=== PATIENT | male | born 1965 | race Hispanic/Latino ===

== ENCOUNTER 2017-10-04 08:47 | Inpatient (IN) | payer BC ==
[2017-10-04 08:48] VITALS: PULSE 65; BMI 57.2
--- NOTE | 2017-10-04 11:07 | C.PDOC ---
History Of Present Illness 52 y/o male with multiple PMHx presents to ED with c/o non healing ulcer for 3 weeks. Patient has tried 2 courses of outpatient antibiotics without success and was sent by PMD for IV antibiotics. Patient denies fever, numbness, chest pain or any other complaints at this time. Time Seen by Provider: 10/04/17 09:20 Chief Complaint (Nursing): Lower Extremity Problem/Injury History Per: Patient History/Exam Limitations: no limitations Onset/Duration Of Symptoms: Days Current Symptoms Are (Timing): Still Present Past Medical History Reviewed: Historical Data, Nursing Documentation, Vital Signs Vital Signs: Last Vital Signs Temp 97.8 F 10/04/17 08:55 Pulse 61 10/04/17 08:55 Resp 18 10/04/17 08:55 BP 167/84 H 10/04/17 08:55 Pulse Ox 95 10/04/17 11:17 - Medical History PMH: Atrial Fibrillation, COPD, HTN, Peripheral Edema, Pneumonia Surgical History: Appendectomy - [facility] Procedures ASSISTANCE WITH RESPIRATORY VENTILATION, <24 HRS, CPAP (04/10/15) DRAINAGE OF R PLEURAL CAV WITH DRAIN DEV, PERC APPROACH (04/10/15) EXTRACTION OF RIGHT PLEURA, PERCUTANEOUS ENDOSCOPIC APPROACH (04/10/15) HOME MANAGEMENT TREATMENT (05/20/15) INSPECTION OF TRACHEOBRONCHIAL TREE, ENDO (04/10/15) INTRODUCE OF OTH THERAP SUBST INTO RESP TRACT, VIA OPENING (05/20/15) THERAPEUTIC EXERCISE TREATMENT OF MUSCULOSK WHOLE (05/20/15) Family History: States: No Known Family Hx - Social History Hx Alcohol Use: No Hx Substance Use: No Review Of Systems Constitutional: Negative for: Fever, Chills Cardiovascular: Negative for: Chest Pain Gastrointestinal: Negative for: Nausea, Vomiting Musculoskeletal: Positive for: Leg Pain (ulcer) Skin: Negative for: Rash Physical Exam - Physical Exam Appears: Non-toxic, No Acute Distress, Other (Morbidly obese) Skin: Warm, Dry, No Rash, Other (Bilateral lower extremities chronic skin changes, darkened scaly skin ) Head: Atraumatic, Normacephalic Eye(s): bilateral: Normal Inspection Oral Mucosa: Moist Neck: Normal ROM, Supple Cardiovascular: Rhythm Regular Respiratory: Normal Breath Sounds, No Rales, No Rhonchi, No Wheezing Gastrointestinal/Abdominal: Soft, No Tenderness, No Guarding, No Rebound Extremity: Calf Tenderness, No Deformity, Other (left lateral calf has 5x4.5cm ulcerated area with mild tenderness and surrounding erythema) Pulses: Left Dorsalis Pedis: Normal, Right Dorsalis Pedis: Normal Neurological/Psych: Oriented x3, Normal Motor, Normal Sensation ED Course And Treatment O2 Sat by Pulse Oximetry: 95 (RA) Pulse Ox Interpretation: Normal Medical Decision Making Medical Decision Making: discussed with podiatry resident and with Dr Wells, to be admitted to Dr Wells for cellulitis with pod and id consult Disposition Discussed With : Lars Wells Doctor Will See Patient In The: Hospital - Disposition Disposition: HOSPITALIZED Disposition Time: 11:12 Condition: GOOD Forms: [facility] (Greek) - Clinical Impression Clinical Impression: Cellulitis of left lower leg, Ulcer of left lower leg - 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 - Scribe Statement The provider has reviewed the documentation as recorded by the Addis[place]tan Shepherd All medical record entries made by the Tala were at my direction and personally dictated by me. I have reviewed the chart and agree that the record accurately reflects my personal performance of the history, physical exam, medical decision making, and the department course for this patient. I have also personally directed, reviewed, and agree with the discharge instructions and disposition.
--- NOTE | 2017-10-04 11:25 | CP.PCM.CON ---
History of Present Illness - History of Present Illness History of Present Illness: 52 y/o male presents to ED with c/o non healing ulcer for 3 weeks. Patient has tried 2 courses of outpatient antibiotics without success and was sent by PMD for IV antibiotics. Patient denies fever, numbness, chest pain or any other complaints at this time. - Medical History PMH: Atrial Fibrillation, COPD, HTN, Peripheral Edema, Pneumonia Denies: Chronic Kidney Disease Surgical History: Appendectomy - [facility] Procedures ASSISTANCE WITH RESPIRATORY VENTILATION, <24 HRS, CPAP (04/10/15) DRAINAGE OF R PLEURAL CAV WITH DRAIN DEV, PERC APPROACH (04/10/15) EXTRACTION OF RIGHT PLEURA, PERCUTANEOUS ENDOSCOPIC APPROACH (04/10/15) HOME MANAGEMENT TREATMENT (05/20/15) INSPECTION OF TRACHEOBRONCHIAL TREE, ENDO (04/10/15) INTRODUCE OF OTH THERAP SUBST INTO RESP TRACT, VIA OPENING (05/20/15) THERAPEUTIC EXERCISE TREATMENT OF MUSCULOSK WHOLE (05/20/15) Review of Systems - Constitutional Constitutional: As Per HPI - EENT Eyes: absent: As Per HPI, Blind Spots, Blurred Vision, Change in Vision, Decreased Night Vision, Diplopia, Discharge, Dry Eye, Exophthalmos, Floaters, Irritation, Itchy Eyes, Loss of Peripheral Vision, Pain, Photophobia, Requires Corrective Lenses, Sees Flashes, Spots in Vision, Tunnel Vision, Other Visual Disturbances, Loss of Vision, Other Ears: absent: As Per HPI, Decreased Hearing, Ear Discharge, Ear Pain, Tinnitus, Abnormal Hearing, Disequilibrium, Dizziness, Other Nose/Mouth/Throat: absent: As Per HPI, Epistaxis, Nasal Congestion, Nasal Discharge, Nasal Obstruction, Nasal Trauma, Nose Pain, Post Nasal Drip, Sinus Pain, Sinus Pressure, Bleeding Gums, Change in Voice, Dental Pain, Dry Mouth, Dysphagia, Halitosis, Hoarsness, Lip Swelling, Mouth Lesions, Mouth Pain, Odynophagia, Sore Throat, Throat Swelling, Tongue Swelling, Facial Pain, Neck Pain, Neck Mass, Other - Cardiovascular Cardiovascular: As Per HPI - Respiratory Respiratory: absent: As Per HPI, Cough, Dyspnea, Hemoptysis, Dyspnea on Exertion , Wheezing, Snoring, Stridor, Pain on Inspiration, Chest Congestion, Excessive Mucous Production, Change in Mucous Color, Pain with Coughing, Other - Gastrointestinal Gastrointestinal: absent: As Per HPI, Abdominal Pain, Belching, Bloating, Change in Bowel Habits, Change in Stool Character, Coffee Ground Emesis, Constipation, Cramping, Diarrhea, Dyspepsia, Dysphagia, Early Satiety, Excessive Flatus, Fecal Incontinence, Heartburn, Hematemesis, Hematochezia, Loose Stools, Melena, Nausea, Odynophagia, Temesmus, Vomiting, Other - Genitourinary Genitourinary: absent: As Per HPI, Change in Urinary Stream, Difficulty Urinating, Dysuria, Flank Pain, Hematuria, Pyuria, Nocturia, Urinary Incontinence, Urinary Frequency, Urinary Hesitance, Urinary Urgency, Voiding Freq/Small Amts, Freq UTI, Hx Renal/Bladder Calculi, Hx /Renal Surgery, Bladder Distension, Other - Musculoskeletal Musculoskeletal: As Per HPI - Integumentary Integumentary: As Per HPI, Skin Pain, Wounds - Neurological Neurological: absent: As Per HPI, Abnormal Gait, Abnormal Hearing, Abnormal Movements, Abnormal Speech, Behavioral Changes, Burning Sensations, Confusion, Convulsions, Disequilibrium, Dizziness, Numbness, Focal Weakness, Frequent Falls , Headaches, Lack of Coordination, Loss of Vision, Memory Loss, Paresthesias, Radicular Pain, Restless Legs, Sensory Deficit, Syncope, Tingling, Tremor, Vertigo, Weakness, Other Visual Disturbances, Other - Psychiatric Psychiatric: absent: As Per HPI, Abnormal Sleep Pattern, Anhedonia, Anxiety, Auditory Hallucinations, Behavioral Changes, Change in Appetite, Change in Libido, Confusion, Depression, Difficulty Concentrating, Hallucinations, Homicidal Ideation, Hopelessness, Irritability, Memory Loss, Mood Swings, Panic Attacks, Paranoia, Suicidal Ideation, Visual Hallucinations, Tactile Hallucinations, Other - Endocrine Endocrine: absent: As Per HPI, Change in Body Appearance, Change in Libido, Cold Intolorance, Deepening of Voice, Excessive Sweating, Fatigue, Flushing, Heat Intolorance, Increase in Ring/Shoe/Hat Size, Palpitations, Polydipsia, Polyphagia, Polyuria, Other - Hematologic/Lymphatic Hematologic: absent: As Per HPI, Easy Bleeding, Easy Bruising, Lymphadenopathy, Other Past Patient History - Infectious Disease Hx of Infectious Diseases: None - Past Medical History & Family History Past Medical History?: No - Past Social History Smoking Status: Former Smoker - CARDIAC Hx Atrial Fibrillation: Yes Hx Hypertension: Yes Hx Peripheral Edema: Yes - PULMONARY Hx Chronic Obstructive Pulmonary Disease (COPD): Yes Hx Pneumonia: Yes - NEUROLOGICAL Hx Neurological Disorder: No - HEENT Hx HEENT Problems: No - RENAL Hx Chronic Kidney Disease: No - ENDOCRINE/METABOLIC Hx Endocrine Disorders: No - HEMATOLOGICAL/ONCOLOGICAL Hx Blood Disorders: No - INTEGUMENTARY Hx Dermatological Problems: No - MUSCULOSKELETAL/RHEUMATOLOGICAL Hx Musculoskeletal Disorders: Yes Hx Falls: No Hx Unsteady Gait: Yes - GASTROINTESTINAL Hx Gastrointestinal Disorders: No - GENITOURINARY/GYNECOLOGICAL Hx Genitourinary Disorders: No - PSYCHIATRIC Hx Substance Use: No - SURGICAL HISTORY Hx Appendectomy: Yes - ANESTHESIA Hx Anesthesia: Yes Hx Anesthesia Reactions: No Hx Malignant Hyperthermia: No Meds Allergies/Adverse Reactions: Allergies Allergy/AdvReac Type Severity Reaction Status Date / Time No Known Allergies Allergy Verified 05/21/15 01:56 Physical Exam - Constitutional Appears: Non-toxic, Chronically Ill - Head Exam Head Exam: NORMOCEPHALIC - Eye Exam Eye Exam: PERRL - ENT Exam ENT Exam: Mucous Membranes Dry - Neck Exam Neck exam: Negative for: Lymphadenopathy - Respiratory Exam Respiratory Exam: Decreased Breath Sounds - Cardiovascular Exam Cardiovascular Exam: REGULAR RHYTHM - GI/Abdominal Exam GI & Abdominal Exam: Diminished Bowel Sounds - Rectal Exam Rectal Exam: Deferred - Exam Exam: NORMAL INSPECTION - Extremities Exam Extremities exam: Positive for: pedal edema, tenderness, pedal pulses present. Negative for: calf tenderness - Back Exam Back exam: absent: CVA tenderness (L), CVA tenderness (R) - Neurological Exam Neurological exam: Alert, CN II-XII Intact, Oriented x3, Reflexes Normal - Psychiatric Exam Psychiatric exam: Normal Mood - Skin Skin Exam: Dry Results - Vital Signs Recent Vital Signs: Last Vital Signs Temp 97.8 F 10/04/17 08:55 Pulse 61 10/04/17 08:55 Resp 18 10/04/17 08:55 BP 167/84 H 10/04/17 08:55 Pulse Ox 95 10/04/17 11:23 - Labs Result Diagrams: 10/04/17 11:35 10/04/17 11:35 Assessment & Plan (1) Cellulitis of left lower leg Status: Acute (2) Ulcer of left lower leg Status: Acute - Assessment and Plan (Free Text) Assessment: await cultures iv antibiotics ordered
[2017-10-04 11:42] LABS: BASO % 0.6 % (0.0-2.0); EOS # 0.1 K/uL (0.0-0.7); EOS % 1.3 % (0.0-4.0); HEMOGLOBIN 13.3 g/dL (12.0-18.0); LYMPH # 1.3 K/uL (1.0-4.3); LYMPH % 27.4 % (20.0-40.0); MEAN CELL VOLUME 88.2 fL (80.0-94.0); MEAN CORPUSCULAR HEMOGLOBIN 29.4 pg (27.0-31.0); MEAN CORPUSCULAR HGB CONC 33.4 g/dL (33.0-37.0); MEAN PLATELET VOLUME 8.6 fL (7.2-11.7); MONO # 0.3 K/uL (0.0-0.8); MONO % 6.9 % (0.0-10.0); NEUT # 2.9 K/uL (1.8-7.0); NEUT % 63.8 % (50.0-75.0); NRBC % 0.1 % (0.0-2.0); RBC 4.5 Mil/uL (4.40-5.90); RED CELL DISTRIBUTION WIDTH 15.5 % (11.5-14.5); WHITE BLOOD COUNT 4.6 K/uL (4.8-10.8)
[2017-10-04 12:01] LABS: ALB/GLOB RATIO 1.3 (1.0-2.1); ALBUMIN 3.9 g/dL (3.5-5.0); ALT/SGPT 38 U/L (21-72); AST/SGOT 31 U/L (17-59); BLOOD UREA NITROGEN 15 mg/dL (9-20); CALCIUM 8.3 mg/dl (8.6-10.4); GFR AFRICAN-AMERICAN > 60; GFR NON-AFRICAN AMERICAN > 60
[2017-10-04] MEDS: Piperacill/Tazo 3.375gm in Dex 3.375 GM/50 ML BAG IVPB SCH ×2 (13:15→21:24)
[2017-10-04] MEDS ORDERED: Piperacillin/Tazobact 3.375 gm 100 ML IVPB ONE (13:22)
--- NOTE | 2017-10-04 16:50 | CP.PCM.CON ---
<Evans Giraldo - Last Filed: 10/04/17 16:58> History of Present Illness - History of Present Illness History of Present Illness: 52 year old male pt of Christin Servin seen at bedside concerning left leg redness and swelling with open ulceration. PT is well know to attending Dr. Servin who sent him for evaluation s/p left leg infection. Pt denies any acute overnight events. Unna boot dressing in place and he notes since yesterday with increased redness and swelling the Unna's boot has become extremely constrictive and moderately painful. He deneis f/c/cp/sob.n/v/d. PMH: Atrial Fibrillation, COPD, HTN, Peripheral Edema, Pneumonia SHx Appendectomy All: NKDA Review of Systems - Review of Systems All systems: reviewed and no additional remarkable complaints except Past Patient History - Infectious Disease Hx of Infectious Diseases: None - Past Medical History & Family History Past Medical History?: No - Past Social History Smoking Status: Former Smoker - CARDIAC Hx Atrial Fibrillation: Yes Hx Hypertension: Yes Hx Peripheral Edema: Yes - PULMONARY Hx Chronic Obstructive Pulmonary Disease (COPD): Yes Hx Pneumonia: Yes - NEUROLOGICAL Hx Neurological Disorder: No - HEENT Hx HEENT Problems: No - RENAL Hx Chronic Kidney Disease: No - ENDOCRINE/METABOLIC Hx Endocrine Disorders: No - HEMATOLOGICAL/ONCOLOGICAL Hx Blood Disorders: No - INTEGUMENTARY Hx Dermatological Problems: No - MUSCULOSKELETAL/RHEUMATOLOGICAL Hx Musculoskeletal Disorders: Yes Hx Falls: No Hx Unsteady Gait: Yes - GASTROINTESTINAL Hx Gastrointestinal Disorders: No - GENITOURINARY/GYNECOLOGICAL Hx Genitourinary Disorders: No - PSYCHIATRIC Hx Substance Use: No - SURGICAL HISTORY Hx Appendectomy: Yes - ANESTHESIA Hx Anesthesia: Yes Hx Anesthesia Reactions: No Hx Malignant Hyperthermia: No Meds Allergies/Adverse Reactions: Allergies Allergy/AdvReac Type Severity Reaction Status Date / Time No Known Allergies Allergy Verified 05/21/15 01:56 - Medications Medications: Current Medications Piperacillin Sod/Tazobactam Sod (Zosyn 3.375 Gm Iv Premix) 3.375 gm in 50 mls @ 100 mls/hr IVPB Q8H ANISH PRN Reason: Protocol Last Admin: 10/04/17 13:15 Dose: 100 mls/hr Physical Exam - Constitutional Appears: Well, Non-toxic, No Acute Distress - Extremities Exam Additional comments: Neuro-vascular status intact. DERM Left left partial thickness ulceration measuring 5 x 4.5 cm with fibrogranular base. No tunneling, undermining, or disceranble mal-odor. Astrid wound proximal margin non-blanchable streaking erythema noted absent soft tissue crepitus and induration. Significant lower extremity lymphedema noted, greater proximal to knee joints bilaterally. Right lid calf level circumferential dis-hydtrodic flaking skin patch edtending to level of ankle joint. Pedal muscle strength graded 5/5 in all 4 major groups. Mild limited ankle joint ROM to dorsiflexion. No gross deformities bilaterally. - Neurological Exam Neurological exam: Alert, Oriented x3 - Psychiatric Exam Psychiatric exam: Normal Affect, Normal Mood Results - Vital Signs Recent Vital Signs: Last Vital Signs Temp 98.2 F 10/04/17 14:57 Pulse 60 10/04/17 14:57 Resp 18 10/04/17 14:57 BP 117/70 10/04/17 14:57 Pulse Ox 96 10/04/17 14:57 - Labs Result Diagrams: 10/04/17 11:35 10/04/17 11:35 Labs: Laboratory Results - last 24 hr 10/04/17 10/04/17 11:35 11:35 WBC 4.6 L RBC 4.50 Hgb 13.3 Hct 39.7 MCV 88.2 MCH 29.4 MCHC 33.4 RDW 15.5 H Plt Count 170 MPV 8.6 Neut % (Auto) 63.8 Lymph % (Auto) 27.4 Rhea % (Auto) 6.9 Eos % (Auto) 1.3 Baso % (Auto) 0.6 Neut # (Auto) 2.9 Lymph # (Auto) 1.3 Rhea # (Auto) 0.3 Eos # (Auto) 0.1 Baso # (Auto) 0.0 Sodium 142 Potassium 4.0 Chloride 101 Carbon Dioxide 30 Anion Gap 14 BUN 15 Creatinine 0.8 Est GFR ( Amer) > 60 Est GFR (Non-Af Amer) > 60 Random Glucose 109 Calcium 8.3 L Total Bilirubin 0.7 AST 31 ALT 38 Alkaline Phosphatase 52 Total Protein 6.8 Albumin 3.9 Globulin 3.0 Albumin/Globulin Ratio 1.3 Assessment & Plan - Assessment and Plan (Free Text) Assessment: 52 year old male with left lateral leg ulcer and lympangitis and lymphedema Plan: Pt seen and evalauted. Discussed with Dr. Servin. Chart, labs, and vitals reviewed. Intervention. Local wound care Cleansed site with sterle saling. Wound Culture taken. Dressed site with Betadine, telfa, DSD. Bactroban ordered. IV abx per ID recommendations Podiatry will continue to follow while inhouse. - Date & Time Date: 10/04/17 Time: 10:00 <Giorgio Servin - Last Filed: 10/04/17 21:22> Meds - Medications Medications: Current Medications Furosemide (Lasix) 40 mg PO HS ANISH Piperacillin Sod/Tazobactam Sod (Zosyn 3.375 Gm Iv Premix) 3.375 gm in 50 mls @ 100 mls/hr IVPB Q8H ANISH PRN Reason: Protocol Last Admin: 10/04/17 13:15 Dose: 100 mls/hr Mupirocin (Bactroban Ointment) 1 gm TOP DAILY ANISH Nebivolol (Bystolic) 5 mg PO HS ANISH Pneumococcal Polyvalent Vaccine (Pneumovax 23 Vaccine) 0.5 ml IM .ONCE ONE Stop: 10/06/17 10:01 Rivaroxaban (Xarelto) 20 mg PO HS ANISH Results - Vital Signs Recent Vital Signs: Last Vital Signs Temp 98.4 F 10/04/17 17:02 Pulse 56 L 10/04/17 17:02 Resp 20 10/04/17 17:02 BP 122/56 L 10/04/17 17:02 Pulse Ox 95 10/04/17 19:09 - Labs Result Diagrams: 10/04/17 11:35 10/04/17 11:35 Labs: Laboratory Results - last 24 hr 10/04/17 10/04/17 11:35 11:35 WBC 4.6 L RBC 4.50 Hgb 13.3 Hct 39.7 MCV 88.2 MCH 29.4 MCHC 33.4 RDW 15.5 H Plt Count 170 MPV 8.6 Neut % (Auto) 63.8 Lymph % (Auto) 27.4 Rhea % (Auto) 6.9 Eos % (Auto) 1.3 Baso % (Auto) 0.6 Neut # (Auto) 2.9 Lymph # (Auto) 1.3 Rhea # (Auto) 0.3 Eos # (Auto) 0.1 Baso # (Auto) 0.0 Sodium 142 Potassium 4.0 Chloride 101 Carbon Dioxide 30 Anion Gap 14 BUN 15 Creatinine 0.8 Est GFR ( Amer) > 60 Est GFR (Non-Af Amer) > 60 Random Glucose 109 Calcium 8.3 L Total Bilirubin 0.7 AST 31 ALT 38 Alkaline Phosphatase 52 Total Protein 6.8 Albumin 3.9 Globulin 3.0 Albumin/Globulin Ratio 1.3 Assessment & Plan - Assessment and Plan (Free Text) Plan: as above /labs and chart reviewed . will follow daily as inpatient /Dr Kang Servin
--- NOTE | 2017-10-04 23:19 | HP ---
HISTORY OF PRESENT ILLNESS: This is a 52-year-old gentleman was brought in with a history of non-healing ulcer on the left ankle for past 3 weeks. The patient has been seen in followup by Dr. Servin and been given antibiotic without much improvement, subsequently was admitted. The patient has had a history of morbid obesity, weighing more than 400 pounds. The patient also has a history of hypertension, history of pleural effusion, to my recollection, he had a pulmonary emboli in the past and paroxysmal atrial fibrillation. At home, he is maintained on amiodarone 200 mg p.o. 1 a day, Wednesday to Wednesday. He is on Bystolic 5 mg p.o. once a day and Xarelto 20 mg p.o. once a day and Lasix 40 mg p.o. 1 a day. He is also on CPAP. He is on home oxygen 16/11. He was in his and has boots on the left leg for more than a year, subsequently the boot was removed, the edema went down; however, for past 3 weeks he had developed ulcer, 3 cm which is non-healing. He was given prescription for antibiotic with a local treatment without improvement. PERSONAL HISTORY: Does not smoke. Does not drink. ALLERGIES: DENIED. FAMILY HISTORY: Father had a history of coronary artery disease, CABG in his 60s, also was hypertensive. REVIEW OF SYSTEMS: CONSTITUTIONAL: Generalized weakness is noted. Increasing shortness of breath and fatigue with dyspnea on exertion. HEENT: No headaches, no visual disturbances. NECK: No swollen glands in the neck. No enlarged thyroid. PULMONARY: Positive for shortness of breath and wheezing. No hemoptysis. CARDIAC: Denies any chest pains. Shortness of breath on minimal exertion. Increasing edema. History of hypertension, paroxysmal AFib, but denies any palpitations and no recurrence of AFib for past more than a year. GI: Negative for abdominal pain, hematemesis or melena. : Negative for dysuria or hematuria. MUSCULOSKELETAL: History of both the hip joint pains, knee pains. PERIPHERAL VASCULAR SYSTEM: The patient has varicose vein. NEUROLOGICAL: Denies any dizziness or syncope. PSYCHIATRIC: No evidence of depression. PHYSICAL EXAMINATION: GENERAL: Middle-aged morbidly obese gentleman, in no acute distress. VITAL SIGNS: His blood pressure is 130/70, heart rate of 68 regular, respiratory rate of 24, temperature of 97 . HEENT: Head is normocephalic. Eyes, no pallor, no icterus. Moth has no exudates. NECK: Supple. LUNGS: Clear to auscultation bilaterally. HEART: PMI is not localized. Heart sounds are distant but no definite gallops or murmurs. ABDOMEN: Distended. No definite organomegaly. EXTREMITIES: 3 to 4+ nonpitting edema with changes of chronic venous insufficiency seen all over both the lower extremities. The patient's ulcer on the left ankle has a dressing on. MUSCULOSKELETAL SYSTEM: Osteoarthritis of both the knees. NEUROLOGIC: Awake, alert and oriented x3. No focal signs. DIAGNOSTICS: EKG is not available. LABORATORY DATA: CBC and chemistries are unremarkable. ASSESSMENT: A middle-aged male with a history of morbid obesity, chronic obstructive pulmonary disease, history of paroxysmal atrial fibrillation and history of possible pulmonary embolism in the past has presented with a non-healing ulcer on the left ankle. PLAN: At this time is to continue with an IV antibiotic, ID consultation Dr. Hewitt and will follow up. May need to discontinue amiodarone and Xarelto and will observe him. This will be done after initial cardiac evaluation. Lars Wells MD
[2017-10-05] MEDS: Piperacill/Tazo 3.375gm in Dex 3.375 GM/50 ML BAG IVPB SCH ×3 (04:39→21:18)
--- NOTE | 2017-10-05 12:15 | CP.PCM.PN ---
<Evans Giraldo - Last Filed: 10/05/17 12:12> Subjective - Date & Time of Evaluation Date of Evaluation: 10/05/17 Time of Evaluation: 08:30 - Subjective Subjective: Podiatry Progress Note- Dr. Servin. 52 year old male seen at bedside concerning left leg wound and swelling. Pt reports dressing was disturbed overnight. Pt reports 4/10 pain to the lower extremity this visit as he is seated in dependent position. Otherwise he reports no continuous pain. Pt denies any acute overnight events. He denies f/c/ cp/sob.n/v/d. Objective - Vital Signs/Intake and Output Vital Signs (last 24 hours): Temp Pulse Resp BP Pulse Ox 97.4 F L 52 L 20 119/66 97 10/05/17 08:19 10/05/17 08:19 10/05/17 08:19 10/05/17 08:19 10/05/17 08:19 - Medications Medications: Current Medications Furosemide (Lasix) 40 mg PO [facility] Last Admin: 10/04/17 21:24 Dose: 40 mg Piperacillin Sod/Tazobactam Sod (Zosyn 3.375 Gm Iv Premix) 3.375 gm in 50 mls @ 100 mls/hr IVPB Q8H [facility] PRN Reason: Protocol Last Admin: 10/05/17 04:39 Dose: 100 mls/hr Mupirocin (Bactroban Ointment) 1 gm TOP DAILY [facility] Last Admin: 10/05/17 09:45 Dose: 1 gm Nebivolol (Bystolic) 5 mg PO [facility] Last Admin: 10/04/17 21:24 Dose: 5 mg Pneumococcal Polyvalent Vaccine (Pneumovax 23 Vaccine) 0.5 ml IM .ONCE ONE Stop: 10/06/17 10:01 Rivaroxaban (Xarelto) 20 mg PO [facility] Last Admin: 10/04/17 21:23 Dose: 20 mg - Labs Labs: 10/04/17 11:35 10/04/17 11:35 - Constitutional Appears: Well, Non-toxic, No Acute Distress - Extremities Exam Additional comments: Left lower extremity focused. Dressing clean, dry, and disheveled. Neuro-vascular status intact. DERM Left left partial thickness ulceration measuring 5 x 4.5 cm with granular base. No tunneling, undermining, or disceranble mal-odor. Astrid wound proximal margin non-blanchable streaking erythema noted absent soft tissue crepitus and induration. Significant lower extremity lymphedema noted, greater proximal to knee joints bilaterally. Right lid calf level circumferential dis-hydtrodic flaking skin patch edtending to level of ankle joint. Pedal muscle strength graded 5/5 in all 4 major groups. Mild limited ankle joint ROM to dorsiflexion. No gross deformities bilaterally. - Neurological Exam Neurological Exam: Alert, Awake, Oriented x3 - Psychiatric Exam Psychiatric exam: Normal Affect, Normal Mood Assessment and Plan - Assessment and Plan (Free Text) Assessment: 52 year old male with left lateral leg ulcer and lympangitis and lymphedema Plan: Pt seen and evaluated with attending, rosa Ivory. Chart, labs, and vitals reviewed. Podiatry Intervention: Local wound care Cleansed site with sterile saline. Dressed site with Bactroban, xeroform, DSD and bilateral full lower leg JESSICA. Wound Culture results- pending. IV abx per ID recommendations PT to avoid dependent position. Elevate lower extrmeity as tolerated. Podiatry will continue to follow while inhouse. <Giorgio Servin - Last Filed: 10/05/17 21:09> Objective - Vital Signs/Intake and Output Vital Signs (last 24 hours): Temp Pulse Resp BP Pulse Ox 97.6 F 55 L 20 111/63 96 10/05/17 15:05 10/05/17 15:05 10/05/17 15:05 10/05/17 15:05 10/05/17 15:05 - Medications Medications: Current Medications Furosemide (Lasix) 40 mg PO [facility] Last Admin: 10/04/17 21:24 Dose: 40 mg Piperacillin Sod/Tazobactam Sod (Zosyn 3.375 Gm Iv Premix) 3.375 gm in 50 mls @ 100 mls/hr IVPB Q8H [facility] PRN Reason: Protocol Last Admin: 10/05/17 12:20 Dose: 100 mls/hr Mupirocin (Bactroban Ointment) 1 gm TOP DAILY [facility] Last Admin: 10/05/17 09:45 Dose: 1 gm Nebivolol (Bystolic) 5 mg PO [facility] Last Admin: 10/04/17 21:24 Dose: 5 mg Pneumococcal Polyvalent Vaccine (Pneumovax 23 Vaccine) 0.5 ml IM .ONCE ONE Stop: 10/06/17 10:01 Rivaroxaban (Xarelto) 20 mg PO HS [facility] Last Admin: 10/04/17 21:23 Dose: 20 mg - Labs Labs: 10/04/17 11:35 10/04/17 11:35 Assessment and Plan - Assessment and Plan (Free Text) Plan: Pt seen at bedside today . labs and chart reviewed . less Malodor noted today . Wound redressed . Continue antibiotics as per Dr Hewitt ./DR SERVIN
--- NOTE | 2017-10-05 12:49 | CP.PCM.PN ---
Subjective - Date & Time of Evaluation Date of Evaluation: 10/05/17 Time of Evaluation: 12:48 - Subjective Subjective: better.holter on. Objective - Vital Signs/Intake and Output Vital Signs (last 24 hours): Temp Pulse Resp BP Pulse Ox 97.4 F L 52 L 20 119/66 97 10/05/17 08:19 10/05/17 08:19 10/05/17 08:19 10/05/17 08:19 10/05/17 08:19 - Medications Medications: Current Medications Furosemide (Lasix) 40 mg PO [facility] Last Admin: 10/04/17 21:24 Dose: 40 mg Piperacillin Sod/Tazobactam Sod (Zosyn 3.375 Gm Iv Premix) 3.375 gm in 50 mls @ 100 mls/hr IVPB Q8H [facility] PRN Reason: Protocol Last Admin: 10/05/17 12:20 Dose: 100 mls/hr Mupirocin (Bactroban Ointment) 1 gm TOP DAILY [facility] Last Admin: 10/05/17 09:45 Dose: 1 gm Nebivolol (Bystolic) 5 mg PO [facility] Last Admin: 10/04/17 21:24 Dose: 5 mg Pneumococcal Polyvalent Vaccine (Pneumovax 23 Vaccine) 0.5 ml IM .ONCE ONE Stop: 10/06/17 10:01 Rivaroxaban (Xarelto) 20 mg PO [facility] Last Admin: 10/04/17 21:23 Dose: 20 mg - Labs Labs: 10/04/17 11:35 10/04/17 11:35 - Constitutional Appears: No Acute Distress - Head Exam Head Exam: NORMOCEPHALIC - Eye Exam Eye Exam: Normal appearance - ENT Exam ENT Exam: Normal Exam - Respiratory Exam Respiratory Exam: Clear to Ausculation Bilateral - Cardiovascular Exam Cardiovascular Exam: REGULAR RHYTHM - GI/Abdominal Exam GI & Abdominal Exam: Soft - Extremities Exam Extremities Exam: Pedal Edema - Neurological Exam Neurological Exam: Alert, Oriented x3 Assessment and Plan - Assessment and Plan (Free Text) Assessment: ct iv antibiotics.amio on hold.check holter.
[2017-10-06] MEDS: Piperacill/Tazo 3.375gm in Dex 3.375 GM/50 ML BAG IVPB SCH ×3 (05:39→21:55)
[2017-10-06] MEDS ORDERED: Pneumococcal 23-Valent Vaccine IM ONE (10:00)
--- NOTE | 2017-10-06 18:13 | CP.PCM.PN ---
Subjective - Date & Time of Evaluation Date of Evaluation: 10/05/17 Time of Evaluation: 07:00 - Subjective Subjective: seen on rounds orders written Objective - Vital Signs/Intake and Output Vital Signs (last 24 hours): Temp Pulse Resp BP Pulse Ox 98.2 F 58 L 20 110/68 97 10/06/17 15:05 10/06/17 15:05 10/06/17 15:05 10/06/17 15:05 10/06/17 15:05 - Medications Medications: Current Medications Furosemide (Lasix) 40 mg PO [facility] Last Admin: 10/05/17 21:18 Dose: 40 mg Piperacillin Sod/Tazobactam Sod (Zosyn 3.375 Gm Iv Premix) 3.375 gm in 50 mls @ 100 mls/hr IVPB Q8H [facility] PRN Reason: Protocol Last Admin: 10/06/17 13:30 Dose: 100 mls/hr Mupirocin (Bactroban Ointment) 1 gm TOP DAILY [facility] Last Admin: 10/06/17 10:00 Dose: Not Given Nebivolol (Bystolic) 5 mg PO [facility] Last Admin: 10/05/17 21:18 Dose: 5 mg Rivaroxaban (Xarelto) 20 mg PO [facility] Last Admin: 10/05/17 21:18 Dose: 20 mg - Labs Labs: 10/04/17 11:35 10/04/17 11:35 - Constitutional Appears: Non-toxic, Chronically Ill - Head Exam Head Exam: NORMOCEPHALIC - Eye Exam Eye Exam: PERRL - ENT Exam ENT Exam: Mucous Membranes Dry - Neck Exam Neck Exam: absent: Lymphadenopathy - Respiratory Exam Respiratory Exam: Decreased Breath Sounds - Cardiovascular Exam Cardiovascular Exam: REGULAR RHYTHM - GI/Abdominal Exam GI & Abdominal Exam: Distended - Rectal Exam Rectal Exam: Deferred - Exam Exam: NORMAL INSPECTION Assessment and Plan (1) Cellulitis of left lower leg Status: Acute (2) Ulcer of left lower leg Status: Acute
--- NOTE | 2017-10-06 18:15 | CP.PCM.PN ---
Subjective - Date & Time of Evaluation Date of Evaluation: 10/06/17 Time of Evaluation: 16:00 - Subjective Subjective: c/o pain swelling + tenderness + left leg Objective - Vital Signs/Intake and Output Vital Signs (last 24 hours): Temp Pulse Resp BP Pulse Ox 98.2 F 58 L 20 110/68 97 10/06/17 15:05 10/06/17 15:05 10/06/17 15:05 10/06/17 15:05 10/06/17 15:05 - Medications Medications: Current Medications Furosemide (Lasix) 40 mg PO [facility] Last Admin: 10/05/17 21:18 Dose: 40 mg Piperacillin Sod/Tazobactam Sod (Zosyn 3.375 Gm Iv Premix) 3.375 gm in 50 mls @ 100 mls/hr IVPB Q8H [facility] PRN Reason: Protocol Last Admin: 10/06/17 13:30 Dose: 100 mls/hr Mupirocin (Bactroban Ointment) 1 gm TOP DAILY [facility] Last Admin: 10/06/17 10:00 Dose: Not Given Nebivolol (Bystolic) 5 mg PO [facility] Last Admin: 10/05/17 21:18 Dose: 5 mg Rivaroxaban (Xarelto) 20 mg PO [facility] Last Admin: 10/05/17 21:18 Dose: 20 mg - Labs Labs: 10/04/17 11:35 10/04/17 11:35 - Constitutional Appears: Non-toxic, Chronically Ill - Head Exam Head Exam: NORMOCEPHALIC - Eye Exam Eye Exam: absent: Scleral icterus - ENT Exam ENT Exam: Mucous Membranes Dry - Neck Exam Neck Exam: absent: Lymphadenopathy - Respiratory Exam Respiratory Exam: Decreased Breath Sounds - Cardiovascular Exam Cardiovascular Exam: REGULAR RHYTHM - GI/Abdominal Exam GI & Abdominal Exam: Distended - Rectal Exam Rectal Exam: Deferred - Exam Exam: NORMAL INSPECTION - Extremities Exam Extremities Exam: absent: Pedal Edema - Back Exam Back Exam: absent: CVA tenderness (L), CVA tenderness (R) - Neurological Exam Neurological Exam: Alert, Awake, Oriented x3 - Psychiatric Exam Psychiatric exam: Normal Mood - Skin Skin Exam: Dry Additional comments: large circumferential ulcer left leg posteriorly and laterally + cellulitis Assessment and Plan (1) Cellulitis of left lower leg Status: Acute (2) Ulcer of left lower leg Status: Acute - Assessment and Plan (Free Text) Assessment: cont iv antibiotics and wound care elevation may need OR debridement
--- NOTE | 2017-10-06 21:43 | CP.PCM.PN ---
Subjective - Date & Time of Evaluation Date of Evaluation: 10/06/17 Time of Evaluation: 21:42 - Subjective Subjective: pain in wound,seen by id. Objective - Vital Signs/Intake and Output Vital Signs (last 24 hours): Temp Pulse Resp BP Pulse Ox 98.2 F 58 L 20 110/68 97 10/06/17 15:05 10/06/17 15:05 10/06/17 15:05 10/06/17 15:05 10/06/17 15:05 - Medications Medications: Current Medications Furosemide (Lasix) 40 mg PO HS [facility] Last Admin: 10/05/17 21:18 Dose: 40 mg Piperacillin Sod/Tazobactam Sod (Zosyn 3.375 Gm Iv Premix) 3.375 gm in 50 mls @ 100 mls/hr IVPB Q8H [facility] PRN Reason: Protocol Last Admin: 10/06/17 13:30 Dose: 100 mls/hr Vancomycin/Sodium Chloride (Vancomycin 1 Gm/Ns 200 Ml) 1 gm in 200 mls @ 133 mls/hr IVPB Q12H [facility] PRN Reason: Protocol Stop: 10/11/17 19:01 Mupirocin (Bactroban Ointment) 1 gm TOP DAILY [facility] Last Admin: 10/06/17 10:00 Dose: Not Given Nebivolol (Bystolic) 5 mg PO [facility] Last Admin: 10/05/17 21:18 Dose: 5 mg Rivaroxaban (Xarelto) 20 mg PO [facility] Last Admin: 10/05/17 21:18 Dose: 20 mg - Labs Labs: 10/04/17 11:35 10/04/17 11:35 - Constitutional Appears: No Acute Distress - Head Exam Head Exam: NORMOCEPHALIC - Eye Exam Eye Exam: Normal appearance - Neck Exam Neck Exam: Normal Inspection - Respiratory Exam Respiratory Exam: Clear to Ausculation Bilateral - Cardiovascular Exam Cardiovascular Exam: REGULAR RHYTHM - GI/Abdominal Exam GI & Abdominal Exam: Soft - Neurological Exam Neurological Exam: Alert, Oriented x3 Assessment and Plan - Assessment and Plan (Free Text) Assessment: big wound.dressing on.needs to ct antibiotics.
[2017-10-06] MEDS: Vancomycin 1 gm/NS 200 ml 1 GM/200 ML BAG IVPB SCH (21:54)
[2017-10-06] MEDS: Acetaminophen-Codeine 300/30 mg Tab PO PRN (22:05)
[2017-10-07] MEDS: Piperacill/Tazo 3.375gm in Dex 3.375 GM/50 ML BAG IVPB SCH ×3 (05:24→23:37)
[2017-10-07] MEDS: Vancomycin 1 gm/NS 200 ml 1 GM/200 ML BAG IVPB SCH ×2 (06:40→23:36)
--- NOTE | 2017-10-07 14:40 | CP.PCM.PN ---
Subjective - Date & Time of Evaluation Date of Evaluation: 10/07/17 Time of Evaluation: 09:00 - Subjective Subjective: Podiatry Progress Note- Dr. Servin. 52 year old male seen at bedside concerning left leg wound and swelling. Pt reports dressing was disturbed overnight. Pt reports no pain to the lower extremity this visit. Pt denies any acute overnight events. He denies f/c/cp/ sob.n/v/d. Objective - Vital Signs/Intake and Output Vital Signs (last 24 hours): Temp Pulse Resp BP Pulse Ox 98.0 F 50 L 20 132/75 95 10/07/17 08:50 10/07/17 08:50 10/07/17 08:50 10/07/17 08:50 10/07/17 08:50 Intake and Output: 10/07/17 10/07/17 06:59 18:59 Intake Total 980 Balance 980 - Medications Medications: Current Medications Acetaminophen/Codeine Phosphate (Tylenol/Codeine 300 Mg/30 Mg) 1 ea PO Q6 PRN PRN Reason: Pain, moderate (4-7) Stop: 10/08/17 23:59 Last Admin: 10/06/17 22:05 Dose: 1 ea Furosemide (Lasix) 40 mg PO HS [facility] Last Admin: 10/06/17 21:55 Dose: 40 mg Piperacillin Sod/Tazobactam Sod (Zosyn 3.375 Gm Iv Premix) 3.375 gm in 50 mls @ 100 mls/hr IVPB Q8H [facility] PRN Reason: Protocol Last Admin: 10/07/17 12:55 Dose: 100 mls/hr Vancomycin/Sodium Chloride (Vancomycin 1 Gm/Ns 200 Ml) 1 gm in 200 mls @ 133 mls/hr IVPB Q12H [facility] PRN Reason: Protocol Stop: 10/11/17 19:01 Last Admin: 10/07/17 06:40 Dose: 133 mls/hr Mupirocin (Bactroban Ointment) 1 gm TOP DAILY [facility] Last Admin: 10/07/17 10:30 Dose: Not Given Nebivolol (Bystolic) 5 mg PO [facility] Last Admin: 10/06/17 21:54 Dose: 5 mg Rivaroxaban (Xarelto) 20 mg PO HS [facility] Last Admin: 10/06/17 21:54 Dose: 20 mg - Labs Labs: 10/04/17 11:35 10/04/17 11:35 - Constitutional Appears: Well, Non-toxic, No Acute Distress - Extremities Exam Additional comments: Left lower extremity focused. Dressing clean, dry, and disheveled. Neuro-vascular status intact. DERM Left left partial thickness ulceration measuring 5 x 4.0 cm with granular base. No tunneling, undermining, or discerable mal-odor. Astrid wound proximal margin non-blanchable streaking erythema noted absent soft tissue crepitus and induration. Significant lower extremity lymphedema noted, greater proximal to knee joints bilaterally. Right lid calf level circumferential dis-hydtrodic flaking skin patch extending to level of ankle joint. Pedal muscle strength graded 5/5 in all 4 major groups. Mild limited ankle joint ROM to dorsiflexion. No gross deformities bilaterally. - Neurological Exam Neurological Exam: Alert, Awake, Normal Gait - Psychiatric Exam Psychiatric exam: Normal Affect, Normal Mood Assessment and Plan - Assessment and Plan (Free Text) Assessment: 52 year old male with left lateral leg ulcer and lympangitis and lymphedema Plan: Pt seen and evaluated with attending, Dr. Servin, present. Chart, labs, and vitals reviewed. Podiatry Intervention: Local wound care Cleansed site with sterile saline. Dressed site with Bactroban, xeroform, DSD and bilateral full lower leg JESSICA. Wound Culture results-Enterobacter Cloacae ssp, enterococcus faecalis IV abx per ID recommendations Pt to avoid dependent position. Elevate lower extremity as tolerated. Podiatry will continue to follow while inhouse.
--- NOTE | 2017-10-07 18:00 | CP.PCM.PN ---
Subjective - Date & Time of Evaluation Date of Evaluation: 10/07/17 Time of Evaluation: 07:00 - Subjective Subjective: denies fever c/o pain in LLE- like stabbing sensation weak and generally bedridden Objective - Vital Signs/Intake and Output Vital Signs (last 24 hours): Temp Pulse Resp BP Pulse Ox 97.5 F L 53 L 20 115/66 95 10/07/17 15:40 10/07/17 15:40 10/07/17 15:40 10/07/17 15:40 10/07/17 15:40 Intake and Output: 10/07/17 10/07/17 06:59 18:59 Intake Total 980 Balance 980 - Medications Medications: Current Medications Acetaminophen/Codeine Phosphate (Tylenol/Codeine 300 Mg/30 Mg) 1 ea PO Q6 PRN PRN Reason: Pain, moderate (4-7) Stop: 10/08/17 23:59 Last Admin: 10/06/17 22:05 Dose: 1 ea Furosemide (Lasix) 40 mg PO HS [facility] Last Admin: 10/06/17 21:55 Dose: 40 mg Piperacillin Sod/Tazobactam Sod (Zosyn 3.375 Gm Iv Premix) 3.375 gm in 50 mls @ 100 mls/hr IVPB Q8H [facility] PRN Reason: Protocol Last Admin: 10/07/17 12:55 Dose: 100 mls/hr Vancomycin/Sodium Chloride (Vancomycin 1 Gm/Ns 200 Ml) 1 gm in 200 mls @ 133 mls/hr IVPB Q12H [facility] PRN Reason: Protocol Stop: 10/11/17 19:01 Last Admin: 10/07/17 06:40 Dose: 133 mls/hr Mupirocin (Bactroban Ointment) 1 gm TOP DAILY [facility] Last Admin: 10/07/17 10:30 Dose: Not Given Nebivolol (Bystolic) 5 mg PO HS [facility] Last Admin: 10/06/17 21:54 Dose: 5 mg Rivaroxaban (Xarelto) 20 mg PO HS [facility] Last Admin: 10/06/17 21:54 Dose: 20 mg - Labs Labs: 10/04/17 11:35 10/04/17 11:35 - Constitutional Appears: Non-toxic, Chronically Ill - Head Exam Head Exam: NORMOCEPHALIC - Eye Exam Eye Exam: PERRL - ENT Exam ENT Exam: Mucous Membranes Dry - Neck Exam Neck Exam: absent: Lymphadenopathy - Respiratory Exam Respiratory Exam: Decreased Breath Sounds - Cardiovascular Exam Cardiovascular Exam: REGULAR RHYTHM - GI/Abdominal Exam GI & Abdominal Exam: Distended - Rectal Exam Rectal Exam: Deferred - Exam Exam: NORMAL INSPECTION - Extremities Exam Extremities Exam: Calf Tenderness, Pedal Edema, Tenderness Additional comments: Left lower extremity focused. Dressing clean, dry, and disheveled. Neuro-vascular status intact. DERM Left left partial thickness ulceration measuring 5 x 4.0 cm with granular base. No tunneling, undermining, or discerable mal-odor. Astrid wound proximal margin non-blanchable streaking erythema noted absent soft tissue crepitus and induration. Significant lower extremity lymphedema noted, greater proximal to knee joints bilaterally. Right lid calf level circumferential dis-hydtrodic flaking skin patch extending to level of ankle joint. Pedal muscle strength graded 5/5 in all 4 major groups. Mild limited ankle joint ROM to dorsiflexion. No gross deformities bilaterally. - Back Exam Back Exam: absent: CVA tenderness (L), CVA tenderness (R) - Neurological Exam Neurological Exam: Alert, Awake, Oriented x3 - Psychiatric Exam Psychiatric exam: Normal Mood - Skin Skin Exam: Dry Assessment and Plan (1) Cellulitis of left lower leg Status: Acute (2) Ulcer of left lower leg Status: Acute - Assessment and Plan (Free Text) Assessment: morbidly obese male with underlying COPD HTN and AFIB is admitted with exac COPD, lymphedema and cellulits with stasis ulcer left leg May have Pulm HTN, hypovantilation syndrome appears deconditioned wound care and IV antibiotics ordered may benefit from [facility]
[2017-10-07] MEDS: Acetaminophen-Codeine 300/30 mg Tab PO PRN (21:32)
[2017-10-08] MEDS: Piperacill/Tazo 3.375gm in Dex 3.375 GM/50 ML BAG IVPB SCH ×3 (05:19→20:22)
[2017-10-08] MEDS: Vancomycin 1 gm/NS 200 ml 1 GM/200 ML BAG IVPB SCH ×2 (06:01→20:21)
--- NOTE | 2017-10-08 12:19 | CP.PCM.PN ---
Subjective - Date & Time of Evaluation Date of Evaluation: 10/08/17 Time of Evaluation: 12:17 - Subjective Subjective: feels ok.pain is better. Objective - Vital Signs/Intake and Output Vital Signs (last 24 hours): Temp Pulse Resp BP Pulse Ox 97.8 F 48 L 20 114/69 94 L 10/08/17 07:00 10/08/17 07:00 10/08/17 07:00 10/08/17 07:00 10/08/17 07:00 Intake and Output: 10/08/17 10/08/17 06:59 18:59 Intake Total 820 Balance 820 - Medications Medications: Current Medications Acetaminophen/Codeine Phosphate (Tylenol/Codeine 300 Mg/30 Mg) 1 ea PO Q6 PRN PRN Reason: Pain, moderate (4-7) Stop: 10/08/17 23:59 Last Admin: 10/07/17 21:32 Dose: 1 ea Furosemide (Lasix) 40 mg PO HS [facility] Last Admin: 10/07/17 21:35 Dose: 40 mg Piperacillin Sod/Tazobactam Sod (Zosyn 3.375 Gm Iv Premix) 3.375 gm in 50 mls @ 100 mls/hr IVPB Q8H [facility] PRN Reason: Protocol Last Admin: 10/08/17 05:19 Dose: 100 mls/hr Vancomycin/Sodium Chloride (Vancomycin 1 Gm/Ns 200 Ml) 1 gm in 200 mls @ 133 mls/hr IVPB Q12H [facility] PRN Reason: Protocol Stop: 10/11/17 19:01 Last Admin: 10/08/17 06:01 Dose: 133 mls/hr Mupirocin (Bactroban Ointment) 1 gm TOP DAILY [facility] Last Admin: 10/07/17 10:30 Dose: Not Given Nebivolol (Bystolic) 5 mg PO HS [facility] Last Admin: 10/07/17 21:35 Dose: 5 mg Rivaroxaban (Xarelto) 20 mg PO HS [facility] Last Admin: 10/07/17 21:35 Dose: 20 mg - Labs Labs: 10/04/17 11:35 10/04/17 11:35 - Constitutional Appears: No Acute Distress - Head Exam Head Exam: NORMOCEPHALIC - ENT Exam ENT Exam: Normal Exam - Neck Exam Neck Exam: Normal Inspection - Respiratory Exam Respiratory Exam: Clear to Ausculation Bilateral - Cardiovascular Exam Cardiovascular Exam: REGULAR RHYTHM - GI/Abdominal Exam GI & Abdominal Exam: Soft - Extremities Exam Extremities Exam: Pedal Edema - Neurological Exam Neurological Exam: Alert, Oriented x3 Assessment and Plan - Assessment and Plan (Free Text) Assessment: wound has dressing on.seen by dr ibanez.wound is gettting better.await holter.
--- NOTE | 2017-10-08 15:30 | CP.PCM.PN ---
Subjective - Date & Time of Evaluation Date of Evaluation: 10/08/17 Time of Evaluation: 09:40 - Subjective Subjective: Podiatry Progress Note- Dr. Servin. 52 year old male seen at bedside concerning left leg wound and swelling. Pt reports continued mild stabbing pain like sensation to the lower extremity this visit, as he has previously been in dependent position prior to arrival. . Pt denies any acute overnight events. He denies f/c/cp/sob.n/v/d. Objective - Vital Signs/Intake and Output Vital Signs (last 24 hours): Temp Pulse Resp BP Pulse Ox 97.8 F 48 L 20 114/69 94 L 10/08/17 07:00 10/08/17 07:00 10/08/17 07:00 10/08/17 07:00 10/08/17 07:00 Intake and Output: 10/08/17 10/08/17 06:59 18:59 Intake Total 820 Balance 820 - Medications Medications: Current Medications Acetaminophen/Codeine Phosphate (Tylenol/Codeine 300 Mg/30 Mg) 1 ea PO Q6 PRN PRN Reason: Pain, moderate (4-7) Stop: 10/08/17 23:59 Last Admin: 10/07/17 21:32 Dose: 1 ea Furosemide (Lasix) 40 mg PO HS [facility] Last Admin: 10/07/17 21:35 Dose: 40 mg Piperacillin Sod/Tazobactam Sod (Zosyn 3.375 Gm Iv Premix) 3.375 gm in 50 mls @ 100 mls/hr IVPB Q8H [facility] PRN Reason: Protocol Last Admin: 10/08/17 12:35 Dose: 100 mls/hr Vancomycin/Sodium Chloride (Vancomycin 1 Gm/Ns 200 Ml) 1 gm in 200 mls @ 133 mls/hr IVPB Q12H [facility] PRN Reason: Protocol Stop: 10/11/17 19:01 Last Admin: 10/08/17 06:01 Dose: 133 mls/hr Mupirocin (Bactroban Ointment) 1 gm TOP DAILY [facility] Last Admin: 10/08/17 10:45 Dose: Not Given Nebivolol (Bystolic) 5 mg PO HS [facility] Last Admin: 10/07/17 21:35 Dose: 5 mg Rivaroxaban (Xarelto) 20 mg PO HS [facility] Last Admin: 10/07/17 21:35 Dose: 20 mg - Labs Labs: 10/04/17 11:35 10/04/17 11:35 - Constitutional Appears: Well, Non-toxic, No Acute Distress - Extremities Exam Additional comments: Left lower extremity focused. Dressing clean, dry, and disheveled. Neuro-vascular status intact. DERM Left left partial thickness ulceration measuring 4.7 x 4.0 cm with granular base. No tunneling, undermining, or discernable mal-odor. No periwound streaking erythema noted at this time. Significant lower extremity lymphedema noted, greater proximal to knee joints bilaterally. Right lid calf level circumferential dis-hydtrodic flaking skin patch extending to level of ankle joint. Pedal muscle strength graded 5/5 in all 4 major groups. Mild limited ankle joint ROM to dorsiflexion. No gross deformities bilaterally. - Neurological Exam Neurological Exam: Alert, Awake, Oriented x3 Assessment and Plan - Assessment and Plan (Free Text) Assessment: 52 year old male with left lateral leg ulcer secondary to lymphedema Plan: Pt seen and evaluated with attending, Dr. Servin, present. Chart, labs, and vitals reviewed. Podiatry Intervention: Local wound care Cleansed site with sterile saline. Dressed site with Bactroban, xeroform, DSD and bilateral full lower leg JESSICA. Wound Culture results-Enterobacter Cloacae ssp, enterococcus faecalis IV abx per ID recommendations Pt to avoid dependent position. Elevate lower extremity as tolerated. Podiatry will continue to follow while inhouse.
--- NOTE | 2017-10-08 18:44 | CP.PCM.PN ---
Subjective - Date & Time of Evaluation Date of Evaluation: 10/08/17 Time of Evaluation: 10:00 - Subjective Subjective: less pain and redness no fever Objective - Vital Signs/Intake and Output Vital Signs (last 24 hours): Temp Pulse Resp BP Pulse Ox 97.9 F 53 L 20 103/64 94 L 10/08/17 15:38 10/08/17 15:38 10/08/17 15:38 10/08/17 15:38 10/08/17 15:38 Intake and Output: 10/08/17 10/08/17 06:59 18:59 Intake Total 820 50 Balance 820 50 - Medications Medications: Current Medications Acetaminophen/Codeine Phosphate (Tylenol/Codeine 300 Mg/30 Mg) 1 ea PO Q6 PRN PRN Reason: Pain, moderate (4-7) Stop: 10/08/17 23:59 Last Admin: 10/07/17 21:32 Dose: 1 ea Furosemide (Lasix) 40 mg PO HS [facility] Last Admin: 10/07/17 21:35 Dose: 40 mg Piperacillin Sod/Tazobactam Sod (Zosyn 3.375 Gm Iv Premix) 3.375 gm in 50 mls @ 100 mls/hr IVPB Q8H [facility] PRN Reason: Protocol Last Admin: 10/08/17 12:35 Dose: 100 mls/hr Vancomycin/Sodium Chloride (Vancomycin 1 Gm/Ns 200 Ml) 1 gm in 200 mls @ 133 mls/hr IVPB Q12H [facility] PRN Reason: Protocol Stop: 10/11/17 19:01 Last Admin: 10/08/17 06:01 Dose: 133 mls/hr Mupirocin (Bactroban Ointment) 1 gm TOP DAILY [facility] Last Admin: 10/08/17 10:45 Dose: Not Given Nebivolol (Bystolic) 5 mg PO HS [facility] Last Admin: 10/07/17 21:35 Dose: 5 mg Rivaroxaban (Xarelto) 20 mg PO HS [facility] Last Admin: 10/07/17 21:35 Dose: 20 mg - Labs Labs: 10/04/17 11:35 10/04/17 11:35 - Constitutional Appears: Non-toxic, Chronically Ill - Head Exam Head Exam: NORMOCEPHALIC - Eye Exam Eye Exam: absent: Scleral icterus - ENT Exam ENT Exam: Mucous Membranes Dry - Neck Exam Neck Exam: absent: Lymphadenopathy - Respiratory Exam Respiratory Exam: Decreased Breath Sounds - Cardiovascular Exam Cardiovascular Exam: REGULAR RHYTHM - GI/Abdominal Exam GI & Abdominal Exam: Distended Assessment and Plan (1) Cellulitis of left lower leg Status: Acute (2) Ulcer of left lower leg Status: Acute - Assessment and Plan (Free Text) Assessment: cont iv rx and wound care
[2017-10-08] MEDS: Acetaminophen-Codeine 300/30 mg Tab PO PRN (21:58)
[2017-10-09] MEDS: Piperacill/Tazo 3.375gm in Dex 3.375 GM/50 ML BAG IVPB SCH ×3 (05:35→20:26)
[2017-10-09] MEDS: Vancomycin 1 gm/NS 200 ml 1 GM/200 ML BAG IVPB SCH ×2 (06:21→18:41)
[2017-10-09 06:43] LABS: BASO % 0.7 % (0.0-2.0); EOS # 0.1 K/uL (0.0-0.7); EOS % 2.7 % (0.0-4.0); HEMOGLOBIN 13.4 g/dL (12.0-18.0); LYMPH # 1.4 K/uL (1.0-4.3); LYMPH % 31.5 % (20.0-40.0); MEAN CELL VOLUME 88.6 fL (80.0-94.0); MEAN CORPUSCULAR HEMOGLOBIN 29.6 pg (27.0-31.0); MEAN CORPUSCULAR HGB CONC 33.4 g/dL (33.0-37.0); MEAN PLATELET VOLUME 8.6 fL (7.2-11.7); MONO # 0.4 K/uL (0.0-0.8); MONO % 9.1 % (0.0-10.0); NEUT # 2.4 K/uL (1.8-7.0); NRBC % 0.1 % (0.0-2.0); RBC 4.55 Mil/uL (4.40-5.90); RED CELL DISTRIBUTION WIDTH 15.3 % (11.5-14.5); WHITE BLOOD COUNT 4.3 K/uL (4.8-10.8)
[2017-10-09 07:06] LABS: ALB/GLOB RATIO 1.1 (1.0-2.1); ALBUMIN 3.7 g/dL (3.5-5.0); GFR AFRICAN-AMERICAN > 60; GFR NON-AFRICAN AMERICAN > 60
[2017-10-09 07:33] LABS: ALT/SGPT 43 U/L (21-72); AST/SGOT 36 U/L (17-59); BLOOD UREA NITROGEN 12 mg/dL (9-20)
--- NOTE | 2017-10-09 12:32 | CP.PCM.PN ---
Subjective - Date & Time of Evaluation Date of Evaluation: 10/09/17 Time of Evaluation: 12:30 - Subjective Subjective: Podiatry Progress Note- Dr. Servin. 52 year old male seen at bedside with attending Dr. Servin concerning left leg wound and swelling. Patient is AAOx3 and appears to be resting comfortably on the chair. Denies of any pain to the legs today. Pt denies any acute overnight events. He denies f/c/cp/sob.n/v/d. no other pedal complains at this time. Objective - Vital Signs/Intake and Output Vital Signs (last 24 hours): Temp Pulse Resp BP Pulse Ox 97.4 F L 50 L 20 114/72 98 10/09/17 07:00 10/09/17 07:00 10/09/17 07:00 10/09/17 07:00 10/09/17 07:00 Intake and Output: 10/09/17 10/09/17 06:59 18:59 Intake Total 570 Balance 570 - Medications Medications: Current Medications Furosemide (Lasix) 40 mg PO HS [facility] Last Admin: 10/08/17 21:52 Dose: 40 mg Vancomycin/Sodium Chloride (Vancomycin 1 Gm/Ns 200 Ml) 1 gm in 200 mls @ 133 mls/hr IVPB Q12H [facility] PRN Reason: Protocol Stop: 10/11/17 19:01 Last Admin: 10/09/17 06:21 Dose: 133 mls/hr Piperacillin Sod/Tazobactam Sod (Zosyn 3.375 Gm Iv Premix) 3.375 gm in 50 mls @ 100 mls/hr IVPB Q8H [facility] PRN Reason: Protocol Last Admin: 10/09/17 05:35 Dose: 100 mls/hr Mupirocin (Bactroban Ointment) 1 gm TOP DAILY [facility] Last Admin: 10/09/17 10:29 Dose: Not Given Nebivolol (Bystolic) 5 mg PO HS [facility] Last Admin: 10/08/17 22:17 Dose: Not Given Rivaroxaban (Xarelto) 20 mg PO HS [facility] Last Admin: 10/08/17 21:52 Dose: 20 mg - Labs Labs: 10/09/17 06:33 10/09/17 06:33 - Constitutional Appears: Well, Non-toxic, No Acute Distress - Extremities Exam Additional comments: Left lower extremity focused. Dressing clean, dry, and disheveled. Neuro-vascular status intact. DERM Left left partial thickness ulceration measuring 4.7 x 4.0 cm with granular base. No tunneling, undermining, or discernable mal-odor. No periwound streaking erythema noted at this time. Significant lower extremity lymphedema noted, greater proximal to knee joints bilaterally. Right lid calf level circumferential dis-hydtrodic flaking skin patch extending to level of ankle joint. Pedal muscle strength graded 5/5 in all 4 major groups. Mild limited ankle joint ROM to dorsiflexion. No gross deformities bilaterally. - Neurological Exam Neurological Exam: Alert, Awake, Oriented x3 - Psychiatric Exam Psychiatric exam: Normal Affect, Normal Mood Assessment and Plan - Assessment and Plan (Free Text) Assessment: 52 year old male with left lateral leg ulcer secondary to lymphedema Plan: Pt seen and evaluated with attending, Dr. Servin, present. Chart, labs, and vitals reviewed. Podiatry Intervention: Local wound care Cleansed site with sterile saline. Dressed site with Bactroban, xeroform, DSD and bilateral full lower leg JESSICA. Wound Culture results-Enterobacter Cloacae ssp, enterococcus faecalis IV abx per ID recommendations Pt to avoid dependent position. Elevate lower extremity as tolerated. Podiatry will continue to follow while inhouse.
--- NOTE | 2017-10-09 19:04 | CP.PCM.PN ---
Subjective - Date & Time of Evaluation Date of Evaluation: 10/09/17 Time of Evaluation: 19:02 - Subjective Subjective: wound healing.off amio.,holter noted.nsr Objective - Vital Signs/Intake and Output Vital Signs (last 24 hours): Temp Pulse Resp BP Pulse Ox 97.9 F 51 L 20 154/78 H 98 10/09/17 16:26 10/09/17 16:26 10/09/17 16:26 10/09/17 16:26 10/09/17 16:26 - Medications Medications: Current Medications Furosemide (Lasix) 40 mg PO [facility] Last Admin: 10/08/17 21:52 Dose: 40 mg Vancomycin/Sodium Chloride (Vancomycin 1 Gm/Ns 200 Ml) 1 gm in 200 mls @ 133 mls/hr IVPB Q12H [facility] PRN Reason: Protocol Stop: 10/11/17 19:01 Last Admin: 10/09/17 18:41 Dose: 133 mls/hr Piperacillin Sod/Tazobactam Sod (Zosyn 3.375 Gm Iv Premix) 3.375 gm in 50 mls @ 100 mls/hr IVPB Q8H [facility] PRN Reason: Protocol Last Admin: 10/09/17 13:00 Dose: 100 mls/hr Mupirocin (Bactroban Ointment) 1 gm TOP DAILY [facility] Last Admin: 10/09/17 10:29 Dose: Not Given Nebivolol (Bystolic) 5 mg PO [facility] Last Admin: 10/08/17 22:17 Dose: Not Given Rivaroxaban (Xarelto) 20 mg PO [facility] Last Admin: 10/08/17 21:52 Dose: 20 mg - Labs Labs: 10/09/17 06:33 10/09/17 06:33 - Constitutional Appears: No Acute Distress - Head Exam Head Exam: NORMOCEPHALIC - Eye Exam Eye Exam: Normal appearance - Neck Exam Neck Exam: Normal Inspection - Respiratory Exam Respiratory Exam: Clear to Ausculation Bilateral - Cardiovascular Exam Cardiovascular Exam: REGULAR RHYTHM - GI/Abdominal Exam GI & Abdominal Exam: Soft - Extremities Exam Extremities Exam: Pedal Edema - Neurological Exam Neurological Exam: Alert, Oriented x3 Assessment and Plan - Assessment and Plan (Free Text) Assessment: ulcer on leg healing.will also d/c xarelto.observe for a,fib/
[2017-10-10] MEDS: Piperacill/Tazo 3.375gm in Dex 3.375 GM/50 ML BAG IVPB SCH ×3 (04:46→20:33)
[2017-10-10] MEDS: Vancomycin 1 gm/NS 200 ml 1 GM/200 ML BAG IVPB SCH ×2 (06:13→18:43)
--- NOTE | 2017-10-10 14:28 | CP.PCM.PN ---
Subjective - Date & Time of Evaluation Date of Evaluation: 10/10/17 Time of Evaluation: 14:26 - Subjective Subjective: Podiatry Progress Note- Dr. Servin. 52 year old male seen at bedside concerning left leg wound and swelling. Patient is AAOx3 and appears to be resting comfortably on the chair. Denies of any pain to the legs today. Pt denies any acute overnight events. He denies f/c/ cp/sob.n/v/d. no other pedal complains at this time. Objective - Vital Signs/Intake and Output Vital Signs (last 24 hours): Temp Pulse Resp BP Pulse Ox 97.3 F L 50 L 20 131/73 94 L 10/10/17 07:00 10/10/17 07:00 10/10/17 07:00 10/10/17 07:00 10/10/17 07:00 - Medications Medications: Current Medications Furosemide (Lasix) 40 mg PO HS [facility] Last Admin: 10/09/17 21:24 Dose: 40 mg Vancomycin/Sodium Chloride (Vancomycin 1 Gm/Ns 200 Ml) 1 gm in 200 mls @ 133 mls/hr IVPB Q12H [facility] PRN Reason: Protocol Stop: 10/11/17 19:01 Last Admin: 10/10/17 06:13 Dose: 133 mls/hr Piperacillin Sod/Tazobactam Sod (Zosyn 3.375 Gm Iv Premix) 3.375 gm in 50 mls @ 100 mls/hr IVPB Q8H [facility] PRN Reason: Protocol Last Admin: 10/10/17 12:30 Dose: 100 mls/hr Mupirocin (Bactroban Ointment) 1 gm TOP DAILY [facility] Last Admin: 10/10/17 11:53 Dose: Not Given Nebivolol (Bystolic) 5 mg PO HS [facility] Last Admin: 10/09/17 21:24 Dose: Not Given - Labs Labs: 10/09/17 06:33 10/09/17 06:33 - Constitutional Appears: Well, Non-toxic, No Acute Distress - Extremities Exam Additional comments: Left lower extremity focused. Dressing clean, dry, and disheveled. VASC: DP/PT pulses are faintly palpable, Cap refill time: < 3 sec to all digits , edema noted extending distally from tibial tuberosity Neuro-vascular status intact. DERM Left left partial thickness ulceration measuring 4.7 x 4.0 cm with granular base. No tunneling, undermining, or discernable mal-odor. No periwound streaking erythema noted at this time. Significant lower extremity lymphedema noted, greater proximal to knee joints bilaterally. Right lid calf level circumferential dis-hydtrodic flaking skin patch extending to level of ankle joint. Pedal muscle strength graded 5/5 in all 4 major groups. Mild limited ankle joint ROM to dorsiflexion. No gross deformities bilaterally. - Neurological Exam Neurological Exam: Alert, Awake, Oriented x3 - Psychiatric Exam Psychiatric exam: Normal Affect, Normal Mood Assessment and Plan - Assessment and Plan (Free Text) Assessment: 52 year old male with left lateral leg ulcer secondary to lymphedema Plan: Pt seen and evaluated Discussed plan with attending, Dr. Servin Chart, labs, and vitals reviewed. Podiatry Intervention: Local wound care Cleansed site with sterile saline. Dressed site with Bactroban, xeroform, DSD and bilateral full lower leg JESSICA. Wound Culture results-Enterobacter Cloacae ssp, enterococcus faecalis IV abx per ID recommendations Pt to avoid dependent position. Elevate lower extremity as tolerated. Podiatry will continue to follow while inhouse.
--- NOTE | 2017-10-10 15:11 | CP.PCM.PN ---
Subjective - Date & Time of Evaluation Date of Evaluation: 10/10/17 Time of Evaluation: 09:00 - Subjective Subjective: LESS PAIN AND SEWELLING LEFT LEG Objective - Vital Signs/Intake and Output Vital Signs (last 24 hours): Temp Pulse Resp BP Pulse Ox 97.3 F L 50 L 20 131/73 94 L 10/10/17 07:00 10/10/17 07:00 10/10/17 07:00 10/10/17 07:00 10/10/17 07:00 - Medications Medications: Current Medications Furosemide (Lasix) 40 mg PO [facility] Last Admin: 10/09/17 21:24 Dose: 40 mg Vancomycin/Sodium Chloride (Vancomycin 1 Gm/Ns 200 Ml) 1 gm in 200 mls @ 133 mls/hr IVPB Q12H [facility] PRN Reason: Protocol Stop: 10/11/17 19:01 Last Admin: 10/10/17 06:13 Dose: 133 mls/hr Piperacillin Sod/Tazobactam Sod (Zosyn 3.375 Gm Iv Premix) 3.375 gm in 50 mls @ 100 mls/hr IVPB Q8H [facility] PRN Reason: Protocol Last Admin: 10/10/17 12:30 Dose: 100 mls/hr Mupirocin (Bactroban Ointment) 1 gm TOP DAILY [facility] Last Admin: 10/10/17 11:53 Dose: Not Given Nebivolol (Bystolic) 5 mg PO [facility] Last Admin: 10/09/17 21:24 Dose: Not Given - Labs Labs: 10/09/17 06:33 10/09/17 06:33 - Constitutional Appears: Chronically Ill - Head Exam Head Exam: NORMOCEPHALIC - Eye Exam Eye Exam: absent: Scleral icterus - ENT Exam ENT Exam: Mucous Membranes Dry - Neck Exam Neck Exam: absent: Lymphadenopathy - Respiratory Exam Respiratory Exam: Decreased Breath Sounds - Cardiovascular Exam Cardiovascular Exam: REGULAR RHYTHM - GI/Abdominal Exam GI & Abdominal Exam: Distended - Rectal Exam Rectal Exam: Deferred - Exam Exam: NORMAL INSPECTION - Extremities Exam Extremities Exam: Pedal Edema - Back Exam Back Exam: absent: CVA tenderness (L), CVA tenderness (R) - Neurological Exam Neurological Exam: Alert, Awake, Oriented x3 - Psychiatric Exam Psychiatric exam: Depressed - Skin Skin Exam: Dry Assessment and Plan (1) Cellulitis of left lower leg Status: Acute (2) Ulcer of left lower leg Status: Acute - Assessment and Plan (Free Text) Assessment: CONT IV RX AND WOUND CARE WITH ELEVATION
[2017-10-11] MEDS: Piperacill/Tazo 3.375gm in Dex 3.375 GM/50 ML BAG IVPB SCH ×3 (06:00→20:44)
[2017-10-11] MEDS: Vancomycin 1 gm/NS 200 ml 1 GM/200 ML BAG IVPB SCH ×2 (08:07→18:52)
--- NOTE | 2017-10-11 11:50 | CP.PCM.PN ---
<Magda Claire - Last Filed: 10/11/17 11:41> Subjective - Date & Time of Evaluation Date of Evaluation: 10/11/17 Time of Evaluation: 10:42 - Subjective Subjective: Podiatry Progress Note - Dr. Servin. 52 year old male patient was seen at bedside concerning left leg wound and swelling. Patient is resting comfortably in chair. Patient denies any acute overnight events. NAD, AAO x3. No other pedal complains at this time. Dressing remains c/d/i. He denies N/V/F/C or SOB today. Objective - Vital Signs/Intake and Output Vital Signs (last 24 hours): Temp Pulse Resp BP Pulse Ox 98.3 F 55 L 20 147/75 95 10/10/17 23:30 10/10/17 23:30 10/10/17 23:30 10/10/17 23:30 10/10/17 23:30 - Medications Medications: Current Medications Furosemide (Lasix) 40 mg PO HS [facility] Last Admin: 10/10/17 21:26 Dose: 40 mg Vancomycin/Sodium Chloride (Vancomycin 1 Gm/Ns 200 Ml) 1 gm in 200 mls @ 133 mls/hr IVPB Q12H [facility] PRN Reason: Protocol Stop: 10/11/17 19:01 Last Admin: 10/11/17 08:07 Dose: 133 mls/hr Piperacillin Sod/Tazobactam Sod (Zosyn 3.375 Gm Iv Premix) 3.375 gm in 50 mls @ 100 mls/hr IVPB Q8H [facility] PRN Reason: Protocol Last Admin: 10/11/17 06:00 Dose: 100 mls/hr Mupirocin (Bactroban Ointment) 1 gm TOP DAILY [facility] Last Admin: 10/10/17 11:53 Dose: Not Given Nebivolol (Bystolic) 5 mg PO HS [facility] Last Admin: 10/10/17 21:27 Dose: Not Given - Labs Labs: 10/09/17 06:33 10/09/17 06:33 - Constitutional Appears: Well, Non-toxic, No Acute Distress - Head Exam Head Exam: ATRAUMATIC - Extremities Exam Additional comments: Left lower extremity focused. Dressing clean, dry, and disheveled. DERM Left left partial thickness ulceration measuring 5.0 cm x 4.0 cm with granular base. No tunneling, undermining, or discernable mal-odor. No periwound streaking erythema noted at this time. Significant lower extremity lymphedema noted, greater proximal to knee joints bilaterally. Right lid calf level circumferential dis-hydtrodic flaking skin patch extending to level of ankle joint. VASC: DP/PT pulses are faintly palpable, Cap refill time: < 3 sec to all digits , edema noted extending distally from tibial tuberosity Neuro-vascular status intact. Pedal muscle strength graded 5/5 in all 4 major groups. Mild limited ankle joint ROM to dorsiflexion. No gross deformities bilaterally. - Neurological Exam Neurological Exam: Alert, Awake, Oriented x3 - Psychiatric Exam Psychiatric exam: Normal Affect, Normal Mood - Skin Skin Exam: Normal Color, Warm Assessment and Plan - Assessment and Plan (Free Text) Assessment: 52 year old male with left lateral leg ulcer secondary to lymphedema Plan: Pt seen and evaluated Discussed plan with attending, Dr. Servin Chart, labs, and vitals reviewed. JESSICA bandage applied to bilateral legs. Cleansed site with sterile saline. Dressed site with Bactroban, xeroform, DSD and bilateral full lower leg JESSICA. Wound Culture results-Enterobacter Cloacae ssp, enterococcus faecalis IV abx per ID recommendations Pt to avoid dependent position. Elevate lower extremity as tolerated. Podiatry will continue to follow while inhouse. <Giorgio Servin - Last Filed: 10/12/17 21:57> Objective - Vital Signs/Intake and Output Vital Signs (last 24 hours): Temp Pulse Resp BP Pulse Ox 98 F 57 L 20 110/58 L 94 L 10/12/17 15:30 10/12/17 15:30 10/12/17 15:30 10/12/17 21:31 10/12/17 15:30 Intake and Output: 10/12/17 10/13/17 18:59 06:59 Intake Total 50 Balance 50 - Medications Medications: Current Medications Furosemide (Lasix) 40 mg PO HS [facility] Last Admin: 10/12/17 21:31 Dose: 40 mg Piperacillin Sod/Tazobactam Sod (Zosyn 3.375 Gm Iv Premix) 3.375 gm in 50 mls @ 100 mls/hr IVPB Q8H [facility] PRN Reason: Protocol Last Admin: 10/12/17 20:23 Dose: 100 mls/hr Mupirocin (Bactroban Ointment) 1 gm TOP DAILY [facility] Last Admin: 10/12/17 10:00 Dose: Not Given Nebivolol (Bystolic) 5 mg PO HS [facility] Last Admin: 10/12/17 21:31 Dose: 5 mg - Labs Labs: 10/09/17 06:33 10/09/17 06:33 Assessment and Plan - Assessment and Plan (Free Text) Plan: Pt seen at bedside with resident . agree with above and continue Rx ./Dr Kang Servin
--- NOTE | 2017-10-11 16:23 | CP.PCM.PN ---
Subjective - Date & Time of Evaluation Date of Evaluation: 10/11/17 Time of Evaluation: 16:22 - Subjective Subjective: nsr,off xarelto & amio.wound healing. Objective - Vital Signs/Intake and Output Vital Signs (last 24 hours): Temp Pulse Resp BP Pulse Ox 97.1 F L 67 20 111/66 94 L 10/11/17 15:48 10/11/17 15:48 10/11/17 15:48 10/11/17 15:48 10/11/17 15:48 - Medications Medications: Current Medications Furosemide (Lasix) 40 mg PO HS [facility] Last Admin: 10/10/17 21:26 Dose: 40 mg Vancomycin/Sodium Chloride (Vancomycin 1 Gm/Ns 200 Ml) 1 gm in 200 mls @ 133 mls/hr IVPB Q12H [facility] PRN Reason: Protocol Stop: 10/11/17 19:01 Last Admin: 10/11/17 08:07 Dose: 133 mls/hr Piperacillin Sod/Tazobactam Sod (Zosyn 3.375 Gm Iv Premix) 3.375 gm in 50 mls @ 100 mls/hr IVPB Q8H [facility] PRN Reason: Protocol Last Admin: 10/11/17 13:38 Dose: 100 mls/hr Mupirocin (Bactroban Ointment) 1 gm TOP DAILY [facility] Last Admin: 10/11/17 10:00 Dose: Not Given Nebivolol (Bystolic) 5 mg PO [facility] Last Admin: 10/10/17 21:27 Dose: Not Given - Labs Labs: 10/09/17 06:33 10/09/17 06:33 - Constitutional Appears: No Acute Distress - Head Exam Head Exam: NORMOCEPHALIC - Eye Exam Eye Exam: Normal appearance - Neck Exam Neck Exam: Normal Inspection - Respiratory Exam Respiratory Exam: Decreased Breath Sounds - Cardiovascular Exam Cardiovascular Exam: REGULAR RHYTHM - GI/Abdominal Exam GI & Abdominal Exam: Soft - Extremities Exam Extremities Exam: Pedal Edema - Neurological Exam Neurological Exam: Alert, Oriented x3 Assessment and Plan - Assessment and Plan (Free Text) Assessment: cpm with iv antibiotics.
[2017-10-12] MEDS: Piperacill/Tazo 3.375gm in Dex 3.375 GM/50 ML BAG IVPB SCH ×3 (05:40→20:23)
--- NOTE | 2017-10-12 11:13 | CP.PCM.PN ---
Subjective - Date & Time of Evaluation Date of Evaluation: 10/12/17 Time of Evaluation: 11:11 - Subjective Subjective: feels ok.off xarelto & amio. Objective - Vital Signs/Intake and Output Vital Signs (last 24 hours): Temp Pulse Resp BP Pulse Ox 97.8 F 51 L 20 119/63 95 10/12/17 07:30 10/12/17 07:30 10/12/17 07:30 10/12/17 07:30 10/12/17 07:30 Intake and Output: 10/12/17 10/12/17 06:59 18:59 Intake Total 170 Balance 170 - Medications Medications: Current Medications Furosemide (Lasix) 40 mg PO HS [facility] Last Admin: 10/11/17 21:49 Dose: 40 mg Piperacillin Sod/Tazobactam Sod (Zosyn 3.375 Gm Iv Premix) 3.375 gm in 50 mls @ 100 mls/hr IVPB Q8H [facility] PRN Reason: Protocol Last Admin: 10/12/17 05:40 Dose: 100 mls/hr Mupirocin (Bactroban Ointment) 1 gm TOP DAILY [facility] Last Admin: 10/11/17 10:00 Dose: Not Given Nebivolol (Bystolic) 5 mg PO HS [facility] Last Admin: 10/11/17 21:49 Dose: 5 mg - Labs Labs: 10/09/17 06:33 10/09/17 06:33 - Constitutional Appears: No Acute Distress - Head Exam Head Exam: NORMOCEPHALIC - Eye Exam Eye Exam: Normal appearance - ENT Exam ENT Exam: Normal Exam - Respiratory Exam Respiratory Exam: Clear to Ausculation Bilateral - Cardiovascular Exam Cardiovascular Exam: REGULAR RHYTHM - GI/Abdominal Exam GI & Abdominal Exam: Soft - Extremities Exam Extremities Exam: Pedal Edema - Neurological Exam Neurological Exam: Alert, Oriented x3 Assessment and Plan - Assessment and Plan (Free Text) Plan: wound has dressing on.healing.cpm.needs pul f/u for sleep apnoea & copd.
--- NOTE | 2017-10-12 17:45 | CP.PCM.CON ---
History of Present Illness - History of Present Illness History of Present Illness: asked to f/u copd and possible MIKEY pt uses nocturnal o2 @ 2 L/M NC @ home curently stable respiratory status Review of Systems - Respiratory Respiratory: Dyspnea on Exertion Past Patient History - Infectious Disease Hx of Infectious Diseases: None - Past Medical History & Family History Past Medical History?: No - Past Social History Smoking Status: Former Smoker - CARDIAC Hx Atrial Fibrillation: Yes Hx Hypertension: Yes Hx Peripheral Edema: Yes - PULMONARY Hx Chronic Obstructive Pulmonary Disease (COPD): Yes Hx Pneumonia: Yes - NEUROLOGICAL Hx Neurological Disorder: No - HEENT Hx HEENT Problems: No - RENAL Hx Chronic Kidney Disease: No - ENDOCRINE/METABOLIC Hx Endocrine Disorders: No - HEMATOLOGICAL/ONCOLOGICAL Hx Blood Disorders: No - INTEGUMENTARY Hx Dermatological Problems: No - MUSCULOSKELETAL/RHEUMATOLOGICAL Hx Musculoskeletal Disorders: Yes Hx Falls: No Hx Unsteady Gait: Yes - GASTROINTESTINAL Hx Gastrointestinal Disorders: No - GENITOURINARY/GYNECOLOGICAL Hx Genitourinary Disorders: No - PSYCHIATRIC Hx Substance Use: No - SURGICAL HISTORY Hx Appendectomy: Yes - ANESTHESIA Hx Anesthesia: Yes Hx Anesthesia Reactions: No Hx Malignant Hyperthermia: No Meds Allergies/Adverse Reactions: Allergies Allergy/AdvReac Type Severity Reaction Status Date / Time No Known Allergies Allergy Verified 05/21/15 01:56 - Medications Medications: Current Medications Furosemide (Lasix) 40 mg PO HS [facility] Last Admin: 10/11/17 21:49 Dose: 40 mg Piperacillin Sod/Tazobactam Sod (Zosyn 3.375 Gm Iv Premix) 3.375 gm in 50 mls @ 100 mls/hr IVPB Q8H [facility] PRN Reason: Protocol Last Admin: 10/12/17 13:09 Dose: 100 mls/hr Mupirocin (Bactroban Ointment) 1 gm TOP DAILY [facility] Last Admin: 10/12/17 10:00 Dose: Not Given Nebivolol (Bystolic) 5 mg PO [facility] Last Admin: 10/11/17 21:49 Dose: 5 mg Physical Exam - Constitutional Appears: No Acute Distress - Head Exam Head Exam: ATRAUMATIC, NORMOCEPHALIC - Eye Exam Eye Exam: Normal appearance - ENT Exam ENT Exam: Mucous Membranes Moist - Neck Exam Neck exam: Positive for: Normal Inspection - Respiratory Exam Respiratory Exam: Decreased Breath Sounds - Cardiovascular Exam Cardiovascular Exam: REGULAR RHYTHM, +S1, +S2 - GI/Abdominal Exam GI & Abdominal Exam: Normal Bowel Sounds - Rectal Exam Rectal Exam: Deferred - Psychiatric Exam Psychiatric exam: Normal Affect, Normal Mood Results - Vital Signs Recent Vital Signs: Last Vital Signs Temp 98 F 10/12/17 15:30 Pulse 57 L 10/12/17 15:30 Resp 20 10/12/17 15:30 BP 109/67 10/12/17 15:30 Pulse Ox 94 L 10/12/17 15:30 - Labs Result Diagrams: 10/09/17 06:33 10/09/17 06:33 Assessment & Plan (1) Cellulitis of left lower leg Status: Acute (2) Shortness of breath Status: Chronic (3) MIKEY (obstructive sleep apnea) Status: Suspected Comment: pt did not go for sleep study after previous office visit 03/2017, now willing to have home sleep study post discharge (4) Morbid obesity with BMI of 60.0-69.9, adult Status: Chronic Priority: Medium (5) COPD (chronic obstructive pulmonary disease) Status: Chronic
--- NOTE | 2017-10-12 21:53 | CP.PCM.PN ---
Subjective - Date & Time of Evaluation Date of Evaluation: 10/12/17 Time of Evaluation: 21:50 - Subjective Subjective: pt seen for continued treatment of ulcer left lower leg chronic in nature . Objective - Vital Signs/Intake and Output Vital Signs (last 24 hours): Temp Pulse Resp BP Pulse Ox 98 F 57 L 20 110/58 L 94 L 10/12/17 15:30 10/12/17 15:30 10/12/17 15:30 10/12/17 21:31 10/12/17 15:30 Intake and Output: 10/12/17 10/13/17 18:59 06:59 Intake Total 50 Balance 50 - Medications Medications: Current Medications Furosemide (Lasix) 40 mg PO HS [facility] Last Admin: 10/12/17 21:31 Dose: 40 mg Piperacillin Sod/Tazobactam Sod (Zosyn 3.375 Gm Iv Premix) 3.375 gm in 50 mls @ 100 mls/hr IVPB Q8H [facility] PRN Reason: Protocol Last Admin: 10/12/17 20:23 Dose: 100 mls/hr Mupirocin (Bactroban Ointment) 1 gm TOP DAILY [facility] Last Admin: 10/12/17 10:00 Dose: Not Given Nebivolol (Bystolic) 5 mg PO HS [facility] Last Admin: 10/12/17 21:31 Dose: 5 mg - Labs Labs: 10/09/17 06:33 10/09/17 06:33 - Extremities Exam Additional comments: O/Venous stasis ulcer left lateral lower leg improving slowly . Cellulitis resolving slowly . Chronic edema improved . Vascular status intact b/l . Assessment and Plan - Assessment and Plan (Free Text) Assessment: Infected Venous ulcer left Plan: P/ Bactroban /Xeroform dsd applied .Continue antibiotics as per Dr Hewitt
[2017-10-13] MEDS: Piperacill/Tazo 3.375gm in Dex 3.375 GM/50 ML BAG IVPB SCH ×3 (04:07→20:14)
[2017-10-13 06:35] LABS: BASO % 0.7 % (0.0-2.0); EOS # 0.1 K/uL (0.0-0.7); EOS % 2.3 % (0.0-4.0); HEMOGLOBIN 13.1 g/dL (12.0-18.0); LYMPH # 1.7 K/uL (1.0-4.3); LYMPH % 31.3 % (20.0-40.0); MEAN CELL VOLUME 88.4 fL (80.0-94.0); MEAN CORPUSCULAR HEMOGLOBIN 29.4 pg (27.0-31.0); MEAN CORPUSCULAR HGB CONC 33.2 g/dL (33.0-37.0); MEAN PLATELET VOLUME 8.5 fL (7.2-11.7); MONO # 0.4 K/uL (0.0-0.8); MONO % 8.1 % (0.0-10.0); NEUT # 3.1 K/uL (1.8-7.0); NEUT % 57.6 % (50.0-75.0); NRBC % 0.1 % (0.0-2.0); RBC 4.47 Mil/uL (4.40-5.90); RED CELL DISTRIBUTION WIDTH 15.5 % (11.5-14.5); WHITE BLOOD COUNT 5.4 K/uL (4.8-10.8)
[2017-10-13 06:52] LABS: ALB/GLOB RATIO 1.2 (1.0-2.1); ALBUMIN 3.7 g/dL (3.5-5.0); ALT/SGPT 38 U/L (21-72); AST/SGOT 26 U/L (17-59); BLOOD UREA NITROGEN 14 mg/dL (9-20); CALCIUM 8.3 mg/dl (8.6-10.4); GFR AFRICAN-AMERICAN > 60; GFR NON-AFRICAN AMERICAN > 60
--- NOTE | 2017-10-13 11:59 | CP.PCM.PN ---
Subjective - Date & Time of Evaluation Date of Evaluation: 10/13/17 Time of Evaluation: 11:58 - Subjective Subjective: doing ok.labs noted. Objective - Vital Signs/Intake and Output Vital Signs (last 24 hours): Temp Pulse Resp BP Pulse Ox 98.1 F 57 L 20 126/67 97 10/13/17 00:00 10/13/17 00:00 10/13/17 00:00 10/13/17 00:00 10/13/17 00:00 Intake and Output: 10/13/17 10/13/17 06:59 18:59 Intake Total 290 Output Total 300 Balance -10 - Medications Medications: Current Medications Furosemide (Lasix) 40 mg PO HS [facility] Last Admin: 10/12/17 21:31 Dose: 40 mg Piperacillin Sod/Tazobactam Sod (Zosyn 3.375 Gm Iv Premix) 3.375 gm in 50 mls @ 100 mls/hr IVPB Q8H [facility] PRN Reason: Protocol Last Admin: 10/13/17 04:07 Dose: 100 mls/hr Mupirocin (Bactroban Ointment) 1 gm TOP DAILY [facility] Last Admin: 10/13/17 09:36 Dose: Not Given Nebivolol (Bystolic) 5 mg PO HS [facility] Last Admin: 10/12/17 21:31 Dose: 5 mg - Labs Labs: 10/13/17 06:25 10/13/17 06:25 - Constitutional Appears: No Acute Distress - Head Exam Head Exam: NORMOCEPHALIC - Neck Exam Neck Exam: Normal Inspection - Respiratory Exam Respiratory Exam: Clear to Ausculation Bilateral - Cardiovascular Exam Cardiovascular Exam: REGULAR RHYTHM - GI/Abdominal Exam GI & Abdominal Exam: Soft - Extremities Exam Extremities Exam: Pedal Edema - Neurological Exam Neurological Exam: Alert, Oriented x3 Assessment and Plan - Assessment and Plan (Free Text) Assessment: wound healing.rx per dr messer & dr ibanez.seen by dr janine blake.sleep study as out pt.
--- NOTE | 2017-10-13 12:10 | CP.PCM.PN ---
Subjective - Date & Time of Evaluation Date of Evaluation: 10/13/17 Time of Evaluation: 12:08 - Subjective Subjective: 52YO male seen at bedside for chronic left lateral leg ulcer. Patient is not in any acute distress. AAO x3. Dressing is dry, clean and intact. Patient denies any pain. Patient denies any acute overnight events. Patient denies F/N/V/C/ SOB. Objective - Vital Signs/Intake and Output Vital Signs (last 24 hours): Temp Pulse Resp BP Pulse Ox 98.1 F 57 L 20 126/67 97 10/13/17 00:00 10/13/17 00:00 10/13/17 00:00 10/13/17 00:00 10/13/17 00:00 Intake and Output: 10/13/17 10/13/17 06:59 18:59 Intake Total 290 Output Total 300 Balance -10 - Medications Medications: Current Medications Furosemide (Lasix) 40 mg PO HS [facility] Last Admin: 10/12/17 21:31 Dose: 40 mg Piperacillin Sod/Tazobactam Sod (Zosyn 3.375 Gm Iv Premix) 3.375 gm in 50 mls @ 100 mls/hr IVPB Q8H [facility] PRN Reason: Protocol Last Admin: 10/13/17 04:07 Dose: 100 mls/hr Mupirocin (Bactroban Ointment) 1 gm TOP DAILY [facility] Last Admin: 10/13/17 09:36 Dose: Not Given Nebivolol (Bystolic) 5 mg PO HS [facility] Last Admin: 10/12/17 21:31 Dose: 5 mg - Labs Labs: 10/13/17 06:25 10/13/17 06:25 - Constitutional Appears: Well, Non-toxic, No Acute Distress - Head Exam Head Exam: ATRAUMATIC - Extremities Exam Additional comments: Vascular: DP/PT pulses palpable, CFT < 3 secs x 10, TG warm to warm, no edema noted Derm: Left lateral leg ulcer: improving, ulcer measures 5.0cm x 4.0cm with a granular base. No tunneling, undermining noted. Astrid-wound proximal margin erythema noted, no probe to bone, no malodor. Neuro: Protective sensation grossly intact Ortho: No pain on palpation. No gross deformities - Neurological Exam Neurological Exam: Alert, Awake, Oriented x3 Assessment and Plan - Assessment and Plan (Free Text) Assessment: 52YO Male seen at bedside for left lateral leg ulcer and lymphangitis and lymphedema. Plan: Patient seen and evaluated. All questions answered to patients satisfaction. Discussed with the attending, Dr. Servin. Chart, labs, and vitals reviewed; Afebrile, WBC 5.4. Wound Cx 10/04: Enterobacter Cloacae, Enterococcus Faecalis. Wound dressed with xeroform, gauze, ABD and DSD. Continue IV abx as per ID. Podiatry will continue while the patient is in house.
[2017-10-13] MEDS: Vancomycin 1 GM in Sodium Chloride 0.9% 200 ML IVPB SCH (14:01)
--- NOTE | 2017-10-13 17:50 | CP.PCM.PN ---
Subjective - Date & Time of Evaluation Date of Evaluation: 10/13/17 Time of Evaluation: 09:00 - Subjective Subjective: improving on IV rx with less erythema Objective - Vital Signs/Intake and Output Vital Signs (last 24 hours): Temp Pulse Resp BP Pulse Ox 98.3 F 60 21 119/72 98 10/13/17 15:15 10/13/17 15:15 10/13/17 15:15 10/13/17 15:15 10/13/17 15:15 Intake and Output: 10/13/17 10/13/17 06:59 18:59 Intake Total 840 Output Total 300 Balance 540 - Medications Medications: Current Medications Furosemide (Lasix) 40 mg PO HS [facility] Last Admin: 10/12/17 21:31 Dose: 40 mg Piperacillin Sod/Tazobactam Sod (Zosyn 3.375 Gm Iv Premix) 3.375 gm in 50 mls @ 100 mls/hr IVPB Q8H [facility] PRN Reason: Protocol Last Admin: 10/13/17 12:38 Dose: 100 mls/hr Vancomycin HCl 1 gm/ Sodium (Chloride) 200 mls @ 133 mls/hr IVPB Q12H [facility] PRN Reason: Protocol Last Admin: 10/13/17 14:01 Dose: 133 mls/hr Mupirocin (Bactroban Ointment) 1 gm TOP DAILY [facility] Last Admin: 10/13/17 09:36 Dose: Not Given Nebivolol (Bystolic) 5 mg PO HS [facility] Last Admin: 10/12/17 21:31 Dose: 5 mg - Labs Labs: 10/13/17 06:25 10/13/17 06:25 - Constitutional Appears: Non-toxic, Chronically Ill - Head Exam Head Exam: NORMOCEPHALIC - Eye Exam Eye Exam: PERRL - ENT Exam ENT Exam: Mucous Membranes Dry - Neck Exam Neck Exam: absent: Lymphadenopathy - Respiratory Exam Respiratory Exam: Decreased Breath Sounds - Cardiovascular Exam Cardiovascular Exam: REGULAR RHYTHM - GI/Abdominal Exam GI & Abdominal Exam: Distended, Soft - Rectal Exam Rectal Exam: Deferred - Exam Exam: NORMAL INSPECTION - Extremities Exam Extremities Exam: absent: Pedal Edema - Back Exam Back Exam: absent: CVA tenderness (L), CVA tenderness (R) Assessment and Plan (1) Cellulitis of left lower leg Status: Acute (2) Ulcer of left lower leg Status: Acute - Assessment and Plan (Free Text) Assessment: cont iv rx for now d/c on PO Augmentin when cleared by Dr Servin
--- NOTE | 2017-10-13 22:59 | CARD ---
APPROVED REPORT EKG Measurement Heart [id number] DE 190P [id number] <Conclusion> Sinus bradycardia Left axis deviation Right bundle branch block Septal infarct, age undetermined Abnormal ECG
[2017-10-14 00:52] VITALS: RESP 20
[2017-10-14] MEDS: Vancomycin 1 GM in Sodium Chloride 0.9% 200 ML IVPB SCH ×2 (01:37→13:53)
[2017-10-14] MEDS: Piperacill/Tazo 3.375gm in Dex 3.375 GM/50 ML BAG IVPB SCH ×2 (05:03→12:41)
[2017-10-14 08:51] VITALS: BP 122/73; PULSE 61; TEMP 97.7; O2SAT 97
--- NOTE | 2017-10-14 11:36 | CP.PCM.PN ---
Subjective - Date & Time of Evaluation Date of Evaluation: 10/14/17 Time of Evaluation: 11:33 - Subjective Subjective: Podiatry note for Dr. Servin 52 y/o male seen at bedside for chronic Left lateral leg ulceration. Patient is AAOX3 and in NAD. Patient's dressing is clean, dry and intact. Patient denies any pedal complaints at this time. Patient denies N/V/F/SOB/CP/D. Objective - Vital Signs/Intake and Output Vital Signs (last 24 hours): Temp Pulse Resp BP Pulse Ox 97.7 F 61 20 122/73 97 10/14/17 08:49 10/14/17 08:49 10/14/17 08:49 10/14/17 08:49 10/14/17 08:49 Intake and Output: 10/14/17 10/14/17 06:59 18:59 Intake Total 840 Output Total 400 Balance 440 - Medications Medications: Current Medications Furosemide (Lasix) 40 mg PO HS [facility] Last Admin: 10/13/17 21:19 Dose: 40 mg Piperacillin Sod/Tazobactam Sod (Zosyn 3.375 Gm Iv Premix) 3.375 gm in 50 mls @ 100 mls/hr IVPB Q8H [facility] PRN Reason: Protocol Last Admin: 10/14/17 05:03 Dose: 100 mls/hr Vancomycin HCl 1 gm/ Sodium (Chloride) 200 mls @ 133 mls/hr IVPB Q12H [facility] PRN Reason: Protocol Last Admin: 10/14/17 01:37 Dose: 133 mls/hr Mupirocin (Bactroban Ointment) 1 gm TOP DAILY [facility] Last Admin: 10/14/17 09:51 Dose: Not Given Nebivolol (Bystolic) 5 mg PO HS [facility] Last Admin: 10/13/17 21:19 Dose: 5 mg - Labs Labs: 10/13/17 06:25 10/13/17 06:25 - Constitutional Appears: Well, Non-toxic, No Acute Distress - Head Exam Head Exam: ATRAUMATIC, NORMOCEPHALIC - Extremities Exam Additional comments: Left Lower Extremity Examination VASC: DP and PT pulses palpable bilaterally, TG warm to cool, CFT less than 3 seconds; no edema noted NEURO: grossly intact DERM: improving lateral left leg ulceration measuring 5.0 X 4.0 cm with 100% granular base, no drainage, no malodor, no fluctuance, no purulence, pool-wound erythema noted MSK: pain on palpation to the wound site - Neurological Exam Neurological Exam: Alert, Awake, Oriented x3 - Psychiatric Exam Psychiatric exam: Normal Affect, Normal Mood Assessment and Plan - Assessment and Plan (Free Text) Assessment: 52 y/o male seen at bedside with chronic lateral left leg ulceration, lymphedema , and lymphagitis Plan: Patient seen and evaluated at bedside Patient plan discussed with attending, Dr. Servin Charts, Labs and Vitals reviewed- Afebrile Patient stable wound dressed with xeroform, DSD and JESSICA Patient tolerated the dressing well Patient questions answered Wound Culture- Enterobacter Cloacae ssp, Enterococcus faecalis Continue IV Antibiotics as per ID Podiatry will continue to follow patient in-house
--- NOTE | 2017-10-14 15:49 | CP.PCM.PN ---
Subjective - Date & Time of Evaluation Date of Evaluation: 10/14/17 Time of Evaluation: 11:00 - Subjective Subjective: Alert, awake, no acute pain or distress. Objective - Vital Signs/Intake and Output Vital Signs (last 24 hours): Temp Pulse Resp BP Pulse Ox 97.7 F 61 20 122/73 97 10/14/17 08:49 10/14/17 08:49 10/14/17 08:49 10/14/17 08:49 10/14/17 08:49 Intake and Output: 10/14/17 10/14/17 06:59 18:59 Intake Total 840 550 Output Total 400 Balance 440 550 - Medications Medications: Current Medications Furosemide (Lasix) 40 mg PO HS [facility] Last Admin: 10/13/17 21:19 Dose: 40 mg Piperacillin Sod/Tazobactam Sod (Zosyn 3.375 Gm Iv Premix) 3.375 gm in 50 mls @ 100 mls/hr IVPB Q8H [facility] PRN Reason: Protocol Last Admin: 10/14/17 12:41 Dose: 100 mls/hr Vancomycin HCl 1 gm/ Sodium (Chloride) 200 mls @ 133 mls/hr IVPB Q12H [facility] PRN Reason: Protocol Last Admin: 10/14/17 13:53 Dose: 133 mls/hr Mupirocin (Bactroban Ointment) 1 gm TOP DAILY [facility] Last Admin: 10/14/17 09:51 Dose: Not Given Nebivolol (Bystolic) 5 mg PO HS [facility] Last Admin: 10/13/17 21:19 Dose: 5 mg - Labs Labs: 10/13/17 06:25 10/13/17 06:25 Assessment and Plan - Assessment and Plan (Free Text) Assessment: Patient is seen and examined. Alert and orientedx3, denies acute pain. Seen by DR Annabella Wells, plan to discharge home today. Will get augmentin for [address] Hewitt. Advised to follow up by DR Servin in the office tomorrow. Prescriptions called in to the pharmacy by DR Wells.
--- NOTE | 2017-10-15 07:45 | DS ---
A 52-year-old gentleman who was brought in with cellulitis and ulcer on the left leg. The patient was treated as an outpatient by Dr. Servin without improvement. He was subsequently admitted. IV antibiotics were given. The patient was seen and followed up with Dr. Hewitt and Dr. Servin with improvement. The patient had atrial fibrillation in the past and was taking amiodarone and Xarelto, both were discontinued. He has been in sinus rhythm for the past more than a week that he is in the hospital. Holter monitor did not show any episode of AFib or SVTs or other arrhythmias. At this point, we will keep him off amiodarone and Xarelto. Prescription for Augmentin and lactobacillus has been called into the pharmacy. The antibiotics are for 10 days. The patient will follow up with Dr. Servin tomorrow for the wound check. I will see him back in a week or two again and monitor him closely for recurrent of atrial fibrillation. Otherwise, we will keep him off amiodarone and Xarelto. The patient was seen by Dr. Osman Naranjo for pulmonary and sleep apnea. Follow up as an outpatient. FINAL DIAGNOSES: 1. Cellulitis of the left leg. 2. History of hypertension. 3. History of paroxysmal atrial fibrillation. 4. Hypertension. DISCHARGE DIET: 2 g sodium, low fat, low cholesterol. Lars Wells MD
== END 2017-10-14 16:52 | disposition home or self-care (01) | DRG 593 ==
LOC: C.ER 08:47 → C.9E 11:10 → OBSVTOIN 11:10 → C.6T 14:17 → C.3T 10-12 22:13
PROVIDERS: ADMIT Internal Medicine Cardiovascular Disease; ATTEND Internal Medicine Cardiovascular Disease
DX: L97.929 Non-pressure chronic ulcer of unspecified part of left lower leg with unspecified severity (principal); L03.116 Cellulitis of left lower limb; J44.1 Chronic obstructive pulmonary disease with (acute) exacerbation; Z68.43 Body mass index [BMI] 50.0-59.9, adult; Z74.01 Bed confinement status; I89.1 Lymphangitis; I48.0 Paroxysmal atrial fibrillation; I10 Essential (primary) hypertension; E66.01 Morbid (severe) obesity due to excess calories; Z86.711 Personal history of pulmonary embolism; Z79.01 Long term (current) use of anticoagulants; Z87.891 Personal history of nicotine dependence; Z99.81 Dependence on supplemental oxygen

== ENCOUNTER 2017-12-14 11:35 | Inpatient (IN) | payer BC ==
[2017-12-14 11:36] VITALS: PULSE 65; BMI 57.2
[2017-12-14 12:07] LABS: BASO % 0.7 % (0.0-2.0); EOS # 0.1 K/uL (0.0-0.7); EOS % 1.1 % (0.0-4.0); HEMOGLOBIN 13.5 g/dL (12.0-18.0); LYMPH # 1.3 K/uL (1.0-4.3); MEAN CELL VOLUME 88.5 fL (80.0-94.0); MEAN CORPUSCULAR HEMOGLOBIN 29.2 pg (27.0-31.0); MEAN PLATELET VOLUME 8.2 fL (7.2-11.7); MONO # 0.6 K/uL (0.0-0.8); MONO % 11.5 % (0.0-10.0); NEUT # 3.2 K/uL (1.8-7.0); NEUT % 61.7 % (50.0-75.0); NRBC % 0.2 % (0.0-2.0); RBC 4.61 Mil/uL (4.40-5.90); RED CELL DISTRIBUTION WIDTH 15.9 % (11.5-14.5); WHITE BLOOD COUNT 5.2 K/uL (4.8-10.8)
[2017-12-14] MEDS ORDERED: Albuterol-Ipratrop 3 mg / 0.5 (3 ml) UD INH STA (12:08)
[2017-12-14 12:13] LABS: INR 1.1
--- NOTE | 2017-12-14 12:16 | C.PDOC ---
History Of Present Illness 52 year old male patient with hx of COPD, A-fib and pleural effusion presents to the ER with c/o productive cough with green sputum for x3 days. Associated symptoms include SOB. Patient states he used to lie on his back when sleeping but now is unable to due to SOB. Patient notes he went to his doctor who told he had a pressure ulcer and removed his unna boot. Patient denies chest pain, fever and chills. Chief Complaint (Nursing): Respiratory Distress History Per: Patient History/Exam Limitations: no limitations Onset/Duration Of Symptoms: Days (x3 ) Current Symptoms Are (Timing): Still Present Past Medical History Reviewed: Historical Data, Nursing Documentation, Vital Signs Vital Signs: Last Vital Signs Temp 98.0 F 12/17/17 07:38 Pulse 58 L 12/17/17 07:38 Resp 20 12/17/17 07:38 BP 126/74 12/17/17 10:05 Pulse Ox 97 12/17/17 07:38 - Medical History PMH: Anemia, Atrial Fibrillation, COPD, Fractures (Left hand), HTN, Peripheral Edema, Pneumonia Surgical History: Appendectomy - [facility] Procedures ASSISTANCE WITH RESPIRATORY VENTILATION, <24 HRS, CPAP (04/10/15) DRAINAGE OF R PLEURAL CAV WITH DRAIN DEV, PERC APPROACH (04/10/15) EXTRACTION OF RIGHT PLEURA, PERCUTANEOUS ENDOSCOPIC APPROACH (04/10/15) HOME MANAGEMENT TREATMENT (05/20/15) INSPECTION OF TRACHEOBRONCHIAL TREE, ENDO (04/10/15) INTRODUCE OF OTH THERAP SUBST INTO RESP TRACT, VIA OPENING (05/20/15) THERAPEUTIC EXERCISE TREATMENT OF MUSCULOSK WHOLE (05/20/15) Family History: States: Unknown Family Hx - Social History Hx Alcohol Use: No Hx Substance Use: No Review Of Systems Except As Marked, All Systems Reviewed And Found Negative. Constitutional: Negative for: Fever, Chills Cardiovascular: Negative for: Chest Pain Respiratory: Positive for: Cough (with green sputum), Shortness of Breath Physical Exam - Physical Exam Appears: Non-toxic, No Acute Distress Skin: Normal Color, Warm, Dry Head: Atraumatic, Normacephalic Eye(s): bilateral: Normal Inspection Oral Mucosa: Moist Throat: Normal Neck: Normal ROM, Supple Chest: Symmetrical, No Deformity Cardiovascular: Rhythm Regular Respiratory: Normal Breath Sounds, No Rales, No Rhonchi, No Wheezing Gastrointestinal/Abdominal: Soft, No Tenderness Extremity: Normal ROM (x4), Pedal Edema (b/l), Capillary Refill (<2 sec), Other (mild erythema) Pulses: Left Dorsalis Pedis: Normal, Right Dorsalis Pedis: Normal Neurological/Psych: Oriented x3, Normal Speech Gait: Steady ED Course And Treatment - Laboratory Results Result Diagrams: 12/17/17 08:06 12/17/17 08:06 ECG: Interpreted By Me, Viewed By Me ECG Rhythm: Sinus Rhythm Interpretation Of ECG: Right axis deviation Rate From EC O2 Sat by Pulse Oximetry: 96 - Other Rad CXR X-Ray: Read By Radiologist Interpretation: Accession No. : [id number]. Patient Name / ID : ARCELIA ALVARENGA / [id number]. Exam Date : 12/14/2017 12:17:30 ( Approved ). Study Comment : Sex / Age : M / 52Y. Creator : Xochitl Dumont MD. Dictator : Xohcitl Dumont MD. Roundhouse Worker : Athletic Agent : Xochitl Dumont MD. Approver2 : Report Date : 12/14/2017 12:48:32. My Comment : . HISTORY: chest pain. COMPARISON: Chest x-ray performed 05/20/15. TECHNIQUE: Chest, one view. FINDINGS: Examination limited by habitus. LUNGS: Hazy diffuse opacities throughout the right andre thorax may reflect layering effusion and/or consolidation. No definite pneumothorax. Please note that chest x-ray has limited sensitivity for the detection of pulmonary masses. CARDIOVASCULAR: Cardiomegaly, partially obscured. OSSEOUS STRUCTURES: No acute osseous abnormality identified. VISUALIZED UPPER ABDOMEN: Unremarkable. OTHER FINDINGS: None. IMPRESSION: Hazy diffuse opacity throughout the right andre thorax may reflect layering effusion and/or consolidation. Medical Decision Making Medical Decision Making: Impression: 52 year old morbidly obese male patient with COPD. r/o pneumonia and NH. Plans: -- EKG -- blood work -- CXR -- nasal cannula Reassess: Patient is resting comfortably. Tolerating oxygen. Patient was instructed to follow up with physician/clinic in 1-2 days for further evaluation. Disposition - Disposition Disposition: HOSPITALIZED Disposition Time: 14:18 Condition: GOOD - Clinical Impression Clinical Impression: COPD exacerbation, Cellulitis, leg - Scribe Statement The provider has reviewed the documentation as recorded by the Tala Harding Do Provider Attestation: All medical record entries made by the Tala were at my direction and personally dictated by me. I have reviewed the chart and agree that the record accurately reflects my personal performance of the history, physical exam, medical decision making, and the department course for this patient. I have also personally directed, reviewed, and agree with the discharge instructions and disposition.
[2017-12-14] MEDS ORDERED: Albuterol-Ipratrop 3 mg / 0.5 (3 ml) UD ONE (12:37)
[2017-12-14 12:38] LABS: B-TYPE NATRIURETIC PEPTIDE 106 pg/mL (0-900)
[2017-12-14 12:45] LABS: ALB/GLOB RATIO 1.3 (1.0-2.1); ALBUMIN 4.1 g/dL (3.5-5.0); ALT/SGPT 28 U/L (21-72); AST/SGOT 27 U/L (17-59); BLOOD UREA NITROGEN 13 mg/dL (9-20); CALCIUM 8.6 mg/dl (8.6-10.4); GFR NON-AFRICAN AMERICAN > 60
--- NOTE | 2017-12-14 12:50 | RAD ---
HISTORY: chest pain COMPARISON: Chest x-ray performed 05/20/15 TECHNIQUE: Chest, one view. FINDINGS: Examination limited by habitus. LUNGS: Hazy diffuse opacities throughout the right andre thorax may reflect layering effusion and/or consolidation. No definite pneumothorax. Please note that chest x-ray has limited sensitivity for the detection of pulmonary masses. CARDIOVASCULAR: Cardiomegaly, partially obscured. OSSEOUS STRUCTURES: No acute osseous abnormality identified. VISUALIZED UPPER ABDOMEN: Unremarkable. OTHER FINDINGS: None. IMPRESSION: Hazy diffuse opacity throughout the right andre thorax may reflect layering effusion and/or consolidation.
[2017-12-14] MEDS ORDERED: Cefepime 1 GM in Sodium Chloride 0.9% 50 ML IVPB ONE (14:13)
[2017-12-14] MEDS ORDERED: Vancomycin 1 GM in Sodium Chloride 0.9% 200 ML IVPB STA (14:33)
[2017-12-14] MEDS ORDERED: Cefepime IV 1 gm in Dextrose 1 GM/50 ML BAG IVPB ONE (14:45)
--- NOTE | 2017-12-15 00:14 | CARD ---
APPROVED REPORT Date of service: 12/14/2017 EKG Measurement Heart [id number] <Conclusion> Normal sinus rhythm Right bundle branch block Abnormal ECG
--- NOTE | 2017-12-15 06:50 | HP ---
Copied To: Lars Wells MD Attending MD: Lars Wells MD HISTORY OF PRESENT ILLNESS: This gentleman is 52-year-old obese gentleman, came in with a history of redness on the left foot. The patient has a history of boot that was removed on the left foot and subsequently has developed redness, swelling, and tenderness on the left foot, found to have cellulitis, came to the emergency room admission. He also is having pulmonary congestion, cough with greenish sputum for the last two days. He has a history of paroxysmal atrial fibrillation in the past, was on amiodarone and Xarelto, both were discontinued. Currently, he is on Bystolic 5 mg one a day and Lasix 40 mg p.o. once a day. PERSONAL HISTORY: Does not smoke. Does not drink. ALLERGIES: DENIED. FAMILY HISTORY: Father had history of coronary artery disease. He had a CABG done in his 60's. REVIEW OF SYSTEMS: CONSTITUTIONAL: Generalized weakness including shortness of breath. He has also sleep apnea, being followed by Dr. Osman Naranjo. His O2 saturation has dropped when he is off oxygen. HEENT: No headaches. No visual disturbances. No lymphadenopathy. NECK: No swollen glands. PULMONARY: Positive for cough. Greenish phlegm. No hemoptysis. CARDIAC: Denies any chest pain. Shortness of breath at rest, edema. History of hypertension, paroxysmal AFib. No [place]. GASTROINTESTINAL: Negative for hematemesis or melena. GENITOURINARY: Negative for dysuria or hematuria. MUSCULOSKELETAL SYSTEM: History of hip pain, knee pain. VASCULAR: The patient has varicose veins. NEUROLOGIC: Negative for TIA, CVA or syncope. PAST MEDICAL HISTORY: Had been admitted in the past for cellulitis and COPD, AFib. PHYSICAL EXAMINATION: GENERAL: Showed middle-aged morbidly obese gentleman, in no acute distress. VITAL SIGNS: His blood pressure is 110/70, heart rate of 88 and regular, respiratory rate of 20, temperature of 97.7. HEENT: Head is normocephalic. Eyes, no pallor, no icterus. NECK: Supple. LUNGS: Show scattered rhonchi all over the lung field. HEART: PMI is not localized. Heart sounds are distant without any definite gallops or murmurs. ABDOMEN: Soft and nontender. EXTREMITIES: 3+ edema is noted in both legs. Cellulitis, redness, tenderness, and swelling is noted on dorsum of the left foot. Distal pulses are not felt. NEUROLOGICAL: He is awake, alert, and oriented x3. LABORATORY DATA: Labs are not available. EKG is not available. Telemetry has shown sinus rhythm. ASSESSMENT: A 52-year-old gentleman with a history of obesity, paroxysmal atrial fibrillation, . PLAN: Admit to regular floor. Pulmonary consultation with Dr. Osman Naranjo, ID with Dr. Hewitt. Antibiotics. I will be away and Dr. Jimmy Ma to cover me for two days. Lars Wells MD
[2017-12-15] MEDS: Enoxaparin 80 mg Syringe SC SCH (09:50)
[2017-12-15] MEDS ORDERED: Vancomycin 1 gm/NS 200 ml 1 GM/200 ML BAG IVPB SCH (10:00)
--- NOTE | 2017-12-15 11:59 | CP.PCM.PN ---
Subjective - Date & Time of Evaluation Date of Evaluation: 12/15/17 Time of Evaluation: 11:57 - Subjective Subjective: SOB PRESENT. COUGH PRESENT. BOTH LEGS CELLULITIS PRESENT. AFEBRILE. ACUTE COPD. Objective - Vital Signs/Intake and Output Vital Signs (last 24 hours): Temp Pulse Resp BP Pulse Ox 98.2 F 65 20 127/70 95 12/15/17 08:00 12/15/17 08:00 12/15/17 08:00 12/15/17 09:50 12/15/17 08:00 Intake and Output: 12/15/17 12/15/17 06:59 18:59 Intake Total 230 Balance 230 - Medications Medications: Current Medications Albuterol/Ipratropium (Duoneb 3 Mg/0.5 Mg (3 Ml) Ud) 3 ml INH RQ6 [facility] Enoxaparin Sodium (Lovenox) 70 mg SC DAILY [facility] Last Admin: 12/15/17 09:50 Dose: 70 mg Furosemide (Lasix) 40 mg PO DAILY [facility] Last Admin: 12/15/17 09:50 Dose: 40 mg Cefepime HCl 1 gm/ Dextrose 50 mls @ 100 mls/hr IVPB Q12H [facility] PRN Reason: Protocol Last Admin: 12/15/17 01:27 Dose: 100 mls/hr Vancomycin/Sodium Chloride (Vancomycin 1 Gm/Ns 200 Ml) 1 gm in 200 mls @ 133 mls/hr IVPB Q24H [facility] PRN Reason: Protocol Stop: 12/20/17 10:01 Last Admin: 12/15/17 09:50 Dose: 133 mls/hr Methylprednisolone (Solu-Medrol) 60 mg IV Q12 [facility] Nebivolol (Bystolic) 5 mg PO DAILY [facility] Last Admin: 12/15/17 09:50 Dose: 5 mg - Labs Labs: 12/14/17 12:01 12/14/17 12:01 PT 12.0 SECONDS (9.7-12.2) 12/14/17 12:01 INR 1.1 12/14/17 12:01 APTT 25 SECONDS (21-34) 12/14/17 12:01 - Constitutional Appears: Chronically Ill - Eye Exam Eye Exam: Normal appearance, PERRL - ENT Exam ENT Exam: Mucous Membranes Moist - Cardiovascular Exam Cardiovascular Exam: REGULAR RHYTHM, +S1, +S2. absent: Murmur - GI/Abdominal Exam GI & Abdominal Exam: Soft, Normal Bowel Sounds. absent: Tenderness - Extremities Exam Extremities Exam: Pedal Edema Additional comments: CELLULITIS PRESENT. - Neurological Exam Neurological Exam: Alert, Awake, CN II-XII Intact, Normal Gait, Oriented x3 - Psychiatric Exam Psychiatric exam: Normal Affect, Normal Mood - Additional Findings Additional findings: CHEST XRAY SHOWS RT SIDE HAZINESS. ? EFFUSION OR CONSILIDATION. Assessment and Plan - Assessment and Plan (Free Text) Assessment: ACUTE COPD. CELLULITIS LEGS. Plan: FOR RESP TREATMENT. IV ABTS.
[2017-12-15] MEDS ORDERED: MethylPREDNISolone 40 mg Vial IV SCH (12:00)
--- NOTE | 2017-12-15 19:27 | CP.PCM.CON ---
History of Present Illness - History of Present Illness History of Present Illness: 52 y/o male presents to ED with c/o non healing ulcer for 3 weeks. Patient has tried 2 courses of outpatient antibiotics without success and was sent by PMD for IV antibiotics. Patient denies fever, numbness, chest pain or any other complaints at this time. hx of COPD, A-fib and pleural effusion presents to the ER with c/o productive cough with green sputum for x3 days. Associated symptoms include SOB. Patient states he used to lie on his back when sleeping but now is unable to due to SOB. Patient notes he went to his doctor who told he had a pressure ulcer and removed his unna boot. Patient denies chest pain, fever and chills. - Medical History PMH: Atrial Fibrillation, COPD, HTN, Peripheral Edema, Pneumonia Denies: Chronic Kidney Disease Surgical History: Appendectomy - [facility] Procedures ASSISTANCE WITH RESPIRATORY VENTILATION, <24 HRS, CPAP (04/10/15) DRAINAGE OF R PLEURAL CAV WITH DRAIN DEV, PERC APPROACH (04/10/15) EXTRACTION OF RIGHT PLEURA, PERCUTANEOUS ENDOSCOPIC APPROACH (04/10/15) HOME MANAGEMENT TREATMENT (05/20/15) INSPECTION OF TRACHEOBRONCHIAL TREE, ENDO (04/10/15) INTRODUCE OF OTH THERAP SUBST INTO RESP TRACT, VIA OPENING (05/20/15) THERAPEUTIC EXERCISE TREATMENT OF MUSCULOSK WHOLE (05/20/15) Review of Systems - Constitutional Constitutional: As Per HPI - EENT Eyes: absent: As Per HPI, Blind Spots, Blurred Vision, Change in Vision, Decreased Night Vision, Diplopia, Discharge, Dry Eye, Exophthalmos, Floaters, Irritation, Itchy Eyes, Loss of Peripheral Vision, Pain, Photophobia, Requires Corrective Lenses, Sees Flashes, Spots in Vision, Tunnel Vision, Other Visual Disturbances, Loss of Vision, Other Ears: absent: As Per HPI, Decreased Hearing, Ear Discharge, Ear Pain, Tinnitus, Abnormal Hearing, Disequilibrium, Dizziness, Other Nose/Mouth/Throat: absent: As Per HPI, Epistaxis, Nasal Congestion, Nasal Discharge, Nasal Obstruction, Nasal Trauma, Nose Pain, Post Nasal Drip, Sinus Pain, Sinus Pressure, Bleeding Gums, Change in Voice, Dental Pain, Dry Mouth, Dysphagia, Halitosis, Hoarsness, Lip Swelling, Mouth Lesions, Mouth Pain, Odynophagia, Sore Throat, Throat Swelling, Tongue Swelling, Facial Pain, Neck Pain, Neck Mass, Other - Cardiovascular Cardiovascular: As Per HPI - Respiratory Respiratory: absent: As Per HPI, Cough, Dyspnea, Hemoptysis, Dyspnea on Exertion , Wheezing, Snoring, Stridor, Pain on Inspiration, Chest Congestion, Excessive Mucous Production, Change in Mucous Color, Pain with Coughing, Other - Gastrointestinal Gastrointestinal: absent: As Per HPI, Abdominal Pain, Belching, Bloating, Change in Bowel Habits, Change in Stool Character, Coffee Ground Emesis, Constipation, Cramping, Diarrhea, Dyspepsia, Dysphagia, Early Satiety, Excessive Flatus, Fecal Incontinence, Heartburn, Hematemesis, Hematochezia, Loose Stools, Melena, Nausea, Odynophagia, Temesmus, Vomiting, Other - Genitourinary Genitourinary: absent: As Per HPI, Change in Urinary Stream, Difficulty Urinating, Dysuria, Flank Pain, Hematuria, Pyuria, Nocturia, Urinary Incontinence, Urinary Frequency, Urinary Hesitance, Urinary Urgency, Voiding Freq/Small Amts, Freq UTI, Hx Renal/Bladder Calculi, Hx /Renal Surgery, Bladder Distension, Other - Musculoskeletal Musculoskeletal: As Per HPI - Integumentary Integumentary: As Per HPI, Skin Pain, Wounds - Neurological Neurological: absent: As Per HPI, Abnormal Gait, Abnormal Hearing, Abnormal Movements, Abnormal Speech, Behavioral Changes, Burning Sensations, Confusion, Convulsions, Disequilibrium, Dizziness, Numbness, Focal Weakness, Frequent Falls , Headaches, Lack of Coordination, Loss of Vision, Memory Loss, Paresthesias, Radicular Pain, Restless Legs, Sensory Deficit, Syncope, Tingling, Tremor, Vertigo, Weakness, Other Visual Disturbances, Other - Psychiatric Psychiatric: absent: As Per HPI, Abnormal Sleep Pattern, Anhedonia, Anxiety, Auditory Hallucinations, Behavioral Changes, Change in Appetite, Change in Libido, Confusion, Depression, Difficulty Concentrating, Hallucinations, Homicidal Ideation, Hopelessness, Irritability, Memory Loss, Mood Swings, Panic Attacks, Paranoia, Suicidal Ideation, Visual Hallucinations, Tactile Hallucinations, Other - Endocrine Endocrine: absent: As Per HPI, Change in Body Appearance, Change in Libido, Cold Intolorance, Deepening of Voice, Excessive Sweating, Fatigue, Flushing, Heat Intolorance, Increase in Ring/Shoe/Hat Size, Palpitations, Polydipsia, Polyphagia, Polyuria, Other - Hematologic/Lymphatic Hematologic: absent: As Per HPI, Easy Bleeding, Easy Bruising, Lymphadenopathy, Other Past Patient History - Infectious Disease Hx of Infectious Diseases: None - Past Medical History & Family History Past Medical History?: Yes - Past Social History Smoking Status: Former Smoker - CARDIAC Hx Atrial Fibrillation: Yes Hx Hypertension: Yes Hx Peripheral Edema: Yes - PULMONARY Hx Chronic Obstructive Pulmonary Disease (COPD): Yes Hx Pneumonia: Yes - NEUROLOGICAL Hx Neurological Disorder: No - HEENT Hx HEENT Problems: No - RENAL Hx Chronic Kidney Disease: No - ENDOCRINE/METABOLIC Hx Endocrine Disorders: No - HEMATOLOGICAL/ONCOLOGICAL Hx Anemia: Yes - INTEGUMENTARY Hx Dermatological Problems: No - MUSCULOSKELETAL/RHEUMATOLOGICAL Hx Falls: No - GASTROINTESTINAL Hx Gastrointestinal Disorders: No - GENITOURINARY/GYNECOLOGICAL Hx Genitourinary Disorders: No - PSYCHIATRIC Hx Substance Use: No - SURGICAL HISTORY Hx Appendectomy: Yes - ANESTHESIA Hx Anesthesia: Yes Hx Anesthesia Reactions: No Hx Malignant Hyperthermia: No Meds Allergies/Adverse Reactions: Allergies Allergy/AdvReac Type Severity Reaction Status Date / Time No Known Allergies Allergy Verified 05/21/15 01:56 - Medications Medications: Current Medications Albuterol/Ipratropium (Duoneb 3 Mg/0.5 Mg (3 Ml) Ud) 3 ml INH RQ6 [facility] Enoxaparin Sodium (Lovenox) 70 mg SC DAILY [facility] Last Admin: 12/15/17 09:50 Dose: 70 mg Furosemide (Lasix) 40 mg PO DAILY [facility] Last Admin: 12/15/17 09:50 Dose: 40 mg Cefepime HCl 1 gm/ Dextrose 50 mls @ 100 mls/hr IVPB Q12H [facility] PRN Reason: Protocol Last Admin: 12/15/17 13:26 Dose: 100 mls/hr Vancomycin/Sodium Chloride (Vancomycin 1 Gm/Ns 200 Ml) 1 gm in 200 mls @ 133 mls/hr IVPB Q24H [facility] PRN Reason: Protocol Stop: 12/20/17 10:01 Last Admin: 12/15/17 09:50 Dose: 133 mls/hr Methylprednisolone (Solu-Medrol) 60 mg IV Q12 [facility] Last Admin: 12/15/17 12:10 Dose: 60 mg Nebivolol (Bystolic) 5 mg PO DAILY [facility] Last Admin: 12/15/17 09:50 Dose: 5 mg Physical Exam - Constitutional Appears: Chronically Ill - Head Exam Head Exam: ATRAUMATIC, NORMOCEPHALIC - Eye Exam Eye Exam: PERRL. absent: Scleral icterus - ENT Exam ENT Exam: Mucous Membranes Dry - Neck Exam Neck exam: Negative for: Lymphadenopathy - Respiratory Exam Respiratory Exam: Decreased Breath Sounds, Rales, Rhonchi - Cardiovascular Exam Cardiovascular Exam: REGULAR RHYTHM - GI/Abdominal Exam GI & Abdominal Exam: Diminished Bowel Sounds, Distended, Soft. absent: Tenderness - Rectal Exam Rectal Exam: Deferred - Exam Exam: NORMAL INSPECTION - Extremities Exam Extremities exam: Positive for: calf tenderness, pedal edema, tenderness. Negative for: pedal pulses present Additional comments: cellulitis and ulcer left leg - Back Exam Back exam: absent: CVA tenderness (L), CVA tenderness (R) - Neurological Exam Neurological exam: Alert, CN II-XII Intact, Oriented x3, Reflexes Normal - Psychiatric Exam Psychiatric exam: Depressed - Skin Skin Exam: Erythema Results - Vital Signs Recent Vital Signs: Last Vital Signs Temp 99.1 F 12/15/17 16:01 Pulse 61 12/15/17 16:01 Resp 20 12/15/17 16:01 BP 137/66 12/15/17 16:01 Pulse Ox 96 12/15/17 16:01 - Labs Result Diagrams: 12/14/17 12:01 12/14/17 12:01 Assessment & Plan (1) Cellulitis of left lower leg Status: Acute (2) Pneumonia Status: Acute Priority: High (3) COPD (chronic obstructive pulmonary disease) Status: Chronic (4) Chronic obstructive lung disease Status: Chronic (5) HTN (hypertension) Status: Chronic (6) Morbid obesity with BMI of 60.0-69.9, adult Status: Chronic Priority: Medium - Assessment and Plan (Free Text) Assessment: await cultures cont wound care and IV antibiotics
[2017-12-15] MEDS: Albuterol-Ipratrop 3 mg / 0.5 (3 ml) UD INH SCH (20:14)
[2017-12-16] MEDS: Albuterol-Ipratrop 3 mg / 0.5 (3 ml) UD INH SCH ×4 (02:07→19:35)
[2017-12-16] MEDS: Vancomycin 1 gm/NS 200 ml 1 GM/200 ML BAG IVPB SCH ×2 (04:44→18:14)
[2017-12-16] MEDS: Enoxaparin 80 mg Syringe SC SCH (09:46)
--- NOTE | 2017-12-16 10:40 | CP.PCM.PN ---
Subjective - Date & Time of Evaluation Date of Evaluation: 12/16/17 Time of Evaluation: 10:37 - Subjective Subjective: MILD SOB PRESENT. LEGS CELLULITIS PRESENT. CHRONIC. AFEBRILE. VS WNL. Objective - Vital Signs/Intake and Output Vital Signs (last 24 hours): Temp Pulse Resp BP Pulse Ox 97.8 F 59 L 20 156/69 H 97 12/16/17 08:00 12/16/17 08:00 12/16/17 08:00 12/16/17 09:45 12/16/17 08:00 Intake and Output: 12/16/17 12/16/17 06:59 18:59 Intake Total 500 Balance 500 - Medications Medications: Current Medications Albuterol/Ipratropium (Duoneb 3 Mg/0.5 Mg (3 Ml) Ud) 3 ml INH RQ6 [facility] Last Admin: 12/16/17 07:40 Dose: 3 ml Enoxaparin Sodium (Lovenox) 70 mg SC DAILY [facility] Last Admin: 12/16/17 09:46 Dose: 70 mg Furosemide (Lasix) 40 mg PO DAILY [facility] Last Admin: 12/16/17 09:45 Dose: 40 mg Cefepime HCl 1 gm/ Dextrose 50 mls @ 100 mls/hr IVPB Q12H [facility] PRN Reason: Protocol Last Admin: 12/16/17 01:11 Dose: 100 mls/hr Vancomycin/Sodium Chloride (Vancomycin 1 Gm/Ns 200 Ml) 1 gm in 200 mls @ 133 mls/hr IVPB Q12H [facility] PRN Reason: Protocol Stop: 12/21/17 05:31 Last Admin: 12/16/17 04:44 Dose: 133 mls/hr Methylprednisolone (Solu-Medrol) 60 mg IV Q12 [facility] Last Admin: 12/16/17 09:44 Dose: 60 mg Nebivolol (Bystolic) 5 mg PO DAILY [facility] Last Admin: 12/16/17 10:06 Dose: 5 mg - Labs Labs: 12/14/17 12:01 12/14/17 12:01 PT 12.0 SECONDS (9.7-12.2) 12/14/17 12:01 INR 1.1 12/14/17 12:01 APTT 25 SECONDS (21-34) 12/14/17 12:01 - Constitutional Appears: No Acute Distress, Chronically Ill - Eye Exam Eye Exam: Normal appearance, PERRL - ENT Exam ENT Exam: Normal Exam - Neck Exam Neck Exam: Normal Inspection - Respiratory Exam Respiratory Exam: Decreased Breath Sounds, Wheezes, NORMAL BREATHING PATTERN - Cardiovascular Exam Cardiovascular Exam: REGULAR RHYTHM, +S1, +S2 - GI/Abdominal Exam GI & Abdominal Exam: Soft, Normal Bowel Sounds - Extremities Exam Extremities Exam: Full ROM, Normal Capillary Refill, Normal Inspection. absent : Joint Swelling, Pedal Edema - Neurological Exam Neurological Exam: Alert, Awake, CN II-XII Intact, Normal Gait, Oriented x3 - Psychiatric Exam Psychiatric exam: Normal Affect, Normal Mood Assessment and Plan - Assessment and Plan (Free Text) Assessment: COPD, CELLULITIS. Plan: FOR RESP TREATMENT. ANTIBIOTICS.
--- NOTE | 2017-12-16 19:48 | CP.PCM.PN ---
Subjective - Date & Time of Evaluation Date of Evaluation: 12/16/17 Time of Evaluation: 08:00 - Subjective Subjective: admitted with exac copd/pneumonia and cellulitis IV Vanco/ Cefepime in progress Objective - Vital Signs/Intake and Output Vital Signs (last 24 hours): Temp Pulse Resp BP Pulse Ox 98.3 F 62 20 117/62 95 12/16/17 16:00 12/16/17 16:00 12/16/17 16:00 12/16/17 16:00 12/16/17 16:00 Intake and Output: 12/16/17 12/17/17 18:59 06:59 Intake Total 750 Balance 750 - Medications Medications: Current Medications Albuterol/Ipratropium (Duoneb 3 Mg/0.5 Mg (3 Ml) Ud) 3 ml INH RQ6 [facility] Last Admin: 12/16/17 19:35 Dose: 3 ml Enoxaparin Sodium (Lovenox) 70 mg SC DAILY [facility] Last Admin: 12/16/17 09:46 Dose: 70 mg Furosemide (Lasix) 40 mg PO DAILY [facility] Last Admin: 12/16/17 09:45 Dose: 40 mg Guaifenesin (Robitussin) 200 mg PO Q4H PRN PRN Reason: Cough and congestion Cefepime HCl 1 gm/ Dextrose 50 mls @ 100 mls/hr IVPB Q12H [facility] PRN Reason: Protocol Last Admin: 12/16/17 13:21 Dose: 100 mls/hr Vancomycin/Sodium Chloride (Vancomycin 1 Gm/Ns 200 Ml) 1 gm in 200 mls @ 133 mls/hr IVPB Q12H [facility] PRN Reason: Protocol Stop: 12/21/17 05:31 Last Admin: 12/16/17 18:14 Dose: 133 mls/hr Methylprednisolone (Solu-Medrol) 60 mg IV Q12 [facility] Last Admin: 12/16/17 09:44 Dose: 60 mg Nebivolol (Bystolic) 5 mg PO DAILY [facility] Last Admin: 12/16/17 10:06 Dose: 5 mg - Labs Labs: 12/14/17 12:01 12/14/17 12:01 PT 12.0 SECONDS (9.7-12.2) 12/14/17 12:01 INR 1.1 12/14/17 12:01 APTT 25 SECONDS (21-34) 12/14/17 12:01 - Constitutional Appears: Non-toxic, Chronically Ill - Head Exam Head Exam: NORMOCEPHALIC - Eye Exam Eye Exam: PERRL - ENT Exam ENT Exam: Mucous Membranes Dry - Neck Exam Neck Exam: Normal Inspection - Respiratory Exam Respiratory Exam: Decreased Breath Sounds, Rales, Rhonchi - Cardiovascular Exam Cardiovascular Exam: REGULAR RHYTHM - GI/Abdominal Exam GI & Abdominal Exam: Distended, Soft. absent: Tenderness - Rectal Exam Rectal Exam: Deferred - Extremities Exam Extremities Exam: absent: Pedal Edema - Back Exam Back Exam: absent: CVA tenderness (L), CVA tenderness (R) - Neurological Exam Neurological Exam: Alert, Awake, Oriented x3 - Psychiatric Exam Psychiatric exam: Depressed - Skin Skin Exam: Dry Assessment and Plan (1) Cellulitis of left lower leg Status: Acute (2) Pneumonia Status: Acute (3) COPD (chronic obstructive pulmonary disease) Status: Chronic (4) Chronic obstructive lung disease Status: Chronic (5) HTN (hypertension) Status: Chronic (6) Morbid obesity with BMI of 60.0-69.9, adult Status: Chronic - Assessment and Plan (Free Text) Assessment: IV rx renewed
[2017-12-17] MEDS: guaiFENesin 200 mg/10 ml Syrup UD PO PRN (00:41)
[2017-12-17] MEDS: Albuterol-Ipratrop 3 mg / 0.5 (3 ml) UD INH SCH ×3 (01:38→19:55)
[2017-12-17] MEDS: Vancomycin 1 gm/NS 200 ml 1 GM/200 ML BAG IVPB SCH ×2 (05:40→17:48)
[2017-12-17 08:28] LABS: BASO % 0.2 % (0.0-2.0); HEMOGLOBIN 12.1 g/dL (12.0-18.0); LYMPH % 13.1 % (20.0-40.0); MEAN CORPUSCULAR HEMOGLOBIN 30.1 pg (27.0-31.0); MEAN CORPUSCULAR HGB CONC 33.8 g/dL (33.0-37.0); MEAN PLATELET VOLUME 8.9 fL (7.2-11.7); MONO # 0.4 K/uL (0.0-0.8); MONO % 4.9 % (0.0-10.0); NEUT # 6.6 K/uL (1.8-7.0); NEUT % 81.8 % (50.0-75.0); NRBC % 0.1 % (0.0-2.0); RBC 4.04 Mil/uL (4.40-5.90); RED CELL DISTRIBUTION WIDTH 15.6 % (11.5-14.5)
--- NOTE | 2017-12-17 08:36 | CP.PCM.CON ---
History of Present Illness - History of Present Illness History of Present Illness: Podiatry Consult Note- Dr. Servin 52 y.o male with PMH of Atrial Fibrillation, COPD, HTN, Peripheral Edema, Pneumonia consulted for bilateral cellulitis and lymphedema. Patient reports he was admitted because of increase shortness of breath and pneumonia. Patient reports shortness of breath has improved very slightly. Patient reports history of lymphedema for about 3 years. Reports has seen Dr. Servin as an outpatient in which UNNA boots are applied. Reports wounds were healed and UNNA boots were discontinued. Was advised to get compressions stockings however patient admits it's difficult to wear and did not wear them. Denies noticing any drainage during this time. Denies lower extremity pain. Denies nausea, fever, chest pains, or chills. PMH: Atrial Fibrillation, COPD, HTN, Peripheral Edema, Pneumonia PSH: appendectomy SH: former smoker 2-2.5 ppd x 20 years, denies alcohol consumption, denies illicit drug use FH: father- kidney problems, mother- of PE ALL: NKDA Past Patient History - Infectious Disease Hx of Infectious Diseases: None - Past Medical History & Family History Past Medical History?: Yes - Past Social History Smoking Status: Former Smoker - CARDIAC Hx Atrial Fibrillation: Yes Hx Hypertension: Yes Hx Peripheral Edema: Yes - PULMONARY Hx Chronic Obstructive Pulmonary Disease (COPD): Yes Hx Pneumonia: Yes - NEUROLOGICAL Hx Neurological Disorder: No - HEENT Hx HEENT Problems: No - RENAL Hx Chronic Kidney Disease: No - ENDOCRINE/METABOLIC Hx Endocrine Disorders: No - HEMATOLOGICAL/ONCOLOGICAL Hx Anemia: Yes - INTEGUMENTARY Hx Dermatological Problems: No - MUSCULOSKELETAL/RHEUMATOLOGICAL Hx Falls: No - GASTROINTESTINAL Hx Gastrointestinal Disorders: No - GENITOURINARY/GYNECOLOGICAL Hx Genitourinary Disorders: No - PSYCHIATRIC Hx Substance Use: No - SURGICAL HISTORY Hx Appendectomy: Yes - ANESTHESIA Hx Anesthesia: Yes Hx Anesthesia Reactions: No Hx Malignant Hyperthermia: No Meds Allergies/Adverse Reactions: Allergies Allergy/AdvReac Type Severity Reaction Status Date / Time No Known Allergies Allergy Verified 05/21/15 01:56 - Medications Medications: Current Medications Albuterol/Ipratropium (Duoneb 3 Mg/0.5 Mg (3 Ml) Ud) 3 ml INH RQ6 [facility] Last Admin: 12/17/17 01:38 Dose: 3 ml Enoxaparin Sodium (Lovenox) 70 mg SC DAILY [facility] Last Admin: 12/16/17 09:46 Dose: 70 mg Furosemide (Lasix) 40 mg PO DAILY [facility] Last Admin: 12/16/17 09:45 Dose: 40 mg Guaifenesin (Robitussin) 200 mg PO Q4H PRN PRN Reason: Cough and congestion Last Admin: 12/17/17 00:41 Dose: 200 mg Cefepime HCl 1 gm/ Dextrose 50 mls @ 100 mls/hr IVPB Q12H [facility] PRN Reason: Protocol Last Admin: 12/17/17 01:36 Dose: 100 mls/hr Vancomycin/Sodium Chloride (Vancomycin 1 Gm/Ns 200 Ml) 1 gm in 200 mls @ 133 mls/hr IVPB Q12H [facility] PRN Reason: Protocol Stop: 12/21/17 05:31 Last Admin: 12/17/17 05:40 Dose: 133 mls/hr Methylprednisolone (Solu-Medrol) 60 mg IV Q12 [facility] Last Admin: 12/16/17 21:38 Dose: 60 mg Nebivolol (Bystolic) 5 mg PO DAILY [facility] Last Admin: 12/16/17 10:06 Dose: 5 mg Physical Exam - Constitutional Appears: Well, Non-toxic, No Acute Distress - Extremities Exam Extremities exam: Negative for: calf tenderness Additional comments: VASC: DP and PT pulses palpable bilaterally, TG warm to cool, CFT < 3 seconds x 10 digits, nonpitting edema to the entire lower extremity with increase edema noted to the upper 1/3 of the calf bilaterally NEURO: gross sensation intact, protective sensation intact DERM: no open lesions appreciated, hemosiderin deposits noted to the entire leg with diffuse erythema noted, no active drainage, no odor, no purulence, no fluctanance, or no abscess appreciated, scaly dried skin noted to the bilateral legs R>L ORTHO: no pain with palpation to the entire lower extremity, no pain or calf tenderness elicited with palpation - Neurological Exam Neurological exam: Alert, Oriented x3 - Psychiatric Exam Psychiatric exam: Normal Affect, Normal Mood Results - Vital Signs Recent Vital Signs: Last Vital Signs Temp 98.0 F 12/17/17 07:38 Pulse 58 L 12/17/17 07:38 Resp 20 12/17/17 07:38 BP 126/74 12/17/17 07:38 Pulse Ox 97 12/17/17 07:38 - Labs Result Diagrams: 12/17/17 08:06 12/14/17 12:01 Labs: Laboratory Results - last 24 hr 12/17/17 05:05 Vancomycin Trough 5.4 Assessment & Plan - Assessment and Plan (Free Text) Assessment: 52 y.o male with PMH of Atrial Fibrillation, COPD, HTN, Peripheral Edema, Pneumonia with bilateral cellulitis and lymphedema. Plan: Patient seen and evaluated Discussed plan in detail with attending Labs, vitals, chart reviewed- afebrile, absent leukocytosis No open ulcerations at this time Podiatry will continue to follow Will need compression Thank you for allowing us to partake in patient's care
[2017-12-17 09:00] LABS: BLOOD UREA NITROGEN 18 mg/dL (9-20); CALCIUM 8.3 mg/dl (8.6-10.4); GFR NON-AFRICAN AMERICAN > 60
[2017-12-17] MEDS: Enoxaparin 80 mg Syringe SC SCH (10:06)
--- NOTE | 2017-12-17 11:28 | CP.PCM.PN ---
Subjective - Date & Time of Evaluation Date of Evaluation: 12/17/17 Time of Evaluation: 11:26 - Subjective Subjective: sob +.whheze.events noted.dr pike coverage appriciated. Objective - Vital Signs/Intake and Output Vital Signs (last 24 hours): Temp Pulse Resp BP Pulse Ox 98.0 F 58 L 20 126/74 97 12/17/17 07:38 12/17/17 07:38 12/17/17 07:38 12/17/17 10:05 12/17/17 07:38 Intake and Output: 12/17/17 12/17/17 06:59 18:59 Intake Total 1240 Balance 1240 - Medications Medications: Current Medications Albuterol/Ipratropium (Duoneb 3 Mg/0.5 Mg (3 Ml) Ud) 3 ml INH RQ6 [facility] Last Admin: 12/17/17 01:38 Dose: 3 ml Enoxaparin Sodium (Lovenox) 70 mg SC DAILY [facility] Last Admin: 12/17/17 10:06 Dose: 70 mg Furosemide (Lasix) 40 mg PO DAILY [facility] Last Admin: 12/17/17 10:05 Dose: 40 mg Guaifenesin (Robitussin) 200 mg PO Q4H PRN PRN Reason: Cough and congestion Last Admin: 12/17/17 00:41 Dose: 200 mg Cefepime HCl 1 gm/ Dextrose 50 mls @ 100 mls/hr IVPB Q12H [facility] PRN Reason: Protocol Last Admin: 12/17/17 01:36 Dose: 100 mls/hr Vancomycin/Sodium Chloride (Vancomycin 1 Gm/Ns 200 Ml) 1 gm in 200 mls @ 133 mls/hr IVPB Q12H [facility] PRN Reason: Protocol Stop: 12/21/17 05:31 Last Admin: 12/17/17 05:40 Dose: 133 mls/hr Methylprednisolone (Solu-Medrol) 60 mg IV Q12 [facility] Last Admin: 12/17/17 10:06 Dose: 60 mg Nebivolol (Bystolic) 5 mg PO DAILY [facility] Last Admin: 12/17/17 10:05 Dose: 5 mg - Labs Labs: 12/17/17 08:06 12/17/17 08:06 PT 12.0 SECONDS (9.7-12.2) 12/14/17 12:01 INR 1.1 12/14/17 12:01 APTT 25 SECONDS (21-34) 12/14/17 12:01 - Constitutional Appears: No Acute Distress - ENT Exam ENT Exam: Mucous Membranes Moist - Neck Exam Neck Exam: Normal Inspection - Respiratory Exam Respiratory Exam: Rhonchi - Cardiovascular Exam Cardiovascular Exam: REGULAR RHYTHM - GI/Abdominal Exam GI & Abdominal Exam: Soft - Extremities Exam Extremities Exam: Pedal Edema - Neurological Exam Neurological Exam: Alert, Oriented x3 Assessment and Plan - Assessment and Plan (Free Text) Plan: pneumonia,cellulitis both getting better.will ct iv antibiotics & re check chest x ray.
--- NOTE | 2017-12-17 20:11 | CP.PCM.PN ---
Subjective - Date & Time of Evaluation Date of Evaluation: 12/17/17 Time of Evaluation: 08:00 - Subjective Subjective: improving slowly cultures so far negative Objective - Vital Signs/Intake and Output Vital Signs (last 24 hours): Temp Pulse Resp BP Pulse Ox 97.4 F L 59 L 20 128/67 96 12/17/17 16:24 12/17/17 16:24 12/17/17 16:24 12/17/17 16:24 12/17/17 16:24 Intake and Output: 12/17/17 12/18/17 18:59 06:59 Intake Total 650 Balance 650 - Medications Medications: Current Medications Albuterol/Ipratropium (Duoneb 3 Mg/0.5 Mg (3 Ml) Ud) 3 ml INH RQ6 [facility] Last Admin: 12/17/17 19:55 Dose: 3 ml Enoxaparin Sodium (Lovenox) 70 mg SC DAILY [facility] Last Admin: 12/17/17 10:06 Dose: 70 mg Furosemide (Lasix) 40 mg PO DAILY [facility] Last Admin: 12/17/17 10:05 Dose: 40 mg Guaifenesin (Robitussin) 200 mg PO Q4H PRN PRN Reason: Cough and congestion Last Admin: 12/17/17 00:41 Dose: 200 mg Cefepime HCl 1 gm/ Dextrose 50 mls @ 100 mls/hr IVPB Q12H [facility] PRN Reason: Protocol Last Admin: 12/17/17 13:51 Dose: 100 mls/hr Vancomycin/Sodium Chloride (Vancomycin 1 Gm/Ns 200 Ml) 1 gm in 200 mls @ 133 mls/hr IVPB Q12H [facility] PRN Reason: Protocol Stop: 12/21/17 05:31 Last Admin: 12/17/17 17:48 Dose: 133 mls/hr Methylprednisolone (Solu-Medrol) 40 mg IV Q12 [facility] Nebivolol (Bystolic) 5 mg PO DAILY [facility] Last Admin: 12/17/17 10:05 Dose: 5 mg - Labs Labs: 12/17/17 08:06 12/17/17 08:06 PT 12.0 SECONDS (9.7-12.2) 12/14/17 12:01 INR 1.1 12/14/17 12:01 APTT 25 SECONDS (21-34) 12/14/17 12:01 - Constitutional Appears: Non-toxic, Chronically Ill - Head Exam Head Exam: NORMOCEPHALIC - Eye Exam Eye Exam: absent: Scleral icterus - ENT Exam ENT Exam: Mucous Membranes Dry - Neck Exam Neck Exam: absent: Lymphadenopathy - Respiratory Exam Respiratory Exam: Decreased Breath Sounds - Cardiovascular Exam Cardiovascular Exam: REGULAR RHYTHM - GI/Abdominal Exam GI & Abdominal Exam: Distended, Soft - Rectal Exam Rectal Exam: Deferred - Exam Exam: NORMAL INSPECTION Assessment and Plan (1) Cellulitis of left lower leg Status: Acute (2) Pneumonia Status: Acute (3) COPD (chronic obstructive pulmonary disease) Status: Chronic (4) Chronic obstructive lung disease Status: Chronic (5) HTN (hypertension) Status: Chronic (6) Morbid obesity with BMI of 60.0-69.9, adult Status: Chronic
[2017-12-17] MEDS: MethylPREDNISolone 40 mg Vial IV SCH (22:10)
[2017-12-18] MEDS: guaiFENesin 200 mg/10 ml Syrup UD PO PRN ×3 (00:56→09:39)
[2017-12-18] MEDS: Albuterol-Ipratrop 3 mg / 0.5 (3 ml) UD INH SCH ×4 (01:55→19:45)
[2017-12-18] MEDS: Vancomycin 1 gm/NS 200 ml 1 GM/200 ML BAG IVPB SCH ×2 (05:15→16:29)
--- NOTE | 2017-12-18 08:31 | RAD ---
Date of service: 12/18/2017 HISTORY: f/u pneumonoa COMPARISON: Portable chest 12/14/2017. TECHNIQUE: Chest PA and lateral FINDINGS: LUNGS: Marked volume loss of the right hemithorax is again seen with right-sided pleural fibrosis/ pleural effusion. Consolidation not favored at the right chest with none on the left. No left pleural effusion or other pleural findings. Pulmonary pattern is stable and unremarkable. Mid to inferior right pulmonary linear atelectasis or fibrosis again evident. Compensatory hyperexpansion of left lung reiterated. PLEURA: As above. CARDIOVASCULAR: Normal. OSSEOUS STRUCTURES: No significant abnormalities. VISUALIZED UPPER ABDOMEN: Normal. OTHER FINDINGS: None. IMPRESSION: Stable volume loss right chest with improved aeration and likely chronic pleural thickening diffusely noted versus pleural effusion. No definitive alveolitis. Compensatory aeration/ expansion of the left lung again evident which is otherwise unremarkable.
[2017-12-18] MEDS: MethylPREDNISolone 40 mg Vial IV SCH ×2 (09:27→21:26)
[2017-12-18] MEDS: Enoxaparin 80 mg Syringe SC SCH (09:28)
--- NOTE | 2017-12-18 14:33 | CP.PCM.PN ---
Subjective - Date & Time of Evaluation Date of Evaluation: 12/18/17 Time of Evaluation: 14:31 - Subjective Subjective: breathing easier. Objective - Vital Signs/Intake and Output Vital Signs (last 24 hours): Temp Pulse Resp BP Pulse Ox 97.9 F 69 20 143/82 95 12/18/17 08:27 12/18/17 08:27 12/18/17 08:27 12/18/17 09:27 12/18/17 08:27 Intake and Output: 12/18/17 12/18/17 06:59 18:59 Intake Total 1360 Balance 1360 - Medications Medications: Current Medications Albuterol/Ipratropium (Duoneb 3 Mg/0.5 Mg (3 Ml) Ud) 3 ml INH RQ6 [facility] Last Admin: 12/18/17 13:45 Dose: 3 ml Enoxaparin Sodium (Lovenox) 70 mg SC DAILY [facility] Last Admin: 12/18/17 09:28 Dose: 70 mg Furosemide (Lasix) 40 mg PO DAILY [facility] Last Admin: 12/18/17 09:27 Dose: 40 mg Guaifenesin (Robitussin) 200 mg PO Q4H PRN PRN Reason: Cough and congestion Last Admin: 12/18/17 09:39 Dose: 200 mg Cefepime HCl 1 gm/ Dextrose 50 mls @ 100 mls/hr IVPB Q12H [facility] PRN Reason: Protocol Last Admin: 12/18/17 14:08 Dose: 100 mls/hr Vancomycin/Sodium Chloride (Vancomycin 1 Gm/Ns 200 Ml) 1 gm in 200 mls @ 133 mls/hr IVPB Q12H [facility] PRN Reason: Protocol Stop: 12/21/17 05:31 Last Admin: 12/18/17 05:15 Dose: 133 mls/hr Methylprednisolone (Solu-Medrol) 40 mg IV Q12 [facility] Last Admin: 12/18/17 09:27 Dose: 40 mg Nebivolol (Bystolic) 5 mg PO DAILY [facility] Last Admin: 12/18/17 09:28 Dose: 5 mg - Labs Labs: 12/17/17 08:06 12/17/17 08:06 PT 12.0 SECONDS (9.7-12.2) 12/14/17 12:01 INR 1.1 12/14/17 12:01 APTT 25 SECONDS (21-34) 12/14/17 12:01 - Constitutional Appears: No Acute Distress - Eye Exam Eye Exam: Normal appearance - Neck Exam Neck Exam: Normal Inspection - Respiratory Exam Respiratory Exam: Rhonchi - Cardiovascular Exam Cardiovascular Exam: REGULAR RHYTHM - GI/Abdominal Exam GI & Abdominal Exam: Soft - Extremities Exam Extremities Exam: Pedal Edema - Neurological Exam Neurological Exam: Alert, Oriented x3 Assessment and Plan - Assessment and Plan (Free Text) Assessment: cellulitis better.still wheeze & ronchi but better.chest x ray noted. Plan: will taper off steroids.
--- NOTE | 2017-12-18 16:18 | CP.PCM.PN ---
Subjective - Date & Time of Evaluation Date of Evaluation: 12/18/17 Time of Evaluation: 16:15 - Subjective Subjective: Podiatry Consult Note- Dr. Servin 52 y.o male seend and evaluated for bilateral cellulitis and lymphedema. PPatient states he was seen by Dr. Servin today morning who does not want compression. Patient son is present at bedside and patient is AAOX3, and in NAD. Denies noticing any drainage during this time. Denies lower extremity pain. Patient states he has been coughing alot due to pneumonia Objective - Vital Signs/Intake and Output Vital Signs (last 24 hours): Temp Pulse Resp BP Pulse Ox 97.9 F 69 20 143/82 95 12/18/17 08:27 12/18/17 08:27 12/18/17 08:27 12/18/17 09:27 12/18/17 08:27 Intake and Output: 12/18/17 12/18/17 06:59 18:59 Intake Total 1360 600 Balance 1360 600 - Medications Medications: Current Medications Albuterol/Ipratropium (Duoneb 3 Mg/0.5 Mg (3 Ml) Ud) 3 ml INH RQ6 [facility] Last Admin: 12/18/17 13:45 Dose: 3 ml Enoxaparin Sodium (Lovenox) 70 mg SC DAILY [facility] Last Admin: 12/18/17 09:28 Dose: 70 mg Furosemide (Lasix) 40 mg PO DAILY [facility] Last Admin: 12/18/17 09:27 Dose: 40 mg Guaifenesin (Robitussin) 200 mg PO Q4H PRN PRN Reason: Cough and congestion Last Admin: 12/18/17 09:39 Dose: 200 mg Cefepime HCl 1 gm/ Dextrose 50 mls @ 100 mls/hr IVPB Q12H [facility] PRN Reason: Protocol Last Admin: 12/18/17 14:08 Dose: 100 mls/hr Vancomycin/Sodium Chloride (Vancomycin 1 Gm/Ns 200 Ml) 1 gm in 200 mls @ 133 mls/hr IVPB Q12H [facility] PRN Reason: Protocol Stop: 12/21/17 05:31 Last Admin: 12/18/17 05:15 Dose: 133 mls/hr Methylprednisolone (Solu-Medrol) 40 mg IV Q12 [facility] Last Admin: 12/18/17 09:27 Dose: 40 mg Nebivolol (Bystolic) 5 mg PO DAILY [facility] Last Admin: 12/18/17 09:28 Dose: 5 mg - Labs Labs: 12/17/17 08:06 12/17/17 08:06 PT 12.0 SECONDS (9.7-12.2) 12/14/17 12:01 INR 1.1 12/14/17 12:01 APTT 25 SECONDS (21-34) 12/14/17 12:01 - Constitutional Appears: Well, Non-toxic, No Acute Distress - Head Exam Head Exam: ATRAUMATIC, NORMOCEPHALIC - Extremities Exam Additional comments: VASC: DP and PT pulses palpable bilaterally, TG warm to cool, CFT < 3 seconds x 10 digits, nonpitting edema to the entire lower extremity with increase edema noted to the upper 1/3 of the calf bilaterally NEURO: gross sensation intact, protective sensation intact DERM: no open lesions appreciated, hemosiderin deposits noted to the entire leg with diffuse erythema noted, no active drainage, no odor, no purulence, no fluctanance, or no abscess appreciated, scaly dried skin noted to the bilateral legs R>L ORTHO: no pain with palpation to the entire lower extremity, no pain or calf tenderness elicited with palpation - Neurological Exam Neurological Exam: Alert, Awake, Oriented x3 - Psychiatric Exam Psychiatric exam: Normal Affect, Normal Mood Assessment and Plan - Assessment and Plan (Free Text) Assessment: 52 y.o male with PMH of Atrial Fibrillation, COPD, HTN, Peripheral Edema, Pneumonia with bilateral cellulitis and lymphedema. Plan: Patient seen and evaluated at bedside Patient also seen by Dr. Servin Discussed plan in detail with attending Labs, vitals, chart reviewed- afebrile, absent leukocytosis No open ulcerations at this time Podiatry will continue to follow No compression at this time Thank you for allowing us to partake in patient's care
[2017-12-19] MEDS: Albuterol-Ipratrop 3 mg / 0.5 (3 ml) UD INH SCH ×4 (01:46→21:23)
[2017-12-19] MEDS: Vancomycin 1 gm/NS 200 ml 1 GM/200 ML BAG IVPB SCH (06:31)
[2017-12-19 07:08] LABS: BASO % 0.3 % (0.0-2.0); HEMOGLOBIN 13.5 g/dL (12.0-18.0); LYMPH # 1.5 K/uL (1.0-4.3); MEAN CELL VOLUME 88.8 fL (80.0-94.0); MEAN CORPUSCULAR HEMOGLOBIN 28.9 pg (27.0-31.0); MEAN CORPUSCULAR HGB CONC 32.5 g/dL (33.0-37.0); MEAN PLATELET VOLUME 8.9 fL (7.2-11.7); MONO # 0.5 K/uL (0.0-0.8); MONO % 4.4 % (0.0-10.0); NEUT # 8.8 K/uL (1.8-7.0); NEUT % 81.3 % (50.0-75.0); NRBC % 0.5 % (0.0-2.0); RBC 4.66 Mil/uL (4.40-5.90); RED CELL DISTRIBUTION WIDTH 15.7 % (11.5-14.5); WHITE BLOOD COUNT 10.8 K/uL (4.8-10.8)
[2017-12-19 07:46] LABS: ALB/GLOB RATIO 1.5 (1.0-2.1); ALBUMIN 3.8 g/dL (3.5-5.0); ALT/SGPT 111 U/L (21-72); AST/SGOT 47 U/L (17-59); BLOOD UREA NITROGEN 22 mg/dL (9-20); GFR NON-AFRICAN AMERICAN > 60
[2017-12-19] MEDS: MethylPREDNISolone 40 mg Vial IV SCH ×2 (09:30→21:26)
[2017-12-19] MEDS: Enoxaparin 80 mg Syringe SC SCH (09:31)
[2017-12-19] MEDS: guaiFENesin 200 mg/10 ml Syrup UD PO PRN (09:32)
--- NOTE | 2017-12-19 17:02 | CP.PCM.PN ---
Subjective - Date & Time of Evaluation Date of Evaluation: 12/19/17 Time of Evaluation: 16:59 - Subjective Subjective: Podiatry Progress Note for Dr. Servin 52 y.o male seen and evaluated for bilateral cellulitis and lymphedema. Patient is AAO x 3 and NAD, resting comfortably in bed. Denies any pain at this time. Denies any recent acute overnight events or new pedal complaints. States that his breathing is improving. Denies any recent N/V/F/C/posterior calf pain b/l Objective - Vital Signs/Intake and Output Vital Signs (last 24 hours): Temp Pulse Resp BP Pulse Ox 98.7 F 82 20 117/62 94 L 12/19/17 15:43 12/19/17 15:43 12/19/17 15:43 12/19/17 15:43 12/19/17 15:43 Intake and Output: 12/19/17 12/19/17 06:59 18:59 Intake Total 450 550 Balance 450 550 - Medications Medications: Current Medications Albuterol/Ipratropium (Duoneb 3 Mg/0.5 Mg (3 Ml) Ud) 3 ml INH RQ6 [facility] Last Admin: 12/19/17 13:38 Dose: 3 ml Enoxaparin Sodium (Lovenox) 70 mg SC DAILY [facility] Last Admin: 12/19/17 09:31 Dose: 70 mg Furosemide (Lasix) 40 mg PO DAILY [facility] Last Admin: 12/19/17 09:30 Dose: 40 mg Guaifenesin (Robitussin) 200 mg PO Q4H PRN PRN Reason: Cough and congestion Last Admin: 12/19/17 09:32 Dose: 200 mg Vancomycin HCl 1,250 mg/ (Sodium Chloride) 250 mls @ 166.6 mls/hr IVPB Q12H [facility] PRN Reason: Protocol Cefepime HCl 1 gm/ Dextrose 50 mls @ 100 mls/hr IVPB Q12H [facility] PRN Reason: Protocol Last Admin: 12/19/17 14:10 Dose: 100 mls/hr Lactic Acid (Lac-Hydrin 12% Lotion (225 G)) 0 gm EXT DAILY [facility] Methylprednisolone (Solu-Medrol) 40 mg IV Q12 [facility] Last Admin: 12/19/17 09:30 Dose: 40 mg Nebivolol (Bystolic) 5 mg PO DAILY [facility] Last Admin: 12/19/17 09:31 Dose: 5 mg - Labs Labs: 12/19/17 07:03 12/19/17 07:03 PT 12.0 SECONDS (9.7-12.2) 12/14/17 12:01 INR 1.1 12/14/17 12:01 APTT 25 SECONDS (21-34) 12/14/17 12:01 - Constitutional Appears: Well, Non-toxic, No Acute Distress - Extremities Exam Additional comments: VASC: DP and PT pulses palpable bilaterally, TG warm to cool, CFT < 3 seconds x 10 digits, nonpitting edema to the entire lower extremity with increase edema noted to the upper 1/3 of the calf bilaterally NEURO: gross sensation intact, protective sensation intact DERM: no open lesions appreciated, hemosiderin deposits noted to the entire leg. Erythema no longer present. No active drainage, no odor, no purulence, no fluctanance, or no abscess appreciated, scaly dried skin noted to the bilateral legs R>L ORTHO: no pain with palpation to the entire lower extremity, no pain or calf tenderness elicited with palpation - Neurological Exam Neurological Exam: Alert, Awake, Oriented x3 - Psychiatric Exam Psychiatric exam: Normal Affect, Normal Mood Assessment and Plan - Assessment and Plan (Free Text) Assessment: 52 y.o male seen and evaluated for bilateral cellulitis and lymphedema Plan: Patient seen and evaluated Plan discussed with attending Dr. Servin WBC 10.8, afebrile Continue abx per ID No plan for surgical intervention at this time Lac Hydrin ordered to be applied daily No compression at this time secondary to breathing problems Podiatry will continue to follow while patient in house
[2017-12-20] MEDS: Albuterol-Ipratrop 3 mg / 0.5 (3 ml) UD INH SCH ×4 (01:03→20:50)
[2017-12-20] MEDS: MethylPREDNISolone 40 mg Vial IV SCH ×2 (09:48→17:09)
[2017-12-20] MEDS: Enoxaparin 80 mg Syringe SC SCH (09:49)
[2017-12-20] MEDS: Ammonium Lactate 12% Lotion (225 g) EXT SCH (09:52)
--- NOTE | 2017-12-20 12:54 | CP.PCM.PN ---
Subjective - Date & Time of Evaluation Date of Evaluation: 12/20/17 Time of Evaluation: 12:52 - Subjective Subjective: sob,chest tightness,worse Objective - Vital Signs/Intake and Output Vital Signs (last 24 hours): Temp Pulse Resp BP Pulse Ox 97.8 F 63 60 H 114/65 20 L 12/20/17 07:51 12/20/17 00:00 12/20/17 07:51 12/20/17 09:48 12/20/17 07:51 Intake and Output: 12/20/17 12/20/17 06:59 18:59 Intake Total 360 700 Balance 360 700 - Medications Medications: Current Medications Albuterol/Ipratropium (Duoneb 3 Mg/0.5 Mg (3 Ml) Ud) 3 ml INH RQ6 [facility] Last Admin: 12/20/17 07:24 Dose: Not Given Enoxaparin Sodium (Lovenox) 70 mg SC DAILY [facility] Last Admin: 12/20/17 09:49 Dose: 70 mg Furosemide (Lasix) 40 mg PO DAILY [facility] Last Admin: 12/20/17 09:48 Dose: 40 mg Guaifenesin (Robitussin) 200 mg PO Q4H PRN PRN Reason: Cough and congestion Last Admin: 12/19/17 09:32 Dose: 200 mg Vancomycin HCl 1,250 mg/ (Sodium Chloride) 250 mls @ 166.6 mls/hr IVPB Q12H [facility] PRN Reason: Protocol Last Admin: 12/20/17 04:35 Dose: 166.6 mls/hr Cefepime HCl 1 gm/ Dextrose 50 mls @ 100 mls/hr IVPB Q12H [facility] PRN Reason: Protocol Last Admin: 12/20/17 02:44 Dose: 100 mls/hr Lactic Acid (Lac-Hydrin 12% Lotion (225 G)) 0 gm EXT DAILY [facility] Last Admin: 12/20/17 09:52 Dose: 1 applic Methylprednisolone (Solu-Medrol) 40 mg IV Q8H [facility] Nebivolol (Bystolic) 5 mg PO DAILY [facility] Last Admin: 12/20/17 09:49 Dose: 5 mg - Labs Labs: 12/19/17 07:03 12/19/17 07:03 PT 12.0 SECONDS (9.7-12.2) 12/14/17 12:01 INR 1.1 12/14/17 12:01 APTT 25 SECONDS (21-34) 12/14/17 12:01 - Constitutional Appears: No Acute Distress - Eye Exam Eye Exam: Normal appearance - Neck Exam Neck Exam: Normal Inspection - Respiratory Exam Respiratory Exam: Rhonchi, Wheezes - Cardiovascular Exam Cardiovascular Exam: REGULAR RHYTHM - GI/Abdominal Exam GI & Abdominal Exam: Soft - Extremities Exam Extremities Exam: Pedal Edema - Neurological Exam Neurological Exam: Alert, Oriented x3 Assessment and Plan - Assessment and Plan (Free Text) Plan: copd worse,cellulitis better.will increase solumedrol to tid.add advair.pul consult.
[2017-12-20] MEDS ORDERED: fluPHENAZine Decanoate 25 mg/mL Inj(5ml) IM ONE (14:00)
--- NOTE | 2017-12-20 16:39 | CP.PCM.CON ---
History of Present Illness - History of Present Illness History of Present Illness: reason for consultation: shortness of breath 52-year-old male with history off empyema status post chest tube drainage in 2016, COPD, atrial fibrillation, hypertension, cellulitis and lymphedema who was admitted for shortness of breath and chest tightness. Patient also complaining of cough with scanty sputum. Patient being treated for cellulitis of the lower extremities. Patient states breathing is better but still having shortness of breath on minimal exertion. Denies fever chills PMH: Atrial Fibrillation, COPD, HTN, Peripheral Edema, Pneumonia PSH: appendectomy, status post chest tube drainage for empyema SH: former smoker 2-2.5 ppd x 20 years, denies alcohol consumption, denies illicit drug use FH: father- kidney problems, mother- of PE ALL: NKDA Review of Systems - Review of Systems All systems: reviewed and no additional remarkable complaints except (shortness of breath) Past Patient History - Infectious Disease Hx of Infectious Diseases: None - Past Medical History & Family History Past Medical History?: Yes - Past Social History Smoking Status: Former Smoker - CARDIAC Hx Hypertension: Yes - PULMONARY Hx Chronic Obstructive Pulmonary Disease (COPD): Yes - NEUROLOGICAL Hx Neurological Disorder: No - HEENT Hx HEENT Problems: No - RENAL Hx Chronic Kidney Disease: No - ENDOCRINE/METABOLIC Hx Endocrine Disorders: No - HEMATOLOGICAL/ONCOLOGICAL Hx Anemia: Yes - INTEGUMENTARY Hx Dermatological Problems: No - MUSCULOSKELETAL/RHEUMATOLOGICAL Hx Arthritis: Yes (L HAND FFX) - GASTROINTESTINAL Hx Gastrointestinal Disorders: No - GENITOURINARY/GYNECOLOGICAL Hx Genitourinary Disorders: No - PSYCHIATRIC Hx Substance Use: No - SURGICAL HISTORY Hx Appendectomy: Yes - ANESTHESIA Hx Anesthesia: Yes Hx Anesthesia Reactions: No Hx Malignant Hyperthermia: No Meds Allergies/Adverse Reactions: Allergies Allergy/AdvReac Type Severity Reaction Status Date / Time No Known Allergies Allergy Verified 05/21/15 01:56 - Medications Medications: Current Medications Albuterol/Ipratropium (Duoneb 3 Mg/0.5 Mg (3 Ml) Ud) 3 ml INH RQ6 [facility] Furosemide (Lasix) 40 mg PO DAILY [facility] Last Admin: 12/20/17 09:48 Dose: 40 mg Guaifenesin (Robitussin) 200 mg PO Q4H PRN PRN Reason: Cough and congestion Last Admin: 12/19/17 09:32 Dose: 200 mg Vancomycin HCl 1,250 mg/ (Sodium Chloride) 250 mls @ 166.6 mls/hr IVPB Q12H [facility] PRN Reason: Protocol Last Admin: 12/20/17 04:35 Dose: 166.6 mls/hr Cefepime HCl 1 gm/ Dextrose 50 mls @ 100 mls/hr IVPB Q12H [facility] PRN Reason: Protocol Last Admin: 12/20/17 13:40 Dose: 100 mls/hr Lactic Acid (Lac-Hydrin 12% Lotion (225 G)) 0 gm EXT DAILY [facility] Last Admin: 12/20/17 09:52 Dose: 1 applic Methylprednisolone (Solu-Medrol) 40 mg IV Q8H [facility] Nebivolol (Bystolic) 5 mg PO DAILY [facility] Last Admin: 12/20/17 09:49 Dose: 5 mg Physical Exam - Head Exam Head Exam: ATRAUMATIC, NORMOCEPHALIC - ENT Exam ENT Exam: Mucous Membranes Moist - Neck Exam Neck exam: Positive for: Normal Inspection - Respiratory Exam Respiratory Exam: Clear to Auscultation Bilateral - Cardiovascular Exam Cardiovascular Exam: REGULAR RHYTHM - GI/Abdominal Exam GI & Abdominal Exam: Normal Bowel Sounds, Soft - Extremities Exam Extremities exam: Positive for: pedal edema - Neurological Exam Neurological exam: Alert, Oriented x3 Results - Vital Signs Recent Vital Signs: Last Vital Signs Temp 97.8 F 12/20/17 07:51 Pulse 63 12/20/17 00:00 Resp 60 H 12/20/17 07:51 BP 114/65 12/20/17 09:48 Pulse Ox 20 L 12/20/17 07:51 - Labs Result Diagrams: 12/19/17 07:03 12/19/17 07:03 Assessment & Plan (1) COPD exacerbation Status: Acute Comment: continue nebulizer treatment and IV steroids. CAT scan of the chest with contrast. Continue IV antibiotics. Check pro calcitonin level (2) Cellulitis, leg Status: Acute
[2017-12-20 16:48] VITALS: RESP 20
--- NOTE | 2017-12-20 18:39 | CT ---
Date of service: 12/20/2017 PROCEDURE: CT Chest without contrast HISTORY: sob COMPARISON: None available. TECHNIQUE: Contiguous axial images were obtained through the chest without intravenous contrast enhancement. Sagittal and coronal reconstructions were performed. Radiation dose (DLP): 1420 mGy-cm. This CT exam was performed using one or more of the following dose reduction techniques: Automated exposure control, adjustment of the mA and/or kV according to patient size, and/or use of iterative reconstruction technique. FINDINGS: LUNGS: Right hemithoracic volume loss with peripheral right upper and lower lung areas of atelectasis/scarring. Visualized airway clear. MEDIASTINUM: Unremarkable thoracic aorta. No aneurysm. Normal sized heart. Main pulmonary artery unremarkable. No vascular congestion. No lymphadenopathy. PLEURA: No pleural fluid. No pneumothorax. BONES: No fracture. No destructive lesion. UPPER ABDOMEN: Partially imaged left upper pole 9.8 x 8.5 cm cyst. OTHER FINDINGS: None. IMPRESSION: Right hemithoracic volume loss with peripheral right areas of atelectasis/ scarring. No pulmonary mass, nodule consolidation identified.
--- NOTE | 2017-12-20 19:01 | CP.PCM.PN ---
Subjective - Date & Time of Evaluation Date of Evaluation: 12/20/17 Time of Evaluation: 08:59 - Subjective Subjective: Podiatry Progress Note for Dr. Servin 52 y.o male seen and evaluated for bilateral cellulitis and lymphedema of his LE. Patient is AAO x 3 and NAD, resting comfortably in bed. States that his toenails are painful, thickened, and elongated and says that he would like them cut. Denies any pain at this time. Denies any recent acute overnight events or new pedal complaints. States that his breathing is still laborous. Denies any recent N/V/F/C/posterior calf pain b/l Objective - Vital Signs/Intake and Output Vital Signs (last 24 hours): Temp Pulse Resp BP Pulse Ox 98.7 F 58 L 20 120/76 95 12/20/17 16:46 12/20/17 16:46 12/20/17 16:46 12/20/17 16:46 12/20/17 16:46 Intake and Output: 12/20/17 12/20/17 06:59 18:59 Intake Total 360 1350 Balance 360 1350 - Medications Medications: Current Medications Albuterol/Ipratropium (Duoneb 3 Mg/0.5 Mg (3 Ml) Ud) 3 ml INH RQ6 [facility] Furosemide (Lasix) 40 mg PO DAILY [facility] Last Admin: 12/20/17 09:48 Dose: 40 mg Guaifenesin (Robitussin) 200 mg PO Q4H PRN PRN Reason: Cough and congestion Last Admin: 12/19/17 09:32 Dose: 200 mg Vancomycin HCl 1,250 mg/ (Sodium Chloride) 250 mls @ 166.6 mls/hr IVPB Q12H [facility] PRN Reason: Protocol Last Admin: 12/20/17 04:35 Dose: 166.6 mls/hr Cefepime HCl 1 gm/ Dextrose 50 mls @ 100 mls/hr IVPB Q12H [facility] PRN Reason: Protocol Last Admin: 12/20/17 13:40 Dose: 100 mls/hr Lactic Acid (Lac-Hydrin 12% Lotion (225 G)) 0 gm EXT DAILY [facility] Last Admin: 12/20/17 09:52 Dose: 1 applic Methylprednisolone (Solu-Medrol) 40 mg IV Q8H [facility] Last Admin: 12/20/17 17:09 Dose: 40 mg Nebivolol (Bystolic) 5 mg PO DAILY [facility] Last Admin: 12/20/17 09:49 Dose: 5 mg - Labs Labs: 12/19/17 07:03 12/19/17 07:03 PT 12.0 SECONDS (9.7-12.2) 12/14/17 12:01 INR 1.1 12/14/17 12:01 APTT 25 SECONDS (21-34) 12/14/17 12:01 - Constitutional Appears: Well, Non-toxic, No Acute Distress - Extremities Exam Additional comments: VASC: DP and PT pulses palpable bilaterally, TG warm to cool, CFT < 3 seconds x 10 digits, nonpitting edema to the entire lower extremity with increase edema noted to the upper 1/3 of the calf bilaterally NEURO: gross sensation intact, protective sensation intact DERM: no open lesions appreciated, hemosiderin deposits noted to the entire leg. Erythema no longer present. No active drainage, no odor, no purulence, no fluctanance, or no abscess appreciated, scaly dried skin noted to the bilateral legs R>L. B/l nails 1-5 noted to be elongated, thickened and dystrophic ORTHO: no pain with palpation to the entire lower extremity, no pain or calf tenderness elicited with palpation - Neurological Exam Neurological Exam: Alert, Awake, Oriented x3 - Psychiatric Exam Psychiatric exam: Normal Affect, Normal Mood Assessment and Plan - Assessment and Plan (Free Text) Assessment: 52 y.o male seen and evaluated for bilateral cellulitis and lymphedema and elongated, dystrophic, painful nails Plan: Patient seen and evaluated with Dr. Servin Afebrile Nails 1-5 onychoreduced to appropriate level using nail nippers without incident B/l legs washed with saline and Lac Hydrin lotion applied Nursing order for Lac Hydrin q12h placed No plan for surgical intervention at this time No compression at this time secondary to breathing problems Podiatry will continue to follow while patient in house
[2017-12-21] MEDS: MethylPREDNISolone 40 mg Vial IV SCH ×3 (01:34→17:11)
[2017-12-21] MEDS: guaiFENesin 200 mg/10 ml Syrup UD PO PRN (01:34)
[2017-12-21] MEDS: Albuterol-Ipratrop 3 mg / 0.5 (3 ml) UD INH SCH ×3 (07:38→19:45)
--- NOTE | 2017-12-21 09:57 | CP.PCM.PN ---
Subjective - Date & Time of Evaluation Date of Evaluation: 12/21/17 Time of Evaluation: 09:54 - Subjective Subjective: Podiatry Progress Note for Dr. Servin 52 y.o male seen and evaluated for bilateral cellulitis and lymphedema of his LE with Dr. Servin. Patient is AAO x 3 and NAD, resting comfortably in bed. Denies any pain at this time. Denies any recent acute overnight events or new pedal complaints. States that breathing has not improved since yesterday. Denies any recent N/V/F/C/posterior calf pain b/l Objective - Vital Signs/Intake and Output Vital Signs (last 24 hours): Temp Pulse Resp BP Pulse Ox 98.6 F 62 20 157/85 H 97 12/21/17 07:48 12/21/17 07:48 12/21/17 07:48 12/21/17 07:48 12/21/17 07:48 Intake and Output: 12/21/17 12/21/17 06:59 18:59 Intake Total 540 Balance 540 - Medications Medications: Current Medications Albuterol/Ipratropium (Duoneb 3 Mg/0.5 Mg (3 Ml) Ud) 3 ml INH RQ6 [facility] Last Admin: 12/21/17 07:38 Dose: Not Given Furosemide (Lasix) 40 mg PO DAILY [facility] Last Admin: 12/20/17 09:48 Dose: 40 mg Guaifenesin (Robitussin) 200 mg PO Q4H PRN PRN Reason: Cough and congestion Last Admin: 12/21/17 01:34 Dose: 200 mg Vancomycin HCl 1,250 mg/ (Sodium Chloride) 250 mls @ 166.6 mls/hr IVPB Q12H [facility] PRN Reason: Protocol Last Admin: 12/21/17 06:03 Dose: 166.6 mls/hr Cefepime HCl 1 gm/ Dextrose 50 mls @ 100 mls/hr IVPB Q12H [facility] PRN Reason: Protocol Last Admin: 12/21/17 01:33 Dose: 100 mls/hr Lactic Acid (Lac-Hydrin 12% Lotion (225 G)) 0 gm EXT DAILY [facility] Last Admin: 12/20/17 09:52 Dose: 1 applic Methylprednisolone (Solu-Medrol) 40 mg IV Q8H [facility] Last Admin: 12/21/17 01:34 Dose: 40 mg Nebivolol (Bystolic) 5 mg PO DAILY [facility] Last Admin: 12/20/17 09:49 Dose: 5 mg - Labs Labs: 12/19/17 07:03 12/19/17 07:03 PT 12.0 SECONDS (9.7-12.2) 12/14/17 12:01 INR 1.1 12/14/17 12:01 APTT 25 SECONDS (21-34) 12/14/17 12:01 - Constitutional Appears: Well, Non-toxic, No Acute Distress - Extremities Exam Additional comments: VASC: DP and PT pulses palpable bilaterally, TG warm to cool, CFT < 3 seconds x 10 digits, nonpitting edema to the entire lower extremity with increase edema noted to the upper 1/3 of the calf bilaterally NEURO: gross sensation intact, protective sensation intact DERM: no open lesions appreciated, hemosiderin deposits noted to the entire leg. Erythema no longer present. No active drainage, no odor, no purulence, no fluctanance, or no abscess appreciated, scaly dried skin noted to the bilateral legs R>L but seen to be improving. ORTHO: no pain with palpation to the entire lower extremity, no pain or calf tenderness elicited with palpation - Neurological Exam Neurological Exam: Alert, Awake, Oriented x3 - Psychiatric Exam Psychiatric exam: Normal Affect, Normal Mood Assessment and Plan - Assessment and Plan (Free Text) Assessment: 52 y.o male seen and evaluated for bilateral lymphedema and improved cellulitic changes to LE Plan: Patient seen and evaluated with Dr. Servin Afebrile, absent leukocytosis at last CBC Continue abx per ID Continue Lac Hydrin application by nursing No plan for surgical intervention at this time Podiatry will continue to follow while patient in house
[2017-12-21] MEDS: Enoxaparin 80 mg Syringe SC SCH (10:00)
[2017-12-21] MEDS: Ammonium Lactate 12% Lotion (225 g) EXT SCH (10:38)
--- NOTE | 2017-12-21 12:38 | CP.PCM.PN ---
Subjective - Date & Time of Evaluation Date of Evaluation: 12/21/17 Time of Evaluation: 12:37 - Subjective Subjective: sob +.wheeze ++. Objective - Vital Signs/Intake and Output Vital Signs (last 24 hours): Temp Pulse Resp BP Pulse Ox 98.6 F 62 20 157/85 H 97 12/21/17 07:48 12/21/17 07:48 12/21/17 07:48 12/21/17 10:31 12/21/17 07:48 Intake and Output: 12/21/17 12/21/17 06:59 18:59 Intake Total 540 Balance 540 - Medications Medications: Current Medications Albuterol/Ipratropium (Duoneb 3 Mg/0.5 Mg (3 Ml) Ud) 3 ml INH RQ6 ANISH Last Admin: 12/21/17 07:38 Dose: Not Given Furosemide (Lasix) 40 mg PO DAILY ON LICENSE OF [facility] Last Admin: 12/21/17 10:31 Dose: 40 mg Guaifenesin (Robitussin) 200 mg PO Q4H PRN PRN Reason: Cough and congestion Last Admin: 12/21/17 01:34 Dose: 200 mg Vancomycin HCl 1,250 mg/ (Sodium Chloride) 250 mls @ 166.6 mls/hr IVPB Q12H [facility] PRN Reason: Protocol Last Admin: 12/21/17 06:03 Dose: 166.6 mls/hr Cefepime HCl 1 gm/ Dextrose 50 mls @ 100 mls/hr IVPB Q12H [facility] PRN Reason: Protocol Last Admin: 12/21/17 01:33 Dose: 100 mls/hr Lactic Acid (Lac-Hydrin 12% Lotion (225 G)) 0 gm EXT DAILY [facility] Last Admin: 12/21/17 10:38 Dose: 1 applic Methylprednisolone (Solu-Medrol) 40 mg IV Q8H [facility] Last Admin: 12/21/17 10:30 Dose: 40 mg Nebivolol (Bystolic) 5 mg PO DAILY ANISH Last Admin: 12/21/17 10:30 Dose: 5 mg - Labs Labs: 12/19/17 07:03 12/19/17 07:03 PT 12.0 SECONDS (9.7-12.2) 12/14/17 12:01 INR 1.1 12/14/17 12:01 APTT 25 SECONDS (21-34) 12/14/17 12:01 - Constitutional Appears: No Acute Distress - Eye Exam Eye Exam: Normal appearance - Neck Exam Neck Exam: Normal Inspection - Respiratory Exam Respiratory Exam: Rhonchi, Wheezes - Cardiovascular Exam Cardiovascular Exam: REGULAR RHYTHM - GI/Abdominal Exam GI & Abdominal Exam: Soft - Extremities Exam Extremities Exam: Pedal Edema - Neurological Exam Neurological Exam: Alert, Oriented x3 Assessment and Plan - Assessment and Plan (Free Text) Plan: still wheeze & ronchi.pul consult anatoly.ct noted.
[2017-12-21 14:21] LABS: ABG ALLEN TEST POS; ARTERIAL BLOOD GAS HCO3 32.7 mmol/L (21-28); ARTERIAL BLOOD GAS HEMOGLOBIN 14.5 g/dL (11.7-17.4); ARTERIAL BLOOD GAS O2 SAT 96.4 % (95-98); ARTERIAL BLOOD GAS PCO2 52 mm/Hg (35-45); ARTERIAL BLOOD GAS PH 7.45 (7.35-7.45); ARTERIAL BLOOD GAS PO2 91 mm/Hg (80-100); ARTERIAL BLOOD GAS TCO2 37.7 mmol/L (22-28)
--- NOTE | 2017-12-21 16:16 | CP.PCM.PN ---
Subjective - Date & Time of Evaluation Date of Evaluation: 12/21/17 Time of Evaluation: 15:00 - Subjective Subjective: patient seen and examined Complaining of slight shortness of breath Afebrile No chest pain CAT scan of the chest noted Objective - Vital Signs/Intake and Output Vital Signs (last 24 hours): Temp Pulse Resp BP Pulse Ox 98.6 F 62 20 157/85 H 97 12/21/17 07:48 12/21/17 07:48 12/21/17 07:48 12/21/17 10:31 12/21/17 07:48 Intake and Output: 12/21/17 12/21/17 06:59 18:59 Intake Total 1190 Balance 1190 - Medications Medications: Current Medications Albuterol/Ipratropium (Duoneb 3 Mg/0.5 Mg (3 Ml) Ud) 3 ml INH RQ6 [facility] Last Admin: 12/21/17 13:48 Dose: 3 ml Enoxaparin Sodium (Lovenox) 70 mg SC DAILY [facility] Last Admin: 12/21/17 10:00 Dose: 70 mg Furosemide (Lasix) 40 mg PO DAILY [facility] Last Admin: 12/21/17 10:31 Dose: 40 mg Guaifenesin (Robitussin) 200 mg PO Q4H PRN PRN Reason: Cough and congestion Last Admin: 12/21/17 01:34 Dose: 200 mg Vancomycin HCl 1,250 mg/ (Sodium Chloride) 250 mls @ 166.6 mls/hr IVPB Q12H [facility] PRN Reason: Protocol Last Admin: 12/21/17 06:03 Dose: 166.6 mls/hr Cefepime HCl 1 gm/ Dextrose 50 mls @ 100 mls/hr IVPB Q12H [facility] PRN Reason: Protocol Last Admin: 12/21/17 13:38 Dose: 100 mls/hr Lactic Acid (Lac-Hydrin 12% Lotion (225 G)) 0 gm EXT DAILY [facility] Last Admin: 12/21/17 10:38 Dose: 1 applic Methylprednisolone (Solu-Medrol) 40 mg IV Q8H [facility] Last Admin: 12/21/17 10:30 Dose: 40 mg Nebivolol (Bystolic) 5 mg PO DAILY [facility] Last Admin: 12/21/17 10:30 Dose: 5 mg - Labs Labs: 12/19/17 07:03 12/19/17 07:03 PT 12.0 SECONDS (9.7-12.2) 12/14/17 12:01 INR 1.1 12/14/17 12:01 APTT 25 SECONDS (21-34) 12/14/17 12:01 - Head Exam Head Exam: ATRAUMATIC, NORMOCEPHALIC - Eye Exam Eye Exam: Normal appearance - ENT Exam ENT Exam: Mucous Membranes Moist - Neck Exam Neck Exam: Normal Inspection - Respiratory Exam Respiratory Exam: Clear to Ausculation Bilateral - Cardiovascular Exam Cardiovascular Exam: REGULAR RHYTHM - GI/Abdominal Exam GI & Abdominal Exam: Soft, Normal Bowel Sounds Assessment and Plan (1) COPD exacerbation Assessment & Plan: Continue nebulizer treatment and IV steroids ABG noted with no CO2 retention CAT scan of the chest showed no acute infiltrate Check d-dimer Status: Acute (2) Cellulitis, leg Status: Acute
[2017-12-22] MEDS: Albuterol-Ipratrop 3 mg / 0.5 (3 ml) UD INH SCH ×3 (01:37→13:18)
[2017-12-22] MEDS: MethylPREDNISolone 40 mg Vial IV SCH ×3 (02:00→17:34)
[2017-12-22 06:59] LABS: BASO % 0.2 % (0.0-2.0); HEMOGLOBIN 13.7 g/dL (12.0-18.0); LYMPH # 1.8 K/uL (1.0-4.3); LYMPH % 14.1 % (20.0-40.0); MEAN CELL VOLUME 88.4 fL (80.0-94.0); MEAN CORPUSCULAR HEMOGLOBIN 28.9 pg (27.0-31.0); MEAN CORPUSCULAR HGB CONC 32.7 g/dL (33.0-37.0); MEAN PLATELET VOLUME 8.4 fL (7.2-11.7); MONO # 0.6 K/uL (0.0-0.8); MONO % 5.1 % (0.0-10.0); NEUT # 10.1 K/uL (1.8-7.0); NEUT % 80.6 % (50.0-75.0); NRBC % 0.1 % (0.0-2.0); RBC 4.73 Mil/uL (4.40-5.90); RED CELL DISTRIBUTION WIDTH 16.1 % (11.5-14.5); WHITE BLOOD COUNT 12.5 K/uL (4.8-10.8)
[2017-12-22 07:26] LABS: ALB/GLOB RATIO 1.4 (1.0-2.1); ALBUMIN 3.5 g/dL (3.5-5.0); ALT/SGPT 102 U/L (21-72); AST/SGOT 26 U/L (17-59); BLOOD UREA NITROGEN 26 mg/dL (9-20); CALCIUM 8.2 mg/dl (8.6-10.4); GFR NON-AFRICAN AMERICAN > 60
[2017-12-22] MEDS: Enoxaparin 80 mg Syringe SC SCH (09:59)
[2017-12-22] MEDS: Ammonium Lactate 12% Lotion (225 g) EXT SCH (10:00)
[2017-12-22] MEDS: guaiFENesin 200 mg/10 ml Syrup UD PO PRN (13:59)
[2017-12-22 16:19] VITALS: BP 138/72; PULSE 56; TEMP 98.6; O2SAT 95
--- NOTE | 2017-12-22 17:26 | CP.PCM.PN ---
Subjective - Date & Time of Evaluation Date of Evaluation: 12/22/17 Time of Evaluation: 15:25 - Subjective Subjective: patient seen and examined Complaining of slight wheezing Breathing better Afebrile No chest pain Patient is alert and oriented Being discharged home Followup in the office for sleep study and PFTs Objective - Vital Signs/Intake and Output Vital Signs (last 24 hours): Temp Pulse Resp BP Pulse Ox 98.6 F 56 L 20 138/72 95 12/22/17 16:00 12/22/17 16:00 12/22/17 16:00 12/22/17 16:00 12/22/17 16:00 Intake and Output: 12/22/17 12/22/17 06:59 18:59 Intake Total 1440 460 Balance 1440 460 - Medications Medications: Current Medications Albuterol/Ipratropium (Duoneb 3 Mg/0.5 Mg (3 Ml) Ud) 3 ml INH RQ6 ANISH Last Admin: 12/22/17 13:18 Dose: Not Given Enoxaparin Sodium (Lovenox) 70 mg SC DAILY [facility] Last Admin: 12/22/17 09:59 Dose: 70 mg Furosemide (Lasix) 40 mg PO DAILY ANISH Last Admin: 12/22/17 09:58 Dose: 40 mg Guaifenesin (Robitussin) 200 mg PO Q4H PRN PRN Reason: Cough and congestion Last Admin: 12/22/17 13:59 Dose: 200 mg Vancomycin HCl 1,250 mg/ (Sodium Chloride) 250 mls @ 166.6 mls/hr IVPB Q12H ANISH PRN Reason: Protocol Last Admin: 12/22/17 05:06 Dose: 166.6 mls/hr Cefepime HCl 1 gm/ Dextrose 50 mls @ 100 mls/hr IVPB Q12H ANISH PRN Reason: Protocol Last Admin: 12/22/17 13:59 Dose: 100 mls/hr Lactic Acid (Lac-Hydrin 12% Lotion (225 G)) 0 gm EXT DAILY ANISH Last Admin: 12/22/17 10:00 Dose: 1 applic Methylprednisolone (Solu-Medrol) 40 mg IV Q8H ANISH Last Admin: 12/22/17 09:58 Dose: 40 mg Nebivolol (Bystolic) 5 mg PO DAILY [facility] Last Admin: 12/22/17 09:59 Dose: 5 mg - Labs Labs: 12/22/17 06:42 12/22/17 06:42 PT 12.0 SECONDS (9.7-12.2) 12/14/17 12:01 INR 1.1 12/14/17 12:01 APTT 25 SECONDS (21-34) 12/14/17 12:01 Assessment and Plan (1) COPD exacerbation Status: Acute (2) Cellulitis, leg Status: Acute
--- NOTE | 2017-12-23 10:11 | DS ---
Copied To: Lars Wells MD Attending MD: Lars Wells MD HISTORY OF PRESENT ILLNESS: This is a 52-year-old gentleman came in with history of shortness of breath. He was found to have a left lower lobe infiltrate. CT scan was done, which was showing the same thing with some possible fibrosis and atelectasis. He was seen by Dr. Turk while Dr. Osman Naranjo was on vacation. He also had a cellulitis of the left foot, and was seen and followed by Dr. Hewitt and Dr. Servin. The patient was placed on IV antibiotic, did well, and now, he is being discharged to be followed up as an outpatient. MEDICATIONS: Nebulizer treatment with Duoneb q.i.d. was prescribed, Advair 250/50 two puffs once a day, Levaquin 500 mg one a day for 10 days, prednisone 20 mg p.o. twice a day for two weeks and 10 mg p.o. twice a day following that for two more weeks, and Protonix 40 mg p.o. one a day were prescribed. The patient continued on Bystolic at home. He will return to see me about 7 to 10 days' time. FINAL DIAGNOSES: Hypertension, exacerbation of chronic obstructive pulmonary disease, cellulitis of the left foot, morbid obesity. DIET: As directed in the past. The patient has home oxygen. He will also follow up with Dr. Osman Naranjo. Lars Wells MD
== END 2017-12-22 20:00 | disposition home or self-care (01) | DRG 190 ==
LOC: C.ER 11:35 → C.9E 14:18 → C.3T 15:00
PROVIDERS: ADMIT Internal Medicine Cardiovascular Disease; ATTEND Internal Medicine Cardiovascular Disease
DX: J44.0 Chronic obstructive pulmonary disease with (acute) lower respiratory infection (principal); J18.9 Pneumonia, unspecified organism; L03.116 Cellulitis of left lower limb; Z68.44 Body mass index [BMI] 60.0-69.9, adult; J44.1 Chronic obstructive pulmonary disease with (acute) exacerbation; E66.01 Morbid (severe) obesity due to excess calories; I48.0 Paroxysmal atrial fibrillation; Z87.891 Personal history of nicotine dependence; Z95.1 Presence of aortocoronary bypass graft

== ENCOUNTER 2018-03-14 13:41 | Inpatient (IN) | payer BC ==
[2018-03-14 13:43] VITALS: PULSE 65; BMI 57.2
[2018-03-14 14:39] LABS: BASO % 0.4 % (0.0-2.0); EOS # 0.1 K/uL (0.0-0.7); EOS % 1.4 % (0.0-4.0); HEMOGLOBIN 13.4 g/dL (12.0-18.0); LYMPH # 1.4 K/uL (1.0-4.3); LYMPH % 25.5 % (20.0-40.0); MEAN CELL VOLUME 87.8 fL (80.0-94.0); MEAN CORPUSCULAR HEMOGLOBIN 29.5 pg (27.0-31.0); MEAN CORPUSCULAR HGB CONC 33.6 g/dL (33.0-37.0); MEAN PLATELET VOLUME 7.9 fL (7.2-11.7); MONO # 0.5 K/uL (0.0-0.8); MONO % 9.2 % (0.0-10.0); NEUT # 3.4 K/uL (1.8-7.0); NEUT % 63.5 % (50.0-75.0); RBC 4.53 Mil/uL (4.40-5.90); RED CELL DISTRIBUTION WIDTH 15.6 % (11.5-14.5)
[2018-03-14] MEDS ORDERED: Albuterol-Ipratrop 3 mg / 0.5 (3 ml) UD ONE ×3 (14:40→15:17)
[2018-03-14 14:42] LABS: WHITE BLOOD COUNT 5.4 K/uL (4.8-10.8)
[2018-03-14] MEDS: Albuterol-Ipratrop 3 mg / 0.5 (3 ml) UD IH SCH ×2 (14:45→15:16)
--- NOTE | 2018-03-14 14:45 | C.PDOC ---
History Of Present Illness 53yo male, with history of asthma, COPD, past pleural effusion, VAT procedure in 2015, comes to ER reporting 3 day history of progressively worsening shortness of breath, cough with productive brown sputum. He also reports associated chest tightness and since yesterday, feels as if "something is poking" his back bilaterally. Otherwise, no fever, chills, vomiting, weakness. 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: Isabella Truk Time Seen by Provider: 03/14/18 14:01 Chief Complaint (Nursing): Shortness Of Breath History Per: Patient History/Exam Limitations: no limitations Onset/Duration Of Symptoms: Days, Persistent Current Symptoms Are (Timing): Worse Associated Symptoms: Productive Cough Additional History Per: Patient Past Medical History Reviewed: Historical Data, Nursing Documentation, Vital Signs Vital Signs: Last Vital Signs Temp 98.1 F 03/14/18 13:53 Pulse 75 03/14/18 13:53 Resp 16 03/14/18 13:53 BP 120/58 L 03/14/18 13:53 Pulse Ox 94 L 03/14/18 13:53 - Medical History PMH: Anemia, Arthritis (L HAND FFX), Atrial Fibrillation, COPD, Fractures (Left hand), HTN, Peripheral Edema, Pneumonia Denies: Chronic Kidney Disease Surgical History: Appendectomy - [facility] Procedures ASSISTANCE WITH RESPIRATORY VENTILATION, <24 HRS, CPAP (04/10/15) DRAINAGE OF R PLEURAL CAV WITH DRAIN DEV, PERC APPROACH (04/10/15) EXTRACTION OF RIGHT PLEURA, PERCUTANEOUS ENDOSCOPIC APPROACH (04/10/15) HOME MANAGEMENT TREATMENT (05/20/15) INSPECTION OF TRACHEOBRONCHIAL TREE, ENDO (04/10/15) INTRODUCE OF OTH THERAP SUBST INTO RESP TRACT, VIA OPENING (05/20/15) THERAPEUTIC EXERCISE TREATMENT OF MUSCULOSK WHOLE (05/20/15) Family History: States: Unknown Family Hx - Social History Hx Alcohol Use: No Hx Substance Use: No Review Of Systems Except As Marked, All Systems Reviewed And Found Negative. Respiratory: Positive for: Cough, Shortness of Breath, Sputum (brown) Physical Exam - Physical Exam Appears: No Acute Distress, Other (morbidly obese) Skin: Normal Color, Warm, Dry Head: Atraumatic, Normacephalic Eye(s): bilateral: Normal Inspection Neck: Normal ROM, Supple Chest: Symmetrical Cardiovascular: Rhythm Regular Respiratory: Rhonchi (scattered), Wheezing (mild), Other (no respiratory distress) Gastrointestinal/Abdominal: Normal Exam, Soft (Obese), No Tenderness Extremity: Normal ROM, Pedal Edema (mild), No Calf Tenderness, No Deformity Neurological/Psych: Oriented x3, Normal Speech ED Course And Treatment - Laboratory Results Result Diagrams: 03/14/18 14:36 03/14/18 14:36 Lab Interpretation: No Acute Changes ECG: Interpreted By Me, Viewed By Me ECG Rhythm: Sinus Rhythm, R BBB ECG Interpretation: No Changes From Prior Rate From EC (LAD) O2 Sat by Pulse Oximetry: 94 (on O2 via NC) - Other Rad CXR X-Ray: Read By Radiologist Interpretation: FINDINGS: LUNGS: Apparent chronic pleural thickening and chronic atelectasis, most pronounced in the right lower lung field.. Scattered areas of parenchymal scarring. There may be some minimal left basilar atelectasis. PLEURA: As above. No apparent pneumothorax. CARDIOVASCULAR: No aortic atherosclerotic calcification present. Normal cardiac size. No pulmonary vascular congestion. OSSEOUS STRUCTURES: No significant abnormalities. VISUALIZED UPPER ABDOMEN: Normal. OTHER FINDINGS: None. IMPRESSION: Apparent chronic pleural thickening and chronic atelectasis, most pronounced in the right lower lung field.. Scattered areas of parenchymal scarring. There may be some minimal left basilar atelectasis. Medical Decision Making Medical Decision Making: Impression: 53yo male with cough, shortness of breath Plan: -- Labs -- CXR -- Urinalysis -- Duoneb 3ml INH x 3 doses -- Lasix 20mg IV -- Solumedrol 125mg IVP Patient remained afebrile and in no respiratory distress. Patient still on Oxygen and decompensates when off O2. Patient states he feels unchanged and requests to contact his doctor. 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 - Scribe Statement The provider has reviewed the documentation as recorded by the Tala Garcia Provider Attestation: All medical record entries made by the Tala were at my direction and personally dictated by me. I have reviewed the chart and agree that the record accurately reflects my personal performance of the history, physical exam, medical decision making, and the department course for this patient. I have also personally directed, reviewed, and agree with the discharge instructions and disposition. Decision To Admit - Pt Status Changed To: Hospital Disposition Of: Observation - . Bed Request Type: Telemetry Admitting Physician: Lars Wells Patient Diagnosis: COPD exacerbation
[2018-03-14 14:49] LABS: INR 1.2; PROTHROMBIN TIME 12.7 SECONDS (9.7-12.2)
[2018-03-14 14:51] LABS: ALB/GLOB RATIO 1.3 (1.0-2.1); ALBUMIN 3.9 g/dL (3.5-5.0); ALT/SGPT 38 U/L (21-72); AST/SGOT 28 U/L (17-59); BLOOD UREA NITROGEN 14 mg/dL (9-20); CALCIUM 8.2 mg/dl (8.6-10.4); GFR NON-AFRICAN AMERICAN > 60
[2018-03-14 15:02] LABS: B-TYPE NATRIURETIC PEPTIDE 73.2 pg/mL (0-900)
[2018-03-14 15:23] LABS: SQUAMOUS EPITHIAL 2 /hpf (0-5); URINE BACTERIA RARE (<OCC); URINE BILIRUBIN NEGATIVE (NEGATIVE); URINE BLOOD 1+ (NEGATIVE); URINE CLARITY Clear (Clear); URINE COLOR Straw (YELLOW); URINE GLUCOSE (UA) NORMAL (Normal); URINE HYALINE CAST 0-2 /lpf (0-2); URINE LEUKOCYTE ESTERASE NEG Leu/uL (Negative); URINE PROTEIN NEGATIVE (NEGATIVE); URINE UROBILINOGEN NORMAL mg/dL (0.2-1.0)
--- NOTE | 2018-03-14 16:08 | RAD ---
Date of service: 03/14/2018 HISTORY: cough SOB COMPARISON: Comparison made with chest radiograph head CT scan chest dated 03/14/2018 and 12/20/2017 respectively. TECHNIQUE: Chest PA and lateral FINDINGS: LUNGS: Apparent chronic pleural thickening and chronic atelectasis, most pronounced in the right lower lung field.. Scattered areas of parenchymal scarring. There may be some minimal left basilar atelectasis PLEURA: As above. No apparent pneumothorax. CARDIOVASCULAR: No aortic atherosclerotic calcification present. Normal cardiac size. No pulmonary vascular congestion. OSSEOUS STRUCTURES: No significant abnormalities. VISUALIZED UPPER ABDOMEN: Normal. OTHER FINDINGS: None. IMPRESSION: Apparent chronic pleural thickening and chronic atelectasis, most pronounced in the right lower lung field.. Scattered areas of parenchymal scarring. There may be some minimal left basilar atelectasis.
[2018-03-14] MEDS ORDERED: Potassium Chloride 20 mEq ER Tab PO ONE (18:00)
[2018-03-14] MEDS: cefTRIAXone IV 1 gm in Dextros 50 ML IVPB SCH (18:54)
[2018-03-14] MEDS: Albuterol-Ipratrop 3 mg / 0.5 (3 ml) UD INH SCH (21:36)
[2018-03-14] MEDS: MethylPREDNISolone 40 mg Vial IV SCH (23:19)
[2018-03-15] MEDS ORDERED: methylPREDNISolone 40 MG in Sodium Chloride 0.9% 100 ML IVPB SCH
[2018-03-15] MEDS: Albuterol-Ipratrop 3 mg / 0.5 (3 ml) UD INH SCH ×4 (07:37→21:29)
[2018-03-15] MEDS: Potassium Chloride 20 mEq ER Tab PO SCH (09:48)
[2018-03-15] MEDS: Enoxaparin 80 mg Syringe SC SCH (09:49)
[2018-03-15] MEDS: MethylPREDNISolone 40 mg Vial IV SCH ×2 (11:28→23:59)
--- NOTE | 2018-03-15 16:31 | CP.PCM.CON ---
History of Present Illness - History of Present Illness History of Present Illness: Patient is a 53 y/o male with PMHx of asthma, COPD, past pleural effusion, VAT procedure in 2014, who presented to the ED on 03/14/18 with complaint of SOB, cough with productive brown sputum without visible blood, increasing chest tightness, b/l leg swelling, and b/l back discomfort. He states that he has a history of SOB secondary to COPD and that it was worsening in the past 3 days so he admitted himself to the hospital. The patient was administered Solumedrol, Lasix, Duoneb, and Rocephin for his pulmomary/vascular conditions. On 03/14, his Bicarb was 33 and his Ca was 8.2. He is currently 94% O2 on nasal cannula, and decompensates without NC. Currently, the patient states that his symptoms are the same and have only minimally improved. Denies chest pain, headache, blurry vision. On physical exam, ronchi and wheezing are heard in b/l lung delarosa. PMHx: Anemia, Arthrtis (L hand FFX), A-Fib, COPD, HTN, Perhipheral Edema, [place] PSHx: VATS procedure, Appendectomy Meds: Unknown, but currently on Duoneb, Rocephin, Lovenox, Lasix, Solumedrol, Bystolic, KCl FHx: States uknown Allergies: denies, NKDA Social: denies tobacco, alcohol, and drug use. -CXR 03/14: Apparent chronic pleural thickening and chronic atelectasis, most pronounced in the right lower lung field. Scattered areas of parenchymal sca rring. There may be some minimal left basilar atelectasis. Review of Systems - Review of Systems All systems: reviewed and no additional remarkable complaints except (Shortness of breath, cough and congestion) Past Patient History - Infectious Disease Hx of Infectious Diseases: None - Past Medical History & Family History Past Medical History?: Yes - Past Social History Smoking Status: Former Smoker - CARDIAC Hx Atrial Fibrillation: Yes Hx Hypertension: Yes Hx Peripheral Edema: Yes - PULMONARY Hx Chronic Obstructive Pulmonary Disease (COPD): Yes Hx Pneumonia: Yes - NEUROLOGICAL Hx Neurological Disorder: No - HEENT Hx HEENT Problems: No - RENAL Hx Chronic Kidney Disease: No - ENDOCRINE/METABOLIC Hx Endocrine Disorders: No - HEMATOLOGICAL/ONCOLOGICAL Hx Anemia: Yes - INTEGUMENTARY Hx Dermatological Problems: No - MUSCULOSKELETAL/RHEUMATOLOGICAL Hx Arthritis: Yes (L HAND FFX) Hx Fractures: Yes (Left hand) - GASTROINTESTINAL Hx Gastrointestinal Disorders: No - GENITOURINARY/GYNECOLOGICAL Hx Genitourinary Disorders: No - PSYCHIATRIC Hx Substance Use: No - SURGICAL HISTORY Hx Appendectomy: Yes - ANESTHESIA Hx Anesthesia: Yes Hx Anesthesia Reactions: No Hx Malignant Hyperthermia: No Has any member of the family had a problem w/ anesthesia?: No Meds Allergies/Adverse Reactions: Allergies Allergy/AdvReac Type Severity Reaction Status Date / Time No Known Allergies Allergy Verified 03/14/18 13:52 - Medications Medications: Current Medications Albuterol/Ipratropium (Duoneb 3 Mg/0.5 Mg (3 Ml) Ud) 3 ml INH RQID [facility] Last Admin: 03/15/18 15:37 Dose: 3 ml Enoxaparin Sodium (Lovenox) 80 mg SC DAILY [facility] Last Admin: 03/15/18 09:49 Dose: 80 mg Furosemide (Lasix) 40 mg IVP DAILY [facility] Last Admin: 03/15/18 09:48 Dose: 40 mg Ceftriaxone Sodium (Rocephin Iv 1 Gm Duplex) 50 mls @ 100 mls/hr IVPB Q24H [facility]; Protocol Last Admin: 03/14/18 18:54 Dose: 100 mls/hr Methylprednisolone (Solu-Medrol) 40 mg IV Q12H [facility] Last Admin: 03/15/18 11:28 Dose: 40 mg Nebivolol (Bystolic) 5 mg PO DAILY [facility] Last Admin: 03/15/18 09:48 Dose: 5 mg Potassium Chloride (K-Dur 20 Meq Er Tab) 40 meq PO DAILY [facility] Stop: 03/17/18 10:01 Last Admin: 03/15/18 09:48 Dose: 40 meq Physical Exam - Head Exam Head Exam: ATRAUMATIC, NORMOCEPHALIC - ENT Exam ENT Exam: Mucous Membranes Moist - Neck Exam Neck exam: Positive for: Normal Inspection - Respiratory Exam Respiratory Exam: Rhonchi, Wheezes - Cardiovascular Exam Cardiovascular Exam: REGULAR RHYTHM - GI/Abdominal Exam GI & Abdominal Exam: Normal Bowel Sounds Results - Vital Signs Recent Vital Signs: Last Vital Signs Temp 98 F 03/15/18 15:30 Pulse 74 03/15/18 15:30 Resp 20 03/15/18 15:30 BP 143/77 03/15/18 15:30 Pulse Ox 94 L 03/15/18 15:30 - Labs Result Diagrams: 03/14/18 14:36 03/14/18 14:36 Assessment & Plan (1) COPD exacerbation Status: Acute Comment: nebulizer treatment, IV steroids and antibiotics. CAT scan of chest (2) MIKEY (obstructive sleep apnea) Status: Suspected
[2018-03-15] MEDS: Azithromycin 500 MG in Sodium Chloride 0.9% 250 ML IVPB SCH (17:57)
[2018-03-15] MEDS: cefTRIAXone IV 1 gm in Dextros 50 ML IVPB SCH (18:00)
[2018-03-16] MEDS: Albuterol-Ipratrop 3 mg / 0.5 (3 ml) UD INH SCH ×4 (07:35→20:05)
--- NOTE | 2018-03-16 07:56 | HP ---
HISTORY OF PRESENT ILLNESS: This is a 53-year-old obese gentleman who was brought in with a history of shortness of breath, cough, and wheeze which started about 3 days ago. These got so worse. He could not breathe, and he came to the emergency room. He was found to have exacerbation of COPD and was admitted. The patient has a longstanding history of COPD, pleural effusion, VAT procedure done in 2015. Also has a history of paroxysmal atrial fibrillation in the past, was on Xarelto and amiodarone which both were discontinued. The patient stated he is in sinus rhythm for long time. He was doing well. He is on home oxygen also. For past few days, he started cough, wheeze, and low grade temperature, could not breathe, and came to the emergency room, also had edema. PAST MEDICAL HISTORY: History of arthritis, paroxysmal atrial fibrillation, COPD, fracture, and hypertension. History of pneumonias in the past. Admitted in the past for pulmonary emboli, history of cellulitis of the legs, COPD with exacerbation, and atrial fibrillation. PERSONAL HISTORY: Does not smoke. Does not drink. MEDICATIONS: At home include, Bystolic 5 mg and Lasix 40 mg. FAMILY HISTORY: Father had a history of coronary artery disease and a bypass in his 60s. REVIEW OF SYSTEMS: GENERAL: Low grade temperature. Generalized weakness is noted. Sleep apnea on home oxygen. Currently being followed up by Dr. Turk. HEENT: No headaches. No visual disturbances. NECK: Swelling of the glands in the neck is noted. PULMONARY: Productive cough, wheeze. CARDIAC: Negative for chest pain. History of irregular heart beat. Sleeps on 4 pillows. Edema is noted. GASTROINTESTINAL: Negative for hematemesis and melena. GENITOURINARY: Negative for dysuria and hematuria. MUSCULOSKELETAL: History of back pains, hip pains, and knee pains. VASCULAR: History of varicose veins. NEUROLOGICAL: Negative for TIAs and CVAs. No seizures. PHYSICAL EXAMINATION: GENERAL: Shows middle-aged gentleman who is morbidly obese, weighs 453 pounds, in mild respiratory distress. VITAL SIGNS: His blood pressure is 120/58, heart rate of 88, respiratory rate of 24, temperature of 98.1. He is 6 feet. HEENT: Head is normocephalic. Eyes, no pallor, no icterus. NECK: Shows enlargement, but no definite gland noted. LUNGS: Shows diffuse inspiratory and expiratory wheeze. HEART: Sounds are distant, but no definite gallops or murmurs. ABDOMEN: Soft, nontender. EXTREMITIES: Shows 2 to 3+ pitting edema in both the legs. NEUROLOGICAL: The patient is awake, alert, and oriented x3. LABORATORY DATA: Shows potassium of 3.5. White count is normal at 5.4. BUN is 14, creatinine is 0.7. DIAGNOSTIC DATA: His chest x-ray, which was done, did not show any evidence of pneumonia. Chronic pleural thickening was noted. ASSESSMENT: A 53-year-old gentleman with history of morbid obesity, chronic obstructive pulmonary disease, paroxysmal atrial fibrillation, is present with worsening of chronic obstructive pulmonary disease related to probably upper respiratory infection. PLAN: Plan is to nebulizer treatment antibiotic, pulmonary evaluation, and follow up with that. Lars Wells MD
[2018-03-16 08:25] LABS: BASO % 0.4 % (0.0-2.0); EOS % 0.1 % (0.0-4.0); HEMOGLOBIN 13.1 g/dL (12.0-18.0); LYMPH # 1.6 K/uL (1.0-4.3); LYMPH % 16.5 % (20.0-40.0); MEAN CELL VOLUME 88.8 fL (80.0-94.0); MEAN CORPUSCULAR HEMOGLOBIN 29.4 pg (27.0-31.0); MEAN CORPUSCULAR HGB CONC 33.1 g/dL (33.0-37.0); MEAN PLATELET VOLUME 8.3 fL (7.2-11.7); MONO # 0.3 K/uL (0.0-0.8); MONO % 3.5 % (0.0-10.0); NEUT # 7.6 K/uL (1.8-7.0); NEUT % 79.5 % (50.0-75.0); NRBC % 0.1 % (0.0-2.0); RBC 4.47 Mil/uL (4.40-5.90); RED CELL DISTRIBUTION WIDTH 15.7 % (11.5-14.5)
[2018-03-16 08:28] LABS: WHITE BLOOD COUNT 9.6 K/uL (4.8-10.8)
[2018-03-16 08:46] LABS: ALB/GLOB RATIO 1.3 (1.0-2.1); ALBUMIN 3.8 g/dL (3.5-5.0); ALT/SGPT 35 U/L (21-72); AST/SGOT 20 U/L (17-59); BLOOD UREA NITROGEN 19 mg/dL (9-20); CALCIUM 8.3 mg/dl (8.6-10.4); GFR NON-AFRICAN AMERICAN > 60
[2018-03-16] MEDS: Potassium Chloride 20 mEq ER Tab PO SCH (09:42)
[2018-03-16] MEDS: Enoxaparin 80 mg Syringe SC SCH (09:53)
--- NOTE | 2018-03-16 11:08 | CP.PCM.PN ---
Subjective - Date & Time of Evaluation Date of Evaluation: 03/16/18 Time of Evaluation: 11:06 - Subjective Subjective: sob ++ Objective - Vital Signs/Intake and Output Vital Signs (last 24 hours): Temp Pulse Resp BP Pulse Ox 97.3 F L 68 20 149/72 95 03/16/18 07:06 03/16/18 07:56 03/16/18 07:06 03/16/18 09:53 03/16/18 07:06 - Medications Medications: Current Medications Albuterol/Ipratropium (Duoneb 3 Mg/0.5 Mg (3 Ml) Ud) 3 ml INH RQID [facility] Last Admin: 03/16/18 07:35 Dose: 3 ml Enoxaparin Sodium (Lovenox) 80 mg SC DAILY [facility] Last Admin: 03/16/18 09:53 Dose: 80 mg Furosemide (Lasix) 40 mg IVP DAILY [facility] Last Admin: 03/16/18 09:53 Dose: 40 mg Ceftriaxone Sodium (Rocephin Iv 1 Gm Duplex) 50 mls @ 100 mls/hr IVPB Q24H [facility]; Protocol Last Admin: 03/15/18 18:00 Dose: 100 mls/hr Azithromycin 500 mg/ Sodium (Chloride) 250 mls @ 250 mls/hr IVPB Q24H [facility]; Protocol Last Admin: 03/15/18 17:57 Dose: 250 mls/hr Methylprednisolone (Solu-Medrol) 40 mg IV Q8H [facility] Nebivolol (Bystolic) 5 mg PO DAILY [facility] Last Admin: 03/16/18 09:53 Dose: 5 mg Potassium Chloride (K-Dur 20 Meq Er Tab) 40 meq PO DAILY [facility] Stop: 03/17/18 10:01 Last Admin: 03/16/18 09:42 Dose: 40 meq - Labs Labs: 03/16/18 08:20 03/16/18 08:20 PT 12.7 SECONDS (9.7-12.2) H 03/14/18 14:36 INR 1.2 03/14/18 14:36 APTT 31 SECONDS (21-34) 03/14/18 14:36 - Constitutional Appears: Non-toxic - Head Exam Head Exam: NORMOCEPHALIC - Eye Exam Eye Exam: Normal appearance - Respiratory Exam Respiratory Exam: Rhonchi, Wheezes - Cardiovascular Exam Cardiovascular Exam: REGULAR RHYTHM - GI/Abdominal Exam GI & Abdominal Exam: Soft - Extremities Exam Extremities Exam: Pedal Edema - Neurological Exam Neurological Exam: Alert, Oriented x3 Assessment and Plan - Assessment and Plan (Free Text) Plan: copd,htn, will increse steroids.
[2018-03-16] MEDS: MethylPREDNISolone 40 mg Vial IV SCH ×2 (11:35→19:11)
--- NOTE | 2018-03-16 15:31 | CP.PCM.PN ---
Subjective - Date & Time of Evaluation Date of Evaluation: 03/16/18 Time of Evaluation: 11:20 - Subjective Subjective: Patient seen and examined at bedside, sitting down comfortably. Afebrile and in no acute distress. Denies chest pain, fever/chills, headache, blurry vision. Admits to continued SOB, cough of productive sputum, and an uncomfortable fe eling on his back. Blood cultures are negative Sputum cultures are negative Objective - Vital Signs/Intake and Output Vital Signs (last 24 hours): Temp Pulse Resp BP Pulse Ox 97.3 F L 72 20 149/72 95 03/16/18 07:06 03/16/18 12:00 03/16/18 07:06 03/16/18 09:53 03/16/18 07:06 - Medications Medications: Current Medications Albuterol/Ipratropium (Duoneb 3 Mg/0.5 Mg (3 Ml) Ud) 3 ml INH RQID [facility] Last Admin: 03/16/18 11:17 Dose: 3 ml Enoxaparin Sodium (Lovenox) 80 mg SC DAILY [facility] Last Admin: 03/16/18 09:53 Dose: 80 mg Furosemide (Lasix) 40 mg IVP DAILY [facility] Last Admin: 03/16/18 09:53 Dose: 40 mg Ceftriaxone Sodium (Rocephin Iv 1 Gm Duplex) 50 mls @ 100 mls/hr IVPB Q24H [facility]; Protocol Last Admin: 03/15/18 18:00 Dose: 100 mls/hr Azithromycin 500 mg/ Sodium (Chloride) 250 mls @ 250 mls/hr IVPB Q24H [facility]; Protocol Last Admin: 03/15/18 17:57 Dose: 250 mls/hr Methylprednisolone (Solu-Medrol) 40 mg IV Q8H [facility] Last Admin: 03/16/18 11:35 Dose: 40 mg Nebivolol (Bystolic) 5 mg PO DAILY [facility] Last Admin: 03/16/18 09:53 Dose: 5 mg Potassium Chloride (K-Dur 20 Meq Er Tab) 40 meq PO DAILY [facility] Stop: 03/17/18 10:01 Last Admin: 03/16/18 09:42 Dose: 40 meq - Labs Labs: 03/16/18 08:20 03/16/18 08:20 PT 12.7 SECONDS (9.7-12.2) H 03/14/18 14:36 INR 1.2 03/14/18 14:36 APTT 31 SECONDS (21-34) 03/14/18 14:36 - Head Exam Head Exam: ATRAUMATIC, NORMOCEPHALIC - ENT Exam ENT Exam: Mucous Membranes Moist - Respiratory Exam Respiratory Exam: Rhonchi, Wheezes - Cardiovascular Exam Cardiovascular Exam: REGULAR RHYTHM - GI/Abdominal Exam GI & Abdominal Exam: Soft Assessment and Plan (1) COPD exacerbation Assessment & Plan: IV steroids Nebulizer treatment Antibiotics Antihistamine Protonix Status: Acute (2) MIKEY (obstructive sleep apnea) Status: Suspected
[2018-03-16] MEDS ORDERED: Promethazine DM 6.25 mg-15 mg/5 ml Syrup PO SCH (15:45)
[2018-03-16] MEDS: Azithromycin 500 MG in Sodium Chloride 0.9% 250 ML IVPB SCH (17:40)
[2018-03-16] MEDS: cefTRIAXone IV 1 gm in Dextros 50 ML IVPB SCH (19:11)
[2018-03-16] MEDS: Promethazine DM 6.25 mg-15 mg/5 ml Syrup PO SCH (21:32)
[2018-03-17] MEDS: MethylPREDNISolone 40 mg Vial IV SCH ×3 (02:43→18:27)
[2018-03-17] MEDS: Promethazine DM 6.25 mg-15 mg/5 ml Syrup PO SCH ×3 (06:08→21:57)
[2018-03-17 06:53] LABS: BASO % 0.3 % (0.0-2.0); HEMOGLOBIN 13.1 g/dL (12.0-18.0); LYMPH # 1.2 K/uL (1.0-4.3); MEAN CELL VOLUME 87.6 fL (80.0-94.0); MEAN CORPUSCULAR HEMOGLOBIN 29.4 pg (27.0-31.0); MEAN CORPUSCULAR HGB CONC 33.6 g/dL (33.0-37.0); MEAN PLATELET VOLUME 8.2 fL (7.2-11.7); MONO # 0.2 K/uL (0.0-0.8); MONO % 2.6 % (0.0-10.0); NEUT # 7.6 K/uL (1.8-7.0); NEUT % 84.1 % (50.0-75.0); RBC 4.46 Mil/uL (4.40-5.90); RED CELL DISTRIBUTION WIDTH 15.2 % (11.5-14.5)
[2018-03-17 07:10] LABS: ALB/GLOB RATIO 1.2 (1.0-2.1); ALBUMIN 3.6 g/dL (3.5-5.0); ALT/SGPT 33 U/L (21-72); AST/SGOT 18 U/L (17-59); BLOOD UREA NITROGEN 20 mg/dL (9-20); CALCIUM 8.2 mg/dl (8.6-10.4); GFR NON-AFRICAN AMERICAN > 60
[2018-03-17] MEDS: Albuterol-Ipratrop 3 mg / 0.5 (3 ml) UD INH SCH ×4 (08:00→19:31)
[2018-03-17] MEDS: Potassium Chloride 20 mEq ER Tab PO SCH (09:27)
[2018-03-17] MEDS: Enoxaparin 80 mg Syringe SC SCH (09:30)
--- NOTE | 2018-03-17 09:41 | CP.PCM.PN ---
Subjective - Date & Time of Evaluation Date of Evaluation: 03/17/18 Time of Evaluation: 07:40 - Subjective Subjective: Patient seen and examined Still complaining of cough, hoarseness Feeling little better Afebrile No chest pain Continue steroids Continue nebulizer treatment and antitussives Sleep study as outpatient Objective - Vital Signs/Intake and Output Vital Signs (last 24 hours): Temp Pulse Resp BP Pulse Ox 97.4 F L 59 L 20 137/77 97 03/17/18 08:12 03/17/18 08:12 03/17/18 08:12 03/17/18 09:30 03/17/18 08:12 - Medications Medications: Current Medications Albuterol/Ipratropium (Duoneb 3 Mg/0.5 Mg (3 Ml) Ud) 3 ml INH RQID [facility] Last Admin: 03/16/18 20:05 Dose: 3 ml Enoxaparin Sodium (Lovenox) 80 mg SC DAILY [facility] Last Admin: 03/17/18 09:30 Dose: 80 mg Furosemide (Lasix) 40 mg IVP DAILY [facility] Last Admin: 03/17/18 09:30 Dose: 40 mg Ceftriaxone Sodium (Rocephin Iv 1 Gm Duplex) 50 mls @ 100 mls/hr IVPB Q24H [facility]; Protocol Last Admin: 03/16/18 19:11 Dose: 100 mls/hr Azithromycin 500 mg/ Sodium (Chloride) 250 mls @ 250 mls/hr IVPB Q24H [facility]; Protocol Last Admin: 03/16/18 17:40 Dose: 250 mls/hr Methylprednisolone (Solu-Medrol) 40 mg IV Q8H [facility] Last Admin: 03/17/18 02:43 Dose: 40 mg Nebivolol (Bystolic) 5 mg PO DAILY [facility] Last Admin: 03/17/18 09:26 Dose: 5 mg Pantoprazole Sodium (Protonix Inj) 40 mg IVP DAILY [facility] Last Admin: 03/17/18 09:31 Dose: 40 mg Potassium Chloride (K-Dur 20 Meq Er Tab) 40 meq PO DAILY [facility] Stop: 03/17/18 10:01 Last Admin: 03/17/18 09:27 Dose: 40 meq Promethazine HCl/Dextromethorphan (Phenergan Dm Syrup) 5 ml PO Q8H [facility] Last Admin: 03/17/18 06:08 Dose: 5 ml - Labs Labs: 03/17/18 06:42 03/17/18 06:42 PT 12.7 SECONDS (9.7-12.2) H 03/14/18 14:36 INR 1.2 03/14/18 14:36 APTT 31 SECONDS (21-34) 03/14/18 14:36 Assessment and Plan (1) COPD exacerbation Status: Acute (2) MIKEY (obstructive sleep apnea) Status: Suspected
[2018-03-17] MEDS: Azithromycin 500 MG in Sodium Chloride 0.9% 250 ML IVPB SCH (17:00)
[2018-03-17] MEDS: cefTRIAXone IV 1 gm in Dextros 50 ML IVPB SCH (18:26)
[2018-03-18] MEDS: MethylPREDNISolone 40 mg Vial IV SCH ×3 (03:14→18:49)
[2018-03-18] MEDS: Promethazine DM 6.25 mg-15 mg/5 ml Syrup PO SCH ×3 (06:02→22:10)
[2018-03-18] MEDS: Albuterol-Ipratrop 3 mg / 0.5 (3 ml) UD INH SCH ×4 (07:33→19:55)
[2018-03-18] MEDS: Enoxaparin 80 mg Syringe SC SCH (10:30)
--- NOTE | 2018-03-18 13:25 | CP.PCM.PN ---
Subjective - Date & Time of Evaluation Date of Evaluation: 03/18/18 Time of Evaluation: 13:23 - Subjective Subjective: less sob.accu check noted.iv steroids. Objective - Vital Signs/Intake and Output Vital Signs (last 24 hours): Temp Pulse Resp BP Pulse Ox 97.6 F 55 L 20 137/79 98 03/18/18 07:59 03/18/18 07:59 03/18/18 07:59 03/18/18 10:29 03/18/18 07:59 - Medications Medications: Current Medications Albuterol/Ipratropium (Duoneb 3 Mg/0.5 Mg (3 Ml) Ud) 3 ml INH RQID [facility] Last Admin: 03/18/18 11:25 Dose: 3 ml Enoxaparin Sodium (Lovenox) 80 mg SC DAILY [facility] Last Admin: 03/18/18 10:30 Dose: 80 mg Furosemide (Lasix) 40 mg IVP DAILY [facility] Last Admin: 03/18/18 10:29 Dose: 40 mg Ceftriaxone Sodium (Rocephin Iv 1 Gm Duplex) 50 mls @ 100 mls/hr IVPB Q24H [facility]; Protocol Last Admin: 03/17/18 18:26 Dose: 100 mls/hr Azithromycin 500 mg/ Sodium (Chloride) 250 mls @ 250 mls/hr IVPB Q24H [facility]; Protocol Last Admin: 03/17/18 17:00 Dose: 250 mls/hr Methylprednisolone (Solu-Medrol) 40 mg IV Q8H [facility] Last Admin: 03/18/18 10:29 Dose: 40 mg Nebivolol (Bystolic) 5 mg PO DAILY [facility] Last Admin: 03/18/18 10:29 Dose: 5 mg Pantoprazole Sodium (Protonix Inj) 40 mg IVP DAILY [facility] Last Admin: 03/18/18 10:29 Dose: 40 mg Promethazine HCl/Dextromethorphan (Phenergan Dm Syrup) 5 ml PO Q8H [facility] Last Admin: 03/18/18 06:02 Dose: 5 ml - Labs Labs: 03/17/18 06:42 03/17/18 06:42 PT 12.7 SECONDS (9.7-12.2) H 03/14/18 14:36 INR 1.2 03/14/18 14:36 APTT 31 SECONDS (21-34) 03/14/18 14:36 - Constitutional Appears: No Acute Distress - Eye Exam Eye Exam: Normal appearance - Neck Exam Neck Exam: Normal Inspection - Respiratory Exam Respiratory Exam: Rhonchi, Wheezes - Cardiovascular Exam Cardiovascular Exam: REGULAR RHYTHM - GI/Abdominal Exam GI & Abdominal Exam: Soft - Extremities Exam Extremities Exam: Pedal Edema - Neurological Exam Neurological Exam: Alert, Oriented x3 Assessment and Plan - Assessment and Plan (Free Text) Plan: copd with exxacerbation.,getting better.
[2018-03-18] MEDS: Piperacillin/Tazobact 3.375 GM in Sodium Chloride 100 ML IVPB SCH ×2 (16:40→22:10)
[2018-03-18] MEDS: Azithromycin 500 MG in Sodium Chloride 0.9% 250 ML IVPB SCH (17:26)
--- NOTE | 2018-03-18 19:40 | CP.PCM.PN ---
Subjective - Date & Time of Evaluation Date of Evaluation: 03/18/18 - Subjective Subjective: patient seen and examined Slowly improving Productive cough Less shortness of breath Afebrile Taper steroids Nebulizer treatment Antibiotics Sleep study as outpatient Objective - Vital Signs/Intake and Output Vital Signs (last 24 hours): Temp Pulse Resp BP Pulse Ox 97.7 F 68 20 132/70 94 L 03/18/18 15:00 03/18/18 15:00 03/18/18 15:00 03/18/18 15:00 03/18/18 16:29 - Medications Medications: Current Medications Albuterol/Ipratropium (Duoneb 3 Mg/0.5 Mg (3 Ml) Ud) 3 ml INH RQID [facility] Last Admin: 03/18/18 15:36 Dose: 3 ml Enoxaparin Sodium (Lovenox) 80 mg SC DAILY [facility] Last Admin: 03/18/18 10:30 Dose: 80 mg Furosemide (Lasix) 40 mg IVP DAILY [facility] Last Admin: 03/18/18 10:29 Dose: 40 mg Azithromycin 500 mg/ Sodium (Chloride) 250 mls @ 250 mls/hr IVPB Q24H [facility]; Protocol Last Admin: 03/18/18 17:26 Dose: 250 mls/hr Piperacillin Sod/Tazobactam (Sod 3.375 gm/ Sodium Chloride) 100 mls @ 200 mls/hr IVPB Q6H [facility]; Protocol Last Admin: 03/18/18 16:40 Dose: 200 mls/hr Methylprednisolone (Solu-Medrol) 40 mg IV Q8H [facility] Last Admin: 03/18/18 18:49 Dose: 40 mg Nebivolol (Bystolic) 5 mg PO DAILY [facility] Last Admin: 03/18/18 10:29 Dose: 5 mg Pantoprazole Sodium (Protonix Inj) 40 mg IVP DAILY [facility] Last Admin: 03/18/18 10:29 Dose: 40 mg Promethazine HCl/Dextromethorphan (Phenergan Dm Syrup) 5 ml PO Q8H [facility] Last Admin: 03/18/18 14:10 Dose: 5 ml - Labs Labs: 03/17/18 06:42 03/17/18 06:42 PT 12.7 SECONDS (9.7-12.2) H 03/14/18 14:36 INR 1.2 03/14/18 14:36 APTT 31 SECONDS (21-34) 03/14/18 14:36 Assessment and Plan (1) COPD exacerbation Status: Acute (2) MIKEY (obstructive sleep apnea) Status: Suspected
[2018-03-19] MEDS: Piperacillin/Tazobact 3.375 GM in Sodium Chloride 100 ML IVPB SCH ×4 (04:49→22:24)
[2018-03-19] MEDS: MethylPREDNISolone 40 mg Vial IV SCH ×3 (04:55→18:17)
[2018-03-19] MEDS: Promethazine DM 6.25 mg-15 mg/5 ml Syrup PO SCH ×3 (05:30→22:26)
[2018-03-19] MEDS: Albuterol-Ipratrop 3 mg / 0.5 (3 ml) UD INH SCH ×4 (08:03→20:05)
[2018-03-19] MEDS: Enoxaparin 80 mg Syringe SC SCH (10:17)
--- NOTE | 2018-03-19 13:56 | CP.PCM.PN ---
Subjective - Date & Time of Evaluation Date of Evaluation: 03/19/18 Time of Evaluation: 13:55 - Subjective Subjective: sob wheeze getting better Objective - Vital Signs/Intake and Output Vital Signs (last 24 hours): Temp Pulse Resp BP Pulse Ox 97.9 F 52 L 18 131/78 96 03/19/18 07:45 03/19/18 07:45 03/19/18 07:45 03/19/18 10:13 03/19/18 07:45 - Medications Medications: Current Medications Albuterol/Ipratropium (Duoneb 3 Mg/0.5 Mg (3 Ml) Ud) 3 ml INH RQID [facility] Last Admin: 03/19/18 11:30 Dose: 3 ml Enoxaparin Sodium (Lovenox) 80 mg SC DAILY [facility] Last Admin: 03/19/18 10:17 Dose: 80 mg Furosemide (Lasix) 40 mg IVP DAILY [facility] Last Admin: 03/19/18 10:13 Dose: 40 mg Azithromycin 500 mg/ Sodium (Chloride) 250 mls @ 250 mls/hr IVPB Q24H [facility]; Protocol Last Admin: 03/18/18 17:26 Dose: 250 mls/hr Piperacillin Sod/Tazobactam (Sod 3.375 gm/ Sodium Chloride) 100 mls @ 200 mls/hr IVPB Q6H [facility]; Protocol Last Admin: 03/19/18 10:12 Dose: 200 mls/hr Methylprednisolone (Solu-Medrol) 40 mg IV Q8H [facility] Last Admin: 03/19/18 10:15 Dose: 40 mg Nebivolol (Bystolic) 5 mg PO DAILY [facility] Last Admin: 03/19/18 10:13 Dose: 5 mg Pantoprazole Sodium (Protonix Inj) 40 mg IVP DAILY [facility] Last Admin: 03/19/18 10:13 Dose: 40 mg Promethazine HCl/Dextromethorphan (Phenergan Dm Syrup) 5 ml PO Q8H [facility] Last Admin: 03/19/18 13:10 Dose: 5 ml - Labs Labs: 03/17/18 06:42 03/17/18 06:42 PT 12.7 SECONDS (9.7-12.2) H 03/14/18 14:36 INR 1.2 03/14/18 14:36 APTT 31 SECONDS (21-34) 03/14/18 14:36 - Constitutional Appears: No Acute Distress - Head Exam Head Exam: NORMOCEPHALIC - ENT Exam ENT Exam: Normal Exam - Respiratory Exam Respiratory Exam: Wheezes - Cardiovascular Exam Cardiovascular Exam: REGULAR RHYTHM - GI/Abdominal Exam GI & Abdominal Exam: Soft - Extremities Exam Extremities Exam: Pedal Edema - Neurological Exam Neurological Exam: Alert, Oriented x3 Assessment and Plan - Assessment and Plan (Free Text) Plan: copd,getting better
[2018-03-19 17:16] LABS: BLOOD UREA NITROGEN 27 mg/dL (9-20); CALCIUM 7.9 mg/dl (8.6-10.4); GFR NON-AFRICAN AMERICAN > 60
[2018-03-19] MEDS: Azithromycin 500 MG in Sodium Chloride 0.9% 250 ML IVPB SCH (17:59)
[2018-03-19 18:38] VITALS: RESP 20
--- NOTE | 2018-03-19 19:36 | CP.PCM.PN ---
Subjective - Date & Time of Evaluation Date of Evaluation: 03/19/18 Time of Evaluation: 18:35 - Subjective Subjective: patient seen and examined Productive cough Wheezing Feeling better Continue present treatment Discharge home on Wednesday Followup chest x-ray Objective - Vital Signs/Intake and Output Vital Signs (last 24 hours): Temp Pulse Resp BP Pulse Ox 98.4 F 57 L 20 126/66 97 03/19/18 16:00 03/19/18 16:00 03/19/18 16:00 03/19/18 16:00 03/19/18 16:00 - Medications Medications: Current Medications Albuterol/Ipratropium (Duoneb 3 Mg/0.5 Mg (3 Ml) Ud) 3 ml INH RQID [facility] Last Admin: 03/19/18 15:24 Dose: 3 ml Enoxaparin Sodium (Lovenox) 80 mg SC DAILY [facility] Last Admin: 03/19/18 10:17 Dose: 80 mg Furosemide (Lasix) 40 mg IVP DAILY [facility] Last Admin: 03/19/18 10:13 Dose: 40 mg Azithromycin 500 mg/ Sodium (Chloride) 250 mls @ 250 mls/hr IVPB Q24H [facility]; Protocol Last Admin: 03/19/18 17:59 Dose: 250 mls/hr Piperacillin Sod/Tazobactam (Sod 3.375 gm/ Sodium Chloride) 100 mls @ 200 mls/hr IVPB Q6H [facility]; Protocol Last Admin: 03/19/18 17:15 Dose: 200 mls/hr Methylprednisolone (Solu-Medrol) 40 mg IV Q8H [facility] Last Admin: 03/19/18 18:17 Dose: 40 mg Nebivolol (Bystolic) 5 mg PO DAILY [facility] Last Admin: 03/19/18 10:13 Dose: 5 mg Pantoprazole Sodium (Protonix Inj) 40 mg IVP DAILY [facility] Last Admin: 03/19/18 10:13 Dose: 40 mg Promethazine HCl/Dextromethorphan (Phenergan Dm Syrup) 5 ml PO Q8H [facility] Last Admin: 03/19/18 13:10 Dose: 5 ml - Labs Labs: 03/17/18 06:42 03/19/18 16:55 PT 12.7 SECONDS (9.7-12.2) H 03/14/18 14:36 INR 1.2 03/14/18 14:36 APTT 31 SECONDS (21-34) 03/14/18 14:36 Assessment and Plan (1) COPD exacerbation Status: Acute (2) MIKEY (obstructive sleep apnea) Status: Suspected
[2018-03-20] MEDS: MethylPREDNISolone 40 mg Vial IV SCH ×3 (04:15→21:45)
[2018-03-20] MEDS: Piperacillin/Tazobact 3.375 GM in Sodium Chloride 100 ML IVPB SCH ×4 (04:56→22:28)
[2018-03-20] MEDS: Promethazine DM 6.25 mg-15 mg/5 ml Syrup PO SCH ×2 (07:20→15:21)
[2018-03-20] MEDS: Albuterol-Ipratrop 3 mg / 0.5 (3 ml) UD INH SCH ×4 (08:22→19:45)
[2018-03-20] MEDS: Enoxaparin 80 mg Syringe SC SCH (10:11)
--- NOTE | 2018-03-20 17:30 | CP.PCM.PN ---
Subjective - Date & Time of Evaluation Date of Evaluation: 03/20/18 Time of Evaluation: 12:00 - Subjective Subjective: Pulmonary Follow up, Covering Dr Turk The patient was Seen/interviewed and examined by me at the bedside, Medical records reviewed and Management issues were discussed and formulated with the house staff. Events reviewed Objective - Vital Signs/Intake and Output Vital Signs (last 24 hours): Temp Pulse Resp BP Pulse Ox 98.0 F 63 20 129/69 95 03/20/18 15:14 03/20/18 15:14 03/20/18 15:14 03/20/18 15:14 03/20/18 15:14 - Medications Medications: Current Medications Albuterol/Ipratropium (Duoneb 3 Mg/0.5 Mg (3 Ml) Ud) 3 ml INH RQID [facility] Last Admin: 03/20/18 16:43 Dose: 3 ml Enoxaparin Sodium (Lovenox) 80 mg SC DAILY [facility] Last Admin: 03/20/18 10:11 Dose: 80 mg Furosemide (Lasix) 40 mg IVP DAILY [facility] Last Admin: 03/20/18 10:12 Dose: 40 mg Piperacillin Sod/Tazobactam (Sod 3.375 gm/ Sodium Chloride) 100 mls @ 200 mls/hr IVPB Q6H [facility]; Protocol Last Admin: 03/20/18 12:00 Dose: 200 mls/hr Methylprednisolone (Solu-Medrol) 40 mg IV Q8H [facility] Last Admin: 03/20/18 10:17 Dose: 40 mg Nebivolol (Bystolic) 5 mg PO DAILY [facility] Last Admin: 03/20/18 10:09 Dose: Not Given Pantoprazole Sodium (Protonix Inj) 40 mg IVP DAILY [facility] Last Admin: 03/20/18 10:19 Dose: 40 mg Promethazine HCl/Dextromethorphan (Phenergan Dm Syrup) 5 ml PO Q8H [facility] Last Admin: 03/20/18 15:21 Dose: Not Given - Labs Labs: 03/17/18 06:42 03/19/18 16:55 PT 12.7 SECONDS (9.7-12.2) H 03/14/18 14:36 INR 1.2 03/14/18 14:36 APTT 31 SECONDS (21-34) 03/14/18 14:36
[2018-03-20] MEDS: Azithromycin 500 MG in Sodium Chloride 0.9% 250 ML IVPB SCH (18:10)
[2018-03-21] MEDS: MethylPREDNISolone 40 mg Vial IV SCH ×2 (04:05→10:36)
[2018-03-21] MEDS: Piperacillin/Tazobact 3.375 GM in Sodium Chloride 100 ML IVPB SCH ×2 (04:06→10:32)
[2018-03-21] MEDS: Promethazine DM 6.25 mg-15 mg/5 ml Syrup PO SCH (05:09)
[2018-03-21 07:55] VITALS: BP 108/70; PULSE 62; TEMP 98; O2SAT 94
[2018-03-21] MEDS: Albuterol-Ipratrop 3 mg / 0.5 (3 ml) UD INH SCH (08:38)
[2018-03-21] MEDS: Enoxaparin 80 mg Syringe SC SCH (10:37)
--- NOTE | 2018-03-21 16:38 | CP.PCM.PN ---
Subjective - Date & Time of Evaluation Date of Evaluation: 03/21/18 Time of Evaluation: 10:40 - Subjective Subjective: Patient seen and examined Mild cough and wheezing Feeling better Discharge today with medications Follow up sleep study, schedule with office Objective - Vital Signs/Intake and Output Vital Signs (last 24 hours): Temp Pulse Resp BP Pulse Ox 98 F 62 20 108/70 94 L 03/21/18 07:54 03/21/18 07:54 03/21/18 07:54 03/21/18 10:36 03/21/18 07:54 - Labs Labs: 03/17/18 06:42 03/19/18 16:55 PT 12.7 SECONDS (9.7-12.2) H 03/14/18 14:36 INR 1.2 03/14/18 14:36 APTT 31 SECONDS (21-34) 03/14/18 14:36 Assessment and Plan (1) COPD exacerbation Status: Acute (2) MIKEY (obstructive sleep apnea) Status: Suspected
--- NOTE | 2018-03-21 17:50 | CARD ---
APPROVED REPORT Date of service: 03/14/2018 EKG Measurement Heart [id number] <Conclusion> Normal sinus rhythm Left axis deviation Right bundle branch block Abnormal ECG
--- NOTE | 2018-03-22 07:49 | DS ---
HISTORY OF PRESENT ILLNESS: This is a 53-year-old morbidly obese gentleman was brought in with a history of shortness of breath. He was found to have exacerbation of COPD. There was no pneumonia. The patient was seen and followed by Dr. Turk. IV antibiotics, IV steroids were given with improvement. The patient still has somewhat wheeze, expiratory. However, this can be treated as an outpatient. Routine labs were acceptable. Blood sugars were high because of the IV steroid. This will be tapered off. He is stable now. DISCHARGE MEDICATIONS: He will be discharged on following medications. He will be on prednisone 20 mg p.o. twice a day for 10 days, followed by 10 mg p.o. twice a day for 2 weeks. The patient has nebulizer treatment, Symbicort and Proventil at home. Home oxygen at home. Levaquin 500 mg one a day was given for 7 days. DISCHARGE INSTRUCTION: He will return to see me in about one week's time. FINAL DIAGNOSES: Exacerbation of chronic obstructive pulmonary disease, hypertension. Lars Wells MD
== END 2018-03-21 14:24 | disposition home or self-care (01) | DRG 191 ==
LOC: C.ER 13:41 → C.5S 15:27 → INTOOBSV 15:27 → UNDOADMIN 15:40 → C.5S 15:40 → OBSVTOIN 03-18 15:07
PROVIDERS: ADMIT Internal Medicine Cardiovascular Disease; ATTEND Internal Medicine Cardiovascular Disease
DX: J44.1 Chronic obstructive pulmonary disease with (acute) exacerbation (principal); J98.11 Atelectasis; Z68.44 Body mass index [BMI] 60.0-69.9, adult; Z87.01 Personal history of pneumonia (recurrent); Z87.891 Personal history of nicotine dependence; Z99.81 Dependence on supplemental oxygen; M19.042 Primary osteoarthritis, left hand; I48.0 Paroxysmal atrial fibrillation; I10 Essential (primary) hypertension; G47.33 Obstructive sleep apnea (adult) (pediatric); E66.01 Morbid (severe) obesity due to excess calories

== ENCOUNTER 2018-04-08 22:55 | Inpatient (IN) | payer BC ==
[2018-04-08 22:55] VITALS: PULSE 65; BMI 57.2
[2018-04-08] MEDS ORDERED: Sodium Chloride 0.9% 1,000 ML IV ONE (23:33)
--- NOTE | 2018-04-08 23:36 | C.PDOC ---
History Of Present Illness 53 year old male presents to the ER with a complaint of left leg pain. Patient has a Hx of cellulitis and bilateral leg edema in the past. Denies fever or chills. Chief Complaint (Nursing): Lower Extremity Problem/Injury History Per: Patient History/Exam Limitations: no limitations Onset/Duration Of Symptoms: Days Current Symptoms Are (Timing): Still Present Recent travel outside of the [place]: No Past Medical History Reviewed: Historical Data, Nursing Documentation, Vital Signs Vital Signs: Last Vital Signs Temp 98.2 F 04/08/18 23:03 Pulse 95 H 04/08/18 23:03 Resp 19 04/08/18 23:03 BP 127/80 04/08/18 23:03 Pulse Ox 97 04/08/18 23:03 - Medical History PMH: Anemia, Arthritis (L HAND FFX), Atrial Fibrillation, COPD, Fractures (Left hand), HTN, Peripheral Edema, Pneumonia Denies: Chronic Kidney Disease Surgical History: Appendectomy - [facility] Procedures ASSISTANCE WITH RESPIRATORY VENTILATION, <24 HRS, CPAP (04/10/15) DRAINAGE OF R PLEURAL CAV WITH DRAIN DEV, PERC APPROACH (04/10/15) EXTRACTION OF RIGHT PLEURA, PERCUTANEOUS ENDOSCOPIC APPROACH (04/10/15) HOME MANAGEMENT TREATMENT (05/20/15) INSPECTION OF TRACHEOBRONCHIAL TREE, ENDO (04/10/15) INTRODUCE OF OTH THERAP SUBST INTO RESP TRACT, VIA OPENING (05/20/15) THERAPEUTIC EXERCISE TREATMENT OF MUSCULOSK WHOLE (05/20/15) Family History: States: Unknown Family Hx - Social History Hx Alcohol Use: No Hx Substance Use: No Review Of Systems Constitutional: Negative for: Fever, Chills Cardiovascular: Negative for: Chest Pain, Palpitations Respiratory: Negative for: Cough, Shortness of Breath Gastrointestinal: Negative for: Nausea, Vomiting Musculoskeletal: Positive for: Leg Pain (Left) Neurological: Negative for: Weakness, Numbness Physical Exam - Physical Exam Appears: Non-toxic Skin: Warm, Dry Head: Atraumatic, Normacephalic Eye(s): bilateral: Normal Inspection Oral Mucosa: Moist Chest: Symmetrical, No Tenderness Cardiovascular: Rhythm Regular Respiratory: Normal Breath Sounds, No Rales, No Rhonchi, No Wheezing Gastrointestinal/Abdominal: Soft, No Tenderness Extremity: Normal ROM (x4), Capillary Refill (<2 seconds), Other (Markedly swollen lower extremities. Left lower extremity warm to touch, no exudates noted.) Pulses: Left Dorsalis Pedis: Normal, Right Dorsalis Pedis: Normal Neurological/Psych: Oriented x3, Normal Speech, Normal Motor, Normal Sensation ED Course And Treatment - Laboratory Results Result Diagrams: 04/09/18 00:30 04/09/18 00:30 O2 Sat by Pulse Oximetry: 97 (Room air) Pulse Ox Interpretation: Normal - Radiology CXR: Interpreted by Me, Viewed By Me CXR Interpretation: Yes: Other (Density in right lung, no significant change from prior visit on 03/04/18) Progress Note: Blood work, CXR, and urinalysis ordered. IV fluids, toradol, and rocephin administered. Disposition Discussed With .: Edward Ma Doctor Will See Patient In The: Hospital Counseled Patient/Family Regarding: Diagnosis - Disposition Disposition: HOSPITALIZED Disposition Time: 02:05 Condition: STABLE Forms: [facility] (B[place]raini) - Clinical Impression Clinical Impression: Cellulitis, Leg pain - Scribe Statement The provider has reviewed the documentation as recorded by the Scribchetan Hussein All medical record entries made by the Scribe were at my direction and personally dictated by me. I have reviewed the chart and agree that the record accurately reflects my personal performance of the history, physical exam, medical decision making, and the department course for this patient. I have also personally directed, reviewed, and agree with the discharge instructions and disposition.
[2018-04-08] MEDS ORDERED: cefTRIAXone 1 gm 1 GM/100 ML BAG IVPB ONE (23:57)
[2018-04-08] MEDS ORDERED: Sodium Chloride 0.9% 1,000 ML ONE (23:57)
[2018-04-09 00:38] LABS: PROTHROMBIN TIME 11.3 SECONDS (9.7-12.2)
[2018-04-09 00:40] LABS: BASO % 0.4 % (0.0-2.0); EOS % 0.3 % (0.0-4.0); HEMOGLOBIN 14.3 g/dL (12.0-18.0); LYMPH # 0.9 K/uL (1.0-4.3); LYMPH % 8.4 % (20.0-40.0); MEAN CELL VOLUME 90.4 fL (80.0-94.0); MEAN CORPUSCULAR HEMOGLOBIN 29.6 pg (27.0-31.0); MEAN CORPUSCULAR HGB CONC 32.8 g/dL (33.0-37.0); MEAN PLATELET VOLUME 8.1 fL (7.2-11.7); MONO # 0.4 K/uL (0.0-0.8); MONO % 3.5 % (0.0-10.0); NEUT # 9.7 K/uL (1.8-7.0); NEUT % 87.4 % (50.0-75.0); PLATELET COUNT 142 K/uL (130-400); RBC 4.84 Mil/uL (4.40-5.90); RED CELL DISTRIBUTION WIDTH 16.9 % (11.5-14.5); WHITE BLOOD COUNT 11.1 K/uL (4.8-10.8)
[2018-04-09 00:55] LABS: ALB/GLOB RATIO 1.4 (1.0-2.1); ALBUMIN 3.9 g/dL (3.5-5.0); ALT/SGPT 56 U/L (21-72); AST/SGOT 27 U/L (17-59); BLOOD UREA NITROGEN 25 mg/dL (9-20); CALCIUM 8.2 mg/dl (8.6-10.4); GFR NON-AFRICAN AMERICAN > 60
[2018-04-09 00:58] LABS: B-TYPE NATRIURETIC PEPTIDE 195 pg/mL (0-900)
[2018-04-09 02:36] LABS: URINE BILIRUBIN NEGATIVE (NEGATIVE); URINE BLOOD NEGATIVE (NEGATIVE); URINE CLARITY Clear (Clear); URINE COLOR Straw (YELLOW); URINE GLUCOSE (UA) NORMAL (Normal); URINE LEUKOCYTE ESTERASE NEG Leu/uL (Negative); URINE PROTEIN NEGATIVE (NEGATIVE); URINE UROBILINOGEN NORMAL mg/dL (0.2-1.0)
[2018-04-09 02:48] VITALS: RESP 20
[2018-04-09 02:57] LABS: BANDS 3 % (0-2); LYMPHOCYTE 10 % (20-40); MONOCYTE 5 % (0-10); NEUTROPHIL 81 % (50-75); PLATELET ESTIMATE NORMAL (NORMAL); REACTIVE LYMPHOCYTES 1 % (0-0); TOTAL CELLS COUNTED 100
[2018-04-09] MEDS ORDERED: Albuterol-Ipratrop 3 mg / 0.5 (3 ml) UD INH PRN (09:12)
[2018-04-09] MEDS ORDERED: Enoxaparin 40 mg Syringe SC SCH (10:00)
[2018-04-09] MEDS ORDERED: Fluticasone-Vilanterol 100/25mcg Diskus INH SCH (10:00)
[2018-04-09] MEDS: Pantoprazole 40 mg EC Tab PO SCH (10:23)
[2018-04-09] MEDS: Piperacillin/Tazobact 3.375 GM in Sodium Chloride 100 ML IVPB SCH ×2 (11:10→18:00)
[2018-04-09] MEDS: Albuterol-Ipratrop 3 mg / 0.5 (3 ml) UD INH SCH ×4 (14:24→23:55)
--- NOTE | 2018-04-09 15:02 | CP.PCM.CON ---
History of Present Illness - History of Present Illness History of Present Illness: Podiatry consult note for attending Dr. Servin: 53 year old male pt of Dr Servin With PMH of Atrial Fibrillation, COPD, HTN, Peripheral Edema, Pneumonia, OM seen and evaluated at bedside for left leg pain, redness and swelling. Patient is well know to attending Dr. Servin. Patient states that he has long standing edema and skin changes in both LE. He states that years ago he was treated from ulceration at his left leg and osteomyelitis. He states that yesterday his left leg got swollen, red and painful. He states that the pain is neele pain, 7/10 on VAS scale. He states that there is no open ulcertion in his left leg. Patient states that yesterday he felt feverish and had chills. Patient denies any other pedal complaint. He deneis any recenyt cp/n/v or d. PMH: Atrial Fibrillation, COPD, HTN, Peripheral Edema, Pneumonia, OM PSH: Appendectomy, Chest surgery. Allergies: NKDA Social Hx: Ex-smoker (Stopped 3 years ago after 20 years 2 ppd smoking), Denies EtOH or illicit drug use. Review of Systems - Review of Systems Review of Systems: As per HPI - Constitutional Constitutional: As Per HPI Past Patient History - Infectious Disease Hx of Infectious Diseases: None - Past Medical History & Family History Past Medical History?: Yes - Past Social History Smoking Status: Former Smoker - CARDIAC Hx Atrial Fibrillation: Yes Hx Hypertension: Yes Hx Peripheral Edema: Yes - PULMONARY Hx Chronic Obstructive Pulmonary Disease (COPD): Yes Hx Pneumonia: Yes - NEUROLOGICAL Hx Neurological Disorder: No - HEENT Hx HEENT Problems: No - RENAL Hx Chronic Kidney Disease: No - ENDOCRINE/METABOLIC Hx Endocrine Disorders: No - HEMATOLOGICAL/ONCOLOGICAL Hx Anemia: Yes - INTEGUMENTARY Hx Dermatological Problems: No - MUSCULOSKELETAL/RHEUMATOLOGICAL Hx Arthritis: Yes (L HAND FFX) Hx Falls: No Hx Fractures: Yes (Left hand) - GASTROINTESTINAL Hx Gastrointestinal Disorders: No - GENITOURINARY/GYNECOLOGICAL Hx Genitourinary Disorders: No - PSYCHIATRIC Hx Substance Use: No - SURGICAL HISTORY Hx Appendectomy: Yes - ANESTHESIA Hx Anesthesia: Yes Hx Anesthesia Reactions: No Hx Malignant Hyperthermia: No Meds Allergies/Adverse Reactions: Allergies Allergy/AdvReac Type Severity Reaction Status Date / Time No Known Allergies Allergy Verified 04/08/18 23:09 - Medications Medications: Current Medications Acetaminophen (Tylenol 325mg Tab) 650 mg PO Q6 PRN PRN Reason: Headache Last Admin: 04/09/18 11:32 Dose: 650 mg Albuterol/Ipratropium (Duoneb 3 Mg/0.5 Mg (3 Ml) Ud) 3 ml INH RQ4 ANISH Last Admin: 04/09/18 14:24 Dose: 3 ml Fluticasone/Vilanterol (Breo Ellipta 100-25 Mcg Inh) 1 puff INH RQD ANISH Furosemide (Lasix) 40 mg PO DAILY [facility] Last Admin: 04/09/18 10:23 Dose: 40 mg Heparin Sodium (Porcine) (Heparin) 5,000 units SC Q8H ANISH Last Admin: 04/09/18 10:23 Dose: 5,000 units Piperacillin Sod/Tazobactam (Sod 3.375 gm/ Sodium Chloride) 100 mls @ 200 mls/hr IVPB Q8H [facility]; Protocol Last Admin: 04/09/18 11:10 Dose: 200 mls/hr Nebivolol (Bystolic) 5 mg PO DAILY [facility] Last Admin: 04/09/18 11:10 Dose: 5 mg Pantoprazole Sodium (Protonix Ec Tab) 40 mg PO DAILY [facility] Last Admin: 04/09/18 10:23 Dose: 40 mg Prednisone (Prednisone Tab) 10 mg PO BID [facility] Last Admin: 04/09/18 11:10 Dose: 10 mg Physical Exam - Constitutional Appears: Well, No Acute Distress - Head Exam Head Exam: ATRAUMATIC, NORMOCEPHALIC - Extremities Exam Additional comments: B/L LE focused exam: VASC: DP/PT pulses 2/4 b/l. Cap refill <3 seconds to digits. +2 pitting edema noted b/l with L>R. Temperature gradient warm to precision inspector the left side and warm to cool on the right side from proximal to distal. Erythema noted along the left leg up to the tibial tuberosity. NEURO: Gross and protective sensations are intact. DERM: Significant lower extremity Chronic stasis edemma noted with L > R. Skin changes in the form of hyperpigmentation and lichnification of the legs noted. Erythema noted along the left leg up to the tibial tuberosity. Healed ulcer noted on the lower lateral part of left leg. MSK: Pedal muscle strength graded 5/5 in all groups. Mild limited ankle joint ROM to dorsiflexion b/l. Pain on palpation of the left leg. Pain on squeezing the left calf muscle. - Neurological Exam Neurological exam: Alert, Oriented x3 - Psychiatric Exam Psychiatric exam: Normal Affect, Normal Mood Results - Vital Signs Recent Vital Signs: Last Vital Signs Temp 98.5 F 04/09/18 07:45 Pulse 72 04/09/18 07:45 Resp 20 04/09/18 07:45 BP 125/75 04/09/18 10:23 Pulse Ox 97 04/09/18 07:45 - Labs Result Diagrams: 04/09/18 00:30 04/09/18 00:30 Labs: Laboratory Results - last 24 hr 04/09/18 04/09/18 04/09/18 00:30 00:30 00:30 WBC 11.1 H RBC 4.84 Hgb 14.3 Hct 43.7 MCV 90.4 D MCH 29.6 MCHC 32.8 L RDW 16.9 H Plt Count 142 MPV 8.1 Neut % (Auto) 87.4 H Lymph % (Auto) 8.4 L Dooly % (Auto) 3.5 Eos % (Auto) 0.3 Baso % (Auto) 0.4 Neut # (Auto) 9.7 H Lymph # (Auto) 0.9 L [place]y # (Auto) 0.4 Eos # (Auto) 0.0 Baso # (Auto) 0.0 Neutrophils % (Manual) 81 H Band Neutrophils % 3 H Lymphocytes % (Manual) 10 L Reactive Lymphs % 1 H Monocytes % (Manual) 5 Platelet Estimate Normal PT 11.3 INR 1.0 APTT 24 Sodium 134 Potassium 4.4 Chloride 97 L Carbon Dioxide 27 Anion Gap 15 BUN 25 H Creatinine 0.9 Est GFR ( Amer) > 60 Est GFR (Non-Af Amer) > 60 Random Glucose 131 H Calcium 8.2 L Total Bilirubin 1.1 AST 27 ALT 56 Alkaline Phosphatase 66 NT-Pro-B Natriuret Pep 195 Total Protein 6.6 Albumin 3.9 Globulin 2.8 Albumin/Globulin Ratio 1.4 Urine Color Urine Clarity Urine pH Ur Specific Rousseau Urine Protein Urine Glucose (UA) Urine Ketones Urine Blood Urine Nitrate Urine Bilirubin Urine Urobilinogen Ur Leukocyte Esterase 04/09/18 02:30 WBC RBC Hgb Hct MCV MCH MCHC RDW Plt Count MPV Neut % (Auto) Lymph % (Auto) Dooly % (Auto) Eos % (Auto) Baso % (Auto) Neut # (Auto) Lymph # (Auto) Dooly # (Auto) Eos # (Auto) Baso # (Auto) Neutrophils % (Manual) Band Neutrophils % Lymphocytes % (Manual) Reactive Lymphs % Monocytes % (Manual) Platelet Estimate PT INR APTT Sodium Potassium Chloride Carbon Dioxide Anion Gap BUN Creatinine Est GFR ( Amer) Est GFR (Non-Af Amer) Random Glucose Calcium Total Bilirubin AST ALT Alkaline Phosphatase NT-Pro-B Natriuret Pep Total Protein Albumin Globulin Albumin/Globulin Ratio Urine Color Straw Urine Clarity Clear Urine pH 6.0 Ur Specific Rousseau 1.004 Urine Protein Negative Urine Glucose (UA) Normal Urine Ketones Negative Urine Blood Negative Urine Nitrate Negative Urine Bilirubin Negative Urine Urobilinogen Normal Ur Leukocyte Esterase Neg Assessment & Plan - Assessment and Plan (Free Text) Assessment: 53 y/o M patient seen and evaluated ayt the bedside for cellulitis of the left LE. Plan: Pt seen and evaluated at the bedside. Plan discussed with attending Dr. Servin Chart, labs, and vitals reviewed; Temp 100.2, WBCs; 11.1. No dressing applied to the LLE Ordered LLE venous duplex. Ordered L Tb-fibula X-ray No dressing applied to the LLE. ID on board; recommendations appreciated. Continue IV abx as per ID recommendations Ordered Ammonium lactate 12% topical BID Thank you for consulting podiatry team. Podiatry will continue to follow up the patient while in house. - Date & Time Date: 04/09/18 Time: 14:45
--- NOTE | 2018-04-09 17:02 | RAD ---
Date of service: 04/09/2018 PROCEDURE: Radiographs of the left tibia and fibula. HISTORY: R/O OM COMPARISON: None available. TECHNIQUE: Frontal and lateral views obtained. FINDINGS: BONES: No fracture appreciate throughout the tibia or fibula. However, gross increased cortication is appreciated in the anterior greater than posterior tibial cortex as well as the fibula. Cortical periosteal changes are seen at the posterior and lateral diaphysis of the tibia. Osteomyelitis not excluded. JOINT SPACES: Unremarkable. OTHER FINDINGS: Diffuse left leg soft tissue edema is appreciated throughout the subcutaneous fat including prominent focal thickening at the mid leg anteriorly. Heterotopic soft tissue calcifications may be post infectious or inflammatory throughout the anterior leg soft tissues as well. IMPRESSION: Osteomyelitis is not excluded involving the tibia as well as the fibula given prominent cortical thickening and questionable periosteal reaction. This seen more so at the tibia than the fibula of the left leg in follow-up nuclear bone scan in 3 phases or possible MRI can be utilized for added characterization. No acute fracture identified. Diffuse cellulitis noted with focal abnormal soft tissue thickening at the mid tibial dermis and subcutaneous fat anteriorly.
--- NOTE | 2018-04-09 17:35 | RAD ---
Date of service: 04/08/2018 PROCEDURE: CHEST RADIOGRAPH, 1 VIEW HISTORY: Hx of COPD COMPARISON: Comparison is made with 03/14/2018 FINDINGS: LUNGS: Diffuse opacity in the right chest likely due to right pleural effusion and underlying partial atelectasis of the right lung. PLEURA: Suspicious for large right pleural effusion. CARDIOVASCULAR: Mediastinal shift to the right is noted. The right cardiac border is not visualized. Prominent aortic arch OSSEOUS STRUCTURES: No significant abnormalities. VISUALIZED UPPER ABDOMEN: Normal. OTHER FINDINGS: None. IMPRESSION: Suspicious for large right pleural effusion.
[2018-04-09] MEDS: Ammonium Lactate 12% Lotion (225 g) EXT SCH (18:01)
--- NOTE | 2018-04-09 21:54 | HP ---
HISTORY OF PRESENT ILLNESS: This is a 53-year-old white male, obese, came to the emergency room with a history of severe left leg pain. The patient has chronic cellulitis of both legs. Left leg is swollen and tender. The patient also has weeping discharge from the lower part of the leg. The patient complained of mild fever and chills. No history of chest pain. History of COPD and the patient has shortness of breath. The patient is taking prednisone for that. REVIEW OF SYSTEMS: CARDIOVASCULAR SYSTEM: Negative for chest pain. RESPIRATORY SYSTEM: Negative for shortness of breath and cough. GASTROINTESTINAL SYSTEM: Negative for nausea, vomiting or abdominal pain. CENTRAL NERVOUS SYSTEM: No focal neurological complains offered. EXTREMITIES: Both leg cellulitis present. Left leg weeping ulcer present. Edema of the leg present. GENITOURINARY SYSTEM: No urinary complaint. PAST MEDICAL HISTORY: Anemia, arthritis, atrial fibrillation, COPD, hypertension, chronic cellulitis, pneumonia. No chronic renal failure. FAMILY HISTORY: No known inherited disease. SOCIAL HISTORY: Nonsmoker, nonalcoholic. No IVDA. ALLERGIES: NO KNOWN ALLERGY. MEDICATIONS: The patient's medications are reviewed by me. PHYSICAL EXAMINATION GENERAL: This is a 53-year-old obese male, alert, oriented, comfortable. VITAL SIGNS: Temperature 100.5, pulse 95, respirations 19, blood pressure 127/80 mmHg, pulse ox is 97% on room air. HEENT: Normal. NECK: JVP is flat. Carotid, no bruits. LUNGS: No rales. No wheezing. HEART: S1, S2 normal. No gallop, no murmur. ABDOMEN: Soft, nontender. No organomegaly. CENTRAL NERVOUS SYSTEM: No focal neurological deficit. EXTREMITIES: Both legs, chronic cellulitis present. Left leg weeping ulcer present, redness present. Edema of the leg present. LABORATORY DATA: On admission, lab work shows white cell count 11.1, H and H normal. BUN 25, creatinine 0.9. IMPRESSION: Cellulitis of both legs. Leg ulcer both leg swelling. Chronic obstructive pulmonary disease. Hypertension. PLAN: The patient will be admitted to the floor. We will get consult with Dr. Hewitt and Dr. Servin. We will give IV antibiotics. Other workup as needed. Edward Ma MD [facility] # [phone]
[2018-04-10] MEDS: Piperacillin/Tazobact 3.375 GM in Sodium Chloride 100 ML IVPB SCH ×2 (02:35→10:08)
[2018-04-10] MEDS: Albuterol-Ipratrop 3 mg / 0.5 (3 ml) UD INH SCH ×5 (03:29→19:36)
[2018-04-10] MEDS: Ammonium Lactate 12% Lotion (225 g) EXT SCH ×2 (09:31→17:46)
[2018-04-10] MEDS: Pantoprazole 40 mg EC Tab PO SCH (09:33)
--- NOTE | 2018-04-10 12:41 | CP.PCM.PN ---
<Blaine Conde - Last Filed: 04/10/18 12:36> Subjective - Date & Time of Evaluation Date of Evaluation: 04/10/18 Time of Evaluation: 12:36 - Subjective Subjective: Podiatry Progress note for attending Dr. Servin: 53 year old male pt seen and evaluated at bedside for left leg cellulitis. Patient states that the pain became worse over the last night. he rate the pain in his left LE to 8/10 on VAS scale. Patient states that the leg became more swollen. Patient denies any other pedal complaint. He deneis any overnight f/c/cp/n/v or d. Objective - Vital Signs/Intake and Output Vital Signs (last 24 hours): Temp Pulse Resp BP Pulse Ox 98.3 F 74 20 104/61 99 04/10/18 08:03 04/10/18 08:03 04/10/18 08:03 04/10/18 09:28 04/10/18 08:03 Intake and Output: 04/10/18 04/10/18 06:59 18:59 Intake Total 650 Output Total 400 Balance 250 - Medications Medications: Current Medications Acetaminophen (Tylenol 325mg Tab) 650 mg PO Q6 PRN PRN Reason: Headache Last Admin: 04/09/18 11:32 Dose: 650 mg Albuterol/Ipratropium (Duoneb 3 Mg/0.5 Mg (3 Ml) Ud) 3 ml INH RQ4 ANISH Last Admin: 04/10/18 07:35 Dose: 3 ml Fluticasone/Vilanterol (Breo Ellipta 100-25 Mcg Inh) 1 puff INH RQD ANISH Furosemide (Lasix) 40 mg PO DAILY ANISH Last Admin: 04/10/18 09:28 Dose: 40 mg Heparin Sodium (Porcine) (Heparin) 5,000 units SC Q8H ANISH Last Admin: 04/10/18 09:30 Dose: 5,000 units Piperacillin Sod/Tazobactam (Sod 3.375 gm/ Sodium Chloride) 100 mls @ 200 mls/ hr IVPB Q8H AN[facility]; Protocol Last Admin: 04/10/18 10:08 Dose: 200 mls/hr Lactic Acid (Lac-Hydrin 12% Lotion (225 G)) 1 gm EXT BID ANISH Last Admin: 04/10/18 09:31 Dose: 1 gm Nebivolol (Bystolic) 5 mg PO DAILY [facility] Last Admin: 04/10/18 09:28 Dose: 5 mg Pantoprazole Sodium (Protonix Ec Tab) 40 mg PO DAILY [facility] Last Admin: 04/10/18 09:33 Dose: 40 mg Prednisone (Prednisone Tab) 10 mg PO BID [facility] Last Admin: 04/10/18 09:28 Dose: 10 mg - Labs Labs: 04/09/18 00:30 04/09/18 00:30 PT 11.3 SECONDS (9.7-12.2) 04/09/18 00:30 INR 1.0 04/09/18 00:30 APTT 24 SECONDS (21-34) 04/09/18 00:30 - Constitutional Appears: Well, No Acute Distress - Head Exam Head Exam: ATRAUMATIC, NORMOCEPHALIC - Extremities Exam Additional comments: B/L LE focused exam: VASC: DP/PT pulses 2/4 b/l. Cap refill <3 seconds to digits. +2 pitting edema noted b/l with L>R. Temperature gradient warm to school of nursing director the left side and warm to cool on the right side from proximal to distal. Erythema noted along the left leg up to the tibial tuberosity. NEURO: Gross and protective sensations are intact. DERM: Significant lower extremity Chronic stasis edemma noted with L > R. Skin changes in the form of hyperpigmentation and lichnification of the legs noted. Erythema noted along the left leg up to the tibial tuberosity. Healed ulcer noted on the lower lateral part of left leg. MSK: Pedal muscle strength graded 5/5 in all groups. Mild limited ankle joint ROM to dorsiflexion b/l. Pain on palpation of the left leg. Pain on squeezing the left calf muscle. - Neurological Exam Neurological Exam: Alert, Awake, Oriented x3 - Psychiatric Exam Psychiatric exam: Normal Affect, Normal Mood Assessment and Plan - Assessment and Plan (Free Text) Assessment: 53 y/o M patient seen and evaluated at the bedside for cellulitis of the left LE. Plan: Pt seen and evaluated at the bedside. Plan discussed with attending Dr. Servin Chart, labs, and vitals reviewed; Afebrile, WBCs; 11.1 (04/09). No dressing applied to the LLE LLE venous duplex; pending. L Tb-fibula X-ray; OM couldn't be excluded given the increased cortical thickness of the tibia and fibula with tibia more than fibula, recommended 3 phases bone scan or MRI. No dressing applied to the LLE. ID on board; recommendations appreciated. Continue IV abx as per ID recommendations Continue Ammonium lactate 12% topical BID Podiatry will continue to follow up the patient while in house. <Giorgio Servin - Last Filed: 04/10/18 23:11> Objective - Vital Signs/Intake and Output Vital Signs (last 24 hours): Temp Pulse Resp BP Pulse Ox 97.7 F 62 20 119/72 96 04/10/18 15:00 04/10/18 15:00 04/10/18 15:00 04/10/18 15:00 04/10/18 15:00 Intake and Output: 04/10/18 04/11/18 18:59 06:59 Intake Total 580 450 Output Total 400 Balance 580 50 - Medications Medications: Current Medications Acetaminophen (Tylenol 325mg Tab) 650 mg PO Q6 PRN PRN Reason: Headache Last Admin: 04/09/18 11:32 Dose: 650 mg Albuterol/Ipratropium (Duoneb 3 Mg/0.5 Mg (3 Ml) Ud) 3 ml INH RQ4 ANISH Last Admin: 04/10/18 19:36 Dose: 3 ml Fluticasone/Vilanterol (Breo Ellipta 100-25 Mcg Inh) 1 puff INH RQD ANISH Furosemide (Lasix) 40 mg PO DAILY [facility] Last Admin: 04/10/18 09:28 Dose: 40 mg Heparin Sodium (Porcine) (Heparin) 5,000 units SC Q8H ANISH Last Admin: 04/10/18 17:44 Dose: 5,000 units Piperacillin Sod/Tazobactam (Sod 3.375 gm/ Sodium Chloride) 100 mls @ 200 mls/hr IVPB Q8H [facility]; Protocol Last Admin: 04/10/18 10:08 Dose: 200 mls/hr Lactic Acid (Lac-Hydrin 12% Lotion (225 G)) 1 gm EXT BID ANISH Last Admin: 04/10/18 17:46 Dose: 1 gm Nebivolol (Bystolic) 5 mg PO DAILY ANISH Last Admin: 04/10/18 09:28 Dose: 5 mg Pantoprazole Sodium (Protonix Ec Tab) 40 mg PO DAILY [facility] Last Admin: 04/10/18 09:33 Dose: 40 mg Prednisone (Prednisone Tab) 10 mg PO BID [facility] Last Admin: 04/10/18 17:43 Dose: 10 mg - Labs Labs: 04/09/18 00:30 04/09/18 00:30 PT 11.3 SECONDS (9.7-12.2) 04/09/18 00:30 INR 1.0 04/09/18 00:30 APTT 24 SECONDS (21-34) 04/09/18 00:30 Assessment and Plan - Assessment and Plan (Free Text) Plan: agustín with above findings . bone scan ordered . we will follow /Dr Kang Servin
--- NOTE | 2018-04-10 15:43 | CP.PCM.CON ---
History of Present Illness - History of Present Illness History of Present Illness: 52 y/o male presents to ED with severe swelling / pain lower extremities Severe cellulitis left leg - Medical History PMH: Atrial Fibrillation, COPD, HTN, Peripheral Edema, Pneumonia Denies: Chronic Kidney Disease Surgical History: Appendectomy - [facility] Procedures ASSISTANCE WITH RESPIRATORY VENTILATION, <24 HRS, CPAP (04/10/15) DRAINAGE OF R PLEURAL CAV WITH DRAIN DEV, PERC APPROACH (04/10/15) EXTRACTION OF RIGHT PLEURA, PERCUTANEOUS ENDOSCOPIC APPROACH (04/10/15) HOME MANAGEMENT TREATMENT (05/20/15) INSPECTION OF TRACHEOBRONCHIAL TREE, ENDO (04/10/15) INTRODUCE OF OTH THERAP SUBST INTO RESP TRACT, VIA OPENING (05/20/15) THERAPEUTIC EXERCISE TREATMENT OF MUSCULOSK WHOLE (05/20/15) Review of Systems - Constitutional Constitutional: As Per HPI - EENT Eyes: absent: As Per HPI, Blind Spots, Blurred Vision, Change in Vision, Decreased Night Vision, Diplopia, Discharge, Dry Eye, Exophthalmos, Floaters, Irritation, Itchy Eyes, Loss of Peripheral Vision, Pain, Photophobia, Requires Corrective Lenses, Sees Flashes, Spots in Vision, Tunnel Vision, Other Visual Disturbances, Loss of Vision, Other Ears: absent: As Per HPI, Decreased Hearing, Ear Discharge, Ear Pain, Tinnitus, Abnormal Hearing, Disequilibrium, Dizziness, Other Nose/Mouth/Throat: absent: As Per HPI, Epistaxis, Nasal Congestion, Nasal Discharge, Nasal Obstruction, Nasal Trauma, Nose Pain, Post Nasal Drip, Sinus Pain, Sinus Pressure, Bleeding Gums, Change in Voice, Dental Pain, Dry Mouth, Dysphagia, Halitosis, Hoarsness, Lip Swelling, Mouth Lesions, Mouth Pain, Odynophagia, Sore Throat, Throat Swelling, Tongue Swelling, Facial Pain, Neck Pain, Neck Mass, Other - Cardiovascular Cardiovascular: As Per HPI - Respiratory Respiratory: absent: As Per HPI, Cough, Dyspnea, Hemoptysis, Dyspnea on Exertion, Wheezing, Snoring, Stridor, Pain on Inspiration, Chest Congestion, Excessive Mucous Production, Change in Mucous Color, Pain with Coughing, Other - Gastrointestinal Gastrointestinal: absent: As Per HPI, Abdominal Pain, Belching, Bloating, Change in Bowel Habits, Change in Stool Character, Coffee Ground Emesis, Constipation, Cramping, Diarrhea, Dyspepsia, Dysphagia, Early Satiety, Excessive Flatus, Fecal Incontinence, Heartburn, Hematemesis, Hematochezia, Loose Stools, Melena, N ausea, Odynophagia, Temesmus, Vomiting, Other - Genitourinary Genitourinary: absent: As Per HPI, Change in Urinary Stream, Difficulty Urinating, Dysuria, Flank Pain, Hematuria, Pyuria, Nocturia, Urinary Incontinence, Urinary Frequency, Urinary Hesitance, Urinary Urgency, Voiding Freq/Small Amts, Freq UTI, Hx Renal/Bladder Calculi, Hx /Renal Surgery, Bladder Distension, Other - Musculoskeletal Musculoskeletal: As Per HPI - Integumentary Integumentary: As Per HPI, Skin Pain, Wounds - Neurological Neurological: absent: As Per HPI, Abnormal Gait, Abnormal Hearing, Abnormal Movements, Abnormal Speech, Behavioral Changes, Burning Sensations, Confusion, Convulsions, Disequilibrium, Dizziness, Numbness, Focal Weakness, Frequent Falls, Headaches, Lack of Coordination, Loss of Vision, Memory Loss, Paresthesias, Radicular Pain, Restless Legs, Sensory Deficit, Syncope, Tingling, Tremor, Vertigo, Weakness, Other Visual Disturbances, Other - Psychiatric Psychiatric: absent: As Per HPI, Abnormal Sleep Pattern, Anhedonia, Anxiety, Auditory Hallucinations, Behavioral Changes, Change in Appetite, Change in Libido, Confusion, Depression, Difficulty Concentrating, Hallucinations, Homicidal Ideation, Hopelessness, Irritability, Memory Loss, Mood Swings, Panic Attacks, Paranoia, Suicidal Ideation, Visual Hallucinations, Tactile Hallucinations, Other - Endocrine Endocrine: absent: As Per HPI, Change in Body Appearance, Change in Libido, Cold Intolorance, Deepening of Voice, Excessive Sweating, Fatigue, Flushing, Heat Intolorance, Increase in Ring/Shoe/Hat Size, Palpitations, Polydipsia, Polyphagia, Polyuria, Other - Hematologic/Lymphatic Hematologic: absent: As Per HPI, Easy Bleeding, Easy Bruising, Lymphadenopathy, Other Review of Systems - Review of Systems All systems: reviewed and no additional remarkable complaints except - Constitutional Constitutional: As Per HPI - EENT Eyes: absent: As Per HPI, Blind Spots, Blurred Vision, Change in Vision, Decreased Night Vision, Diplopia, Discharge, Dry Eye, Exophthalmos, Floaters, Irritation, Itchy Eyes, Loss of Peripheral Vision, Pain, Photophobia, Requires Corrective Lenses, Sees Flashes, Spots in Vision, Tunnel Vision, Other Visual Disturbances, Loss of Vision, Other Ears: absent: As Per HPI, Decreased Hearing, Ear Discharge, Ear Pain, Tinnitus, Abnormal Hearing, Disequilibrium, Dizziness, Other Nose/Mouth/Throat: absent: As Per HPI, Epistaxis, Nasal Congestion, Nasal Discharge, Nasal Obstruction, Nasal Trauma, Nose Pain, Post Nasal Drip, Sinus Pain, Sinus Pressure, Bleeding Gums, Change in Voice, Dental Pain, Dry Mouth, Dysphagia, Halitosis, Hoarsness, Lip Swelling, Mouth Lesions, Mouth Pain, Odynophagia, Sore Throat, Throat Swelling, Tongue Swelling, Facial Pain, Neck Pain, Neck Mass, Other - Cardiovascular Cardiovascular: As Per HPI - Respiratory Respiratory: As Per HPI - Gastrointestinal Gastrointestinal: absent: As Per HPI, Abdominal Pain, Belching, Bloating, Change in Bowel Habits, Change in Stool Character, Coffee Ground Emesis, Constipation, Cramping, Diarrhea, Dyspepsia, Dysphagia, Early Satiety, Excessive Flatus, Fecal Incontinence, Heartburn, Hematemesis, Hematochezia, Loose Stools, Melena, Nausea, Odynophagia, Temesmus, Vomiting, Other - Genitourinary Genitourinary: absent: As Per HPI, Change in Urinary Stream, Difficulty Urinating, Dysuria, Flank Pain, Hematuria, Pyuria, Nocturia, Urinary Incontinence, Urinary Frequency, Urinary Hesitance, Urinary Urgency, Voiding Freq/Small Amts, Freq UTI, Hx Renal/Bladder Calculi, Hx /Renal Surgery, Bladder Distension, Other - Musculoskeletal Musculoskeletal: absent: As Per HPI, Abnormal Gait, Arthralgias, Atrophy, Back Pain, Deformity, Joint Swelling, Limited Range of Motion, Loss of Height, Muscle Cramps, Muscle Weakness, Myalgias, Neck Pain, Numbness, Radiating Pain into Limb, Stiffness, Tingling, Other - Integumentary Integumentary: As Per HPI - Neurological Neurological: absent: As Per HPI, Abnormal Gait, Abnormal Hearing, Abnormal Movements, Abnormal Speech, Behavioral Changes, Burning Sensations, Confusion, Convulsions, Disequilibrium, Dizziness, Numbness, Focal Weakness, Frequent Falls, Headaches, Lack of Coordination, Loss of Vision, Memory Loss, Paresthesias, Radicular Pain, Restless Legs, Sensory Deficit, Syncope, Tingling, Tremor, Vertigo, Weakness, Other Visual Disturbances, Other - Psychiatric Psychiatric: absent: As Per HPI, Abnormal Sleep Pattern, Anhedonia, Anxiety, Auditory Hallucinations, Behavioral Changes, Change in Appetite, Change in Li rosemary, Confusion, Depression, Difficulty Concentrating, Hallucinations, Homicidal Ideation, Hopelessness, Irritability, Memory Loss, Mood Swings, Panic Attacks, Paranoia, Suicidal Ideation, Visual Hallucinations, Tactile Hallucinations, Other Past Patient History - Infectious Disease Hx of Infectious Diseases: None - Past Medical History & Family History Past Medical History?: Yes - Past Social History Smoking Status: Former Smoker - CARDIAC Hx Atrial Fibrillation: Yes Hx Hypertension: Yes Hx Peripheral Edema: Yes - PULMONARY Hx Chronic Obstructive Pulmonary Disease (COPD): Yes Hx Pneumonia: Yes - NEUROLOGICAL Hx Neurological Disorder: No - HEENT Hx HEENT Problems: No - RENAL Hx Chronic Kidney Disease: No - ENDOCRINE/METABOLIC Hx Endocrine Disorders: No - HEMATOLOGICAL/ONCOLOGICAL Hx Anemia: Yes - INTEGUMENTARY Hx Dermatological Problems: No - MUSCULOSKELETAL/RHEUMATOLOGICAL Hx Arthritis: Yes (L HAND FFX) Hx Falls: No Hx Fractures: Yes (Left hand) - GASTROINTESTINAL Hx Gastrointestinal Disorders: No - GENITOURINARY/GYNECOLOGICAL Hx Genitourinary Disorders: No - PSYCHIATRIC Hx Substance Use: No - SURGICAL HISTORY Hx Appendectomy: Yes - ANESTHESIA Hx Anesthesia: Yes Hx Anesthesia Reactions: No Hx Malignant Hyperthermia: No Meds Allergies/Adverse Reactions: Allergies Allergy/AdvReac Type Severity Reaction Status Date / Time No Known Allergies Allergy Verified 04/08/18 23:09 - Medications Medications: Current Medications Acetaminophen (Tylenol 325mg Tab) 650 mg PO Q6 PRN PRN Reason: Headache Last Admin: 04/09/18 11:32 Dose: 650 mg Albuterol/Ipratropium (Duoneb 3 Mg/0.5 Mg (3 Ml) Ud) 3 ml INH RQ4 [facility] Last Admin: 04/10/18 11:30 Dose: 3 ml Fluticasone/Vilanterol (Breo Ellipta 100-25 Mcg Inh) 1 puff INH RQD [facility] Furosemide (Lasix) 40 mg PO DAILY [facility] Last Admin: 04/10/18 09:28 Dose: 40 mg Heparin Sodium (Porcine) (Heparin) 5,000 units SC Q8H [facility] Last Admin: 04/10/18 09:30 Dose: 5,000 units Piperacillin Sod/Tazobactam (Sod 3.375 gm/ Sodium Chloride) 100 mls @ 200 mls/hr IVPB Q8H [facility]; Protocol Last Admin: 04/10/18 10:08 Dose: 200 mls/hr Lactic Acid (Lac-Hydrin 12% Lotion (225 G)) 1 gm EXT BID [facility] Last Admin: 04/10/18 09:31 Dose: 1 gm Nebivolol (Bystolic) 5 mg PO DAILY [facility] Last Admin: 04/10/18 09:28 Dose: 5 mg Pantoprazole Sodium (Protonix Ec Tab) 40 mg PO DAILY [facility] Last Admin: 04/10/18 09:33 Dose: 40 mg Prednisone (Prednisone Tab) 10 mg PO BID [facility] Last Admin: 04/10/18 09:28 Dose: 10 mg Physical Exam - Constitutional Appears: Non-toxic, Chronically Ill - Head Exam Head Exam: NORMOCEPHALIC - Eye Exam Eye Exam: absent: Scleral icterus - ENT Exam ENT Exam: Mucous Membranes Dry - Neck Exam Neck exam: Negative for: Lymphadenopathy - Respiratory Exam Respiratory Exam: Decreased Breath Sounds - Cardiovascular Exam Cardiovascular Exam: REGULAR RHYTHM - GI/Abdominal Exam GI & Abdominal Exam: Diminished Bowel Sounds, Soft. absent: Tenderness - Rectal Exam Rectal Exam: Deferred - Exam Exam: NORMAL INSPECTION - Extremities Exam Extremities exam: Negative for: normal inspection - Back Exam Back exam: absent: CVA tenderness (L), CVA tenderness (R) - Neurological Exam Neurological exam: Alert, CN II-XII Intact, Oriented x3, Reflexes Normal - Psychiatric Exam Psychiatric exam: Depressed - Skin Skin Exam: Dry Results - Vital Signs Recent Vital Signs: Last Vital Signs Temp 97.7 F 04/10/18 15:00 Pulse 62 04/10/18 15:00 Resp 20 04/10/18 15:00 BP 119/72 04/10/18 15:00 Pulse Ox 96 04/10/18 15:00 - Labs Result Diagrams: 04/09/18 00:30 04/09/18 00:30 Assessment & Plan (1) Cellulitis Status: Acute (2) COPD exacerbation Status: Acute (3) Cellulitis of left lower leg Status: Acute - Assessment and Plan (Free Text) Assessment: cont iv rx for cellulitis await culktures wound care, elevation cardio and pulm rx for COPD/CHF
[2018-04-11] MEDS: Albuterol-Ipratrop 3 mg / 0.5 (3 ml) UD INH SCH ×7 (01:30→19:16)
[2018-04-11] MEDS: Piperacillin/Tazobact 3.375 GM in Sodium Chloride 100 ML IVPB SCH ×3 (02:28→20:00)
[2018-04-11] MEDS: Pantoprazole 40 mg EC Tab PO SCH (10:04)
[2018-04-11] MEDS: Ammonium Lactate 12% Lotion (225 g) EXT SCH ×2 (10:05→17:39)
--- NOTE | 2018-04-11 11:16 | CP.PCM.PN ---
Subjective - Date & Time of Evaluation Date of Evaluation: 04/10/18 Time of Evaluation: 11:30 - Subjective Subjective: CONDITION SAME. CELLULITIS BOTH LEGS. COPD. Objective - Vital Signs/Intake and Output Vital Signs (last 24 hours): Temp Pulse Resp BP Pulse Ox 98.1 F 60 20 129/70 97 04/11/18 07:43 04/11/18 07:43 04/11/18 07:43 04/11/18 10:04 04/11/18 07:43 Intake and Output: 04/11/18 04/11/18 06:59 18:59 Intake Total 450 400 Output Total 400 Balance 50 400 - Medications Medications: Current Medications Acetaminophen (Tylenol 325mg Tab) 650 mg PO Q6 PRN PRN Reason: Headache Last Admin: 04/09/18 11:32 Dose: 650 mg Albuterol/Ipratropium (Duoneb 3 Mg/0.5 Mg (3 Ml) Ud) 3 ml INH RQ4 [facility] Last Admin: 04/11/18 08:17 Dose: 3 ml Fluticasone/Vilanterol (Breo Ellipta 100-25 Mcg Inh) 1 puff INH RQD [facility] Furosemide (Lasix) 40 mg PO DAILY [facility] Last Admin: 04/11/18 10:04 Dose: 40 mg Heparin Sodium (Porcine) (Heparin) 5,000 units SC Q8H [facility] Last Admin: 04/11/18 10:04 Dose: 5,000 units Piperacillin Sod/Tazobactam (Sod 3.375 gm/ Sodium Chloride) 100 mls @ 200 mls/hr IVPB Q8H [facility]; Protocol Last Admin: 04/11/18 10:58 Dose: 200 mls/hr Lactic Acid (Lac-Hydrin 12% Lotion (225 G)) 1 gm EXT BID [facility] Last Admin: 04/11/18 10:05 Dose: 1 gm Nebivolol (Bystolic) 5 mg PO DAILY [facility] Last Admin: 04/11/18 10:04 Dose: 5 mg Pantoprazole Sodium (Protonix Ec Tab) 40 mg PO DAILY [facility] Last Admin: 04/11/18 10:04 Dose: 40 mg Prednisone (Prednisone Tab) 10 mg PO BID [facility] Last Admin: 04/11/18 10:04 Dose: 10 mg - Labs Labs: 04/09/18 00:30 04/09/18 00:30 PT 11.3 SECONDS (9.7-12.2) 04/09/18 00:30 INR 1.0 04/09/18 00:30 APTT 24 SECONDS (21-34) 04/09/18 00:30 - Constitutional Appears: No Acute Distress, Chronically Ill - Eye Exam Eye Exam: PERRL - ENT Exam ENT Exam: Mucous Membranes Moist - Neck Exam Neck Exam: Full ROM, Normal Inspection. absent: Lymphadenopathy - Respiratory Exam Respiratory Exam: Clear to Ausculation Bilateral, Rhonchi, NORMAL BREATHING PATTERN - Cardiovascular Exam Cardiovascular Exam: REGULAR RHYTHM, +S1, +S2 - GI/Abdominal Exam GI & Abdominal Exam: Soft, Normal Bowel Sounds. absent: Tenderness - Extremities Exam Extremities Exam: Full ROM, Normal Capillary Refill, Normal Inspection. absent: Joint Swelling, Pedal Edema - Neurological Exam Neurological Exam: Alert, Awake, CN II-XII Intact, Normal Gait, Oriented x3 - Psychiatric Exam Psychiatric exam: Normal Affect, Normal Mood Assessment and Plan - Assessment and Plan (Free Text) Assessment: CELLULITIS. COPD. Plan: PER ID AND PODIETRIST.
--- NOTE | 2018-04-11 11:22 | CP.PCM.PN ---
Subjective - Date & Time of Evaluation Date of Evaluation: 04/11/18 Time of Evaluation: 10:00 - Subjective Subjective: iv rx in progress cellulitis + Objective - Vital Signs/Intake and Output Vital Signs (last 24 hours): Temp Pulse Resp BP Pulse Ox 98.1 F 60 20 129/70 97 04/11/18 07:43 04/11/18 07:43 04/11/18 07:43 04/11/18 10:04 04/11/18 07:43 Intake and Output: 04/11/18 04/11/18 06:59 18:59 Intake Total 450 400 Output Total 400 Balance 50 400 - Medications Medications: Current Medications Acetaminophen (Tylenol 325mg Tab) 650 mg PO Q6 PRN PRN Reason: Headache Last Admin: 04/09/18 11:32 Dose: 650 mg Albuterol/Ipratropium (Duoneb 3 Mg/0.5 Mg (3 Ml) Ud) 3 ml INH RQ4 [facility] Last Admin: 04/11/18 08:17 Dose: 3 ml Fluticasone/Vilanterol (Breo Ellipta 100-25 Mcg Inh) 1 puff INH RQD [facility] Furosemide (Lasix) 40 mg PO DAILY [facility] Last Admin: 04/11/18 10:04 Dose: 40 mg Heparin Sodium (Porcine) (Heparin) 5,000 units SC Q8H [facility] Last Admin: 04/11/18 10:04 Dose: 5,000 units Piperacillin Sod/Tazobactam (Sod 3.375 gm/ Sodium Chloride) 100 mls @ 200 mls/hr IVPB Q8H [facility]; Protocol Last Admin: 04/11/18 10:58 Dose: 200 mls/hr Lactic Acid (Lac-Hydrin 12% Lotion (225 G)) 1 gm EXT BID [facility] Last Admin: 04/11/18 10:05 Dose: 1 gm Nebivolol (Bystolic) 5 mg PO DAILY [facility] Last Admin: 04/11/18 10:04 Dose: 5 mg Pantoprazole Sodium (Protonix Ec Tab) 40 mg PO DAILY [facility] Last Admin: 04/11/18 10:04 Dose: 40 mg Prednisone (Prednisone Tab) 10 mg PO BID [facility] Last Admin: 04/11/18 10:04 Dose: 10 mg - Labs Labs: 04/09/18 00:30 04/09/18 00:30 PT 11.3 SECONDS (9.7-12.2) 04/09/18 00:30 INR 1.0 04/09/18 00:30 APTT 24 SECONDS (21-34) 04/09/18 00:30 - Constitutional Appears: Non-toxic, Chronically Ill - Head Exam Head Exam: NORMOCEPHALIC - Eye Exam Eye Exam: absent: Scleral icterus - ENT Exam ENT Exam: Mucous Membranes Dry - Neck Exam Neck Exam: absent: Lymphadenopathy - Respiratory Exam Respiratory Exam: Decreased Breath Sounds - Cardiovascular Exam Cardiovascular Exam: REGULAR RHYTHM - GI/Abdominal Exam GI & Abdominal Exam: Distended, Soft - Rectal Exam Rectal Exam: Deferred - Exam Exam: NORMAL INSPECTION - Extremities Exam Extremities Exam: absent: Pedal Edema - Back Exam Back Exam: absent: CVA tenderness (L), CVA tenderness (R) - Neurological Exam Neurological Exam: Alert, Awake Assessment and Plan (1) Cellulitis Status: Acute (2) COPD exacerbation Status: Acute (3) Cellulitis of left lower leg Status: Acute - Assessment and Plan (Free Text) Assessment: cont iv rx
--- NOTE | 2018-04-11 12:18 | VASCLAB ---
Date of service: 04/11/2018 PROCEDURE: Left Lower Extremity Venous Duplex Exam. HISTORY: Pain, swelling, cellulitis, r/o DVT PRIORS: 05/03/2015, normal. TECHNIQUE: Left common femoral, femoral, popliteal and posterior tibial, peroneal and great saphenous veins were evaluated. Flow was assessed with color Doppler, compressibility, assessment of phasic flow and augmentation response. Report prepared by Jhonatan Connor, ABIMAEL, RVT FINDINGS: LEFT: 1. Common Femoral Vein: 1.1. Compressibility - Fully compressible: Thrombus - None : Flow - Phasic: Augmentation -Normal: Reflux - None. 2. Femoral Vein: 2.1. Compressibility - Fully compressible: Thrombus - None: Flow - Phasic: Augmentation -Normal: Reflux - None. 3. Popliteal Vein: 3.1. Compressibility - Fully compressible: Thrombus - None: Flow - Phasic: Augmentation -Normal: Reflux - None. 4. Posterior Tibial Vein: 5. Peroneal Vein: 6. Great Saphenous Vein: 6.1. Compressibility - Fully compressible: Thrombus - None: Flow - Phasic: Augmentation - Normal: Reflux - None. OTHER FINDINGS: The left posterior tibial and peroneal veins are not visualized due to swelling, and patient large body habitus. Otherwise, normal study. IMPRESSION: No evidence of deep or superficial vein thrombosis of the left lower extremity with excellent venous flow. Normal valve function noted of the left side. Normal venous flow noted in the right common femoral vein.
--- NOTE | 2018-04-11 13:40 | CP.PCM.PN ---
Subjective - Date & Time of Evaluation Date of Evaluation: 04/11/18 Time of Evaluation: 13:38 - Subjective Subjective: cellulitis leg,w/u in progress.dr conde consult anatoly. Objective - Vital Signs/Intake and Output Vital Signs (last 24 hours): Temp Pulse Resp BP Pulse Ox 98.1 F 60 20 129/70 97 04/11/18 07:43 04/11/18 07:43 04/11/18 07:43 04/11/18 10:04 04/11/18 07:43 Intake and Output: 04/11/18 04/11/18 06:59 18:59 Intake Total 450 400 Output Total 400 Balance 50 400 - Medications Medications: Current Medications Acetaminophen (Tylenol 325mg Tab) 650 mg PO Q6 PRN PRN Reason: Headache Last Admin: 04/09/18 11:32 Dose: 650 mg Albuterol/Ipratropium (Duoneb 3 Mg/0.5 Mg (3 Ml) Ud) 3 ml INH RQ4 [facility] Last Admin: 04/11/18 11:25 Dose: 3 ml Fluticasone/Vilanterol (Breo Ellipta 100-25 Mcg Inh) 1 puff INH RQD [facility] Furosemide (Lasix) 40 mg PO DAILY [facility] Last Admin: 04/11/18 10:04 Dose: 40 mg Heparin Sodium (Porcine) (Heparin) 5,000 units SC Q8H [facility] Last Admin: 04/11/18 10:04 Dose: 5,000 units Piperacillin Sod/Tazobactam (Sod 3.375 gm/ Sodium Chloride) 100 mls @ 200 mls/hr IVPB Q8H [facility]; Protocol Last Admin: 04/11/18 10:58 Dose: 200 mls/hr Lactic Acid (Lac-Hydrin 12% Lotion (225 G)) 1 gm EXT BID [facility] Last Admin: 04/11/18 10:05 Dose: 1 gm Nebivolol (Bystolic) 5 mg PO DAILY [facility] Last Admin: 04/11/18 10:04 Dose: 5 mg Pantoprazole Sodium (Protonix Ec Tab) 40 mg PO DAILY [facility] Last Admin: 04/11/18 10:04 Dose: 40 mg Prednisone (Prednisone Tab) 10 mg PO BID [facility] Last Admin: 04/11/18 10:04 Dose: 10 mg - Labs Labs: 04/09/18 00:30 04/09/18 00:30 PT 11.3 SECONDS (9.7-12.2) 04/09/18 00:30 INR 1.0 04/09/18 00:30 APTT 24 SECONDS (21-34) 04/09/18 00:30 - Constitutional Appears: No Acute Distress - Eye Exam Eye Exam: Normal appearance - Neck Exam Neck Exam: Normal Inspection - Respiratory Exam Respiratory Exam: Rhonchi - Cardiovascular Exam Cardiovascular Exam: REGULAR RHYTHM - GI/Abdominal Exam GI & Abdominal Exam: Soft - Extremities Exam Extremities Exam: Pedal Edema - Neurological Exam Neurological Exam: Alert, Oriented x3 Assessment and Plan - Assessment and Plan (Free Text) Plan: cellulitis.sleep apnoea.paro a,fib.ct antibiotics.
--- NOTE | 2018-04-11 17:55 | CP.PCM.PN ---
Subjective - Date & Time of Evaluation Date of Evaluation: 04/11/18 Time of Evaluation: 17:53 - Subjective Subjective: Podiatry Progress note for attending Dr. Servin: 53 year old male pt seen and evaluated at bedside for left leg cellulitis. Patient states that the pain became worse over the last night. he rate the pain in his left LE to 8/10 on VAS scale. Patient states that the leg became more swollen. Patient denies any other pedal complaint. He deneis any overnight f/c/cp/n/v or d. Objective - Vital Signs/Intake and Output Vital Signs (last 24 hours): Temp Pulse Resp BP Pulse Ox 98.4 F 63 20 113/67 98 04/11/18 16:00 04/11/18 16:00 04/11/18 16:00 04/11/18 16:00 04/11/18 16:00 Intake and Output: 04/11/18 04/11/18 06:59 18:59 Intake Total 450 980 Output Total 400 Balance 50 980 - Medications Medications: Current Medications Acetaminophen (Tylenol 325mg Tab) 650 mg PO Q6 PRN PRN Reason: Headache Last Admin: 04/09/18 11:32 Dose: 650 mg Albuterol/Ipratropium (Duoneb 3 Mg/0.5 Mg (3 Ml) Ud) 3 ml INH RQ4 [facility] Last Admin: 04/11/18 15:55 Dose: 3 ml Fluticasone/Vilanterol (Breo Ellipta 100-25 Mcg Inh) 1 puff INH RQD [facility] Furosemide (Lasix) 40 mg PO DAILY [facility] Last Admin: 04/11/18 10:04 Dose: 40 mg Heparin Sodium (Porcine) (Heparin) 5,000 units SC Q8H [facility] Last Admin: 04/11/18 17:38 Dose: 5,000 units Piperacillin Sod/Tazobactam (Sod 3.375 gm/ Sodium Chloride) 100 mls @ 200 mls/hr IVPB Q8H [facility]; Protocol Last Admin: 04/11/18 10:58 Dose: 200 mls/hr Lactic Acid (Lac-Hydrin 12% Lotion (225 G)) 1 gm EXT BID [facility] Last Admin: 04/11/18 17:39 Dose: 1 gm Nebivolol (Bystolic) 5 mg PO DAILY [facility] Last Admin: 04/11/18 10:04 Dose: 5 mg Pantoprazole Sodium (Protonix Ec Tab) 40 mg PO DAILY [facility] Last Admin: 04/11/18 10:04 Dose: 40 mg Prednisone (Prednisone Tab) 10 mg PO BID [facility] Last Admin: 04/11/18 17:39 Dose: 10 mg - Labs Labs: 04/09/18 00:30 04/09/18 00:30 PT 11.3 SECONDS (9.7-12.2) 04/09/18 00:30 INR 1.0 04/09/18 00:30 APTT 24 SECONDS (21-34) 04/09/18 00:30 - Constitutional Appears: Well, Non-toxic, No Acute Distress - Head Exam Head Exam: ATRAUMATIC, NORMOCEPHALIC - Extremities Exam Additional comments: B/L LE focused exam: VASC: DP/PT pulses 2/4 b/l. Cap refill <3 seconds to digits. +2 pitting edema noted b/l with L>R. Temperature gradient warm to back tender cloth printing the left side and warm to cool on the right side from proximal to distal. Erythema noted along the left leg up to the tibial tuberosity. NEURO: Gross and protective sensations are intact. DERM: Significant lower extremity Chronic stasis edemma noted with L > R. Skin changes in the form of hyperpigmentation and lichnification of the legs noted. Erythema noted along the left leg up to the tibial tuberosity. Healed ulcer noted on the lower lateral part of left leg. MSK: Pedal muscle strength graded 5/5 in all groups. Mild limited ankle joint ROM to dorsiflexion b/l. Pain on palpation of the left leg. Pain on squeezing the left calf muscle. - Neurological Exam Neurological Exam: Alert, Awake, Oriented x3 - Psychiatric Exam Psychiatric exam: Normal Affect, Normal Mood Assessment and Plan - Assessment and Plan (Free Text) Assessment: 53 y/o M patient seen and evaluated at the bedside for cellulitis of the left LE. Plan: Pt seen and evaluated at the bedside. Plan discussed with attending Dr. Servin Chart, labs, and vitals reviewed; Afebrile, WBCs; 11.1 (04/09). No dressing applied to the LLE LLE venous duplex: no DVT L Tb-fibula X-ray: OM couldn't be excluded given the increased cortical thickness of the tibia and fibula with tibia more than fibula, recommended 3 phases bone scan or MRI. Bone Scan- pending final read No dressing applied to the LLE. ID on board; recommendations appreciated. Continue IV abx as per ID recommendations Continue Ammonium lactate 12% topical BID Podiatry will continue to follow up the patient while in house.
[2018-04-12] MEDS: Albuterol-Ipratrop 3 mg / 0.5 (3 ml) UD INH SCH ×5 (00:58→19:16)
[2018-04-12] MEDS: Piperacillin/Tazobact 3.375 GM in Sodium Chloride 100 ML IVPB SCH ×3 (02:52→19:07)
[2018-04-12 07:00] LABS: BASO % 0.3 % (0.0-2.0); EOS # 0.1 K/uL (0.0-0.7); EOS % 2.4 % (0.0-4.0); HEMOGLOBIN 13.2 g/dL (12.0-18.0); LYMPH # 1.3 K/uL (1.0-4.3); MEAN CELL VOLUME 91.5 fL (80.0-94.0); MEAN CORPUSCULAR HEMOGLOBIN 29.6 pg (27.0-31.0); MEAN CORPUSCULAR HGB CONC 32.4 g/dL (33.0-37.0); MEAN PLATELET VOLUME 7.9 fL (7.2-11.7); MONO # 0.4 K/uL (0.0-0.8); NEUT # 2.5 K/uL (1.8-7.0); NEUT % 58.3 % (50.0-75.0); NRBC % 0.1 % (0.0-2.0); RBC 4.45 Mil/uL (4.40-5.90); RED CELL DISTRIBUTION WIDTH 16.1 % (11.5-14.5)
[2018-04-12 07:17] LABS: WHITE BLOOD COUNT 4.3 K/uL (4.8-10.8)
[2018-04-12 07:33] LABS: BLOOD UREA NITROGEN 18 mg/dL (9-20); CALCIUM 8.7 mg/dl (8.6-10.4); GFR NON-AFRICAN AMERICAN > 60
[2018-04-12] MEDS: Pantoprazole 40 mg EC Tab PO SCH (09:34)
[2018-04-12] MEDS: Ammonium Lactate 12% Lotion (225 g) EXT SCH ×2 (10:42→17:58)
--- NOTE | 2018-04-12 11:05 | CP.PCM.PN ---
Subjective - Date & Time of Evaluation Date of Evaluation: 04/12/18 Time of Evaluation: 07:00 - Subjective Subjective: cellulitis less afebrile Objective - Vital Signs/Intake and Output Vital Signs (last 24 hours): Temp Pulse Resp BP Pulse Ox 97.6 F 61 20 118/72 98 04/12/18 08:36 04/12/18 08:36 04/12/18 08:36 04/12/18 09:32 04/12/18 08:36 Intake and Output: 04/12/18 04/12/18 06:59 18:59 Intake Total 600 340 Balance 600 340 - Medications Medications: Current Medications Acetaminophen (Tylenol 325mg Tab) 650 mg PO Q6 PRN PRN Reason: Headache Last Admin: 04/09/18 11:32 Dose: 650 mg Albuterol/Ipratropium (Duoneb 3 Mg/0.5 Mg (3 Ml) Ud) 3 ml INH RQ4 [facility] Last Admin: 04/12/18 07:40 Dose: 3 ml Fluticasone/Vilanterol (Breo Ellipta 100-25 Mcg Inh) 1 puff INH RQD [facility] Furosemide (Lasix) 40 mg PO DAILY [facility] Last Admin: 04/12/18 09:32 Dose: 40 mg Piperacillin Sod/Tazobactam (Sod 3.375 gm/ Sodium Chloride) 100 mls @ 200 mls/hr IVPB Q8H [facility]; Protocol Last Admin: 04/12/18 10:43 Dose: 200 mls/hr Lactic Acid (Lac-Hydrin 12% Lotion (225 G)) 1 gm EXT BID [facility] Last Admin: 04/12/18 10:42 Dose: 1 gm Nebivolol (Bystolic) 5 mg PO DAILY [facility] Last Admin: 04/12/18 09:32 Dose: 5 mg Pantoprazole Sodium (Protonix Ec Tab) 40 mg PO DAILY [facility] Last Admin: 04/12/18 09:34 Dose: 40 mg Prednisone (Prednisone Tab) 10 mg PO BID [facility] Last Admin: 04/12/18 09:33 Dose: 10 mg - Labs Labs: 04/12/18 06:48 04/12/18 06:48 PT 11.3 SECONDS (9.7-12.2) 04/09/18 00:30 INR 1.0 04/09/18 00:30 APTT 24 SECONDS (21-34) 04/09/18 00:30 - Constitutional Appears: Non-toxic - Head Exam Head Exam: NORMOCEPHALIC - Eye Exam Eye Exam: PERRL - ENT Exam ENT Exam: Mucous Membranes Dry - Neck Exam Neck Exam: absent: Lymphadenopathy - Respiratory Exam Respiratory Exam: Decreased Breath Sounds - Cardiovascular Exam Cardiovascular Exam: REGULAR RHYTHM - GI/Abdominal Exam GI & Abdominal Exam: Distended, Soft - Rectal Exam Rectal Exam: Deferred - Exam Exam: Scrotal Swelling - Extremities Exam Extremities Exam: Pedal Edema, Tenderness. absent: Calf Tenderness, Normal Capillary Refill - Back Exam Back Exam: absent: CVA tenderness (L), CVA tenderness (R) - Neurological Exam Neurological Exam: Alert, Awake, CN II-XII Intact - Psychiatric Exam Psychiatric exam: Depressed - Skin Skin Exam: Dry Assessment and Plan (1) Cellulitis Status: Acute (2) COPD exacerbation Status: Acute (3) Cellulitis of left lower leg Status: Acute - Assessment and Plan (Free Text) Assessment: cont IV rx for now
--- NOTE | 2018-04-12 12:49 | NM ---
Date of service: 04/11/2018 PROCEDURE: Whole Body Bone Scan HISTORY: to R/In or out left leg OM COMPARISON: Left tibia fibula x-rays. TECHNIQUE: Following administration of 24.3 miCu of Tc MDP multiplanar whole body images were obtained. FINDINGS: Evidence for bony metastatic disease: None. Degenerative uptake: None. Physiologic uptake: Normal physiologic activity in the kidneys. Other findings: Persistent soft tissue uptake is seen asymmetrically greater the left than right leg compatible with cellulitis. Equivocal uptake is is appreciated within the tibia and fibula with the bilateral legs. No definite pattern to suggest osteomyelitis in the tibia or fibula left leg. However, there is increased activity only in the delayed images at the left ankle, midfoot and hindfoot. This is a nonspecific finding as there is no abnormal bone ectatic the activity in the blood pool/immediate static images in the same distribution. Follow-up radiography recommended left foot. This could be a function of recent trauma or degenerative joint disease.. IMPRESSION: Left lower extremity cellulitis. No definite pattern to suggest left tibial fibular osteomyelitis at this time. Delayed uptake at the left ankle and foot may be a function of degenerative or possibly late posttraumatic findings. Follow-up radiography is recommended.
--- NOTE | 2018-04-12 16:11 | CP.PCM.PN ---
Subjective - Date & Time of Evaluation Date of Evaluation: 04/12/18 Time of Evaluation: 16:08 - Subjective Subjective: Podiatry - Dr. Servin: 53M seen and evaluated at bedside for LLE cellulitis. NAD. No acute events overnight. Patient reports pain and redness has improved significantly since admission. No new lower extremity complaints. Denies n/v/f/d/c/sob/brown/cp. Objective - Vital Signs/Intake and Output Vital Signs (last 24 hours): Temp Pulse Resp BP Pulse Ox 97.6 F 61 20 118/72 98 04/12/18 08:36 04/12/18 08:36 04/12/18 08:36 04/12/18 09:32 04/12/18 08:36 Intake and Output: 04/12/18 04/12/18 06:59 18:59 Intake Total 600 340 Balance 600 340 - Medications Medications: Current Medications Acetaminophen (Tylenol 325mg Tab) 650 mg PO Q6 PRN PRN Reason: Headache Last Admin: 04/09/18 11:32 Dose: 650 mg Albuterol/Ipratropium (Duoneb 3 Mg/0.5 Mg (3 Ml) Ud) 3 ml INH RQ4 [facility] Last Admin: 04/12/18 11:50 Dose: 3 ml Fluticasone/Vilanterol (Breo Ellipta 100-25 Mcg Inh) 1 puff INH RQD [facility] Furosemide (Lasix) 40 mg PO DAILY [facility] Last Admin: 04/12/18 09:32 Dose: 40 mg Piperacillin Sod/Tazobactam (Sod 3.375 gm/ Sodium Chloride) 100 mls @ 200 mls/hr IVPB Q8H [facility]; Protocol Last Admin: 04/12/18 10:43 Dose: 200 mls/hr Lactic Acid (Lac-Hydrin 12% Lotion (225 G)) 1 gm EXT BID [facility] Last Admin: 04/12/18 10:42 Dose: 1 gm Nebivolol (Bystolic) 5 mg PO DAILY [facility] Last Admin: 04/12/18 09:32 Dose: 5 mg Pantoprazole Sodium (Protonix Ec Tab) 40 mg PO DAILY [facility] Last Admin: 04/12/18 09:34 Dose: 40 mg Prednisone (Prednisone Tab) 10 mg PO BID [facility] Last Admin: 04/12/18 09:33 Dose: 10 mg - Labs Labs: 04/12/18 06:48 04/12/18 06:48 PT 11.3 SECONDS (9.7-12.2) 04/09/18 00:30 INR 1.0 04/09/18 00:30 APTT 24 SECONDS (21-34) 04/09/18 00:30 - Constitutional Appears: Non-toxic, No Acute Distress - Extremities Exam Additional comments: B/L LE focused exam: VASC: DP/PT pulses 2/4 b/l. Cap refill <3 seconds to digits. +2 pitting edema noted b/l with L>R. Temperature gradient warm to warm b/l, mild increase in warmth in areas of erythema LLE. NEURO: Gross and protective sensations are intact. DERM: Significant lower extremity Chronic stasis edema noted with L > R. Skin changes in the form of hyperpigmentation and lichnification of the legs noted. Erythema noted along the left leg up to the tibial tuberosity, resolving. Healed ulcer noted on the lower lateral part of left leg. MSK: Pedal muscle strength graded 5/5 in all groups. Mild limited ankle joint ROM to dorsiflexion b/l. No pain on palpation of the left leg. No pain upon left calf compression. - Neurological Exam Neurological Exam: Alert, Awake, Oriented x3 - Psychiatric Exam Psychiatric exam: Normal Affect, Normal Mood Assessment and Plan - Assessment and Plan (Free Text) Assessment: 53M with LLE cellulitis Plan: Patient seen and evaluated Discussed with attending, Dr. Servin Afebrile, WBC 4.3 LLE venous duplex: no DVT L tibfib XR: OM not excluded given the increased cortical thickness of the tibia and fibula with tibia more than fibula, recommend 3 phases bone scan or MRI. Bone Scan: LLE cellulitis. No definitive pattern to suggest L tibfib OM. ID recs appreciated - Continue Zosyn IV Ammonium lactate 12% topical BID Podiatry will continue to follow
--- NOTE | 2018-04-12 19:10 | CP.PCM.PN ---
Subjective - Date & Time of Evaluation Date of Evaluation: 04/12/18 Time of Evaluation: 19:09 - Subjective Subjective: better.no dvt Objective - Vital Signs/Intake and Output Vital Signs (last 24 hours): Temp Pulse Resp BP Pulse Ox 98.7 F 68 20 108/69 96 04/12/18 16:30 04/12/18 16:30 04/12/18 16:30 04/12/18 16:30 04/12/18 16:30 Intake and Output: 04/12/18 04/13/18 18:59 06:59 Intake Total 340 Balance 340 - Medications Medications: Current Medications Acetaminophen (Tylenol 325mg Tab) 650 mg PO Q6 PRN PRN Reason: Headache Last Admin: 04/09/18 11:32 Dose: 650 mg Albuterol/Ipratropium (Duoneb 3 Mg/0.5 Mg (3 Ml) Ud) 3 ml INH RQ4 [facility] Last Admin: 04/12/18 11:50 Dose: 3 ml Fluticasone/Vilanterol (Breo Ellipta 100-25 Mcg Inh) 1 puff INH RQD [facility] Furosemide (Lasix) 40 mg PO DAILY [facility] Last Admin: 04/12/18 09:32 Dose: 40 mg Piperacillin Sod/Tazobactam (Sod 3.375 gm/ Sodium Chloride) 100 mls @ 200 mls/hr IVPB Q8H [facility]; Protocol Last Admin: 04/12/18 19:07 Dose: 200 mls/hr Lactic Acid (Lac-Hydrin 12% Lotion (225 G)) 1 gm EXT BID [facility] Last Admin: 04/12/18 17:58 Dose: 1 applic Nebivolol (Bystolic) 5 mg PO DAILY [facility] Last Admin: 04/12/18 09:32 Dose: 5 mg Pantoprazole Sodium (Protonix Ec Tab) 40 mg PO DAILY [facility] Last Admin: 04/12/18 09:34 Dose: 40 mg Prednisone (Prednisone Tab) 10 mg PO BID [facility] Last Admin: 04/12/18 17:30 Dose: 10 mg - Labs Labs: 04/12/18 06:48 04/12/18 06:48 PT 11.3 SECONDS (9.7-12.2) 04/09/18 00:30 INR 1.0 04/09/18 00:30 APTT 24 SECONDS (21-34) 04/09/18 00:30 - Constitutional Appears: No Acute Distress - Head Exam Head Exam: NORMOCEPHALIC - Neck Exam Neck Exam: Normal Inspection - Respiratory Exam Respiratory Exam: Clear to Ausculation Bilateral - Cardiovascular Exam Cardiovascular Exam: REGULAR RHYTHM - GI/Abdominal Exam GI & Abdominal Exam: Soft - Extremities Exam Extremities Exam: Pedal Edema - Neurological Exam Neurological Exam: Alert, Oriented x3 - Skin Skin Exam: Erythema Assessment and Plan - Assessment and Plan (Free Text) Plan: cellulitis,getting better.await bone scan.
[2018-04-13] MEDS: Albuterol-Ipratrop 3 mg / 0.5 (3 ml) UD INH SCH ×6 (00:25→19:33)
[2018-04-13] MEDS: Piperacillin/Tazobact 3.375 GM in Sodium Chloride 100 ML IVPB SCH ×3 (03:03→18:55)
[2018-04-13] MEDS: Pantoprazole 40 mg EC Tab PO SCH (09:28)
[2018-04-13] MEDS: Ammonium Lactate 12% Lotion (225 g) EXT SCH ×2 (10:58→17:38)
--- NOTE | 2018-04-13 10:58 | CP.PCM.PN ---
Subjective - Date & Time of Evaluation Date of Evaluation: 04/13/18 Time of Evaluation: 10:56 - Subjective Subjective: better Objective - Vital Signs/Intake and Output Vital Signs (last 24 hours): Temp Pulse Resp BP Pulse Ox 97.8 F 64 20 122/72 98 04/13/18 08:00 04/13/18 08:00 04/13/18 08:00 04/13/18 09:28 04/13/18 08:00 Intake and Output: 04/13/18 04/13/18 06:59 18:59 Intake Total 990 Balance 990 - Medications Medications: Current Medications Acetaminophen (Tylenol 325mg Tab) 650 mg PO Q6 PRN PRN Reason: Headache Last Admin: 04/09/18 11:32 Dose: 650 mg Albuterol/Ipratropium (Duoneb 3 Mg/0.5 Mg (3 Ml) Ud) 3 ml INH RQ4 [facility] Last Admin: 04/13/18 07:25 Dose: 3 ml Fluticasone/Vilanterol (Breo Ellipta 100-25 Mcg Inh) 1 puff INH RQD [facility] Furosemide (Lasix) 40 mg PO DAILY [facility] Last Admin: 04/13/18 09:28 Dose: 40 mg Piperacillin Sod/Tazobactam (Sod 3.375 gm/ Sodium Chloride) 100 mls @ 200 mls/hr IVPB Q8H [facility]; Protocol Last Admin: 04/13/18 03:03 Dose: 200 mls/hr Lactic Acid (Lac-Hydrin 12% Lotion (225 G)) 1 gm EXT BID [facility] Last Admin: 04/12/18 17:58 Dose: 1 applic Nebivolol (Bystolic) 5 mg PO DAILY [facility] Last Admin: 04/13/18 09:28 Dose: 5 mg Pantoprazole Sodium (Protonix Ec Tab) 40 mg PO DAILY [facility] Last Admin: 04/13/18 09:28 Dose: 40 mg Prednisone (Prednisone Tab) 10 mg PO BID [facility] Last Admin: 04/13/18 09:29 Dose: 10 mg - Labs Labs: 04/12/18 06:48 04/12/18 06:48 PT 11.3 SECONDS (9.7-12.2) 04/09/18 00:30 INR 1.0 04/09/18 00:30 APTT 24 SECONDS (21-34) 04/09/18 00:30 - Constitutional Appears: No Acute Distress - Head Exam Head Exam: NORMOCEPHALIC - Neck Exam Neck Exam: Normal Inspection - Respiratory Exam Respiratory Exam: Clear to Ausculation Bilateral - Cardiovascular Exam Cardiovascular Exam: REGULAR RHYTHM - GI/Abdominal Exam GI & Abdominal Exam: Soft - Neurological Exam Neurological Exam: Alert, Oriented x3 Assessment and Plan - Assessment and Plan (Free Text) Plan: cellulitis getting better.ct iv antibiotics.pending bone scan
--- NOTE | 2018-04-13 15:28 | CP.PCM.PN ---
Subjective - Date & Time of Evaluation Date of Evaluation: 04/13/18 Time of Evaluation: 08:00 - Subjective Subjective: Podiatry - Dr. Servin: 53M seen and evaluated this AM for LLE cellulitis. Patient OOB in recliner, NAD. No acute events overnight. No new lower extremity complaints per patient; denies any pain to bilateral LE with redness resolving. Denies n/v/f/d/c/sob/brown/cp. Objective - Vital Signs/Intake and Output Vital Signs (last 24 hours): Temp Pulse Resp BP Pulse Ox 97.8 F 64 20 122/72 98 04/13/18 08:00 04/13/18 08:00 04/13/18 08:00 04/13/18 09:28 04/13/18 08:00 Intake and Output: 04/13/18 04/13/18 06:59 18:59 Intake Total 990 800 Balance 990 800 - Medications Medications: Current Medications Acetaminophen (Tylenol 325mg Tab) 650 mg PO Q6 PRN PRN Reason: Headache Last Admin: 04/09/18 11:32 Dose: 650 mg Albuterol/Ipratropium (Duoneb 3 Mg/0.5 Mg (3 Ml) Ud) 3 ml INH RQ4 [facility] Last Admin: 04/13/18 11:08 Dose: 3 ml Fluticasone/Vilanterol (Breo Ellipta 100-25 Mcg Inh) 1 puff INH RQD [facility] Furosemide (Lasix) 40 mg PO DAILY [facility] Last Admin: 04/13/18 09:28 Dose: 40 mg Piperacillin Sod/Tazobactam (Sod 3.375 gm/ Sodium Chloride) 100 mls @ 200 mls/hr IVPB Q8H [facility]; Protocol Last Admin: 04/13/18 11:30 Dose: 200 mls/hr Lactic Acid (Lac-Hydrin 12% Lotion (225 G)) 1 gm EXT BID [facility] Last Admin: 04/13/18 10:58 Dose: 1 applic Nebivolol (Bystolic) 5 mg PO DAILY [facility] Last Admin: 04/13/18 09:28 Dose: 5 mg Pantoprazole Sodium (Protonix Ec Tab) 40 mg PO DAILY [facility] Last Admin: 04/13/18 09:28 Dose: 40 mg Prednisone (Prednisone Tab) 10 mg PO BID [facility] Last Admin: 04/13/18 09:29 Dose: 10 mg - Labs Labs: 04/12/18 06:48 04/12/18 06:48 PT 11.3 SECONDS (9.7-12.2) 04/09/18 00:30 INR 1.0 04/09/18 00:30 APTT 24 SECONDS (21-34) 04/09/18 00:30 - Constitutional Appears: Non-toxic, No Acute Distress - Extremities Exam Additional comments: B/L LE focused exam: VASC: DP/PT pulses 2/4 b/l. Cap refill <3 seconds to digits. +2 pitting edema noted b/l with L>R. Temperature gradient warm to warm b/l, no increase in warmth in areas of erythema LLE. NEURO: Gross and protective sensations are intact. DERM: Significant lower extremity Chronic stasis edema noted with L > R. Skin changes in the form of hyperpigmentation and lichnification of the legs noted. Erythema noted along the left leg up to the tibial tuberosity, resolving. Healed ulcer noted on the lower lateral part of left leg. MSK: Pedal muscle strength graded 5/5 in all groups. Mild limited ankle joint ROM to dorsiflexion b/l. No pain on palpation of the left leg. No pain upon left calf compression. - Neurological Exam Neurological Exam: Alert, Awake, Oriented x3 - Psychiatric Exam Psychiatric exam: Normal Affect, Normal Mood Assessment and Plan - Assessment and Plan (Free Text) Assessment: 53M with LLE cellulitis, resolving Plan: Patient seen and evaluated with attending, Dr. Servin Afebrile LLE venous duplex: no DVT L tibfib XR: OM not excluded given the increased cortical thickness of the tibia and fibula with tibia more than fibula, recommend 3 phases bone scan or MRI. Bone Scan: LLE cellulitis. No definitive pattern to suggest L tibfib OM. ID recs appreciated - Continue Zosyn IV Ammonium lactate 12% topical BID Podiatry will continue to follow
--- NOTE | 2018-04-13 18:11 | CP.PCM.PN ---
Subjective - Date & Time of Evaluation Date of Evaluation: 04/13/18 Time of Evaluation: 10:00 - Subjective Subjective: improving remains afebrile less sob Objective - Vital Signs/Intake and Output Vital Signs (last 24 hours): Temp Pulse Resp BP Pulse Ox 97.4 F L 64 20 114/62 97 04/13/18 15:46 04/13/18 15:46 04/13/18 15:46 04/13/18 15:46 04/13/18 15:46 Intake and Output: 04/13/18 04/13/18 06:59 18:59 Intake Total 990 800 Balance 990 800 - Medications Medications: Current Medications Acetaminophen (Tylenol 325mg Tab) 650 mg PO Q6 PRN PRN Reason: Headache Last Admin: 04/09/18 11:32 Dose: 650 mg Albuterol/Ipratropium (Duoneb 3 Mg/0.5 Mg (3 Ml) Ud) 3 ml INH RQ4 [facility] Last Admin: 04/13/18 15:58 Dose: 3 ml Fluticasone/Vilanterol (Breo Ellipta 100-25 Mcg Inh) 1 puff INH RQD [facility] Furosemide (Lasix) 40 mg PO DAILY [facility] Last Admin: 04/13/18 09:28 Dose: 40 mg Piperacillin Sod/Tazobactam (Sod 3.375 gm/ Sodium Chloride) 100 mls @ 200 mls/hr IVPB Q8H [facility]; Protocol Last Admin: 04/13/18 11:30 Dose: 200 mls/hr Lactic Acid (Lac-Hydrin 12% Lotion (225 G)) 1 gm EXT BID [facility] Last Admin: 04/13/18 17:38 Dose: 1 applic Nebivolol (Bystolic) 5 mg PO DAILY [facility] Last Admin: 04/13/18 09:28 Dose: 5 mg Pantoprazole Sodium (Protonix Ec Tab) 40 mg PO DAILY [facility] Last Admin: 04/13/18 09:28 Dose: 40 mg Prednisone (Prednisone Tab) 10 mg PO BID [facility] Last Admin: 04/13/18 17:38 Dose: 10 mg - Labs Labs: 04/12/18 06:48 04/12/18 06:48 PT 11.3 SECONDS (9.7-12.2) 04/09/18 00:30 INR 1.0 04/09/18 00:30 APTT 24 SECONDS (21-34) 04/09/18 00:30 - Constitutional Appears: Non-toxic, Chronically Ill - Head Exam Head Exam: NORMOCEPHALIC - Eye Exam Eye Exam: absent: Scleral icterus Pupil Exam: NORMAL ACCOMODATION - ENT Exam ENT Exam: Mucous Membranes Dry - Neck Exam Neck Exam: absent: Lymphadenopathy - Respiratory Exam Respiratory Exam: Decreased Breath Sounds - Cardiovascular Exam Cardiovascular Exam: REGULAR RHYTHM - GI/Abdominal Exam GI & Abdominal Exam: Distended, Soft. absent: Tenderness - Rectal Exam Rectal Exam: Deferred - Exam Exam: NORMAL INSPECTION - Extremities Exam Extremities Exam: Pedal Edema, Tenderness - Back Exam Back Exam: absent: CVA tenderness (L), CVA tenderness (R) - Neurological Exam Neurological Exam: Alert, Awake, CN II-XII Intact, Oriented x3 Assessment and Plan (1) Cellulitis Status: Acute (2) COPD exacerbation Status: Acute (3) Cellulitis of left lower leg Status: Acute - Assessment and Plan (Free Text) Assessment: No OM as per bone scan all cultures neg to date cont IV rx and wound care Possible PO Keflex 500 TID x 10 days upon discharge
[2018-04-14] MEDS: Albuterol-Ipratrop 3 mg / 0.5 (3 ml) UD INH SCH ×6 (00:14→20:55)
[2018-04-14] MEDS: Piperacillin/Tazobact 3.375 GM in Sodium Chloride 100 ML IVPB SCH ×2 (03:14→10:24)
[2018-04-14] MEDS: Pantoprazole 40 mg EC Tab PO SCH (10:07)
[2018-04-14] MEDS: Ammonium Lactate 12% Lotion (225 g) EXT SCH ×2 (10:11→17:55)
--- NOTE | 2018-04-14 12:07 | CP.PCM.PN ---
Subjective - Date & Time of Evaluation Date of Evaluation: 04/14/18 Time of Evaluation: 12:06 - Subjective Subjective: leg is still red & inflammed/cellulitis + Objective - Vital Signs/Intake and Output Vital Signs (last 24 hours): Temp Pulse Resp BP Pulse Ox 97.9 F 62 20 116/72 96 04/14/18 07:42 04/14/18 07:42 04/14/18 07:42 04/14/18 10:08 04/14/18 07:42 Intake and Output: 04/14/18 04/14/18 06:59 18:59 Intake Total 1390 Balance 1390 - Medications Medications: Current Medications Acetaminophen (Tylenol 325mg Tab) 650 mg PO Q6 PRN PRN Reason: Headache Last Admin: 04/09/18 11:32 Dose: 650 mg Albuterol/Ipratropium (Duoneb 3 Mg/0.5 Mg (3 Ml) Ud) 3 ml INH RQ4 [facility] Last Admin: 04/14/18 11:17 Dose: 3 ml Fluticasone/Vilanterol (Breo Ellipta 100-25 Mcg Inh) 1 puff INH RQD [facility] Furosemide (Lasix) 40 mg PO DAILY [facility] Last Admin: 04/14/18 10:08 Dose: 40 mg Lactic Acid (Lac-Hydrin 12% Lotion (225 G)) 1 gm EXT BID [facility] Last Admin: 04/14/18 10:11 Dose: 1 applic Nebivolol (Bystolic) 5 mg PO DAILY [facility] Last Admin: 04/14/18 10:07 Dose: 5 mg Pantoprazole Sodium (Protonix Ec Tab) 40 mg PO DAILY [facility] Last Admin: 04/14/18 10:07 Dose: 40 mg Prednisone (Prednisone Tab) 10 mg PO BID [facility] Last Admin: 04/14/18 10:08 Dose: 10 mg - Labs Labs: 04/12/18 06:48 04/12/18 06:48 PT 11.3 SECONDS (9.7-12.2) 04/09/18 00:30 INR 1.0 04/09/18 00:30 APTT 24 SECONDS (21-34) 04/09/18 00:30 - Constitutional Appears: No Acute Distress - Eye Exam Eye Exam: Normal appearance - Neck Exam Neck Exam: Normal Inspection - Respiratory Exam Respiratory Exam: Clear to Ausculation Bilateral - Cardiovascular Exam Cardiovascular Exam: REGULAR RHYTHM - GI/Abdominal Exam GI & Abdominal Exam: Soft - Extremities Exam Extremities Exam: Pedal Edema - Neurological Exam Neurological Exam: Alert, Oriented x3 Assessment and Plan - Assessment and Plan (Free Text) Plan: will ct iv antibiotics for 2 more days.switch to iv lasix.
[2018-04-14] MEDS ORDERED: Piperacill/Tazo 3.375gm in Dex 3.375 GM/50 ML BAG IVPB SCH (14:00)
[2018-04-14 14:35] LABS: BLOOD UREA NITROGEN 17 mg/dL (9-20); CALCIUM 8.4 mg/dl (8.6-10.4); GFR NON-AFRICAN AMERICAN > 60
[2018-04-14] MEDS: Piperacill/Tazo 3.375gm in Dex 3.375 GM/50 ML BAG IVPB SCH (16:43)
[2018-04-15] MEDS: Albuterol-Ipratrop 3 mg / 0.5 (3 ml) UD INH SCH ×5 (00:15→20:10)
[2018-04-15] MEDS: Piperacill/Tazo 3.375gm in Dex 3.375 GM/50 ML BAG IVPB SCH ×3 (00:30→17:16)
[2018-04-15] MEDS: Pantoprazole 40 mg EC Tab PO SCH (09:12)
[2018-04-15] MEDS: Ammonium Lactate 12% Lotion (225 g) EXT SCH ×2 (09:22→17:16)
--- NOTE | 2018-04-15 12:19 | CP.PCM.PN ---
Subjective - Date & Time of Evaluation Date of Evaluation: 04/15/18 Time of Evaluation: 12:18 - Subjective Subjective: Podiatry - Dr. Servin: 53M seen and evaluated this AM for LLE cellulitis. Patient hemodynamically stable, NAD. No acute events overnight. No pain noted; no new lower extremity complaints. Denies n/v/f/d/c/sob/brown/cp. Objective - Vital Signs/Intake and Output Vital Signs (last 24 hours): Temp Pulse Resp BP Pulse Ox 97.8 F 59 L 20 121/78 98 04/15/18 08:01 04/15/18 08:01 04/15/18 08:01 04/15/18 09:13 04/15/18 08:01 Intake and Output: 04/15/18 04/15/18 06:59 18:59 Intake Total 290 Balance 290 - Medications Medications: Current Medications Acetaminophen (Tylenol 325mg Tab) 650 mg PO Q6 PRN PRN Reason: Headache Last Admin: 04/09/18 11:32 Dose: 650 mg Albuterol/Ipratropium (Duoneb 3 Mg/0.5 Mg (3 Ml) Ud) 3 ml INH RQ4 [facility] Last Admin: 04/15/18 11:14 Dose: 3 ml Fluticasone/Vilanterol (Breo Ellipta 100-25 Mcg Inh) 1 puff INH RQD [facility] Furosemide (Lasix) 40 mg IVP DAILY [facility] Last Admin: 04/15/18 09:13 Dose: 40 mg Piperacillin Sod/Tazobactam Sod (Zosyn 3.375 Gm Iv Premix) 3.375 gm in 50 mls @ 100 mls/hr IVPB Q8H [facility]; Protocol Last Admin: 04/15/18 09:13 Dose: 100 mls/hr Lactic Acid (Lac-Hydrin 12% Lotion (225 G)) 1 gm EXT BID [facility] Last Admin: 04/15/18 09:22 Dose: 1 applic Nebivolol (Bystolic) 5 mg PO DAILY [facility] Last Admin: 04/15/18 09:12 Dose: 5 mg Pantoprazole Sodium (Protonix Ec Tab) 40 mg PO DAILY [facility] Last Admin: 04/15/18 09:12 Dose: 40 mg - Labs Labs: 04/12/18 06:48 04/14/18 14:17 PT 11.3 SECONDS (9.7-12.2) 04/09/18 00:30 INR 1.0 04/09/18 00:30 APTT 24 SECONDS (21-34) 04/09/18 00:30 - Constitutional Appears: Non-toxic, No Acute Distress - Extremities Exam Additional comments: B/L LE focused exam: VASC: DP/PT pulses 2/4 b/l. Cap refill <3 seconds to digits. +2 pitting edema noted b/l with L>R. Temperature gradient warm to warm b/l, no increase in warmth in areas of erythema LLE. NEURO: Gross and protective sensations are intact. DERM: Significant lower extremity Chronic stasis edema noted with L > R. Skin changes in the form of hyperpigmentation and lichnification of the legs noted. Erythema noted along the left leg up to the tibial tuberosity, resolving. Healed ulcer noted on the lower lateral part of left leg. MSK: Pedal muscle strength graded 5/5 in all groups. Mild limited ankle joint ROM to dorsiflexion b/l. No pain on palpation of the left leg. No pain upon left calf compression. - Neurological Exam Neurological Exam: Alert, Awake, Oriented x3 - Psychiatric Exam Psychiatric exam: Normal Affect, Normal Mood Assessment and Plan - Assessment and Plan (Free Text) Assessment: 53M with LLE cellulitis, resolving Plan: Patient seen and evaluated with attending, Dr. Servin Afebrile LLE venous duplex: no DVT L tibfib XR: OM not excluded given the increased cortical thickness of the tibia and fibula with tibia more than fibula, recommend 3 phases bone scan or MRI. Bone Scan: LLE cellulitis. No definitive pattern to suggest L tibfib OM. ID recs appreciated - Continue Zosyn IV for 2 more days; possible PO Keflex 500 TID x 10 days upon discharge Ammonium lactate 12% topical BID Per Dr. Wells, pt to be d/c tomorrow AM Patient to follow up with Dr. Sevrin 1 week after discharge Podiatry will continue to follow
--- NOTE | 2018-04-15 12:48 | CP.PCM.PN ---
Subjective - Date & Time of Evaluation Date of Evaluation: 04/15/18 Time of Evaluation: 12:46 - Subjective Subjective: better.swelling & redness is better. Objective - Vital Signs/Intake and Output Vital Signs (last 24 hours): Temp Pulse Resp BP Pulse Ox 97.8 F 59 L 20 121/78 98 04/15/18 08:01 04/15/18 08:01 04/15/18 08:01 04/15/18 09:13 04/15/18 08:01 Intake and Output: 04/15/18 04/15/18 06:59 18:59 Intake Total 290 Balance 290 - Medications Medications: Current Medications Acetaminophen (Tylenol 325mg Tab) 650 mg PO Q6 PRN PRN Reason: Headache Last Admin: 04/09/18 11:32 Dose: 650 mg Albuterol/Ipratropium (Duoneb 3 Mg/0.5 Mg (3 Ml) Ud) 3 ml INH RQ4 ANISH Last Admin: 04/15/18 11:14 Dose: 3 ml Fluticasone/Vilanterol (Breo Ellipta 100-25 Mcg Inh) 1 puff INH RQD ANISH Furosemide (Lasix) 40 mg IVP DAILY ANISH Last Admin: 04/15/18 09:13 Dose: 40 mg Piperacillin Sod/Tazobactam Sod (Zosyn 3.375 Gm Iv Premix) 3.375 gm in 50 mls @ 100 mls/hr IVPB Q8H ANISH; Protocol Last Admin: 04/15/18 09:13 Dose: 100 mls/hr Lactic Acid (Lac-Hydrin 12% Lotion (225 G)) 1 gm EXT BID ANISH Last Admin: 04/15/18 09:22 Dose: 1 applic Nebivolol (Bystolic) 5 mg PO DAILY ANISH Last Admin: 04/15/18 09:12 Dose: 5 mg Pantoprazole Sodium (Protonix Ec Tab) 40 mg PO DAILY ANISH Last Admin: 04/15/18 09:12 Dose: 40 mg - Labs Labs: 04/12/18 06:48 04/14/18 14:17 PT 11.3 SECONDS (9.7-12.2) 04/09/18 00:30 INR 1.0 04/09/18 00:30 APTT 24 SECONDS (21-34) 04/09/18 00:30 - Constitutional Appears: In Acute Distress - Eye Exam Eye Exam: Normal appearance - Neck Exam Neck Exam: Normal Inspection - Respiratory Exam Respiratory Exam: Clear to Ausculation Bilateral - Cardiovascular Exam Cardiovascular Exam: REGULAR RHYTHM - GI/Abdominal Exam GI & Abdominal Exam: Soft - Extremities Exam Extremities Exam: Pedal Edema - Neurological Exam Neurological Exam: Alert, Oriented x3 Assessment and Plan - Assessment and Plan (Free Text) Plan: resolving cellulitis.d/c home in am
[2018-04-15 16:03] VITALS: O2SAT 97
--- NOTE | 2018-04-15 17:49 | CP.PCM.PN ---
Subjective - Date & Time of Evaluation Date of Evaluation: 04/15/18 Time of Evaluation: 07:00 - Subjective Subjective: slow progress improved cultures negative less sob Objective - Vital Signs/Intake and Output Vital Signs (last 24 hours): Temp Pulse Resp BP Pulse Ox 98.1 F 60 20 114/72 97 04/15/18 15:30 04/15/18 15:30 04/15/18 15:30 04/15/18 15:30 04/15/18 15:30 Intake and Output: 04/15/18 04/15/18 06:59 18:59 Intake Total 290 Balance 290 - Medications Medications: Current Medications Acetaminophen (Tylenol 325mg Tab) 650 mg PO Q6 PRN PRN Reason: Headache Last Admin: 04/09/18 11:32 Dose: 650 mg Albuterol/Ipratropium (Duoneb 3 Mg/0.5 Mg (3 Ml) Ud) 3 ml INH RQ4 ANISH Last Admin: 04/15/18 11:14 Dose: 3 ml Fluticasone/Vilanterol (Breo Ellipta 100-25 Mcg Inh) 1 puff INH RQD ANISH Furosemide (Lasix) 40 mg IVP DAILY ANISH Last Admin: 04/15/18 09:13 Dose: 40 mg Piperacillin Sod/Tazobactam Sod (Zosyn 3.375 Gm Iv Premix) 3.375 gm in 50 mls @ 100 mls/hr IVPB Q8H ANISH; Protocol Last Admin: 04/15/18 17:16 Dose: 100 mls/hr Lactic Acid (Lac-Hydrin 12% Lotion (225 G)) 1 gm EXT BID ANISH Last Admin: 04/15/18 17:16 Dose: 1 applic Nebivolol (Bystolic) 5 mg PO DAILY ANISH Last Admin: 04/15/18 09:12 Dose: 5 mg Pantoprazole Sodium (Protonix Ec Tab) 40 mg PO DAILY ANISH Last Admin: 04/15/18 09:12 Dose: 40 mg - Labs Labs: 04/12/18 06:48 04/14/18 14:17 PT 11.3 SECONDS (9.7-12.2) 04/09/18 00:30 INR 1.0 04/09/18 00:30 APTT 24 SECONDS (21-34) 04/09/18 00:30 - Constitutional Appears: Non-toxic, Chronically Ill - Head Exam Head Exam: NORMOCEPHALIC - Eye Exam Eye Exam: absent: Scleral icterus - ENT Exam ENT Exam: Mucous Membranes Dry - Neck Exam Neck Exam: absent: Lymphadenopathy - Respiratory Exam Respiratory Exam: Decreased Breath Sounds - Cardiovascular Exam Cardiovascular Exam: REGULAR RHYTHM - GI/Abdominal Exam GI & Abdominal Exam: Distended, Soft - Rectal Exam Rectal Exam: Deferred - Exam Exam: Scrotal Swelling - Extremities Exam Extremities Exam: Pedal Edema. absent: Calf Tenderness, Tenderness - Back Exam Back Exam: absent: CVA tenderness (L), CVA tenderness (R) - Neurological Exam Neurological Exam: Alert, Awake, CN II-XII Intact, Oriented x3 Neuro motor strength exam: Left Upper Extremity: 5, Right Upper Extremity: 5, Left Lower Extremity: 5, Right Lower Extremity: 5 - Psychiatric Exam Psychiatric exam: Normal Mood - Skin Skin Exam: Dry Assessment and Plan (1) Cellulitis Status: Acute (2) COPD exacerbation Status: Acute (3) Cellulitis of left lower leg Status: Acute - Assessment and Plan (Free Text) Assessment: severe cellulitis improving all cultres neg d/c on PO rx in am with PMD follow up
[2018-04-16] MEDS: Piperacill/Tazo 3.375gm in Dex 3.375 GM/50 ML BAG IVPB SCH ×2 (00:13→09:24)
[2018-04-16] MEDS: Albuterol-Ipratrop 3 mg / 0.5 (3 ml) UD INH SCH ×4 (03:45→11:35)
[2018-04-16 08:14] VITALS: BP 100/61; PULSE 84; TEMP 98.3
[2018-04-16] MEDS: Pantoprazole 40 mg EC Tab PO SCH (09:25)
--- NOTE | 2018-04-18 06:33 | DS ---
DATE OF ADMISSION: 04/08/2018 HISTORY OF PRESENT ILLNESS: This is a 53-year-old morbidly obese gentleman with a history of paroxysmal atrial fibrillation, obese, sleep apnea who was brought in with cellulitis of the left leg. The patient was initially admitted by Dr. Jimmy Ma for my coverage and also has seen by Dr. Hewitt for infectious consult and Dr. Servin for podiatric consult. Antibiotics were given and IV Lasix was given with significant improvement in the cellulitis and edema. The patient has done well. At this point, he is being discharged to be followed up as an outpatient. He will be continuing on his previous medications including Bystolic, baby aspirin one a day, Lasix 40 mg, nebulizer treatment, home oxygen. Keflex 500 mg three times a day was called in to the pharmacy for 10 days. I will see him back in 10 days' time. FINAL DIAGNOSES: Cellulitis of the left leg, hypertension, paroxysmal atrial fibrillation. Lars Wells MD
== END 2018-04-16 15:30 | disposition home or self-care (01) | DRG 603 ==
LOC: C.ER 22:55 → C.3T 04-09 02:06
PROVIDERS: ADMIT Internal Medicine Cardiovascular Disease; ATTEND Internal Medicine Cardiovascular Disease
DX: L03.115 Cellulitis of right lower limb (principal); J44.1 Chronic obstructive pulmonary disease with (acute) exacerbation; L97.909 Non-pressure chronic ulcer of unspecified part of unspecified lower leg with unspecified severity; L03.116 Cellulitis of left lower limb; I11.0 Hypertensive heart disease with heart failure; I50.9 Heart failure, unspecified; I48.0 Paroxysmal atrial fibrillation; E66.01 Morbid (severe) obesity due to excess calories; M19.042 Primary osteoarthritis, left hand; Z87.01 Personal history of pneumonia (recurrent); Z87.891 Personal history of nicotine dependence; Z90.49 Acquired absence of other specified parts of digestive tract; G47.30 Sleep apnea, unspecified

== ENCOUNTER 2018-04-24 23:40 | Inpatient (IN) | payer BC ==
[2018-04-24 23:40] VITALS: PULSE 65; BMI 57.2
[2018-04-25] MEDS ORDERED: Piperacillin/Tazobact 3.375 gm 100 ML IVPB STA (00:30)
[2018-04-25 00:44] LABS: BASO % 0.7 % (0.0-2.0); EOS % 0.7 % (0.0-4.0); HEMOGLOBIN 13.6 g/dL (12.0-18.0); LYMPH # 2.2 K/uL (1.0-4.3); LYMPH % 34.9 % (20.0-40.0); MEAN CORPUSCULAR HEMOGLOBIN 29.7 pg (27.0-31.0); MEAN CORPUSCULAR HGB CONC 33.4 g/dL (33.0-37.0); MEAN PLATELET VOLUME 8.6 fL (7.2-11.7); MONO # 0.7 K/uL (0.0-0.8); MONO % 10.9 % (0.0-10.0); NEUT # 3.4 K/uL (1.8-7.0); NEUT % 52.8 % (50.0-75.0); NRBC % 0.2 % (0.0-2.0); RBC 4.58 Mil/uL (4.40-5.90); RED CELL DISTRIBUTION WIDTH 15.9 % (11.5-14.5); WHITE BLOOD COUNT 6.4 K/uL (4.8-10.8)
[2018-04-25 00:44] LABS: VENOUS BLOOD GAS BASE EXCESS 4.2 mmol/L (0.0-2.0); VENOUS BLOOD GAS PCO2 50 mmHg (40-60); VENOUS BLOOD GAS PO2 40 mm/Hg (30-55); VENOUS BLOOD PH 7.39 (7.32-7.43)
[2018-04-25 00:58] LABS: ALB/GLOB RATIO 1.2 (1.0-2.1); ALBUMIN 3.9 g/dL (3.5-5.0); ALT/SGPT 50 U/L (21-72); AST/SGOT 32 U/L (17-59); BLOOD UREA NITROGEN 14 mg/dL (9-20); CALCIUM 8.2 mg/dl (8.6-10.4); GFR NON-AFRICAN AMERICAN > 60
[2018-04-25 01:08] LABS: B-TYPE NATRIURETIC PEPTIDE 197 pg/mL (0-900)
[2018-04-25] MEDS ORDERED: Piperacillin/Tazobact 3.375 gm 100 ML IVPB ONE (01:08)
[2018-04-25] MEDS ORDERED: Potassium Chloride 20 mEq ER Tab PO STA (01:10)
[2018-04-25 01:20] LABS: CK-MB 0.64 ng/mL (0.0-3.38)
[2018-04-25] MEDS ORDERED: Potassium Chloride 20 mEq ER Tab PO ONE (01:20)
--- NOTE | 2018-04-25 01:23 | C.PDOC ---
History Of Present Illness 53 year old male presents to the ED c/o left lower leg swelling, redness and pain worsening over the past 2 days. Patient was recently admitted to the hospital for cellulitis and discharged on 04/16 with Rx for Keflex. He states he has been compliant with antibiotic. Patient denies fever, chills, sensory changes, falls/injuries, chest pain, SOB, Hx of DV/PE, recent air travel or prolonged immobilization. Time Seen by Provider: 04/25/18 00:00 Chief Complaint (Nursing): Lower Extremity Problem/Injury History Per: Patient History/Exam Limitations: no limitations Onset/Duration Of Symptoms: Days (2) Current Symptoms Are (Timing): Worse Severity: Moderate Additional History Per: Patient Past Medical History Reviewed: Historical Data, Nursing Documentation, Vital Signs Vital Signs: Last Vital Signs Temp 98.4 F 04/24/18 23:48 Pulse 100 H 04/24/18 23:48 Resp 22 04/24/18 23:48 BP 130/63 04/24/18 23:48 Pulse Ox 99 04/24/18 23:48 - Medical History PMH: Anemia, Arthritis (L HAND FFX), Atrial Fibrillation, COPD (oxygen dependent 2-3 l/min), Fractures (Left hand), HTN, Peripheral Edema, Pneumonia Surgical History: Appendectomy - [facility] Procedures ASSISTANCE WITH RESPIRATORY VENTILATION, <24 HRS, CPAP (04/10/15) DRAINAGE OF R PLEURAL CAV WITH DRAIN DEV, PERC APPROACH (04/10/15) EXTRACTION OF RIGHT PLEURA, PERCUTANEOUS ENDOSCOPIC APPROACH (04/10/15) HOME MANAGEMENT TREATMENT (05/20/15) INSPECTION OF TRACHEOBRONCHIAL TREE, ENDO (04/10/15) INTRODUCE OF OTH THERAP SUBST INTO RESP TRACT, VIA OPENING (05/20/15) THERAPEUTIC EXERCISE TREATMENT OF MUSCULOSK WHOLE (05/20/15) Family History: States: No Known Family Hx - Social History Hx Alcohol Use: No Hx Substance Use: No Review Of Systems Constitutional: Negative for: Fever, Chills Cardiovascular: Negative for: Chest Pain, Palpitations Respiratory: Negative for: Cough, Shortness of Breath Gastrointestinal: Negative for: Nausea, Vomiting, Abdominal Pain Musculoskeletal: Positive for: Leg Pain Skin: Positive for: Other (erythema) Neurological: Negative for: Weakness, Numbness Physical Exam - Physical Exam Appears: Well, Non-toxic, No Acute Distress, Other (morbidly obese) Skin: Warm, Dry, Other (see extremity exam) Head: Normacephalic Eye(s): bilateral: Normal Inspection Oral Mucosa: Moist Neck: Supple Chest: Symmetrical Cardiovascular: Rhythm Regular Respiratory: Normal Breath Sounds, No Rales, No Rhonchi, No Wheezing Gastrointestinal/Abdominal: Normal Exam, Bowel Sounds, Soft, No Tenderness Extremity: No Calf Tenderness, Swelling (bilateral lower legs), Other (left proximal lower leg, large area of erythema that warm to touch, tender to pal pation) Extremity: Bilateral: Atraumatic, Normal ROM, Other (chronic skin changes, erythema) Pulses: Left Dorsalis Pedis: Normal, Right Dorsalis Pedis: Normal Neurological/Psych: Oriented x3, Normal Sensation Gait: Steady ED Course And Treatment - Laboratory Results Result Diagrams: 04/27/18 13:09 04/30/18 17:04 ECG: Interpreted By Me, Viewed By Me (sinus rhythm 80 bpm, PVCs, left axis deviation, RBBB, no acute ST changes) ECG Interpretation: Abnormal O2 Sat by Pulse Oximetry: 99 (ON RA) Pulse Ox Interpretation: Normal Progress Note: Blood work, EKG, CXR ordered and reviewed. Patient given IV Zos yn (prior visit reviewed, patiet was given Zosyn by ID). - Physician Consult Information Physician Contacted: Lars Wells Outcome Of Conversation: Discussed patient with PMD, agrees with admission for left leg cellulitis, failed outpatient treatment. Disposition - Disposition Disposition: HOSPITALIZED Disposition Time: 01:24 Condition: STABLE - Clinical Impression Clinical Impression: Left leg cellulitis, Failure of outpatient treatment - Scribe Statement The provider has reviewed the documentation as recorded by the Scribe Kali Ríos All medical record entries made by the Scribe were at my direction and personally dictated by me. I have reviewed the chart and agree that the record accurately reflects my personal performance of the history, physical exam, medical decision making, and the department course for this patient. I have also personally directed, reviewed, and agree with the discharge instructions and disposition. Decision To Admit - Pt Status Changed To: Hospital Disposition Of: Inpatient - Admit Certification Admit to Inpatient:: After my assessment, the patient will require hospitalization for at least two midnights. This is because of the severity of symptoms shown, intensity of services needed, and/or the medical risk in this patient being treated as an outpatient. - InPatient: Physician Admission Certification: I certify that this patient requires 2 or more midnights of care for the following reason:: see notes - . Bed Request Type: Regular Admitting Physician: Lars Wells Patient Diagnosis: Left leg cellulitis, Failure of outpatient treatment
[2018-04-25] MEDS ORDERED: Albuterol-Ipratrop 3 mg / 0.5 (3 ml) UD INH PRN (07:05)
--- NOTE | 2018-04-25 10:46 | RAD ---
HISTORY: SOB COMPARISON: Chest x-ray performed 04/08/18 TECHNIQUE: Chest, one view. FINDINGS: Examination limited by habitus. LUNGS: Biapical pleural thickening. Diffuse hazy opacity throughout the right hemithorax similar to prior study which may be related to layering pleural effusion and atelectasis consolidation. No definite pneumothorax. Please note that chest x-ray has limited sensitivity for the detection of pulmonary masses. CARDIOVASCULAR: Cardiomegaly. No significant atherosclerotic calcification present. OSSEOUS STRUCTURES: No acute osseous abnormality identified. VISUALIZED UPPER ABDOMEN: Unremarkable. OTHER FINDINGS: None. IMPRESSION: Hazy opacity throughout the right hemithorax favored to represent a combination of layering pleural effusion and consolidation. Correlate clinically. Cardiomegaly.
[2018-04-25] MEDS: Pantoprazole 40 mg EC Tab PO SCH (10:52)
[2018-04-25] MEDS: Piperacillin/Tazobact 3.375 GM in Sodium Chloride 100 ML IVPB SCH ×3 (10:52→21:46)
[2018-04-25] MEDS: Potassium Chloride 20 mEq ER Tab PO SCH (10:52)
[2018-04-25] MEDS: Enoxaparin 100 mg Syringe SC SCH (10:58)
--- NOTE | 2018-04-25 11:07 | CP.PCM.CON ---
History of Present Illness - History of Present Illness History of Present Illness: Podiatry consult note for attending Dr. Servin: 53 year old male pt of Dr Servin With PMH of Atrial Fibrillation, COPD, HTN, Peripheral Edema, Pneumonia, OM seen and evaluated at bedside for left leg pain, redness and swelling. Patient is well know to attending Dr. Servin. Patient states that he has long standing edema and skin changes in both LE. He states that years ago he was treated from ulceration at his left leg and osteomyelitis. He states that over the last three days his legs got swollen, red and painful. He states that the pain is neele pain, 7/10 on VAS scale. He states that there is no open ulcertion in his left leg. Patient states that yesterday he felt feverish and had chills. Patient denies any other pedal complaint. He deneis any recenyt cp/n/v or d. PMH: Atrial Fibrillation, COPD, HTN, Peripheral Edema, Pneumonia, OM PSH: Appendectomy, Chest surgery. Allergies: NKDA Social Hx: Ex-smoker (Stopped 3 years ago after 20 years 2 ppd smoking), Denies EtOH or illicit drug use. Review of Systems - Review of Systems All systems: reviewed and no additional remarkable complaints except Review of Systems: As per HPI Past Patient History - Infectious Disease Hx of Infectious Diseases: None - Past Medical History & Family History Past Medical History?: Yes - Past Social History Smoking Status: Former Smoker - CARDIAC Hx Atrial Fibrillation: Yes Hx Hypertension: Yes Hx Peripheral Edema: Yes - PULMONARY Hx Chronic Obstructive Pulmonary Disease (COPD): Yes (oxygen dependent 2-3 l/min) Hx Pneumonia: Yes - NEUROLOGICAL Hx Neurological Disorder: No - HEENT Hx HEENT Problems: No - RENAL Hx Chronic Kidney Disease: No - ENDOCRINE/METABOLIC Hx Endocrine Disorders: No - HEMATOLOGICAL/ONCOLOGICAL Hx Anemia: Yes - INTEGUMENTARY Hx Dermatological Problems: No - MUSCULOSKELETAL/RHEUMATOLOGICAL Hx Arthritis: Yes (L HAND FFX) Hx Falls: No Hx Fractures: Yes (Left hand) - GASTROINTESTINAL Hx Gastrointestinal Disorders: No - GENITOURINARY/GYNECOLOGICAL Hx Genitourinary Disorders: No - PSYCHIATRIC Hx Substance Use: No - SURGICAL HISTORY Hx Appendectomy: Yes - ANESTHESIA Hx Anesthesia: Yes Hx Anesthesia Reactions: No Hx Malignant Hyperthermia: No Meds Allergies/Adverse Reactions: Allergies Allergy/AdvReac Type Severity Reaction Status Date / Time No Known Allergies Allergy Verified 04/24/18 23:54 - Medications Medications: Current Medications Albuterol/Ipratropium (Duoneb 3 Mg/0.5 Mg (3 Ml) Ud) 3 ml INH RQ4 PRN PRN Reason: Wheezing Enoxaparin Sodium (Lovenox) 100 mg SC DAILY [facility] Last Admin: 04/25/18 10:58 Dose: 100 mg Fluticasone/Vilanterol (Breo Ellipta 100-25 Mcg Inh) 1 puff INH RQD ANISH Furosemide (Lasix) 40 mg PO DAILY [facility] Piperacillin Sod/Tazobactam (Sod 3.375 gm/ Sodium Chloride) 100 mls @ 200 mls/hr IVPB Q6H ANISH; Protocol Last Admin: 04/25/18 10:52 Dose: 200 mls/hr Nebivolol (Bystolic) 5 mg PO DAILY [facility] Pantoprazole Sodium (Protonix Ec Tab) 40 mg PO DAILY [facility] Last Admin: 04/25/18 10:52 Dose: 40 mg Potassium Chloride (K-Dur 20 Meq Er Tab) 20 meq PO DAILY [facility] Stop: 04/27/18 10:01 Last Admin: 04/25/18 10:52 Dose: 20 meq Physical Exam - Constitutional Appears: Well, Non-toxic, No Acute Distress - Head Exam Head Exam: ATRAUMATIC, NORMOCEPHALIC - Extremities Exam Additional comments: B/L LE focused exam: VASC: DP/PT pulses 2/4 b/l. Cap refill <3 seconds to digits. +2 pitting edema noted b/l with L>R. 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 Erythema noted along the left leg up to the tibial tuberosity. NEURO: Gross and protective sensations are intact. DERM: Significant lower extremity Chronic stasis edemma noted with L > R. Skin changes in the form of hyperpigmentation and lichnification of the legs noted. Erythema noted along the left leg up to the tibial tuberosity. Healed ulcer noted on the lower lateral part of left leg. MSK: Pedal muscle strength graded 5/5 in all groups. Mild limited ankle joint ROM to dorsiflexion b/l. Pain on palpation of the left leg. Pain on squeezing the left calf muscle. - Neurological Exam Neurological exam: Alert, Oriented x3 - Psychiatric Exam Psychiatric exam: Normal Affect, Normal Mood Results - Vital Signs Recent Vital Signs: Last Vital Signs Temp 98.0 F 04/25/18 08:00 Pulse 65 04/25/18 08:00 Resp 20 04/25/18 08:00 BP 109/69 04/25/18 08:00 Pulse Ox 96 04/25/18 08:00 - Labs Result Diagrams: 04/25/18 00:41 04/25/18 00:41 Labs: Laboratory Results - last 24 hr 04/25/18 04/25/18 04/25/18 00:40 00:41 00:41 WBC 6.4 RBC 4.58 Hgb 13.6 Hct 40.7 MCV 89.0 D MCH 29.7 MCHC 33.4 RDW 15.9 H Plt Count 207 MPV 8.6 Neut % (Auto) 52.8 Lymph % (Auto) 34.9 [place] % (Auto) 10.9 H Eos % (Auto) 0.7 Baso % (Auto) 0.7 Neut # (Auto) 3.4 Lymph # (Auto) 2.2 [place] # (Auto) 0.7 Eos # (Auto) 0.0 Baso # (Auto) 0.0 pO2 40 VBG pH 7.39 VBG pCO2 50 VBG HCO3 27.6 VBG Total CO2 31.8 H VBG O2 Sat (Calc) 79.8 H VBG Base Excess 4.2 H VBG Potassium 3.3 L Sodium 141.0 139 Chloride 102.0 99 Glucose 107 Lactate 3.5 H Potassium 3.2 L Carbon Dioxide 30 Anion Gap 13 BUN 14 Creatinine 1.1 Est GFR ( Amer) > 60 Est GFR (Non-Af Amer) > 60 Random Glucose 108 D Lactic Acid Calcium 8.2 L Total Bilirubin 0.5 AST 32 ALT 50 Alkaline Phosphatase 61 Total Creatine Kinase 76 CK-MB (Mass) 0.64 Troponin I < 0.0120 NT-Pro-B Natriuret Pep 197 Total Protein 7.1 Albumin 3.9 Globulin 3.2 Albumin/Globulin Ratio 1.2 Venous Blood Potassium 3.3 L 04/25/18 06:24 WBC RBC Hgb Hct MCV MCH MCHC RDW Plt Count MPV Neut % (Auto) Lymph % (Auto) [place] % (Auto) Eos % (Auto) Baso % (Auto) Neut # (Auto) Lymph # (Auto) [place] # (Auto) Eos # (Auto) Baso # (Auto) pO2 VBG pH VBG pCO2 VBG HCO3 VBG Total CO2 VBG O2 Sat (Calc) VBG Base Excess VBG Potassium Sodium Chloride Glucose Lactate Potassium Carbon Dioxide Anion Gap BUN Creatinine Est GFR ( Amer) Est GFR (Non-Af Amer) Random Glucose Lactic Acid 2.5 H Calcium Total Bilirubin AST ALT Alkaline Phosphatase Total Creatine Kinase CK-MB (Mass) Troponin I NT-Pro-B Natriuret Pep Total Protein Albumin Globulin Albumin/Globulin Ratio Venous Blood Potassium Assessment & Plan - Assessment and Plan (Free Text) Assessment: 53 y/o M patient seen and evaluated ayt the bedside for cellulitis of tB/L lower extremities Plan: Pt seen and evaluated at the bedside with Dr. Servin Plan discussed with attending Dr. Servin Chart, labs, and vitals reviewed No dressing applied to the LLE Ordered LLE venous duplex. No dressing applied to the LLE. ID on board; recommendations appreciated. Continue IV abx as per ID recommendations Thank you for consulting podiatry team. Podiatry will continue to follow up the patient while in house. - Date & Time Date: 04/25/18 Time: 11:07
--- NOTE | 2018-04-25 11:49 | CP.PCM.CON ---
Past Patient History - Infectious Disease Hx of Infectious Diseases: None - Past Medical History & Family History Past Medical History?: Yes - Past Social History Smoking Status: Former Smoker - CARDIAC Hx Atrial Fibrillation: Yes Hx Hypertension: Yes Hx Peripheral Edema: Yes - PULMONARY Hx Chronic Obstructive Pulmonary Disease (COPD): Yes (oxygen dependent 2-3 l/min) Hx Pneumonia: Yes - NEUROLOGICAL Hx Neurological Disorder: No - HEENT Hx HEENT Problems: No - RENAL Hx Chronic Kidney Disease: No - ENDOCRINE/METABOLIC Hx Endocrine Disorders: No - HEMATOLOGICAL/ONCOLOGICAL Hx Anemia: Yes - INTEGUMENTARY Hx Dermatological Problems: No - MUSCULOSKELETAL/RHEUMATOLOGICAL Hx Arthritis: Yes (L HAND FFX) Hx Falls: No Hx Fractures: Yes (Left hand) - GASTROINTESTINAL Hx Gastrointestinal Disorders: No - GENITOURINARY/GYNECOLOGICAL Hx Genitourinary Disorders: No - PSYCHIATRIC Hx Substance Use: No - SURGICAL HISTORY Hx Appendectomy: Yes - ANESTHESIA Hx Anesthesia: Yes Hx Anesthesia Reactions: No Hx Malignant Hyperthermia: No Meds Allergies/Adverse Reactions: Allergies Allergy/AdvReac Type Severity Reaction Status Date / Time No Known Allergies Allergy Verified 04/24/18 23:54 - Medications Medications: Current Medications Albuterol/Ipratropium (Duoneb 3 Mg/0.5 Mg (3 Ml) Ud) 3 ml INH RQ4 PRN PRN Reason: Wheezing Enoxaparin Sodium (Lovenox) 100 mg SC DAILY [facility] Last Admin: 04/25/18 10:58 Dose: 100 mg Fluticasone/Vilanterol (Breo Ellipta 100-25 Mcg Inh) 1 puff INH RQD [facility] Furosemide (Lasix) 40 mg PO DAILY [facility] Last Admin: 04/25/18 11:19 Dose: 40 mg Piperacillin Sod/Tazobactam (Sod 3.375 gm/ Sodium Chloride) 100 mls @ 200 mls/hr IVPB Q6H [facility]; Protocol Last Admin: 04/25/18 10:52 Dose: 200 mls/hr Nebivolol (Bystolic) 5 mg PO DAILY [facility] Last Admin: 04/25/18 11:00 Dose: Not Given Pantoprazole Sodium (Protonix Ec Tab) 40 mg PO DAILY [facility] Last Admin: 04/25/18 10:52 Dose: 40 mg Potassium Chloride (K-Dur 20 Meq Er Tab) 20 meq PO DAILY [facility] Stop: 04/27/18 10:01 Last Admin: 04/25/18 10:52 Dose: 20 meq Results - Vital Signs Recent Vital Signs: Last Vital Signs Temp 98.0 F 04/25/18 08:00 Pulse 65 04/25/18 08:00 Resp 20 04/25/18 08:00 BP 103/65 04/25/18 11:19 Pulse Ox 96 04/25/18 08:00 - Labs Result Diagrams: 04/25/18 00:41 04/25/18 00:41 Labs: Laboratory Results - last 24 hr 04/25/18 04/25/18 04/25/18 00:40 00:41 00:41 WBC 6.4 RBC 4.58 Hgb 13.6 Hct 40.7 MCV 89.0 D MCH 29.7 MCHC 33.4 RDW 15.9 H Plt Count 207 MPV 8.6 Neut % (Auto) 52.8 Lymph % (Auto) 34.9 [place] % (Auto) 10.9 H Eos % (Auto) 0.7 Baso % (Auto) 0.7 Neut # (Auto) 3.4 Lymph # (Auto) 2.2 [place] # (Auto) 0.7 Eos # (Auto) 0.0 Baso # (Auto) 0.0 pO2 40 VBG pH 7.39 VBG pCO2 50 VBG HCO3 27.6 VBG Total CO2 31.8 H VBG O2 Sat (Calc) 79.8 H VBG Base Excess 4.2 H VBG Potassium 3.3 L Sodium 141.0 139 Chloride 102.0 99 Glucose 107 Lactate 3.5 H Potassium 3.2 L Carbon Dioxide 30 Anion Gap 13 BUN 14 Creatinine 1.1 Est GFR ( Amer) > 60 Est GFR (Non-Af Amer) > 60 Random Glucose 108 D Lactic Acid Calcium 8.2 L Total Bilirubin 0.5 AST 32 ALT 50 Alkaline Phosphatase 61 Total Creatine Kinase 76 CK-MB (Mass) 0.64 Troponin I < 0.0120 NT-Pro-B Natriuret Pep 197 Total Protein 7.1 Albumin 3.9 Globulin 3.2 Albumin/Globulin Ratio 1.2 Venous Blood Potassium 3.3 L 04/25/18 06:24 WBC RBC Hgb Hct MCV MCH MCHC RDW Plt Count MPV Neut % (Auto) Lymph % (Auto) [place] % (Auto) Eos % (Auto) Baso % (Auto) Neut # (Auto) Lymph # (Auto) [place] # (Auto) Eos # (Auto) Baso # (Auto) pO2 VBG pH VBG pCO2 VBG HCO3 VBG Total CO2 VBG O2 Sat (Calc) VBG Base Excess VBG Potassium Sodium Chloride Glucose Lactate Potassium Carbon Dioxide Anion Gap BUN Creatinine Est GFR ( Amer) Est GFR (Non-Af Amer) Random Glucose Lactic Acid 2.5 H Calcium Total Bilirubin AST ALT Alkaline Phosphatase Total Creatine Kinase CK-MB (Mass) Troponin I NT-Pro-B Natriuret Pep Total Protein Albumin Globulin Albumin/Globulin Ratio Venous Blood Potassium
--- NOTE | 2018-04-25 15:02 | RAD ---
PROCEDURE: Radiographs of the pelvis and bilateral hips HISTORY: r/o fx / fluid COMPARISON: None. FINDINGS: Examination technically limited due to body habitus. BONES: Pelvis: Unremarkable. Right hip:No fracture Left hip:No fracture JOINTS: Right hip: Joint space narrowing superiorly and sclerosis of acetabulum consistent with osteoarthritis. Left hip: Joint space narrowing superiorly and sclerosis of acetabulum consistent with osteoarthritis. Sacroiliac Joints: Unremarkable. Pubic symphysis: Unremarkable. SOFT TISSUES: Normal. OTHER FINDINGS: None. IMPRESSION: Technically limited. Osteoarthritis of both hips. No fracture.
--- NOTE | 2018-04-25 15:07 | RAD ---
Date of service: 04/25/2018 PROCEDURE: Bilateral femurs HISTORY: r/o fx/fluid COMPARISON: Not available TECHNIQUE: AP and lateral radiographs of the right and left femur FINDINGS: No fracture. No lytic or blastic osseous lesion. IMPRESSION: No acute fracture.
--- NOTE | 2018-04-25 15:15 | CP.PCM.CON ---
History of Present Illness - History of Present Illness History of Present Illness: 52 y/o male presents to ED with severe swelling / pain lower extremities Severe cellulitis left leg worsening over last several days assoc with painful swelling - Medical History PMH: Atrial Fibrillation, COPD, HTN, Peripheral Edema, Pneumonia Denies: Chronic Kidney Disease Surgical History: Appendectomy - [facility] Procedures ASSISTANCE WITH RESPIRATORY VENTILATION, <24 HRS, CPAP (04/10/15) DRAINAGE OF R PLEURAL CAV WITH DRAIN DEV, PERC APPROACH (04/10/15) EXTRACTION OF RIGHT PLEURA, PERCUTANEOUS ENDOSCOPIC APPROACH (04/10/15) HOME MANAGEMENT TREATMENT (05/20/15) INSPECTION OF TRACHEOBRONCHIAL TREE, ENDO (04/10/15) INTRODUCE OF OTH THERAP SUBST INTO RESP TRACT, VIA OPENING (05/20/15) THERAPEUTIC EXERCISE TREATMENT OF MUSCULOSK WHOLE (05/20/15) Review of Systems - Constitutional Constitutional: As Per HPI - EENT Eyes: absent: As Per HPI, Blind Spots, Blurred Vision, Change in Vision, Decreased Night Vision, Diplopia, Discharge, Dry Eye, Exophthalmos, Floaters, Irritation, Itchy Eyes, Loss of Peripheral Vision, Pain, Photophobia, Requires Corrective Lenses, Sees Flashes, Spots in Vision, Tunnel Vision, Other Visual Disturbances, Loss of Vision, Other Ears: absent: As Per HPI, Decreased Hearing, Ear Discharge, Ear Pain, Tinnitus, Abnormal Hearing, Disequilibrium, Dizziness, Other Nose/Mouth/Throat: absent: As Per HPI, Epistaxis, Nasal Congestion, Nasal Discharge, Nasal Obstruction, Nasal Trauma, Nose Pain, Post Nasal Drip, Sinus Pain, Sinus Pressure, Bleeding Gums, Change in Voice, Dental Pain, Dry Mouth, Dysphagia, Halitosis, Hoarsness, Lip Swelling, Mouth Lesions, Mouth Pain, Odynophagia, Sore Throat, Throat Swelling, Tongue Swelling, Facial Pain, Neck Pain, Neck Mass, Other - Cardiovascular Cardiovascular: As Per HPI - Respiratory Respiratory: absent: As Per HPI, Cough, Dyspnea, Hemoptysis, Dyspnea on Exertion, Wheezing, Snoring, Stridor, Pain on Inspiration, Chest Congestion, Excessive Mucous Production, Change in Mucous Color, Pain with Coughing, Other - Gastrointestinal Gastrointestinal: absent: As Per HPI, Abdominal Pain, Belching, Bloating, Change in Bowel Habits, Change in Stool Character, Coffee Ground Emesis, Constipation, Cramping, Diarrhea, Dyspepsia, Dysphagia, Early Satiety, Excessive Flatus, Fecal Incontinence, Heartburn, Hematemesis, Hematochezia, Loose Stools, Melena, Nausea, Odynophagia, Temesmus, Vomiting, Other - Genitourinary Genitourinary: absent: As Per HPI, Change in Urinary Stream, Difficulty Urinating, Dysuria, Flank Pain, Hematuria, Pyuria, Nocturia, Urinary Incontinence, Urinary Frequency, Urinary Hesitance, Urinary Urgency, Voiding Freq/Small Amts, Freq UTI, Hx Renal/Bladder Calculi, Hx /Renal Surgery, Bladder Distension, Other - Musculoskeletal Musculoskeletal: As Per HPI - Integumentary Integumentary: As Per HPI, Skin Pain, Wounds - Neurological Neurological: absent: As Per HPI, Abnormal Gait, Abnormal Hearing, Abnormal Move ments, Abnormal Speech, Behavioral Changes, Burning Sensations, Confusion, Convulsions, Disequilibrium, Dizziness, Numbness, Focal Weakness, Frequent Falls, Headaches, Lack of Coordination, Loss of Vision, Memory Loss, Paresthesias, Radicular Pain, Restless Legs, Sensory Deficit, Syncope, Tingling, Tremor, Vertigo, Weakness, Other Visual Disturbances, Other - Psychiatric Psychiatric: absent: As Per HPI, Abnormal Sleep Pattern, Anhedonia, Anxiety, Auditory Hallucinations, Behavioral Changes, Change in Appetite, Change in Libido, Confusion, Depression, Difficulty Concentrating, Hallucinations, Homicidal Ideation, Hopelessness, Irritability, Memory Loss, Mood Swings, Panic Attacks, Paranoia, Suicidal Ideation, Visual Hallucinations, Tactile Hallucinations, Other - Endocrine Endocrine: absent: As Per HPI, Change in Body Appearance, Change in Libido, Cold Intolorance, Deepening of Voice, Excessive Sweating, Fatigue, Flushing, Heat Intolorance, Increase in Ring/Shoe/Hat Size, Palpitations, Polydipsia, Polyphagia, Polyuria, Other - Hematologic/Lymphatic Hematologic: absent: As Per HPI, Easy Bleeding, Easy Bruising, Lymphadenopathy, Other Past Patient History - Infectious Disease Hx of Infectious Diseases: None - Past Medical History & Family History Past Medical History?: Yes - Past Social History Smoking Status: Former Smoker - CARDIAC Hx Hypertension: Yes - PULMONARY Hx Chronic Obstructive Pulmonary Disease (COPD): Yes (oxygen dependent 2-3 l/min) - NEUROLOGICAL Hx Neurological Disorder: No - HEENT Hx HEENT Problems: No - RENAL Hx Chronic Kidney Disease: No - ENDOCRINE/METABOLIC Hx Endocrine Disorders: No - HEMATOLOGICAL/ONCOLOGICAL Hx Anemia: Yes - INTEGUMENTARY Hx Dermatological Problems: No - MUSCULOSKELETAL/RHEUMATOLOGICAL Hx Arthritis: Yes (L HAND FX) - GASTROINTESTINAL Hx Gastrointestinal Disorders: No - GENITOURINARY/GYNECOLOGICAL Hx Genitourinary Disorders: No - PSYCHIATRIC Hx Substance Use: No - SURGICAL HISTORY Hx Appendectomy: Yes - ANESTHESIA Hx Anesthesia: Yes Hx Anesthesia Reactions: No Hx Malignant Hyperthermia: No Meds Allergies/Adverse Reactions: Allergies Allergy/AdvReac Type Severity Reaction Status Date / Time No Known Allergies Allergy Verified 04/24/18 23:54 - Medications Medications: Current Medications Albuterol/Ipratropium (Duoneb 3 Mg/0.5 Mg (3 Ml) Ud) 3 ml INH RQ4 PRN PRN Reason: Wheezing Enoxaparin Sodium (Lovenox) 100 mg SC DAILY [facility] Last Admin: 04/25/18 10:58 Dose: 100 mg Fluticasone/Vilanterol (Breo Ellipta 100-25 Mcg Inh) 1 puff INH RQD [facility] Furosemide (Lasix) 40 mg IVP DAILY [facility] Piperacillin Sod/Tazobactam (Sod 3.375 gm/ Sodium Chloride) 100 mls @ 200 mls/hr IVPB Q6H [facility]; Protocol Last Admin: 04/25/18 10:52 Dose: 200 mls/hr Nebivolol (Bystolic) 5 mg PO DAILY [facility] Last Admin: 04/25/18 11:00 Dose: Not Given Pantoprazole Sodium (Protonix Ec Tab) 40 mg PO DAILY [facility] Last Admin: 04/25/18 10:52 Dose: 40 mg Potassium Chloride (K-Dur 20 Meq Er Tab) 20 meq PO DAILY [facility] Stop: 04/27/18 10:01 Last Admin: 04/25/18 10:52 Dose: 20 meq Physical Exam - Constitutional Appears: No Acute Distress, Chronically Ill - Head Exam Head Exam: ATRAUMATIC, NORMOCEPHALIC - Eye Exam Eye Exam: absent: Scleral icterus - ENT Exam ENT Exam: Mucous Membranes Dry - Neck Exam Neck exam: Negative for: Lymphadenopathy - Respiratory Exam Respiratory Exam: Decreased Breath Sounds, Prolonged Expiratory Phase, Rhonchi - Cardiovascular Exam Cardiovascular Exam: REGULAR RHYTHM, +S1, +S2 - GI/Abdominal Exam GI & Abdominal Exam: Diminished Bowel Sounds, Soft. absent: Tenderness - Rectal Exam Rectal Exam: Deferred - Exam Exam: NORMAL INSPECTION - Extremities Exam Extremities exam: Positive for: calf tenderness, pedal edema, pedal pulses present - Back Exam Back exam: absent: CVA tenderness (L), CVA tenderness (R) - Neurological Exam Neurological exam: Alert, CN II-XII Intact, Oriented x3, Reflexes Normal - Psychiatric Exam Psychiatric exam: Depressed - Skin Skin Exam: Dry Results - Vital Signs Recent Vital Signs: Last Vital Signs Temp 98.0 F 04/25/18 08:00 Pulse 65 04/25/18 08:00 Resp 20 04/25/18 08:00 BP 103/65 04/25/18 11:19 Pulse Ox 96 04/25/18 08:00 - Labs Result Diagrams: 04/25/18 00:41 04/25/18 00:41 Labs: Laboratory Results - last 24 hr 04/25/18 04/25/18 04/25/18 00:40 00:41 00:41 WBC 6.4 RBC 4.58 Hgb 13.6 Hct 40.7 MCV 89.0 D MCH 29.7 MCHC 33.4 RDW 15.9 H Plt Count 207 MPV 8.6 Neut % (Auto) 52.8 Lymph % (Auto) 34.9 [place] % (Auto) 10.9 H Eos % (Auto) 0.7 Baso % (Auto) 0.7 Neut # (Auto) 3.4 Lymph # (Auto) 2.2 [place] # (Auto) 0.7 Eos # (Auto) 0.0 Baso # (Auto) 0.0 pO2 40 VBG pH 7.39 VBG pCO2 50 VBG HCO3 27.6 VBG Total CO2 31.8 H VBG O2 Sat (Calc) 79.8 H VBG Base Excess 4.2 H VBG Potassium 3.3 L Sodium 141.0 139 Chloride 102.0 99 Glucose 107 Lactate 3.5 H Potassium 3.2 L Carbon Dioxide 30 Anion Gap 13 BUN 14 Creatinine 1.1 Est GFR ( Amer) > 60 Est GFR (Non-Af Amer) > 60 Random Glucose 108 D Lactic Acid Calcium 8.2 L Total Bilirubin 0.5 AST 32 ALT 50 Alkaline Phosphatase 61 Total Creatine Kinase 76 CK-MB (Mass) 0.64 Troponin I < 0.0120 NT-Pro-B Natriuret Pep 197 Total Protein 7.1 Albumin 3.9 Globulin 3.2 Albumin/Globulin Ratio 1.2 Venous Blood Potassium 3.3 L 04/25/18 06:24 WBC RBC Hgb Hct MCV MCH MCHC RDW Plt Count MPV Neut % (Auto) Lymph % (Auto) [place] % (Auto) Eos % (Auto) Baso % (Auto) Neut # (Auto) Lymph # (Auto) [place] # (Auto) Eos # (Auto) Baso # (Auto) pO2 VBG pH VBG pCO2 VBG HCO3 VBG Total CO2 VBG O2 Sat (Calc) VBG Base Excess VBG Potassium Sodium Chloride Glucose Lactate Potassium Carbon Dioxide Anion Gap BUN Creatinine Est GFR ( Amer) Est GFR (Non-Af Amer) Random Glucose Lactic Acid 2.5 H Calcium Total Bilirubin AST ALT Alkaline Phosphatase Total Creatine Kinase CK-MB (Mass) Troponin I NT-Pro-B Natriuret Pep Total Protein Albumin Globulin Albumin/Globulin Ratio Venous Blood Potassium Assessment & Plan (1) COPD exacerbation Status: Acute (2) Cellulitis of left lower leg Status: Acute (3) Edema, lower extremity Status: Acute - Assessment and Plan (Free Text) Assessment: severe recurrent cellulitis left leg failed out pt rx IV Zosyn in progress may need [facility]NA boot rx will hold off on MRSA coverage unless he fails to respond
--- NOTE | 2018-04-25 16:54 | RAD ---
Date of service: 04/25/2018 PROCEDURE: Bilateral Knee Radiographs. HISTORY: swelling , r/o fluid COMPARISON: None available. FINDINGS: Examination is severely limited due to habitus. BONES: Right Knee: No acute displaced fracture identified. Left Knee: No acute displaced fracture identified. JOINTS: Right Knee: No dislocation. Tricompartmental joint space narrowing. Left knee: No dislocation. Tricompartmental joint space narrowing. SOFT TISSUES: Right Knee: No evidence of radiopaque foreign body. Left Knee: No evidence of radiopaque foreign body. JOINT EFFUSION: Right Knee: No significant joint effusion identified. Left Knee: No significant joint effusion identified. OTHER FINDINGS: None. IMPRESSION: Examination markedly limited by habitus. Bilateral tricompartmental joint space narrowing. No acute displaced fracture, dislocation, or significant joint effusion appreciated. If high clinical index of suspicion for occult fracture, recommend cross-sectional imaging for further evaluation.
--- NOTE | 2018-04-26 00:02 | HP ---
HISTORY OF PRESENT ILLNESS: This is one of the recurrent admissions for this morbidly obese gentleman, who is 53-year-old, came with swelling of the left lower leg with redness and pain, worse over the past 2 days. He was recently admitted with cellulitis, was treated with IV antibiotics. Workup at that time was negative for osteo. The patient was seen and evaluated by Dr. Servin and Dr. Hewitt. Upon discharge, the patient was given Keflex which he has been taking regularly. For 2 days it got worse and he came to the emergency room. He also has a history of COPD, pleural effusion, and paroxysmal atrial fibrillation. He was on Xarelto and amiodarone which were both discontinued. He has been in sinus rhythm since. He has been maintained on Bystolic. For more than close to 2 years he has been in sinus rhythm. He is also on home oxygen. He has been followed by Dr. Turk. PAST MEDICAL HISTORY: History of generalized arthritis, back pains and knee pains, paroxysmal atrial fibrillation, COPD, and hypertension, admitted for pneumonia. Also he had pulmonary emboli and cellulitis of the legs. PERSONAL HISTORY: Does not smoke and does not drink. ALLERGIES: DENIED. FAMILY HISTORY: Father had a history of CABG in his 60s. MEDICATIONS: At home include Bystolic, Lasix, and Keflex. REVIEW OF SYSTEMS: CONSTITUTIONAL: Denies any fever. Weakness is noted. No headaches, no visual disturbances, no swollen glands. Denies any cough. No hemoptysis. No wheezing. CARDIAC: Denies any chest pains, denies any palpitations. Shortness of breath and orthopnea are noted. He is on home oxygen, edema. GASTROINTESTINAL: Negative for hematemesis or melena. GENITOURINARY: Negative for dysuria. MUSCULOSKELETAL: Back pains, hip pains, and knee pains. EXTREMITIES: Varicosities of the legs. POST MANAGER: No history of TIAs or CVAs. No history of depression. 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 No history of depression. PHYSICAL EXAMINATION: GENERAL: A middle-aged gentleman who is morbidly obese, weighs more than 400 pounds. He is 5 feet and 10 inches, in no acute distress. VITAL SIGNS: His blood pressure is 130/60, heart rate of 80, respiratory rate of 24, temperature of 98.4, and O2 saturation is 99%. HEENT: Head is normocephalic. Eyes: No pallor, no icterus. NECK: Supple. No glands noted. LUNGS: Clear to auscultation bilaterally. HEART: PMI is not localized, S1 and S2 is distant. No definite gallops or murmurs. ABDOMEN: Soft. EXTREMITIES: Show 2-3+ edema in both the legs all the way. Distal pulses are feeble, but palpable. NEUROLOGIC: He is awake, alert, and oriented x3. SKIN: Shows significant cellulitis near the knee. Chronic stasis venous insufficiency is noted. LABORATORY DATA: His lab data shows hemoglobin of 13.6, white count is 6.4. Potassium was 3.2 which was substituted. ASSESSMENT: A 53-year-old gentleman with cellulitis, obesity, sleep apnea, and paroxysmal atrial fibrillation. PLAN: At this point is IV antibiotics, ID followup and Dr. Serivn. We will obtain x-rays of both the knees and the hips and femur. Lovenox. Lars Wells MD
[2018-04-26] MEDS: Piperacillin/Tazobact 3.375 GM in Sodium Chloride 100 ML IVPB SCH ×4 (04:43→21:57)
[2018-04-26] MEDS: Fluticasone-Vilanterol 100/25mcg Diskus INH SCH (07:56)
[2018-04-26] MEDS: Potassium Chloride 20 mEq ER Tab PO SCH (09:53)
[2018-04-26] MEDS: Pantoprazole 40 mg EC Tab PO SCH (09:53)
[2018-04-26] MEDS: Enoxaparin 100 mg Syringe SC SCH (09:57)
[2018-04-27] MEDS: Piperacillin/Tazobact 3.375 GM in Sodium Chloride 100 ML IVPB SCH ×4 (04:47→22:41)
[2018-04-27] MEDS: Fluticasone-Vilanterol 100/25mcg Diskus INH SCH (07:15)
[2018-04-27] MEDS: Potassium Chloride 20 mEq ER Tab PO SCH (10:14)
[2018-04-27] MEDS: Pantoprazole 40 mg EC Tab PO SCH (10:15)
[2018-04-27] MEDS: Enoxaparin 100 mg Syringe SC SCH (10:15)
[2018-04-27 12:25] LABS: BASO % 0.5 % (0.0-2.0); EOS # 0.1 K/uL (0.0-0.7); EOS % 1.4 % (0.0-4.0); HEMOGLOBIN 12.7 g/dL (12.0-18.0); LYMPH # 1.1 K/uL (1.0-4.3); LYMPH % 30.2 % (20.0-40.0); MEAN CELL VOLUME 89.7 fL (80.0-94.0); MEAN CORPUSCULAR HEMOGLOBIN 29.2 pg (27.0-31.0); MEAN CORPUSCULAR HGB CONC 32.6 g/dL (33.0-37.0); MEAN PLATELET VOLUME 8.7 fL (7.2-11.7); MONO # 0.3 K/uL (0.0-0.8); NEUT # 2.2 K/uL (1.8-7.0); NEUT % 59.9 % (50.0-75.0); NRBC % 0.1 % (0.0-2.0); RBC 4.35 Mil/uL (4.40-5.90); WHITE BLOOD COUNT 3.7 K/uL (4.8-10.8)
--- NOTE | 2018-04-27 12:57 | CP.PCM.PN ---
Subjective - Date & Time of Evaluation Date of Evaluation: 04/27/18 Time of Evaluation: 11:23 - Subjective Subjective: 53 y/o male seen at bedside this morning with attending Dr. Servin for bilateral lower extremity cellulitis. Pt resting in bedside chair at time of visit. Denies any new pedal complaints. Denies F/C/N/V/CP/SOB Objective - Vital Signs/Intake and Output Vital Signs (last 24 hours): Temp Pulse Resp BP Pulse Ox 97.7 F 69 20 120/75 98 04/27/18 07:32 04/27/18 07:32 04/27/18 07:32 04/27/18 10:17 04/27/18 07:32 - Medications Medications: Current Medications Albuterol/Ipratropium (Duoneb 3 Mg/0.5 Mg (3 Ml) Ud) 3 ml INH RQ4 PRN PRN Reason: Wheezing Enoxaparin Sodium (Lovenox) 100 mg SC DAILY [facility] Last Admin: 04/27/18 10:15 Dose: 100 mg Fluticasone/Vilanterol (Breo Ellipta 100-25 Mcg Inh) 1 puff INH RQD [facility] Last Admin: 04/27/18 07:15 Dose: 1 puff Furosemide (Lasix) 40 mg IVP DAILY [facility] Last Admin: 04/27/18 10:17 Dose: 40 mg Piperacillin Sod/Tazobactam (Sod 3.375 gm/ Sodium Chloride) 100 mls @ 200 mls/hr IVPB Q6H [facility]; Protocol Last Admin: 04/27/18 10:15 Dose: 200 mls/hr Nebivolol (Bystolic) 5 mg PO DAILY [facility] Last Admin: 04/27/18 10:15 Dose: 5 mg Pantoprazole Sodium (Protonix Ec Tab) 40 mg PO DAILY [facility] Last Admin: 04/27/18 10:15 Dose: 40 mg - Labs Labs: 04/25/18 00:41 04/25/18 00:41 - Constitutional Appears: Well, Non-toxic, No Acute Distress - Extremities Exam Additional comments: B/L LE focused exam: VASC: DP/PT pulses 2/4 B/L. CFT <3 seconds to digits. +2 pitting edema noted B/L with L>R extending from ankle to dorsum of foot B/L. Temperature gradient warm to online producer the left side and warm to cool on the right side from proximal to distal. Erythema noted along the left leg up to the tibial tuberosity. NEURO: Gross and protective sensations are intact. DERM: Venous stasis skin changes with hyperpigmentation and lichenification of the legs noted. Erythema noted along the left leg from the tibial tuberosity extending to the digits B/L. Healed ulcer noted on the lower lateral part of left leg. Ortho: Pedal muscle strength graded 5/5 in all groups. Mild limited ankle joint ROM to dorsiflexion B/L. Pain on palpation of the left leg. - Neurological Exam Neurological Exam: Alert, Awake - Psychiatric Exam Psychiatric exam: Normal Affect, Normal Mood Assessment and Plan - Assessment and Plan (Free Text) Assessment: 53 y/o male with bilateral lower extremity cellulitis Plan: Pt seen and evaluated at bedside with Dr. Malathi NOLASCO venous duplex negative for DVT Blood cultures negative Continue IV abx as per ID recommendations Pt stable from podiatry standpoint Podiatry will continue to follow up the patient while in house
--- NOTE | 2018-04-27 13:00 | CP.PCM.PN ---
Subjective - Date & Time of Evaluation Date of Evaluation: 04/27/18 Time of Evaluation: 12:21 - Subjective Subjective: cellulitis & edema is better Objective - Vital Signs/Intake and Output Vital Signs (last 24 hours): Temp Pulse Resp BP Pulse Ox 97.7 F 69 20 120/75 98 04/27/18 07:32 04/27/18 07:32 04/27/18 07:32 04/27/18 10:17 04/27/18 07:32 - Medications Medications: Current Medications Albuterol/Ipratropium (Duoneb 3 Mg/0.5 Mg (3 Ml) Ud) 3 ml INH RQ4 PRN PRN Reason: Wheezing Enoxaparin Sodium (Lovenox) 100 mg SC DAILY [facility] Last Admin: 04/27/18 10:15 Dose: 100 mg Fluticasone/Vilanterol (Breo Ellipta 100-25 Mcg Inh) 1 puff INH RQD [facility] Last Admin: 04/27/18 07:15 Dose: 1 puff Furosemide (Lasix) 40 mg IVP DAILY [facility] Last Admin: 04/27/18 10:17 Dose: 40 mg Piperacillin Sod/Tazobactam (Sod 3.375 gm/ Sodium Chloride) 100 mls @ 200 mls/hr IVPB Q6H [facility]; Protocol Last Admin: 04/27/18 10:15 Dose: 200 mls/hr Nebivolol (Bystolic) 5 mg PO DAILY [facility] Last Admin: 04/27/18 10:15 Dose: 5 mg Pantoprazole Sodium (Protonix Ec Tab) 40 mg PO DAILY [facility] Last Admin: 04/27/18 10:15 Dose: 40 mg - Labs Labs: 04/25/18 00:41 04/25/18 00:41 - Constitutional Appears: No Acute Distress - Head Exam Head Exam: NORMOCEPHALIC - Eye Exam Pupil Exam: NORMAL ACCOMODATION - Respiratory Exam Respiratory Exam: Clear to Ausculation Bilateral - Cardiovascular Exam Cardiovascular Exam: REGULAR RHYTHM - GI/Abdominal Exam GI & Abdominal Exam: Soft - Extremities Exam Extremities Exam: Pedal Edema - Neurological Exam Neurological Exam: Alert, Oriented x3 Assessment and Plan - Assessment and Plan (Free Text) Plan: will ct iv antibiotics & lasix.
[2018-04-27] MEDS ORDERED: Pneumococcal 23-Valent Vaccine IM ONE (14:00)
[2018-04-27 14:33] LABS: ALB/GLOB RATIO 1.2 (1.0-2.1); ALBUMIN 3.4 g/dL (3.5-5.0); ALT/SGPT 42 U/L (21-72); AST/SGOT 28 U/L (17-59); BLOOD UREA NITROGEN 12 mg/dL (9-20); CALCIUM 7.9 mg/dl (8.6-10.4); GFR NON-AFRICAN AMERICAN > 60
[2018-04-27] MEDS ORDERED: Potassium Chloride 20 mEq ER Tab PO ONE (15:15)
--- NOTE | 2018-04-27 15:35 | CP.PCM.PN ---
Subjective - Date & Time of Evaluation Date of Evaluation: 04/27/18 Time of Evaluation: 08:00 - Subjective Subjective: swelling and pain persist denies fever no chest pain Objective - Vital Signs/Intake and Output Vital Signs (last 24 hours): Temp Pulse Resp BP Pulse Ox 97.7 F 69 20 120/75 98 04/27/18 07:32 04/27/18 07:32 04/27/18 07:32 04/27/18 10:17 04/27/18 07:32 Intake and Output: 04/27/18 04/27/18 06:59 18:59 Intake Total 100 Balance 100 - Medications Medications: Current Medications Albuterol/Ipratropium (Duoneb 3 Mg/0.5 Mg (3 Ml) Ud) 3 ml INH RQ4 PRN PRN Reason: Wheezing Enoxaparin Sodium (Lovenox) 100 mg SC DAILY [facility] Last Admin: 04/27/18 10:15 Dose: 100 mg Fluticasone/Vilanterol (Breo Ellipta 100-25 Mcg Inh) 1 puff INH RQD [facility] Last Admin: 04/27/18 07:15 Dose: 1 puff Furosemide (Lasix) 40 mg IVP DAILY [facility] Last Admin: 04/27/18 10:17 Dose: 40 mg Piperacillin Sod/Tazobactam (Sod 3.375 gm/ Sodium Chloride) 100 mls @ 200 mls/hr IVPB Q6H [facility]; Protocol Last Admin: 04/27/18 10:15 Dose: 200 mls/hr Nebivolol (Bystolic) 5 mg PO DAILY [facility] Last Admin: 04/27/18 10:15 Dose: 5 mg Pantoprazole Sodium (Protonix Ec Tab) 40 mg PO DAILY [facility] Last Admin: 04/27/18 10:15 Dose: 40 mg - Labs Labs: 04/27/18 13:09 04/27/18 14:02 - Constitutional Appears: Non-toxic, Chronically Ill - Head Exam Head Exam: NORMOCEPHALIC - Eye Exam Eye Exam: absent: Scleral icterus - ENT Exam ENT Exam: Mucous Membranes Dry - Neck Exam Neck Exam: absent: Lymphadenopathy - Respiratory Exam Respiratory Exam: Decreased Breath Sounds - Cardiovascular Exam Cardiovascular Exam: REGULAR RHYTHM - GI/Abdominal Exam GI & Abdominal Exam: Distended, Soft. absent: Tenderness - Rectal Exam Rectal Exam: Deferred - Exam Exam: NORMAL INSPECTION - Extremities Exam Extremities Exam: Calf Tenderness, Normal Capillary Refill, Pedal Edema, Tender ness. absent: Joint Swelling, Normal Inspection - Back Exam Back Exam: absent: CVA tenderness (L), CVA tenderness (R) - Neurological Exam Neurological Exam: Alert, Awake, CN II-XII Intact, Oriented x3 - Psychiatric Exam Psychiatric exam: Depressed Assessment and Plan (1) COPD exacerbation Status: Acute (2) Cellulitis of left lower leg Status: Acute (3) Edema, lower extremity Status: Acute - Assessment and Plan (Free Text) Assessment: cont iv antibiotics, elevation Dr Servin on board
[2018-04-28] MEDS: Piperacillin/Tazobact 3.375 GM in Sodium Chloride 100 ML IVPB SCH ×4 (03:39→22:09)
[2018-04-28] MEDS: Fluticasone-Vilanterol 100/25mcg Diskus INH SCH (07:25)
[2018-04-28] MEDS: Pantoprazole 40 mg EC Tab PO SCH (09:52)
[2018-04-28] MEDS: Enoxaparin 100 mg Syringe SC SCH (09:53)
--- NOTE | 2018-04-28 10:24 | CARD ---
APPROVED REPORT Date of service: 04/25/2018 EKG Measurement Heart [id number] <Conclusion> Sinus rhythm with sinus arrhythmia with occasional premature ventricular complexes Right bundle branch block Abnormal ECG
--- NOTE | 2018-04-28 11:49 | CP.PCM.PN ---
Subjective - Date & Time of Evaluation Date of Evaluation: 04/28/18 Time of Evaluation: 11:48 - Subjective Subjective: cellulitis better,k is low. Objective - Vital Signs/Intake and Output Vital Signs (last 24 hours): Temp Pulse Resp BP Pulse Ox 97.9 F 62 20 110/71 95 04/28/18 07:46 04/28/18 09:51 04/28/18 07:46 04/28/18 09:52 04/28/18 07:46 Intake and Output: 04/28/18 04/28/18 06:59 18:59 Intake Total 220 Balance 220 - Medications Medications: Current Medications Albuterol/Ipratropium (Duoneb 3 Mg/0.5 Mg (3 Ml) Ud) 3 ml INH RQ4 PRN PRN Reason: Wheezing Last Admin: 04/28/18 00:15 Dose: 3 ml Enoxaparin Sodium (Lovenox) 100 mg SC DAILY [facility] Last Admin: 04/28/18 09:53 Dose: 100 mg Fluticasone/Vilanterol (Breo Ellipta 100-25 Mcg Inh) 1 puff INH RQD [facility] Last Admin: 04/28/18 07:25 Dose: 1 puff Furosemide (Lasix) 40 mg IVP DAILY [facility] Last Admin: 04/28/18 09:52 Dose: 40 mg Piperacillin Sod/Tazobactam (Sod 3.375 gm/ Sodium Chloride) 100 mls @ 200 mls/hr IVPB Q6H [facility]; Protocol Last Admin: 04/28/18 09:53 Dose: 200 mls/hr Nebivolol (Bystolic) 5 mg PO DAILY [facility] Last Admin: 04/28/18 09:52 Dose: 5 mg Pantoprazole Sodium (Protonix Ec Tab) 40 mg PO DAILY [facility] Last Admin: 04/28/18 09:52 Dose: 40 mg - Labs Labs: 04/27/18 13:09 04/27/18 14:02 - Constitutional Appears: No Acute Distress, Chronically Ill - Head Exam Head Exam: NORMOCEPHALIC - ENT Exam ENT Exam: Normal Exam - Neck Exam Neck Exam: Normal Inspection - Respiratory Exam Respiratory Exam: Clear to Ausculation Bilateral - Cardiovascular Exam Cardiovascular Exam: REGULAR RHYTHM, Murmur - GI/Abdominal Exam GI & Abdominal Exam: Soft - Extremities Exam Extremities Exam: Pedal Edema - Neurological Exam Neurological Exam: Alert, Oriented x3 Assessment and Plan - Assessment and Plan (Free Text) Plan: better.
--- NOTE | 2018-04-28 16:55 | CP.PCM.PN ---
Subjective - Date & Time of Evaluation Date of Evaluation: 04/28/18 Time of Evaluation: 09:00 - Subjective Subjective: no fever less sob alert awake c/o moderate pain left leg - Medical History PMH: Atrial Fibrillation, COPD, HTN, Peripheral Edema, Pneumonia, MIKEY, morbid obesity Denies: Chronic Kidney Disease Surgical History: Appendectomy - [facility] Procedures ASSISTANCE WITH RESPIRATORY VENTILATION, <24 HRS, CPAP (04/10/15) DRAINAGE OF R PLEURAL CAV WITH DRAIN DEV, PERC APPROACH (04/10/15) EXTRACTION OF RIGHT PLEURA, PERCUTANEOUS ENDOSCOPIC APPROACH (04/10/15) HOME MANAGEMENT TREATMENT (05/20/15) INSPECTION OF TRACHEOBRONCHIAL TREE, ENDO (04/10/15) INTRODUCE OF OTH THERAP SUBST INTO RESP TRACT, VIA OPENING (05/20/15) THERAPEUTIC EXERCISE TREATMENT OF MUSCULOSK WHOLE (05/20/15) Objective - Vital Signs/Intake and Output Vital Signs (last 24 hours): Temp Pulse Resp BP Pulse Ox 97.9 F 62 20 110/71 95 04/28/18 07:46 04/28/18 09:51 04/28/18 07:46 04/28/18 09:52 04/28/18 07:46 Intake and Output: 04/28/18 04/28/18 06:59 18:59 Intake Total 220 Balance 220 - Medications Medications: Current Medications Albuterol/Ipratropium (Duoneb 3 Mg/0.5 Mg (3 Ml) Ud) 3 ml INH RQ4 PRN PRN Reason: Wheezing Last Admin: 04/28/18 00:15 Dose: 3 ml Enoxaparin Sodium (Lovenox) 100 mg SC DAILY [facility] Last Admin: 04/28/18 09:53 Dose: 100 mg Fluticasone/Vilanterol (Breo Ellipta 100-25 Mcg Inh) 1 puff INH RQD [facility] Last Admin: 04/28/18 07:25 Dose: 1 puff Furosemide (Lasix) 40 mg IVP DAILY [facility] Last Admin: 04/28/18 09:52 Dose: 40 mg Piperacillin Sod/Tazobactam (Sod 3.375 gm/ Sodium Chloride) 100 mls @ 200 mls/hr IVPB Q6H [facility]; Protocol Last Admin: 04/28/18 09:53 Dose: 200 mls/hr Nebivolol (Bystolic) 5 mg PO DAILY [facility] Last Admin: 04/28/18 09:52 Dose: 5 mg Pantoprazole Sodium (Protonix Ec Tab) 40 mg PO DAILY [facility] Last Admin: 04/28/18 09:52 Dose: 40 mg - Labs Labs: 04/27/18 13:09 04/27/18 14:02 - Constitutional Appears: Non-toxic, Chronically Ill - Head Exam Head Exam: NORMOCEPHALIC - Eye Exam Eye Exam: absent: Scleral icterus - ENT Exam ENT Exam: Mucous Membranes Dry - Neck Exam Neck Exam: absent: Lymphadenopathy - Respiratory Exam Respiratory Exam: Decreased Breath Sounds - Cardiovascular Exam Cardiovascular Exam: REGULAR RHYTHM - GI/Abdominal Exam GI & Abdominal Exam: Distended - Rectal Exam Rectal Exam: Deferred - Exam Exam: NORMAL INSPECTION - Extremities Exam Extremities Exam: Pedal Edema, Tenderness. absent: Calf Tenderness - Back Exam Back Exam: absent: CVA tenderness (L), CVA tenderness (R), paraspinal tenderness - Neurological Exam Neurological Exam: Alert, Awake, CN II-XII Intact, Oriented x3 - Psychiatric Exam Psychiatric exam: Depressed - Skin Skin Exam: Dry Assessment and Plan (1) COPD exacerbation Status: Acute (2) Cellulitis of left lower leg Status: Acute (3) Edema, lower extremity Status: Acute - Assessment and Plan (Free Text) Assessment: cont iv rx , diuresis, bronchodilators
[2018-04-29] MEDS: Piperacillin/Tazobact 3.375 GM in Sodium Chloride 100 ML IVPB SCH ×4 (04:49→21:33)
[2018-04-29] MEDS: Fluticasone-Vilanterol 100/25mcg Diskus INH SCH (07:25)
--- NOTE | 2018-04-29 09:11 | CP.PCM.PN ---
Subjective - Date & Time of Evaluation Date of Evaluation: 04/29/18 Time of Evaluation: 09:10 - Subjective Subjective: Podiatry Progress Note - Dr. Servin 53 y/o male seen at bedside this morning with attending Dr. Servin for bilateral lower extremity cellulitis. Pt resting in bedside chair at time of visit. Denies having any pain in the feet. States he spoke with Dr. Hewitt who recommends a few more days of antibiotics before leaving. Denies any new pedal complaints. Denies F/C/N/V/CP/SOB Objective - Vital Signs/Intake and Output Vital Signs (last 24 hours): Temp Pulse Resp BP Pulse Ox 98 F 63 20 115/67 95 04/29/18 08:00 04/29/18 08:00 04/29/18 08:00 04/29/18 08:00 04/29/18 08:00 Intake and Output: 04/29/18 04/29/18 06:59 18:59 Intake Total 200 Balance 200 - Medications Medications: Current Medications Albuterol/Ipratropium (Duoneb 3 Mg/0.5 Mg (3 Ml) Ud) 3 ml INH RQ4 PRN PRN Reason: Wheezing Last Admin: 04/28/18 00:15 Dose: 3 ml Enoxaparin Sodium (Lovenox) 100 mg SC DAILY [facility] Last Admin: 04/28/18 09:53 Dose: 100 mg Fluticasone/Vilanterol (Breo Ellipta 100-25 Mcg Inh) 1 puff INH RQD [facility] Last Admin: 04/29/18 07:25 Dose: 1 puff Furosemide (Lasix) 40 mg IVP DAILY [facility] Last Admin: 04/28/18 09:52 Dose: 40 mg Piperacillin Sod/Tazobactam (Sod 3.375 gm/ Sodium Chloride) 100 mls @ 200 mls/hr IVPB Q6H [facility]; Protocol Last Admin: 04/29/18 04:49 Dose: 200 mls/hr Nebivolol (Bystolic) 5 mg PO DAILY [facility] Last Admin: 04/28/18 09:52 Dose: 5 mg Pantoprazole Sodium (Protonix Ec Tab) 40 mg PO DAILY [facility] Last Admin: 04/28/18 09:52 Dose: 40 mg Potassium Chloride (K-Dur 20 Meq Er Tab) 40 meq PO DAILY [facility] - Labs Labs: 04/27/18 13:09 01/02/19 14:02 - Constitutional Appears: Well, Non-toxic, No Acute Distress - Extremities Exam Additional comments: B/L LE focused exam: VASC: DP/PT pulses 2/4 B/L. CFT <3 seconds to digits. +2 pitting edema noted B/L with L>R extending from ankle to dorsum of foot B/L. Temperature gradient warm to insole rounder the left side and warm to cool on the right side from proximal to distal. Erythema noted along the left leg up to the tibial tuberosity. NEURO: Gross and protective sensations are intact. DERM: Venous stasis skin changes with hyperpigmentation and lichenification of the legs noted. Erythema noted along the left leg from the tibial tuberosity extending to the digits B/L, decreasing since previous visit. Healed ulcer noted on the lower lateral part of left leg Ortho: Pedal muscle strength graded 5/5 in all groups. Mild limited ankle joint ROM to dorsiflexion B/L. Pain on palpation of the left leg. - Neurological Exam Neurological Exam: Alert, Awake, Oriented x3 - Psychiatric Exam Psychiatric exam: Normal Affect, Normal Mood Assessment and Plan - Assessment and Plan (Free Text) Assessment: 53 y/o male with bilateral lower extremity cellulitis, resolving since admission Plan: Pt seen and evaluated at bedside this morning with Dr. Malathi NOLASCO venous duplex negative for DVT Blood cultures negative Continue IV abx as per ID recommendations Pt stable from podiatry standpoint Podiatry will continue to follow up the patient while in house
[2018-04-29] MEDS: Potassium Chloride 20 mEq ER Tab PO SCH (09:57)
[2018-04-29] MEDS: Enoxaparin 100 mg Syringe SC SCH (09:57)
[2018-04-29] MEDS: Pantoprazole 40 mg EC Tab PO SCH (09:57)
[2018-04-29 10:44] LABS: BLOOD UREA NITROGEN 11 mg/dL (9-20); CALCIUM 7.8 mg/dl (8.6-10.4); GFR NON-AFRICAN AMERICAN > 60
--- NOTE | 2018-04-29 12:53 | CP.PCM.PN ---
Subjective - Date & Time of Evaluation Date of Evaluation: 04/29/18 Time of Evaluation: 12:48 - Subjective Subjective: edema is better.cellulitis is better. Objective - Vital Signs/Intake and Output Vital Signs (last 24 hours): Temp Pulse Resp BP Pulse Ox 98 F 63 20 107/69 95 04/29/18 08:00 04/29/18 08:00 04/29/18 08:00 04/29/18 09:58 04/29/18 08:00 Intake and Output: 04/29/18 04/29/18 06:59 18:59 Intake Total 200 Balance 200 - Medications Medications: Current Medications Albuterol/Ipratropium (Duoneb 3 Mg/0.5 Mg (3 Ml) Ud) 3 ml INH RQ4 PRN PRN Reason: Wheezing Last Admin: 04/28/18 00:15 Dose: 3 ml Enoxaparin Sodium (Lovenox) 100 mg SC DAILY [facility] Last Admin: 04/29/18 09:57 Dose: 100 mg Fluticasone/Vilanterol (Breo Ellipta 100-25 Mcg Inh) 1 puff INH RQD [facility] Last Admin: 04/29/18 07:25 Dose: 1 puff Furosemide (Lasix) 40 mg IVP DAILY [facility] Last Admin: 04/29/18 09:58 Dose: 40 mg Piperacillin Sod/Tazobactam (Sod 3.375 gm/ Sodium Chloride) 100 mls @ 200 mls/h r IVPB Q6H [facility]; Protocol Last Admin: 04/29/18 09:58 Dose: 200 mls/hr Nebivolol (Bystolic) 5 mg PO DAILY [facility] Last Admin: 04/29/18 09:57 Dose: 5 mg Pantoprazole Sodium (Protonix Ec Tab) 40 mg PO DAILY [facility] Last Admin: 04/29/18 09:57 Dose: 40 mg Potassium Chloride (K-Dur 20 Meq Er Tab) 40 meq PO DAILY [facility] Last Admin: 04/29/18 09:57 Dose: 40 meq - Labs Labs: 04/27/18 13:09 04/29/18 10:23 - Constitutional Appears: No Acute Distress - Eye Exam Eye Exam: Normal appearance - Neck Exam Neck Exam: Normal Inspection - Respiratory Exam Respiratory Exam: Clear to Ausculation Bilateral - Cardiovascular Exam Cardiovascular Exam: REGULAR RHYTHM - GI/Abdominal Exam GI & Abdominal Exam: Soft - Extremities Exam Extremities Exam: Pedal Edema - Neurological Exam Neurological Exam: Alert, Normal Gait, Oriented x3 Assessment and Plan - Assessment and Plan (Free Text) Plan: cellulits,edema.add zaroxylyn.
--- NOTE | 2018-04-29 17:07 | CP.PCM.PN ---
Subjective - Date & Time of Evaluation Date of Evaluation: 04/29/18 Time of Evaluation: 08:00 - Subjective Subjective: afeb alert no chest pain' less sob afebrile swelling less Objective - Vital Signs/Intake and Output Vital Signs (last 24 hours): Temp Pulse Resp BP Pulse Ox 98.9 F 62 20 128/72 95 04/29/18 16:00 04/29/18 16:00 04/29/18 16:00 04/29/18 16:00 04/29/18 16:00 Intake and Output: 04/29/18 04/29/18 06:59 18:59 Intake Total 200 Balance 200 - Medications Medications: Current Medications Albuterol/Ipratropium (Duoneb 3 Mg/0.5 Mg (3 Ml) Ud) 3 ml INH RQ4 PRN PRN Reason: Wheezing Last Admin: 04/28/18 00:15 Dose: 3 ml Enoxaparin Sodium (Lovenox) 100 mg SC DAILY [facility] Last Admin: 04/29/18 09:57 Dose: 100 mg Fluticasone/Vilanterol (Breo Ellipta 100-25 Mcg Inh) 1 puff INH RQD [facility] Last Admin: 04/29/18 07:25 Dose: 1 puff Furosemide (Lasix) 40 mg IVP DAILY [facility] Last Admin: 04/29/18 09:58 Dose: 40 mg Piperacillin Sod/Tazobactam (Sod 3.375 gm/ Sodium Chloride) 100 mls @ 200 mls/hr IVPB Q6H [facility]; Protocol Last Admin: 04/29/18 16:09 Dose: 200 mls/hr Nebivolol (Bystolic) 5 mg PO DAILY [facility] Last Admin: 04/29/18 09:57 Dose: 5 mg Pantoprazole Sodium (Protonix Ec Tab) 40 mg PO DAILY [facility] Last Admin: 04/29/18 09:57 Dose: 40 mg Potassium Chloride (K-Dur 20 Meq Er Tab) 40 meq PO DAILY [facility] Last Admin: 04/29/18 09:57 Dose: 40 meq Spironolactone (Aldactone) 25 mg PO DAILY [facility] - Labs Labs: 04/27/18 13:09 04/29/18 10:23 - Constitutional Appears: Non-toxic, Chronically Ill - Eye Exam Eye Exam: absent: Scleral icterus - ENT Exam ENT Exam: Mucous Membranes Dry - Neck Exam Neck Exam: absent: Lymphadenopathy - Respiratory Exam Respiratory Exam: Decreased Breath Sounds, Clear to Ausculation Bilateral - Cardiovascular Exam Cardiovascular Exam: REGULAR RHYTHM, +S1, +S2 - GI/Abdominal Exam GI & Abdominal Exam: Distended, Soft. absent: Tenderness - Rectal Exam Rectal Exam: Deferred - Exam Exam: NORMAL INSPECTION - Extremities Exam Extremities Exam: Normal Capillary Refill, Pedal Edema, Tenderness. absent: Calf Tenderness - Back Exam Back Exam: absent: CVA tenderness (L), CVA tenderness (R) - Neurological Exam Neurological Exam: Alert, Awake, Oriented x3 - Psychiatric Exam Psychiatric exam: Depressed - Skin Skin Exam: Dry, Erythema Assessment and Plan (1) COPD exacerbation Status: Acute (2) Cellulitis of left lower leg Status: Acute (3) Edema, lower extremity Status: Acute - Assessment and Plan (Free Text) Assessment: cont iv rx for now will need out pt oral rx possibly augmantin
[2018-04-30] MEDS: Piperacillin/Tazobact 3.375 GM in Sodium Chloride 100 ML IVPB SCH ×4 (04:02→22:00)
[2018-04-30] MEDS: Fluticasone-Vilanterol 100/25mcg Diskus INH SCH (07:48)
[2018-04-30] MEDS: Pantoprazole 40 mg EC Tab PO SCH (09:50)
[2018-04-30] MEDS: Potassium Chloride 20 mEq ER Tab PO SCH (09:50)
[2018-04-30] MEDS: Enoxaparin 100 mg Syringe SC SCH (09:57)
--- NOTE | 2018-04-30 14:57 | CP.PCM.PN ---
Subjective - Date & Time of Evaluation Date of Evaluation: 04/30/18 Time of Evaluation: 14:56 - Subjective Subjective: redenss & swelling getting better. Objective - Vital Signs/Intake and Output Vital Signs (last 24 hours): Temp Pulse Resp BP Pulse Ox 97.7 F 61 20 109/70 97 04/30/18 08:00 04/30/18 09:48 04/30/18 08:00 04/30/18 09:50 04/30/18 08:00 - Medications Medications: Current Medications Albuterol/Ipratropium (Duoneb 3 Mg/0.5 Mg (3 Ml) Ud) 3 ml INH RQ4 PRN PRN Reason: Wheezing Last Admin: 04/28/18 00:15 Dose: 3 ml Enoxaparin Sodium (Lovenox) 100 mg SC DAILY [facility] Last Admin: 04/30/18 09:57 Dose: 100 mg Fluticasone/Vilanterol (Breo Ellipta 100-25 Mcg Inh) 1 puff INH RQD [facility] Last Admin: 04/30/18 07:48 Dose: 1 puff Furosemide (Lasix) 40 mg IVP DAILY [facility] Last Admin: 04/30/18 09:50 Dose: 40 mg Piperacillin Sod/Tazobactam (Sod 3.375 gm/ Sodium Chloride) 100 mls @ 200 mls/hr IVPB Q6H [facility]; Protocol Last Admin: 04/30/18 09:50 Dose: 200 mls/hr Nebivolol (Bystolic) 5 mg PO DAILY [facility] Last Admin: 04/30/18 09:57 Dose: 5 mg Pantoprazole Sodium (Protonix Ec Tab) 40 mg PO DAILY [facility] Last Admin: 04/30/18 09:50 Dose: 40 mg Potassium Chloride (K-Dur 20 Meq Er Tab) 40 meq PO DAILY [facility] Last Admin: 04/30/18 09:50 Dose: 40 meq Spironolactone (Aldactone) 25 mg PO DAILY [facility] Last Admin: 04/30/18 09:50 Dose: 25 mg - Labs Labs: 04/27/18 13:09 04/29/18 10:23 - Constitutional Appears: No Acute Distress - Head Exam Head Exam: NORMOCEPHALIC - Neck Exam Neck Exam: Normal Inspection - Respiratory Exam Respiratory Exam: Clear to Ausculation Bilateral - Cardiovascular Exam Cardiovascular Exam: REGULAR RHYTHM - GI/Abdominal Exam GI & Abdominal Exam: Soft - Extremities Exam Extremities Exam: Pedal Edema - Neurological Exam Neurological Exam: Alert, Oriented x3 Assessment and Plan - Assessment and Plan (Free Text) Plan: cpm.check bmp
[2018-04-30 17:26] LABS: BLOOD UREA NITROGEN 10 mg/dL (9-20); CALCIUM 8.3 mg/dl (8.6-10.4); GFR NON-AFRICAN AMERICAN > 60
[2018-05-01] MEDS: Piperacillin/Tazobact 3.375 GM in Sodium Chloride 100 ML IVPB SCH ×4 (03:56→22:10)
[2018-05-01] MEDS: Fluticasone-Vilanterol 100/25mcg Diskus INH SCH (08:09)
--- NOTE | 2018-05-01 08:32 | CP.PCM.PN ---
Subjective - Date & Time of Evaluation Date of Evaluation: 05/01/18 Time of Evaluation: 08:24 - Subjective Subjective: Podiatry Progress Note: Dr. Servin 53 year old male patient seen and evaluated at bedside for bilateral lower extremity cellulitis. Patient resting comfortably in chair bedside. States that he feels the swelling and redness has gone down in both of his legs. He denies any pain to b/l lower extremities. Denies any new acute pedal complaints. Denies N/V/F/SOB/CP. Objective - Vital Signs/Intake and Output Vital Signs (last 24 hours): Temp Pulse Resp BP Pulse Ox 97.9 F 57 L 18 120/69 97 05/01/18 07:43 05/01/18 07:43 05/01/18 07:43 05/01/18 07:43 05/01/18 07:43 - Medications Medications: Current Medications Albuterol/Ipratropium (Duoneb 3 Mg/0.5 Mg (3 Ml) Ud) 3 ml INH RQ4 PRN PRN Reason: Wheezing Last Admin: 04/28/18 00:15 Dose: 3 ml Enoxaparin Sodium (Lovenox) 100 mg SC DAILY [facility] Last Admin: 04/30/18 09:57 Dose: 100 mg Fluticasone/Vilanterol (Breo Ellipta 100-25 Mcg Inh) 1 puff INH RQD [facility] Last Admin: 05/01/18 08:09 Dose: 1 puff Furosemide (Lasix) 40 mg IVP DAILY [facility] Last Admin: 04/30/18 09:50 Dose: 40 mg Piperacillin Sod/Tazobactam (Sod 3.375 gm/ Sodium Chloride) 100 mls @ 200 mls/hr IVPB Q6H [facility]; Protocol Last Admin: 05/01/18 03:56 Dose: 200 mls/hr Nebivolol (Bystolic) 5 mg PO DAILY [facility] Last Admin: 04/30/18 09:57 Dose: 5 mg Pantoprazole Sodium (Protonix Ec Tab) 40 mg PO DAILY [facility] Last Admin: 04/30/18 09:50 Dose: 40 mg Potassium Chloride (K-Dur 20 Meq Er Tab) 40 meq PO DAILY [facility] Last Admin: 04/30/18 09:50 Dose: 40 meq Spironolactone (Aldactone) 25 mg PO DAILY [facility] Last Admin: 04/30/18 09:50 Dose: 25 mg - Labs Labs: 04/27/18 13:09 04/30/18 17:04 - Constitutional Appears: Well, Non-toxic, No Acute Distress - Head Exam Head Exam: ATRAUMATIC, NORMOCEPHALIC - Extremities Exam Additional comments: B/l lower extremtiy focused exam: Vasc: DP/PT pulses 2/4 B/L. CFT <3 seconds to digits. +2 pitting edema noted B/L with L>R extending from tibial tuberosity to dorsum of foot B/L. Temperature gradient warm to warm on the left side and warm to cool on the right side from proximal to distal. Ortho: MMT 5/5 in all compartments. Mild limited ankle joint ROM to dorsiflexion B/L. Pain on palpation of the left leg. Neuro: Gross and protective sensation intact. Derm: Venous stasis skin changes with hyperpigmentation and lichenification of the legs noted. No drainage, no purulence appreciated. - Neurological Exam Neurological Exam: Alert, Awake, Oriented x3 - Psychiatric Exam Psychiatric exam: Normal Affect, Normal Mood Assessment and Plan - Assessment and Plan (Free Text) Assessment: 53 y/o male with bilateral lower extremity edema and cellulitis; cellulitis resolved Plan: Patient seen and evaluated at bedside Discussed patient plan in detail with Dr. Malathi RAMOS, WBC 3.7 LLE venous duplex negative for DVT Blood cultures; negative Continue IV abx as per ID recommendations Patient stable from podiatry standpoint Will continue to follow while in house
[2018-05-01] MEDS: Potassium Chloride 20 mEq ER Tab PO SCH (09:33)
[2018-05-01] MEDS: Pantoprazole 40 mg EC Tab PO SCH (09:33)
[2018-05-01] MEDS: Enoxaparin 100 mg Syringe SC SCH (09:35)
[2018-05-01 17:24] VITALS: RESP 20
--- NOTE | 2018-05-01 22:51 | CP.PCM.PN ---
Subjective - Date & Time of Evaluation Date of Evaluation: 05/01/18 Time of Evaluation: 08:00 - Subjective Subjective: less paion and swelling redness persists Objective - Vital Signs/Intake and Output Vital Signs (last 24 hours): Temp Pulse Resp BP Pulse Ox 97.9 F 61 18 122/61 97 05/01/18 07:43 05/01/18 09:35 05/01/18 07:43 05/01/18 09:35 05/01/18 07:43 - Medications Medications: Current Medications Albuterol/Ipratropium (Duoneb 3 Mg/0.5 Mg (3 Ml) Ud) 3 ml INH RQ4 PRN PRN Reason: Wheezing Last Admin: 04/28/18 00:15 Dose: 3 ml Enoxaparin Sodium (Lovenox) 100 mg SC DAILY [facility] Last Admin: 05/01/18 09:35 Dose: 100 mg Fluticasone/Vilanterol (Breo Ellipta 100-25 Mcg Inh) 1 puff INH RQD [facility] Last Admin: 05/01/18 08:09 Dose: 1 puff Furosemide (Lasix) 40 mg IVP DAILY [facility] Last Admin: 05/01/18 09:33 Dose: 40 mg Piperacillin Sod/Tazobactam (Sod 3.375 gm/ Sodium Chloride) 100 mls @ 200 mls/hr IVPB Q6H [facility]; Protocol Last Admin: 05/01/18 09:35 Dose: 200 mls/hr Nebivolol (Bystolic) 5 mg PO DAILY [facility] Last Admin: 05/01/18 09:35 Dose: 5 mg Pantoprazole Sodium (Protonix Ec Tab) 40 mg PO DAILY [facility] Last Admin: 05/01/18 09:33 Dose: 40 mg Potassium Chloride (K-Dur 20 Meq Er Tab) 40 meq PO DAILY [facility] Last Admin: 05/01/18 09:33 Dose: 40 meq Spironolactone (Aldactone) 25 mg PO DAILY [facility] Last Admin: 05/01/18 09:33 Dose: 25 mg - Labs Labs: 04/27/18 13:09 04/30/18 17:04 - Constitutional Appears: Non-toxic, Chronically Ill - Head Exam Head Exam: NORMOCEPHALIC - Eye Exam Eye Exam: absent: Scleral icterus - ENT Exam ENT Exam: Mucous Membranes Dry, Normal External Ear Exam - Neck Exam Neck Exam: absent: Lymphadenopathy - Respiratory Exam Respiratory Exam: Decreased Breath Sounds - Cardiovascular Exam Cardiovascular Exam: REGULAR RHYTHM - GI/Abdominal Exam GI & Abdominal Exam: Distended, Soft - Rectal Exam Rectal Exam: Deferred - Exam Exam: NORMAL INSPECTION - Extremities Exam Extremities Exam: absent: Pedal Edema - Back Exam Back Exam: absent: CVA tenderness (L), CVA tenderness (R) - Neurological Exam Neurological Exam: Alert, Awake - Psychiatric Exam Psychiatric exam: Depressed - Skin Skin Exam: Dry, Erythema Assessment and Plan (1) COPD exacerbation Status: Acute (2) Cellulitis of left lower leg Status: Acute (3) Edema, lower extremity Status: Acute - Assessment and Plan (Free Text) Assessment: consider d/c on Zyvox PO for 5 days
[2018-05-02] MEDS: Piperacillin/Tazobact 3.375 GM in Sodium Chloride 100 ML IVPB SCH ×2 (04:28→10:23)
[2018-05-02 08:19] VITALS: PULSE 56; TEMP 98.1
[2018-05-02] MEDS: Pantoprazole 40 mg EC Tab PO SCH (10:22)
[2018-05-02] MEDS: Potassium Chloride 20 mEq ER Tab PO SCH (10:22)
[2018-05-02] MEDS: Enoxaparin 100 mg Syringe SC SCH (10:22)
[2018-05-02 10:23] VITALS: BP 103/68
[2018-05-02] MEDS: Fluticasone-Vilanterol 100/25mcg Diskus INH SCH (10:48)
--- NOTE | 2018-05-03 06:11 | DS ---
HISTORY OF PRESENT ILLNESS: This is a 53-year-old gentleman whose one of recurrent admission for cellulitis of the left leg. During hospitalization, the patient was placed on IV antibiotics. Seen by Dr. Hewitt and Dr. Srevin. Also had significant edema. He was continued with IV Lasix and Aldactone was added 25 mg p.o. Wednesday, Wednesday and Wednesday. The patient has done well. Cellulitis is resolved. He will continue on Keflex p.o. for another seven days and continue Lasix. He will continue on Aldactone 25 mg p.o. Wednesday, Wednesday, and Wednesday. I will see him back in two weeks' time. FINAL DIAGNOSES: Cellulitis of the left leg, history of hypertension, paroxysmal atrial fibrillation, chronic obstructive pulmonary disease, morbid obesity. Lars Wells MD
[2018-05-03 09:06] VITALS: O2SAT 99
== END 2018-05-02 15:40 | disposition home or self-care (01) | DRG 603 ==
LOC: C.ER 23:40 → C.5S 04-25 01:24
PROVIDERS: ADMIT Internal Medicine Cardiovascular Disease; ATTEND Internal Medicine Cardiovascular Disease
DX: L03.116 Cellulitis of left lower limb (principal); J44.1 Chronic obstructive pulmonary disease with (acute) exacerbation; Z68.43 Body mass index [BMI] 50.0-59.9, adult; L03.115 Cellulitis of right lower limb; E66.01 Morbid (severe) obesity due to excess calories; G47.33 Obstructive sleep apnea (adult) (pediatric); I10 Essential (primary) hypertension; Z86.711 Personal history of pulmonary embolism; Z87.891 Personal history of nicotine dependence; Z99.81 Dependence on supplemental oxygen; M19.042 Primary osteoarthritis, left hand; I48.0 Paroxysmal atrial fibrillation

== ENCOUNTER 2018-08-17 13:59 | Inpatient (IN) | payer BC ==
[2018-08-17 13:59] VITALS: PULSE 65; BMI 57.2
[2018-08-17 15:35] LABS: BASO % 0.2 % (0.0-2.0); EOS % 0.3 % (0.0-4.0); HEMOGLOBIN 13.3 g/dL (12.0-18.0); LYMPH # 0.9 K/uL (1.0-4.3); LYMPH % 8.3 % (20.0-40.0); MEAN CORPUSCULAR HEMOGLOBIN 29.3 pg (27.0-31.0); MEAN CORPUSCULAR HGB CONC 33.5 g/dL (33.0-37.0); MEAN PLATELET VOLUME 8.1 fL (7.2-11.7); MONO # 0.7 K/uL (0.0-0.8); MONO % 6.2 % (0.0-10.0); NEUT # 9.2 K/uL (1.8-7.0); PLATELET COUNT 186 K/uL (130-400); RBC 4.53 Mil/uL (4.40-5.90); RED CELL DISTRIBUTION WIDTH 15.3 % (11.5-14.5)
[2018-08-17 15:36] LABS: WHITE BLOOD COUNT 10.8 K/uL (4.8-10.8)
[2018-08-17 15:37] LABS: MEAN CELL VOLUME 87.4 fL (80.0-94.0)
[2018-08-17 15:44] LABS: ALB/GLOB RATIO 1.3 (1.0-2.1); ALBUMIN 3.9 g/dL (3.5-5.0); ALT/SGPT 23 U/L (21-72); AST/SGOT 25 U/L (17-59); BLOOD UREA NITROGEN 11 mg/dL (9-20); CALCIUM 8.6 mg/dl (8.6-10.4); GFR NON-AFRICAN AMERICAN > 60
[2018-08-17 15:53] LABS: B-TYPE NATRIURETIC PEPTIDE 146 pg/mL (0-900)
[2018-08-17 15:56] LABS: LYMPHOCYTE 7 % (20-40); MONOCYTE 5 % (0-10); NEUTROPHIL 88 % (50-75); PLATELET ESTIMATE NORMAL (NORMAL); TOTAL CELLS COUNTED 100
--- NOTE | 2018-08-17 16:11 | RAD ---
Date of service: 08/17/2018 PROCEDURE: CHEST RADIOGRAPH, 1 VIEW HISTORY: SOB COMPARISON: 04/25/2018. FINDINGS: LUNGS: There is low lung volume on the right with scarring in the lower lobe and shift of mediastinum to the right. There is pulmonary hyperinflation on the left. No focal consolidation. PLEURA: There is diffuse right pleural thickening and elevation of the right hemidiaphragm. No pneumothorax. CARDIOVASCULAR: The heart is normal in size. No aortic atherosclerotic calcifications present. OSSEOUS STRUCTURES: Within normal limits for the patient's age. VISUALIZED UPPER ABDOMEN: Normal. OTHER FINDINGS: None. IMPRESSION: No active pulmonary disease. Chronic scarring in the right lower lobe and right lateral pleural thickening with persistent low lung volume.
--- NOTE | 2018-08-17 16:33 | C.PDOC ---
History Of Present Illness 53 year old male with PMHx of COPD, HTN, diabetes and severe history of peripheral edema and cellulitis presents to the ED complaining of shortness of breath for 2 days. He reports he woke up this morning with productive cough, fever and chills. He also notes swelling, redness, and drainage in his legs for the last several days. Denies any other associated symptoms. Time Seen by Provider: 08/17/18 14:27 Chief Complaint (Nursing): Shortness Of Breath History Per: Patient History/Exam Limitations: no limitations Onset/Duration Of Symptoms: Days Current Symptoms Are (Timing): Still Present Associated Symptoms: Fever, Chills, Productive Cough, Ankle/Leg Swelling Past Medical History Reviewed: Historical Data, Nursing Documentation, Vital Signs Vital Signs: Last Vital Signs Temp 101.8 F H 08/17/18 15:37 Pulse 82 08/17/18 15:37 Resp 22 08/17/18 14:05 BP 133/61 08/17/18 14:05 Pulse Ox 98 08/17/18 15:37 - Medical History PMH: Anemia, Arthritis (L HAND FFX), Atrial Fibrillation, COPD (oxygen dependent 2-3 l/min), Fractures (Left hand), HTN, Peripheral Edema, Pneumonia Denies: Chronic Kidney Disease Surgical History: Appendectomy - [facility] Procedures ASSISTANCE WITH RESPIRATORY VENTILATION, <24 HRS, CPAP (04/10/15) DRAINAGE OF R PLEURAL CAV WITH DRAIN DEV, PERC APPROACH (04/10/15) EXTRACTION OF RIGHT PLEURA, PERCUTANEOUS ENDOSCOPIC APPROACH (04/10/15) HOME MANAGEMENT TREATMENT (05/20/15) INSPECTION OF TRACHEOBRONCHIAL TREE, ENDO (04/10/15) INTRODUCE OF OTH THERAP SUBST INTO RESP TRACT, VIA OPENING (05/20/15) THERAPEUTIC EXERCISE TREATMENT OF MUSCULOSK WHOLE (05/20/15) Family History: States: No Known Family Hx - Social History Hx Alcohol Use: No Hx Substance Use: No - Immunization History Hx Tetanus Toxoid Vaccination: Yes Hx Influenza Vaccination: Yes Hx Pneumococcal Vaccination: Yes Review Of Systems Constitutional: Positive for: Fever, Chills Cardiovascular: Positive for: Edema (pedal edema ) Respiratory: Positive for: Cough, Shortness of Breath Gastrointestinal: Negative for: Nausea, Vomiting, Abdominal Pain, Diarrhea Genitourinary: Negative for: Dysuria, Hematuria Skin: Negative for: Rash Physical Exam - Physical Exam Appears: Non-toxic, No Acute Distress, Other (morbidly obese, coughing and pro ducing white phlegm, febrile ) Skin: Warm, Dry, No Rash Head: Normacephalic Eye(s): bilateral: Normal Inspection Nose: Normal Oral Mucosa: Moist Neck: Supple Chest: Symmetrical Cardiovascular: Rhythm Regular Respiratory: Normal Breath Sounds, No Rales, No Rhonchi, No Wheezing Gastrointestinal/Abdominal: Soft, No Tenderness Extremity: Tenderness (left ankle to left mid calf ), Pedal Edema (tense edema B/L), Other (scaling and weeping skin in lower extremities with stasis pigmentation) Neurological/Psych: Oriented x3, Normal Speech ED Course And Treatment - Laboratory Results Result Diagrams: 08/17/18 15:29 08/17/18 15:29 Lab Results: NT-Pro-B Natriuret Pep 146 pg/mL (0-900) 08/17/18 15:29 Total Bilirubin 0.5 mg/dL (0.2-1.3) 08/17/18 15:29 AST 25 U/L (17-59) 08/17/18 15:29 ALT 23 U/L (21-72) 08/17/18 15:29 Alkaline Phosphatase 65 U/L (38-126) 08/17/18 15:29 Total Protein 6.9 g/dL (6.3-8.3) 08/17/18 15:29 Albumin 3.9 g/dL (3.5-5.0) 08/17/18 15:29 Globulin 3.0 gm/dL (2.2-3.9) 08/17/18 15:29 Albumin/Globulin Ratio 1.3 (1.0-2.1) 08/17/18 15:29 Lab Interpretation: No Acute Changes ECG: Interpreted By Me ECG Rhythm: Sinus Rhythm, R BBB ECG Interpretation: No Acute Changes O2 Sat by Pulse Oximetry: 98 (RA) Pulse Ox Interpretation: Normal - Other Rad CXR X-Ray: Viewed By Me, Read By Radiologist Interpretation: Accession No. : [id number]. Patient Name / ID : ARCELIA ALVARENGA / [id number]. Exam Date : 08/17/2018 15:31:47 ( Approved ). Study Comment : Sex / Age : M / 53Y. Creator : Marisela Theodore MD. Dictator : Marisela Theodore MD. Reed Cleaner : Wheel Cleaner : Marisela Theodore MD. Approver2 : Report Date : 08/17/2018 16:07:44. My Comment : . Date of service: 08/17/2018. PROCEDURE: CHEST RADIOGRAPH, 1 VIEW. HISTORY: SOB. COMPARISON: 04/25/2018. FINDINGS: LUNGS: There is low lung volume on the right with scarring in the lower lobe and shift of mediastinum to the right. There is pulmonary hyperinflation on the left. No focal consolidation. PLEURA: There is diffuse right pleural thickening and elevation of the right hemidiaphragm. No pneumothorax. CARDIOVASCULAR: The heart is normal in size. No aortic atherosclerotic calcifications present. OSSEOUS STRUCTURES: Within normal limits for the patient's age. VISUALIZED UPPER ABD OMEN: Normal. OTHER FINDINGS: None. IMPRESSION: No active pulmonary disease. Chronic scarring in the right lower lobe and right lateral pleural thickening with persistent low lung volume. Reevaluation Time: 17:19 Reassessment Condition: Improved (Patient resting comfortably) - Physician Consult Information Time Consulting Physician Contacted: 17:19 Physician Contacted: Lars Wells Outcome Of Conversation: Patient well known to him and will be admitted for exacerbation COPD with respiratory infection and cellulitis. Dr Turk notified. Medical Decision Making Medical Decision Making: Plan - EKG - Tylenol 975mg PO - Influenza A B - Bloodwork - CXR Disposition - Disposition Disposition: HOSPITALIZED Disposition Time: 17:21 Condition: FAIR - POA Present On Arrival: None - Clinical Impression Clinical Impression: Dyspnea, Chronic obstructive lung disease, Cellulitis, leg - Scribe Statement The provider has reviewed the documentation as recorded by the Addisibchetan Perez All medical record entries made by the Scribe were at my direction and personally dictated by me. I have reviewed the chart and agree that the record accurately reflects my personal performance of the history, physical exam, medical decision making, and the department course for this patient. I have also personally directed, reviewed, and agree with the discharge instructions and disposition.
--- NOTE | 2018-08-17 17:55 | CP.PCM.CON ---
History of Present Illness - History of Present Illness History of Present Illness: Reason for consultation: Cough and shortness of breath Patient is a 53 y/o male with PMHx of COPD, past empyema, VAT/decort ication procedure in 2016, who presented to the ED with complaint of SOB and cough for the past 2 days. Also complaining of swelling, redness and oozing from both lower extremities. PMHx: Anemia, Arthrtis (L hand FFX), A-Fib, COPD, HTN, Perhipheral Edema, [place] PSHx: VATS procedure, Appendectomy Meds: Unknown, but currently on Duoneb, Rocephin, Lovenox, Lasix, Solumedrol, Bystolic, KCl FHx: States [facility] Allergies: denies, NKDA Social: denies tobacco, alcohol, and drug use. Review of Systems - Review of Systems All systems: reviewed and no additional remarkable complaints except (Complaining of swelling of legs, cough and shortness of breath) Past Patient History - Infectious Disease Hx of Infectious Diseases: None - Past Medical History & Family History Past Medical History?: Yes - Past Social History Smoking Status: Former Smoker - CARDIAC Hx Atrial Fibrillation: Yes Hx Hypertension: Yes Hx Peripheral Edema: Yes - PULMONARY Hx Chronic Obstructive Pulmonary Disease (COPD): Yes (oxygen dependent 2-3 l/min) Hx Pneumonia: Yes - NEUROLOGICAL Hx Neurological Disorder: No - HEENT Hx HEENT Problems: No - RENAL Hx Chronic Kidney Disease: No - ENDOCRINE/METABOLIC Hx Endocrine Disorders: No - HEMATOLOGICAL/ONCOLOGICAL Hx Anemia: Yes - INTEGUMENTARY Hx Dermatological Problems: No - MUSCULOSKELETAL/RHEUMATOLOGICAL Hx Arthritis: Yes (L HAND FFX) Hx Fractures: Yes (Left hand) - GASTROINTESTINAL Hx Gastrointestinal Disorders: No - GENITOURINARY/GYNECOLOGICAL Hx Genitourinary Disorders: No - PSYCHIATRIC Hx Substance Use: No - SURGICAL HISTORY Hx Appendectomy: Yes - ANESTHESIA Hx Anesthesia: Yes Hx Anesthesia Reactions: No Hx Malignant Hyperthermia: No Meds Allergies/Adverse Reactions: Allergies Allergy/AdvReac Type Severity Reaction Status Date / Time No Known Allergies Allergy Verified 04/24/18 23:54 - Medications Medications: Current Medications Albuterol/Ipratropium (Duoneb 3 Mg/0.5 Mg (3 Ml) Ud) 3 ml INH RQ6 ANISH Arformoterol Tartrate (Brovana) 15 mcg INH RQ12 ANISH Physical Exam - Head Exam Head Exam: ATRAUMATIC, NORMOCEPHALIC - ENT Exam ENT Exam: Mucous Membranes Moist - Neck Exam Neck exam: Positive for: Normal Inspection - Respiratory Exam Respiratory Exam: Decreased Breath Sounds - Cardiovascular Exam Cardiovascular Exam: REGULAR RHYTHM - GI/Abdominal Exam GI & Abdominal Exam: Normal Bowel Sounds, Soft - Extremities Exam Extremities exam: Positive for: pedal edema - Neurological Exam Neurological exam: Alert, Oriented x3 Results - Vital Signs Recent Vital Signs: Last Vital Signs Temp 100.9 F H 08/17/18 17:22 Pulse 82 08/17/18 17:22 Resp 22 08/17/18 14:05 BP 114/50 L 08/17/18 17:22 Pulse Ox 98 08/17/18 17:22 - Labs Result Diagrams: 08/17/18 15:29 08/17/18 15:29 Labs: Laboratory Results - last 24 hr 08/17/18 08/17/18 08/17/18 15:29 15:29 17:20 WBC 10.8 D RBC 4.53 Hgb 13.3 Hct 39.6 MCV 87.4 D MCH 29.3 MCHC 33.5 RDW 15.3 H Plt Count 186 MPV 8.1 Neut % (Auto) 85.0 H Lymph % (Auto) 8.3 L [place] % (Auto) 6.2 Eos % (Auto) 0.3 Baso % (Auto) 0.2 Neut # (Auto) 9.2 H Lymph # (Auto) 0.9 L [place] # (Auto) 0.7 Eos # (Auto) 0.0 Baso # (Auto) 0.0 Neutrophils % (Manual) 88 H Lymphocytes % (Manual) 7 L Monocytes % (Manual) 5 Platelet Estimate Normal Sodium 137 Potassium 3.9 Chloride 99 Carbon Dioxide 30 Anion Gap 12 BUN 11 Creatinine 0.8 Est GFR ( Amer) > 60 Est GFR (Non-Af Amer) > 60 Random Glucose 132 H Calcium 8.6 Total Bilirubin 0.5 AST 25 ALT 23 Alkaline Phosphatase 65 NT-Pro-B Natriuret Pep 146 Total Protein 6.9 Albumin 3.9 Globulin 3.0 Albumin/Globulin Ratio 1.3 Influenza Typ A,B (EIA) Negative for flu a/b Assessment & Plan (1) Cellulitis, leg Status: Acute (2) Chronic obstructive lung disease Status: Chronic
[2018-08-17] MEDS ORDERED: Vancomycin 1 gm/NS 200 ml 1 GM/200 ML BAG IVPB STA (17:57)
[2018-08-17] MEDS ORDERED: Arformoterol 15 mcg/2 ml Inh Sol INH SCH (20:00)
[2018-08-17] MEDS: Albuterol-Ipratrop 3 mg / 0.5 (3 ml) UD INH SCH (20:05)
[2018-08-17] MEDS: Piperacill/Tazo 3.375gm in Dex 3.375 GM/50 ML BAG IVPB SCH (20:23)
--- NOTE | 2018-08-17 22:40 | CP.PCM.CON ---
History of Present Illness - History of Present Illness History of Present Illness: 53 y/o male presents to ED with severe swelling / pain lower extremities Severe cellulitis left leg worsening over last several days assoc with painful swelling, redness and oozing from both lower extremities. Allergies: denies, NKDA Social: denies tobacco, alcohol, and drug use. - Medical History PMH: Atrial Fibrillation, COPD, HTN, Peripheral Edema, Pneumonia Denies: Chronic Kidney Disease Surgical History: Appendectomy VATS /Decorttication - [facility] Procedures ASSISTANCE WITH RESPIRATORY VENTILATION, <24 HRS, CPAP (04/10/15) DRAINAGE OF R PLEURAL CAV WITH DRAIN DEV, PERC APPROACH (04/10/15) EXTRACTION OF RIGHT PLEURA, PERCUTANEOUS ENDOSCOPIC APPROACH (04/10/15) HOME MANAGEMENT TREATMENT (05/20/15) INSPECTION OF TRACHEOBRONCHIAL TREE, ENDO (04/10/15) INTRODUCE OF OTH THERAP SUBST INTO RESP TRACT, VIA OPENING (05/20/15) THERAPEUTIC EXERCISE TREATMENT OF MUSCULOSK WHOLE (05/20/15) Review of Systems - Constitutional Constitutional: As Per HPI - EENT Eyes: absent: As Per HPI, Blind Spots, Blurred Vision, Change in Vision, Decreased Night Vision, Diplopia, Discharge, Dry Eye, Exophthalmos, Floaters, Irritation, Itchy Eyes, Loss of Peripheral Vision, Pain, Photophobia, Requires Corrective Lenses, Sees Flashes, Spots in Vision, Tunnel Vision, Other Visual Disturbances, Loss of Vision, Other Ears: absent: As Per HPI, Decreased Hearing, Ear Discharge, Ear Pain, Tinnitus, Abnormal Hearing, Disequilibrium, Dizziness, Other Nose/Mouth/Throat: absent: As Per HPI, Epistaxis, Nasal Congestion, Nasal Discharge, Nasal Obstruction, Nasal Trauma, Nose Pain, Post Nasal Drip, Sinus Pain, Sinus Pressure, Bleeding Gums, Change in Voice, Dental Pain, Dry Mouth, Dysphagia, Halitosis, Hoarsness, Lip Swelling, Mouth Lesions, Mouth Pain, Odynophagia, Sore Throat, Throat Swelling, Tongue Swelling, Facial Pain, Neck Pain, Neck Mass, Other - Cardiovascular Cardiovascular: As Per HPI - Respiratory Respiratory: absent: As Per HPI, Cough, Dyspnea, Hemoptysis, Dyspnea on Exertion, Wheezing, Snoring, Stridor, Pain on Inspiration, Chest Congestion, Excessive Mucous Production, Change in Mucous Color, Pain with Coughing, Other - Gastrointestinal Gastrointestinal: absent: As Per HPI, Abdominal Pain, Belching, Bloating, Change in Bowel Habits, Change in Stool Character, Coffee Ground Emesis, Constipation, Cramping, Diarrhea, Dyspepsia, Dysphagia, Early Satiety, Excessive Flatus, Fecal Incontinence, Heartburn, Hematemesis, Hematochezia, Loose Stools, Melena, Nausea, Odynophagia, Temesmus, Vomiting, Other - Genitourinary Genitourinary: absent: As Per HPI, Change in Urinary Stream, Difficulty Urinating, Dysuria, Flank Pain, Hematuria, Pyuria, Nocturia, Urinary Incontinence, Urinary Frequency, Urinary Hesitance, Urinary Urgency, Voiding Freq/Small Amts, Freq UTI, Hx Renal/Bladder Calculi, Hx /Renal Surgery, Bladder Distension, Other - Musculoskeletal Musculoskeletal: As Per HPI - Integumentary Integumentary: As Per HPI, Skin Pain, Wounds - Neurological Neurological: absent: As Per HPI, Abnormal Gait, Abnormal Hearing, Abnormal Movements, Abnormal Speech, Behavioral Changes, Burning Sensations, Confusion, Convulsions, Disequilibrium, Dizziness, Numbness, Focal Weakness, Frequent Fa lls, Headaches, Lack of Coordination, Loss of Vision, Memory Loss, Paresthesias, Radicular Pain, Restless Legs, Sensory Deficit, Syncope, Tingling, Tremor, Vertigo, Weakness, Other Visual Disturbances, Other - Psychiatric Psychiatric: absent: As Per HPI, Abnormal Sleep Pattern, Anhedonia, Anxiety, Auditory Hallucinations, Behavioral Changes, Change in Appetite, Change in Libido, Confusion, Depression, Difficulty Concentrating, Hallucinations, Homicidal Ideation, Hopelessness, Irritability, Memory Loss, Mood Swings, Panic Attacks, Paranoia, Suicidal Ideation, Visual Hallucinations, Tactile Hallucinations, Other - Endocrine Endocrine: absent: As Per HPI, Change in Body Appearance, Change in Libido, Cold Intolorance, Deepening of Voice, Excessive Sweating, Fatigue, Flushing, Heat Intolorance, Increase in Ring/Shoe/Hat Size, Palpitations, Polydipsia, Polyphagia, Polyuria, Other - Hematologic/Lymphatic Hematologic: absent: As Per HPI, Easy Bleeding, Easy Bruising, Lymphadenopathy, Other Past Patient History - Infectious Disease Hx of Infectious Diseases: None - Past Medical History & Family History Past Medical History?: Yes - Past Social History Smoking Status: Former Smoker - CARDIAC Hx Atrial Fibrillation: Yes Hx Hypertension: Yes Hx Peripheral Edema: Yes - PULMONARY Hx Chronic Obstructive Pulmonary Disease (COPD): Yes (oxygen dependent 2-3 l/min) Hx Pneumonia: Yes - NEUROLOGICAL Hx Neurological Disorder: No - HEENT Hx HEENT Problems: No - RENAL Hx Chronic Kidney Disease: No - ENDOCRINE/METABOLIC Hx Endocrine Disorders: No - HEMATOLOGICAL/ONCOLOGICAL Hx Anemia: Yes - INTEGUMENTARY Hx Dermatological Problems: No - MUSCULOSKELETAL/RHEUMATOLOGICAL Hx Arthritis: Yes (L HAND FFX) Hx Fractures: Yes (Left hand) - GASTROINTESTINAL Hx Gastrointestinal Disorders: No - GENITOURINARY/GYNECOLOGICAL Hx Genitourinary Disorders: No - PSYCHIATRIC Hx Substance Use: No - SURGICAL HISTORY Hx Appendectomy: Yes - ANESTHESIA Hx Anesthesia: Yes Hx Anesthesia Reactions: No Hx Malignant Hyperthermia: No Meds Allergies/Adverse Reactions: Allergies Allergy/AdvReac Type Severity Reaction Status Date / Time No Known Allergies Allergy Verified 04/24/18 23:54 - Medications Medications: Current Medications Acetaminophen (Tylenol 325mg Tab) 650 mg PO Q6 PRN PRN Reason: Fever >100.4 F Last Admin: 08/17/18 21:20 Dose: 650 mg Albuterol/Ipratropium (Duoneb 3 Mg/0.5 Mg (3 Ml) Ud) 3 ml INH RQ6 ANISH Last Admin: 08/17/18 20:05 Dose: 3 ml Arformoterol Tartrate (Brovana) 15 mcg INH RQ12 ANISH Furosemide (Lasix) 40 mg PO DAILY ANISH Piperacillin Sod/Tazobactam Sod (Zosyn 3.375 Gm Iv Premix) 3.375 gm in 50 mls @ 100 mls/hr IVPB Q8H ANISH; Protocol Last Admin: 08/17/18 20:23 Dose: 100 mls/hr Nebivolol (Bystolic) 5 mg PO DAILY ANISH Pantoprazole Sodium (Protonix Ec Tab) 40 mg PO DAILY ANISH Physical Exam - Constitutional Appears: Non-toxic, No Acute Distress, Chronically Ill - Head Exam Head Exam: ATRAUMATIC, NORMAL INSPECTION, NORMOCEPHALIC - Eye Exam Eye Exam: PERRL (x). absent: Scleral icterus Pupil Exam: NORMAL ACCOMODATION - ENT Exam ENT Exam: Mucous Membranes Dry, Normal External Ear Exam - Neck Exam Neck exam: Negative for: Lymphadenopathy - Respiratory Exam Respiratory Exam: Decreased Breath Sounds, Prolonged Expiratory Phase, Rhonchi - Cardiovascular Exam Cardiovascular Exam: REGULAR RHYTHM, +S1, +S2 - GI/Abdominal Exam GI & Abdominal Exam: Diminished Bowel Sounds, Soft. absent: Tenderness - Rectal Exam Rectal Exam: Deferred - Exam Exam: NORMAL INSPECTION - Extremities Exam Extremities exam: Positive for: calf tenderness, pedal edema, pedal pulses present - Back Exam Back exam: absent: CVA tenderness (L), CVA tenderness (R) - Neurological Exam Neurological exam: Alert, CN II-XII Intact, Oriented x3, Reflexes Normal - Psychiatric Exam Psychiatric exam: Depressed - Skin Skin Exam: Dry, Erythema Additional comments: redness and swelling both legs Results - Vital Signs Recent Vital Signs: Last Vital Signs Temp 102.6 F H 08/17/18 21:20 Pulse 82 08/17/18 20:08 Resp 22 08/17/18 18:24 BP 116/60 08/17/18 18:24 Pulse Ox 100 08/17/18 18:24 - Labs Result Diagrams: 08/17/18 15:29 08/17/18 15:29 Labs: Laboratory Results - last 24 hr 08/17/18 08/17/18 08/17/18 15:29 15:29 17:20 WBC 10.8 D RBC 4.53 Hgb 13.3 Hct 39.6 MCV 87.4 D MCH 29.3 MCHC 33.5 RDW 15.3 H Plt Count 186 MPV 8.1 Neut % (Auto) 85.0 H Lymph % (Auto) 8.3 L [place] % (Auto) 6.2 Eos % (Auto) 0.3 Baso % (Auto) 0.2 Neut # (Auto) 9.2 H Lymph # (Auto) 0.9 L [place] # (Auto) 0.7 Eos # (Auto) 0.0 Baso # (Auto) 0.0 Neutrophils % (Manual) 88 H Lymphocytes % (Manual) 7 L Monocytes % (Manual) 5 Platelet Estimate Normal Sodium 137 Potassium 3.9 Chloride 99 Carbon Dioxide 30 Anion Gap 12 BUN 11 Creatinine 0.8 Est GFR ( Amer) > 60 Est GFR (Non-Af Amer) > 60 Random Glucose 132 H Calcium 8.6 Total Bilirubin 0.5 AST 25 ALT 23 Alkaline Phosphatase 65 NT-Pro-B Natriuret Pep 146 Total Protein 6.9 Albumin 3.9 Globulin 3.0 Albumin/Globulin Ratio 1.3 Influenza Typ A,B (EIA) Negative for flu a/b Assessment & Plan (1) Cellulitis, leg Status: Acute (2) Chronic obstructive lung disease Status: Chronic (3) Left leg cellulitis Status: Acute (4) MIKEY (obstructive sleep apnea) Status: Acute (5) A-fib Status: Chronic (6) HTN (hypertension) Status: Chronic (7) Morbid obesity with BMI of 60.0-69.9, adult Status: Chronic Priority: Medium (8) Venous stasis dermatitis of both lower extremities Status: Chronic - Assessment and Plan (Free Text) Assessment: cont IV rx and wound care await cultures
[2018-08-18] MEDS ORDERED: Sodium Chloride 0.9% 500 ML IV ONE ×2 (00:25→02:17)
[2018-08-18] MEDS: Albuterol-Ipratrop 3 mg / 0.5 (3 ml) UD INH SCH ×4 (01:23→19:33)
[2018-08-18] MEDS: Piperacill/Tazo 3.375gm in Dex 3.375 GM/50 ML BAG IVPB SCH ×3 (02:19→18:27)
[2018-08-18] MEDS: Pantoprazole 40 mg EC Tab PO SCH (09:05)
[2018-08-18] MEDS: Enoxaparin 40 mg Syringe SC SCH (10:14)
--- NOTE | 2018-08-18 16:46 | CP.PCM.CON ---
<Yemi Ma - Last Filed: 08/18/18 16:42> History of Present Illness - History of Present Illness History of Present Illness: Podiatry Consult Note: Dr. Servin 53 year old male with PMHx of Atrial Fibrillation, COPD, HTN, Peripheral Edema, Pneumonia, OM was evaluated for redness and swelling on bilateral LE. Patient reports that he was doing well but recently he was taken off the diuretics by his PCP. States that couple of days ago he woke up with swelling and redness on bilateral LE. States that his sheets were really wet from oozing from his legs. Patient denies of having any pain to the extremity today. States that he came to the ED yesterday for the redness and swelling. Reports that he had fever yesterday but is feeling better today. Denies of having any N/V/C/SOB/CP/headach e. No other pedal complains at this time. PMHx: Atrial Fibrillation, COPD, HTN, Peripheral Edema, Pneumonia, OM PSHx: Appendectomy, Chest surgery. Allergies: NKDA Social Hx: Ex-smoker (Stopped 3 years ago after 20 years 2 ppd smoking), Denies EtOH or illicit drug use. Review of Systems - Constitutional Constitutional: As Per HPI Past Patient History - Infectious Disease Hx of Infectious Diseases: None - Past Medical History & Family History Past Medical History?: Yes - Past Social History Smoking Status: Former Smoker - CARDIAC Hx Atrial Fibrillation: Yes Hx Hypertension: Yes Hx Peripheral Edema: Yes - PULMONARY Hx Chronic Obstructive Pulmonary Disease (COPD): Yes (oxygen dependent 2-3 l/min) Hx Pneumonia: Yes - NEUROLOGICAL Hx Neurological Disorder: No - HEENT Hx HEENT Problems: No - RENAL Hx Chronic Kidney Disease: No - ENDOCRINE/METABOLIC Hx Endocrine Disorders: No - HEMATOLOGICAL/ONCOLOGICAL Hx Anemia: Yes - INTEGUMENTARY Hx Dermatological Problems: No - MUSCULOSKELETAL/RHEUMATOLOGICAL Hx Falls: No - GASTROINTESTINAL Hx Gastrointestinal Disorders: No - GENITOURINARY/GYNECOLOGICAL Hx Genitourinary Disorders: No - PSYCHIATRIC Hx Substance Use: No - SURGICAL HISTORY Hx Appendectomy: Yes (1985) - ANESTHESIA Hx Anesthesia: Yes Hx Anesthesia Reactions: No Hx Malignant Hyperthermia: No Meds Allergies/Adverse Reactions: Allergies Allergy/AdvReac Type Severity Reaction Status Date / Time No Known Allergies Allergy Verified 04/24/18 23:54 - Medications Medications: Current Medications Acetaminophen (Tylenol 325mg Tab) 650 mg PO Q6 PRN PRN Reason: Fever >100.4 F Last Admin: 08/17/18 21:20 Dose: 650 mg Albuterol/Ipratropium (Duoneb 3 Mg/0.5 Mg (3 Ml) Ud) 3 ml INH RQ6 [facility] Last Admin: 08/18/18 13:25 Dose: 3 ml Arformoterol Tartrate (Brovana) 15 mcg INH RQ12@1000,2200 [facility] Enoxaparin Sodium (Lovenox) 40 mg SC DAILY [facility] Last Admin: 08/18/18 10:14 Dose: 40 mg Furosemide (Lasix) 40 mg IVP BID [facility] Piperacillin Sod/Tazobactam Sod (Zosyn 3.375 Gm Iv Premix) 3.375 gm in 50 mls @ 100 mls/hr IVPB Q8H [facility]; Protocol Last Admin: 08/18/18 11:19 Dose: 100 mls/hr Nebivolol (Bystolic) 5 mg PO DAILY [facility] Last Admin: 08/18/18 09:05 Dose: Not Given Pantoprazole Sodium (Protonix Ec Tab) 40 mg PO DAILY [facility] Last Admin: 08/18/18 09:05 Dose: 40 mg Physical Exam - Constitutional Appears: Well, Non-toxic, No Acute Distress - Extremities Exam Additional comments: B/L LE focused exam: VASC: DP/PT pulses 2/4 b/l. Cap refill <3 seconds to digits. +2 pitting edema noted b/l with L>R. Temperature gradient warm to processing supervisor the left side and warm to cool on the right side from proximal to distal. Erythema noted along the bilateral LE which extends distal to the tibial tuberosity. NEURO: Gross and protective sensations are intact. DERM: Significant lower extremity Chronic stasis edema noted with L > R. Skin changes in the form of hyperpigmentation and lichnification of the legs noted. Superficial ulceration noted on the lower lateral part of left leg and anterior aspect of the right leg that shows epidermal lysis, mild serous drainage with no purulence, no malodor, no tunneling, no probe to bone MSK: Pedal muscle strength graded 5/5 in all groups. Mild limited ankle joint ROM to dorsiflexion b/l. Pain on palpation of the left leg. Pain on squeezing the left calf muscle. - Neurological Exam Neurological exam: Alert, Oriented x3 - Psychiatric Exam Psychiatric exam: Normal Affect, Normal Mood Results - Vital Signs Recent Vital Signs: Last Vital Signs Temp 98.2 F 08/18/18 15:00 Pulse 67 08/18/18 15:00 Resp 20 08/18/18 15:00 BP 129/83 08/18/18 15:00 Pulse Ox 97 08/18/18 15:00 - Labs Result Diagrams: 08/17/18 15:29 08/17/18 15:29 Labs: Laboratory Results - last 24 hr 08/17/18 17:20 Influenza Typ A,B (EIA) Negative for flu a/b Assessment & Plan - Assessment and Plan (Free Text) Assessment: 53 y/o M patient seen and evaluated at bedside for cellulitis of B/L lower extremities Plan: Pt seen and evaluated at the bedside Discussed plan with attending Dr. Servin Chart, labs, and vitals reviewed - absent leukocytosis Wound culture: Pending IV abx as per ID Dressing applied using Xeroform, ABD, DSD, JESSICA Ordered LLE venous duplex: Pending No surgical intervention from podiatry standpoint Will continue to provide local wound care Thank you for allowing to take part in patient care - Date & Time Date: 08/18/18 Time: 16:53 <Giorgio Servin - Last Filed: 08/18/18 21:58> Meds - Medications Medications: Current Medications Acetaminophen (Tylenol 325mg Tab) 650 mg PO Q6 PRN PRN Reason: Fever >100.4 F Last Admin: 08/17/18 21:20 Dose: 650 mg Albuterol/Ipratropium (Duoneb 3 Mg/0.5 Mg (3 Ml) Ud) 3 ml INH RQ6 [facility] Last Admin: 08/18/18 19:33 Dose: 3 ml Arformoterol Tartrate (Brovana) 15 mcg INH RQ12@1000,2200 [facility] Enoxaparin Sodium (Lovenox) 40 mg SC DAILY [facility] Last Admin: 08/18/18 10:14 Dose: 40 mg Furosemide (Lasix) 40 mg IVP BID [facility] Last Admin: 08/18/18 18:26 Dose: 40 mg Piperacillin Sod/Tazobactam Sod (Zosyn 3.375 Gm Iv Premix) 3.375 gm in 50 mls @ 100 mls/hr IVPB Q8H [facility]; Protocol Last Admin: 08/18/18 18:27 Dose: 100 mls/hr Nebivolol (Bystolic) 5 mg PO DAILY [facility] Last Admin: 08/18/18 09:05 Dose: Not Given Pantoprazole Sodium (Protonix Ec Tab) 40 mg PO DAILY [facility] Last Admin: 08/18/18 09:05 Dose: 40 mg Results - Vital Signs Recent Vital Signs: Last Vital Signs Temp 98.2 F 08/18/18 15:00 Pulse 67 08/18/18 15:00 Resp 20 08/18/18 15:00 BP 128/62 08/18/18 18:26 Pulse Ox 97 08/18/18 15:00 - Labs Result Diagrams: 08/17/18 15:29 08/17/18 15:29 Assessment & Plan - Assessment and Plan (Free Text) Plan: Agree with above findings . We will follow patient while in house ./Dr Letha Servin
--- NOTE | 2018-08-18 17:50 | CP.PCM.PN ---
Subjective - Date & Time of Evaluation Date of Evaluation: 08/18/18 Time of Evaluation: 09:00 - Subjective Subjective: 53 y/o male presents to ED with severe swelling / pain lower extremities Severe cellulitis left leg worsening over last several days assoc with painful swelling, redness and oozing from both lower extremities. - Medical History PMH: Atrial Fibrillation, COPD, HTN, Peripheral Edema, Pneumonia Denies: Chronic Kidney Disease Surgical History: Appendectomy VATS /Decorttication Objective - Vital Signs/Intake and Output Vital Signs (last 24 hours): Temp Pulse Resp BP Pulse Ox 98.2 F 67 20 129/83 97 08/18/18 15:00 08/18/18 15:00 08/18/18 15:00 08/18/18 15:00 08/18/18 15:00 Intake and Output: 08/18/18 08/18/18 06:59 18:59 Intake Total 1650 50 Balance 1650 50 - Medications Medications: Current Medications Acetaminophen (Tylenol 325mg Tab) 650 mg PO Q6 PRN PRN Reason: Fever >100.4 F Last Admin: 08/17/18 21:20 Dose: 650 mg Albuterol/Ipratropium (Duoneb 3 Mg/0.5 Mg (3 Ml) Ud) 3 ml INH RQ6 [facility] Last Admin: 08/18/18 13:25 Dose: 3 ml Arformoterol Tartrate (Brovana) 15 mcg INH RQ12@1000,2200 [facility] Enoxaparin Sodium (Lovenox) 40 mg SC DAILY [facility] Last Admin: 08/18/18 10:14 Dose: 40 mg Furosemide (Lasix) 40 mg IVP BID [facility] Piperacillin Sod/Tazobactam Sod (Zosyn 3.375 Gm Iv Premix) 3.375 gm in 50 mls @ 100 mls/hr IVPB Q8H [facility]; Protocol Last Admin: 08/18/18 11:19 Dose: 100 mls/hr Nebivolol (Bystolic) 5 mg PO DAILY [facility] Last Admin: 08/18/18 09:05 Dose: Not Given Pantoprazole Sodium (Protonix Ec Tab) 40 mg PO DAILY [facility] Last Admin: 08/18/18 09:05 Dose: 40 mg - Labs Labs: 08/17/18 15:29 08/17/18 15:29 - Constitutional Appears: Non-toxic, No Acute Distress, Chronically Ill - Head Exam Head Exam: ATRAUMATIC, NORMAL INSPECTION, NORMOCEPHALIC - Eye Exam Eye Exam: EOMI, Normal appearance, PERRL Pupil Exam: NORMAL ACCOMODATION, PERRL - ENT Exam ENT Exam: Mucous Membranes Moist, Normal Exam - Neck Exam Neck Exam: Full ROM, Normal Inspection. absent: Lymphadenopathy - Respiratory Exam Respiratory Exam: Decreased Breath Sounds, Prolonged Expiratory Phase - Cardiovascular Exam Cardiovascular Exam: REGULAR RHYTHM, +S1, +S2. absent: Murmur - GI/Abdominal Exam GI & Abdominal Exam: Soft, Normal Bowel Sounds. absent: Tenderness - Rectal Exam Rectal Exam: Deferred - Extremities Exam Extremities Exam: Full ROM, Normal Capillary Refill, Normal Inspection. absent: Joint Swelling, Pedal Edema - Back Exam Back Exam: NORMAL INSPECTION - Neurological Exam Neurological Exam: Alert, Awake, CN II-XII Intact, Normal Gait, Oriented x3 - Psychiatric Exam Psychiatric exam: Normal Affect, Normal Mood - Skin Skin Exam: Dry, Erythema, Intact. absent: Normal Color Assessment and Plan (1) Cellulitis, leg Status: Acute (2) Chronic obstructive lung disease Status: Chronic (3) Left leg cellulitis Status: Acute (4) MIKEY (obstructive sleep apnea) Status: Acute (5) A-fib Status: Chronic (6) HTN (hypertension) Status: Chronic (7) Morbid obesity with BMI of 60.0-69.9, adult Status: Chronic (8) Venous stasis dermatitis of both lower extremities Status: Chronic - Assessment and Plan (Free Text) Assessment: cont iv antibiotics and wound care resp rx as per dr trotter /? vascular studies May need CPAP
--- NOTE | 2018-08-18 18:20 | CP.PCM.PN ---
Subjective - Date & Time of Evaluation Date of Evaluation: 08/18/18 Time of Evaluation: 10:00 - Subjective Subjective: Patient was seen and examined at bedside. Patient complains of SOB and lower leg pain. He states he woke up gasping for air lat night and it took 30 mins for the SOB to resolve. O: General: chronically ill, morbidly obese, mild distress HEENT: atraumatic, normocephalic, moist mucus membranes Cardio: regular rhythm Pulm: decrease breath sounds GI: normal bowel sounds, soft, -guarding Extremities: cellulitis in bilateral legs associated with chronic venous stasis A: Patient is a 53 y/o male with PMHx of COPD, past empyema, VAT/decortication procedure in 2016, who presented to the ED with complaint of SOB and cough for the past 2 days. Also complaining of swelling, redness and oozing from both lower extremities. Chronic COPD Cellulitis P: consider Chest U/S to R/O fluid in the lungs. patient not a good candidate for CT scan continue lasix continue Duoneb, Brovana, and neublizer treatment monitor Peak flow pre/post treament continue antibiotics; pipercillin/tazobactum Objective - Vital Signs/Intake and Output Vital Signs (last 24 hours): Temp Pulse Resp BP Pulse Ox 98.2 F 67 20 129/83 97 08/18/18 15:00 08/18/18 15:00 08/18/18 15:00 08/18/18 15:00 08/18/18 15:00 Intake and Output: 08/18/18 08/18/18 06:59 18:59 Intake Total 1650 50 Balance 1650 50 - Medications Medications: Current Medications Acetaminophen (Tylenol 325mg Tab) 650 mg PO Q6 PRN PRN Reason: Fever >100.4 F Last Admin: 08/17/18 21:20 Dose: 650 mg Albuterol/Ipratropium (Duoneb 3 Mg/0.5 Mg (3 Ml) Ud) 3 ml INH RQ6 [facility] Last Admin: 08/18/18 13:25 Dose: 3 ml Arformoterol Tartrate (Brovana) 15 mcg INH RQ12@1000,2200 [facility] Enoxaparin Sodium (Lovenox) 40 mg SC DAILY [facility] Last Admin: 08/18/18 10:14 Dose: 40 mg Furosemide (Lasix) 40 mg IVP BID [facility] Piperacillin Sod/Tazobactam Sod (Zosyn 3.375 Gm Iv Premix) 3.375 gm in 50 mls @ 100 mls/hr IVPB Q8H [facility]; Protocol Last Admin: 08/18/18 11:19 Dose: 100 mls/hr Nebivolol (Bystolic) 5 mg PO DAILY [facility] Last Admin: 08/18/18 09:05 Dose: Not Given Pantoprazole Sodium (Protonix Ec Tab) 40 mg PO DAILY [facility] Last Admin: 08/18/18 09:05 Dose: 40 mg - Labs Labs: 08/17/18 15:29 08/17/18 15:29 Assessment and Plan (1) Cellulitis, leg Status: Acute (2) Chronic obstructive lung disease Status: Chronic
--- NOTE | 2018-08-18 19:41 | CARD ---
APPROVED REPORT Date of service: 08/17/2018 EKG Measurement Heart [id number] MI [id number] <Conclusion> Normal sinus rhythm Right bundle branch block Abnormal ECG
[2018-08-18] MEDS ORDERED: Arformoterol 15 mcg/2 ml Inh Sol INH SCH (22:00)
--- NOTE | 2018-08-18 22:55 | HP ---
HISTORY OF PRESENT ILLNESS: This 53-year-old morbidly obese gentleman with a history of COPD, paroxysmal atrial fibrillation, hypertension, was brought in with a history of cellulitis of both the legs, increasing edema and shortness of breath. He was found to have cellulitis of both the legs. Chest x-ray has shown COPD. The patient has been seen by Dr. Servin in the past. The patient is also under the care of Dr. Turk. He has sleep apnea and also on home oxygen. A few days prior to the admission, he started to experience increasing shortness of breath. Edema was getting worse. He had a weeping edema. Cellulitis was noted in the left leg. PERSONAL HISTORY: Does not smoke, does not drink. ALLERGIES: DENIED. FAMILY HISTORY: Father had coronary artery disease in his 50s. MEDICATIONS: At home include Bystolic 5 mg, Lasix 40 mg one a day, Advair. PAST MEDICAL HISTORY: History of paroxysmal atrial fibrillation, history of PE in the past, pneumonia. COPD. Recurrent admission for cellulitis of the legs. REVIEW OF SYSTEMS: No fever. Generalized weakness is noted. No headaches. No visual disturbances. No chest pain. Shortness of breath on minimal exertion, is more so in the past few days. Appetite is normal. Negative for hematemesis, melena. No nausea, no vomiting. : No urinary complaints. Musculoskeletal: Back pains, hip pains and knee pains. He walks around with a walker. Neurological: No TIAs, no CVAs. Psch: No evidence of depression. No fever, no chills. PHYSICAL EXAMINATION: GENERAL: Shows a middle-aged obese gentleman in no acute distress. He is 6 feet and weighs 460 pounds. His normal weight is around 400 pounds. VITAL SIGNS: Blood pressure is 125/59, heart rate of 80, respiratory rate of 20, temperature of 98.4. HEENT: Head is normocephalic. Eyes, no pallor, no icterus. NECK: Supple. LUNGS: Show bibasilar rales. HEART: PMI is not localized. S1, S2 is distant. Regular rhythm. ABDOMEN: Soft, nontender. EXTREMITIES: Show 3+ edema in both the lower extremities with redness noted more so on the left leg. Weeping edema is noted. Distal pulses could not be felt. NEUROLOGICAL: Awake, alert, oriented x3. No focal signs. ASSESSMENT: This 53-year-old gentleman with history of chronic obstructive pulmonary disease, hypertension, paroxysmal atrial fibrillation, has presented with cellulitis of both the legs. Fluid overload. Chronic obstructive pulmonary disease. PLAN: IV antibiotics, ID followup and podiatric followup. Lars Wells MD
[2018-08-19] MEDS: Albuterol-Ipratrop 3 mg / 0.5 (3 ml) UD INH SCH ×3 (02:13→19:47)
[2018-08-19] MEDS: Piperacill/Tazo 3.375gm in Dex 3.375 GM/50 ML BAG IVPB SCH ×3 (02:57→19:26)
[2018-08-19 08:18] LABS: BASO % 0.2 % (0.0-2.0); EOS # 0.1 K/uL (0.0-0.7); EOS % 0.9 % (0.0-4.0); HEMOGLOBIN 11.8 g/dL (12.0-18.0); LYMPH # 1.3 K/uL (1.0-4.3); LYMPH % 12.4 % (20.0-40.0); MEAN CELL VOLUME 88.2 fL (80.0-94.0); MEAN CORPUSCULAR HEMOGLOBIN 29.3 pg (27.0-31.0); MEAN CORPUSCULAR HGB CONC 33.2 g/dL (33.0-37.0); MEAN PLATELET VOLUME 8.3 fL (7.2-11.7); MONO # 0.7 K/uL (0.0-0.8); MONO % 6.9 % (0.0-10.0); NEUT # 8.2 K/uL (1.8-7.0); NEUT % 79.6 % (50.0-75.0); NRBC % 0.1 % (0.0-2.0); RBC 4.04 Mil/uL (4.40-5.90); RED CELL DISTRIBUTION WIDTH 15.2 % (11.5-14.5); WHITE BLOOD COUNT 10.3 K/uL (4.8-10.8)
[2018-08-19 08:46] LABS: ALB/GLOB RATIO 1.3 (1.0-2.1); ALBUMIN 3.3 g/dL (3.5-5.0); CALCIUM 7.7 mg/dl (8.6-10.4)
[2018-08-19] MEDS: Enoxaparin 40 mg Syringe SC SCH (09:42)
[2018-08-19] MEDS: Pantoprazole 40 mg EC Tab PO SCH (09:43)
[2018-08-19] MEDS ORDERED: Arformoterol 15 mcg/2 ml Inh Sol INH SCH (10:00)
[2018-08-19] MEDS: Arformoterol 15 mcg/2 ml Inh Sol INH SCH ×2 (10:30→21:51)
--- NOTE | 2018-08-19 11:13 | VASCLAB ---
Date of service: 08/19/2018 PROCEDURE: Lower Extremity Venous Duplex Exam. HISTORY: r/o DVT Morbid Obesity, Legs edema, Venous stasis Dx, Cellulitis. PRIORS: None. TECHNIQUE: Bilateral common femoral, femoral, popliteal and posterior tibial, peroneal and great saphenous veins were evaluated. Flow was assessed with color Doppler, compressibility, assessment of phasic flow and augmentation response. Report prepared by Mayo Gardner, T FINDINGS: RIGHT: 1. Common Femoral Vein: 1.1. Compressibility - Fully compressible: Thrombus - None : Flow - Phasic: Augmentation -Normal: Reflux - . 2. Femoral Vein: 2.1. Compressibility - Fully compressible: Thrombus - None : Flow - Phasic: Augmentation -Normal: Reflux - . 3. Popliteal Vein: 3.1. Compressibility - Fully compressible: Thrombus - None : Flow - Phasic: Augmentation -Normal: Reflux - . 4. Posterior Tibial Vein: 4.1. Compressibility - : Thrombus - : Flow - : Augmentation -: Reflux - . 5. Peroneal Vein: 5.1. Compressibility - : Thrombus - : Flow - : Augmentation -: Reflux - . 6. Great Saphenous Vein: 6.1. Compressibility - Fully compressible: Thrombus - None: Flow - Phasic: Augmentation - Normal: Reflux - . LEFT: 1. Common Femoral Vein: 1.1. Compressibility - Fully compressible: Thrombus - None: Flow - Phasic: Augmentation -Normal: Reflux - . 2. Femoral Vein: 2.1. Compressibility - Fully compressible: Thrombus - None: Flow - Phasic: Augmentation -Normal: Reflux - . 3. Popliteal Vein: 3.1. Compressibility - Fully compressible: Thrombus - None : Flow - Phasic: Augmentation -Normal: Reflux - . 4. Posterior Tibial Vein: 4.1. Compressibility - : Thrombus - : Flow - : Augmentation -: Reflux - . 5. Peroneal Vein: 5.1. Compressibility - : Thrombus - : Flow - : Augmentation -: Reflux - . 6. Great Saphenous Vein: 6.1. Compressibility - Fully compressible: Thrombus - None: Flow - Phasic: Augmentation - Normal: Reflux - . OTHER FINDINGS: Right: None significant. Left: None significant. IMPRESSION: Right: No evidence of deep or superficial vein thrombosis for those clearly visualized veins of the right lower extremity. Left: No evidence of deep or superficial vein thrombosis for those clearly visualized veins of the left lower extremity.
--- NOTE | 2018-08-19 11:14 | CP.PCM.PN ---
Subjective - Date & Time of Evaluation Date of Evaluation: 08/19/18 Time of Evaluation: 11:12 - Subjective Subjective: congested,wheezing getting worse. Objective - Vital Signs/Intake and Output Vital Signs (last 24 hours): Temp Pulse Resp BP Pulse Ox 97.5 F L 78 20 141/59 L 96 08/19/18 08:59 08/19/18 08:08 08/19/18 08:08 08/19/18 09:45 08/19/18 08:08 Intake and Output: 08/19/18 08/19/18 06:59 18:59 Intake Total 370 Balance 370 - Medications Medications: Current Medications Acetaminophen (Tylenol 325mg Tab) 650 mg PO Q6 PRN PRN Reason: Fever >100.4 F Last Admin: 08/19/18 07:59 Dose: 650 mg Albuterol/Ipratropium (Duoneb 3 Mg/0.5 Mg (3 Ml) Ud) 3 ml INH RQ6 [facility] Last Admin: 08/19/18 08:31 Dose: 3 ml Arformoterol Tartrate (Brovana) 15 mcg INH RQ12@1000,2200 [facility] Enoxaparin Sodium (Lovenox) 40 mg SC DAILY [facility] Last Admin: 08/19/18 09:42 Dose: 40 mg Furosemide (Lasix) 40 mg IVP BID [facility] Last Admin: 08/19/18 09:45 Dose: 40 mg Piperacillin Sod/Tazobactam Sod (Zosyn 3.375 Gm Iv Premix) 3.375 gm in 50 mls @ 100 mls/hr IVPB Q8H [facility]; Protocol Last Admin: 08/19/18 10:51 Dose: 100 mls/hr Nebivolol (Bystolic) 5 mg PO DAILY [facility] Last Admin: 08/19/18 09:43 Dose: 5 mg Pantoprazole Sodium (Protonix Ec Tab) 40 mg PO DAILY [facility] Last Admin: 08/19/18 09:43 Dose: 40 mg - Labs Labs: 08/19/18 08:08 08/19/18 08:08 - Constitutional Appears: No Acute Distress, Chronically Ill - Head Exam Head Exam: NORMOCEPHALIC - Neck Exam Neck Exam: Normal Inspection - Respiratory Exam Respiratory Exam: Wheezes - Cardiovascular Exam Cardiovascular Exam: REGULAR RHYTHM - GI/Abdominal Exam GI & Abdominal Exam: Soft - Extremities Exam Extremities Exam: Pedal Edema - Neurological Exam Neurological Exam: Alert, Oriented x3 Assessment and Plan - Assessment and Plan (Free Text) Plan: copd,htn.may need steroids.
[2018-08-19] MEDS: Promethazine 6.25 MG/5 ML CUP PO PRN (12:03)
--- NOTE | 2018-08-19 12:34 | CP.PCM.PN ---
Subjective - Date & Time of Evaluation Date of Evaluation: 08/19/18 Time of Evaluation: 10:00 - Subjective Subjective: Patient seen and examined Increasing cough last night productive of clear phlegm Also complaining of shortness of breath Low-grade fever Denies any chest pain Objective - Vital Signs/Intake and Output Vital Signs (last 24 hours): Temp Pulse Resp BP Pulse Ox 97.5 F L 78 20 141/59 L 96 08/19/18 08:59 08/19/18 08:08 08/19/18 08:08 08/19/18 09:45 08/19/18 08:08 Intake and Output: 08/19/18 08/19/18 06:59 18:59 Intake Total 370 Balance 370 - Medications Medications: Current Medications Acetaminophen (Tylenol 325mg Tab) 650 mg PO Q6 PRN PRN Reason: Fever >100.4 F Last Admin: 08/19/18 07:59 Dose: 650 mg Albuterol/Ipratropium (Duoneb 3 Mg/0.5 Mg (3 Ml) Ud) 3 ml INH RQ6 [facility] Last Admin: 08/19/18 08:31 Dose: 3 ml Arformoterol Tartrate (Brovana) 15 mcg INH RQ12@1000,2200 [facility] Enoxaparin Sodium (Lovenox) 40 mg SC DAILY [facility] Last Admin: 08/19/18 09:42 Dose: 40 mg Furosemide (Lasix) 40 mg IVP BID [facility] Last Admin: 08/19/18 09:45 Dose: 40 mg Piperacillin Sod/Tazobactam Sod (Zosyn 3.375 Gm Iv Premix) 3.375 gm in 50 mls @ 100 mls/hr IVPB Q8H [facility]; Protocol Last Admin: 08/19/18 10:51 Dose: 100 mls/hr Methylprednisolone (Solu-Medrol) 40 mg IV Q8 [facility] Montelukast Sodium (Singulair) 10 mg PO HS [facility] Nebivolol (Bystolic) 5 mg PO DAILY [facility] Last Admin: 08/19/18 09:43 Dose: 5 mg Pantoprazole Sodium (Protonix Ec Tab) 40 mg PO DAILY [facility] Last Admin: 08/19/18 09:43 Dose: 40 mg Promethazine HCl (Phenergan Syrup) 6.25 mg PO Q6 PRN PRN Reason: Cough and congestion Last Admin: 08/19/18 12:03 Dose: 6.25 mg - Labs Labs: 08/19/18 08:08 08/19/18 08:08 - Head Exam Head Exam: ATRAUMATIC, NORMOCEPHALIC - ENT Exam ENT Exam: Mucous Membranes Moist - Neck Exam Neck Exam: Normal Inspection - Respiratory Exam Respiratory Exam: Decreased Breath Sounds - Cardiovascular Exam Cardiovascular Exam: REGULAR RHYTHM - GI/Abdominal Exam GI & Abdominal Exam: Soft, Normal Bowel Sounds - Extremities Exam Extremities Exam: Normal Inspection - Neurological Exam Neurological Exam: Alert, Normal Gait Assessment and Plan (1) Chronic obstructive lung disease Assessment & Plan: Patient started on IV steroids Continue nebulizer treatment and antibiotics Antitussive Follow-up culture and sensitivity Status: Chronic (2) Cellulitis, leg Status: Acute
[2018-08-19] MEDS: MethylPREDNISolone 40 mg Vial IV SCH ×2 (13:34→21:24)
--- NOTE | 2018-08-19 14:31 | CP.PCM.PN ---
Subjective - Date & Time of Evaluation Date of Evaluation: 08/19/18 Time of Evaluation: 14:28 - Subjective Subjective: Podiatry Consult Note: Dr. Servin 53 year old male was evaluated for redness and swelling on bilateral LE. Patient is AAOx3 and appears in NAD. Reports that he is feeling better today. States that the breathing has improved today. No pain in LE. Denies of having any acute overnight events. Denies of recent F/N/V/C/CP/headache. No further pedal complains. Objective - Vital Signs/Intake and Output Vital Signs (last 24 hours): Temp Pulse Resp BP Pulse Ox 97.5 F L 78 20 141/59 L 96 08/19/18 08:59 08/19/18 08:08 08/19/18 08:08 08/19/18 09:45 08/19/18 08:08 Intake and Output: 08/19/18 08/19/18 06:59 18:59 Intake Total 370 Balance 370 - Medications Medications: Current Medications Acetaminophen (Tylenol 325mg Tab) 650 mg PO Q6 PRN PRN Reason: Fever >100.4 F Last Admin: 08/19/18 07:59 Dose: 650 mg Albuterol/Ipratropium (Duoneb 3 Mg/0.5 Mg (3 Ml) Ud) 3 ml INH RQ6 [facility] Last Admin: 08/19/18 08:31 Dose: 3 ml Arformoterol Tartrate (Brovana) 15 mcg INH RQ12@1000,2200 [facility] Last Admin: 08/19/18 10:30 Dose: Not Given Enoxaparin Sodium (Lovenox) 40 mg SC DAILY [facility] Last Admin: 08/19/18 09:42 Dose: 40 mg Furosemide (Lasix) 40 mg IVP BID [facility] Last Admin: 08/19/18 09:45 Dose: 40 mg Piperacillin Sod/Tazobactam Sod (Zosyn 3.375 Gm Iv Premix) 3.375 gm in 50 mls @ 100 mls/hr IVPB Q8H [facility]; Protocol Last Admin: 08/19/18 10:51 Dose: 100 mls/hr Methylprednisolone (Solu-Medrol) 40 mg IV Q8 [facility] Last Admin: 08/19/18 13:34 Dose: 40 mg Montelukast Sodium (Singulair) 10 mg PO HS [facility] Nebivolol (Bystolic) 5 mg PO DAILY [facility] Last Admin: 08/19/18 09:43 Dose: 5 mg Pantoprazole Sodium (Protonix Ec Tab) 40 mg PO DAILY [facility] Last Admin: 08/19/18 09:43 Dose: 40 mg Promethazine HCl (Phenergan Syrup) 6.25 mg PO Q6 PRN PRN Reason: Cough and congestion Last Admin: 08/19/18 12:03 Dose: 6.25 mg - Labs Labs: 08/19/18 08:08 08/19/18 08:08 - Constitutional Appears: Well, Non-toxic, No Acute Distress - Extremities Exam Additional comments: B/L LE focused exam: VASC: DP/PT pulses 2/4 b/l. Cap refill <3 seconds to digits. +2 pitting edema noted b/l with L>R. Temperature gradient warm to incident response manager the left side and warm to cool on the right side from proximal to distal. Erythema noted along the bilateral LE which extends distal to the tibial tuberosity. NEURO: Gross and protective sensations are intact. DERM: Significant lower extremity Chronic stasis edema noted with L > R. Skin changes in the form of hyperpigmentation and lichnification of the legs noted. Superficial ulceration noted on the lower lateral part of left leg and anterior aspect of the right leg that shows epidermal lysis, mild serous drainage with no purulence, no malodor, no tunneling, no probe to bone MSK: Pedal muscle strength graded 5/5 in all groups. Mild limited ankle joint ROM to dorsiflexion b/l. Pain on palpation of the left leg. Pain on squeezing the left calf muscle. - Neurological Exam Neurological Exam: Alert, Awake, Oriented x3 - Psychiatric Exam Psychiatric exam: Normal Affect, Normal Mood Assessment and Plan - Assessment and Plan (Free Text) Assessment: 53 y/o M patient seen and evaluated at bedside for cellulitis of B/L lower extremities Plan: Pt seen and evaluated at the bedside Discussed plan with attending Dr. Servin Chart, labs, and vitals reviewed - absent leukocytosis Wound culture: Pending IV abx as per ID Dressing applied using Xeroform, ABD, DSD, JESSICA Ordered LLE venous duplex: no evidence of DVT No surgical intervention from podiatry standpoint Will continue to provide local wound care
--- NOTE | 2018-08-19 14:40 | CP.PCM.PN ---
Subjective - Date & Time of Evaluation Date of Evaluation: 08/19/18 Time of Evaluation: 09:00 - Subjective Subjective: seen and examined on rounds no new complaints except wheezing for which steroids added IV rx in progress labs reviewed orders signed Objective - Vital Signs/Intake and Output Vital Signs (last 24 hours): Temp Pulse Resp BP Pulse Ox 97.5 F L 78 20 141/59 L 96 08/19/18 08:59 08/19/18 08:08 08/19/18 08:08 08/19/18 09:45 08/19/18 08:08 Intake and Output: 08/19/18 08/19/18 06:59 18:59 Intake Total 370 Balance 370 - Medications Medications: Current Medications Acetaminophen (Tylenol 325mg Tab) 650 mg PO Q6 PRN PRN Reason: Fever >100.4 F Last Admin: 08/19/18 07:59 Dose: 650 mg Albuterol/Ipratropium (Duoneb 3 Mg/0.5 Mg (3 Ml) Ud) 3 ml INH RQ6 [facility] Last Admin: 08/19/18 08:31 Dose: 3 ml Arformoterol Tartrate (Brovana) 15 mcg INH RQ12@1000,2200 [facility] Last Admin: 08/19/18 10:30 Dose: Not Given Enoxaparin Sodium (Lovenox) 40 mg SC DAILY [facility] Last Admin: 08/19/18 09:42 Dose: 40 mg Furosemide (Lasix) 40 mg IVP BID [facility] Last Admin: 08/19/18 09:45 Dose: 40 mg Piperacillin Sod/Tazobactam Sod (Zosyn 3.375 Gm Iv Premix) 3.375 gm in 50 mls @ 100 mls/hr IVPB Q8H [facility]; Protocol Last Admin: 08/19/18 10:51 Dose: 100 mls/hr Methylprednisolone (Solu-Medrol) 40 mg IV Q8 [facility] Last Admin: 08/19/18 13:34 Dose: 40 mg Montelukast Sodium (Singulair) 10 mg PO HS [facility] Nebivolol (Bystolic) 5 mg PO DAILY [facility] Last Admin: 08/19/18 09:43 Dose: 5 mg Pantoprazole Sodium (Protonix Ec Tab) 40 mg PO DAILY [facility] Last Admin: 08/19/18 09:43 Dose: 40 mg Promethazine HCl (Phenergan Syrup) 6.25 mg PO Q6 PRN PRN Reason: Cough and congestion Last Admin: 08/19/18 12:03 Dose: 6.25 mg - Labs Labs: 08/19/18 08:08 08/19/18 08:08 - Constitutional Appears: Non-toxic, Chronically Ill - Head Exam Head Exam: ATRAUMATIC, NORMAL INSPECTION, NORMOCEPHALIC - Eye Exam Eye Exam: EOMI, Normal appearance, PERRL Pupil Exam: NORMAL ACCOMODATION, PERRL - ENT Exam ENT Exam: Mucous Membranes Moist, Normal Exam - Neck Exam Neck Exam: Full ROM, Normal Inspection. absent: Lymphadenopathy - Respiratory Exam Respiratory Exam: Decreased Breath Sounds, Prolonged Expiratory Phase, Wheezes - Cardiovascular Exam Cardiovascular Exam: REGULAR RHYTHM, +S1, +S2. absent: Murmur - GI/Abdominal Exam GI & Abdominal Exam: Soft, Normal Bowel Sounds. absent: Tenderness - Rectal Exam Rectal Exam: Deferred - Exam Exam: NORMAL INSPECTION - Extremities Exam Extremities Exam: Full ROM, Normal Capillary Refill, Normal Inspection. absent: Joint Swelling, Pedal Edema - Back Exam Back Exam: NORMAL INSPECTION - Neurological Exam Neurological Exam: Alert, Awake, CN II-XII Intact, Normal Gait, Oriented x3 - Psychiatric Exam Psychiatric exam: Normal Affect, Normal Mood - Skin Skin Exam: Dry, Intact, Normal Color, Warm Assessment and Plan (1) Cellulitis, leg Status: Acute (2) Chronic obstructive lung disease Status: Chronic (3) Left leg cellulitis Status: Acute (4) MIKEY (obstructive sleep apnea) Status: Acute (5) A-fib Status: Chronic (6) HTN (hypertension) Status: Chronic (7) Morbid obesity with BMI of 60.0-69.9, adult Status: Chronic (8) Venous stasis dermatitis of both lower extremities Status: Chronic - Assessment and Plan (Free Text) Assessment: cont IV rx bronchodilators antibiotics
[2018-08-20] MEDS: Albuterol-Ipratrop 3 mg / 0.5 (3 ml) UD INH SCH ×4 (01:14→19:50)
[2018-08-20] MEDS: Piperacill/Tazo 3.375gm in Dex 3.375 GM/50 ML BAG IVPB SCH ×2 (03:00→10:34)
[2018-08-20] MEDS: MethylPREDNISolone 40 mg Vial IV SCH ×3 (06:41→22:29)
--- NOTE | 2018-08-20 08:59 | CP.PCM.PN ---
Subjective - Date & Time of Evaluation Date of Evaluation: 08/20/18 Time of Evaluation: 08:00 - Subjective Subjective: Patient seen and examined Cough productive of copious amount of yellowish phlegm Afebrile Denies any chest pain Objective - Vital Signs/Intake and Output Vital Signs (last 24 hours): Temp Pulse Resp BP Pulse Ox 97.2 F L 66 20 127/69 93 L 08/20/18 07:05 08/20/18 07:05 08/20/18 07:05 08/20/18 07:05 08/20/18 07:05 - Medications Medications: Current Medications Acetaminophen (Tylenol 325mg Tab) 650 mg PO Q6 PRN PRN Reason: Fever >100.4 F Last Admin: 08/19/18 07:59 Dose: 650 mg Albuterol/Ipratropium (Duoneb 3 Mg/0.5 Mg (3 Ml) Ud) 3 ml INH RQ6 [facility] Last Admin: 08/20/18 01:14 Dose: Not Given Arformoterol Tartrate (Brovana) 15 mcg INH RQ12@1000,2200 [facility] Last Admin: 08/19/18 21:51 Dose: 15 mcg Enoxaparin Sodium (Lovenox) 40 mg SC DAILY [facility] Last Admin: 08/19/18 09:42 Dose: 40 mg Furosemide (Lasix) 40 mg IVP BID [facility] Last Admin: 08/19/18 18:26 Dose: 40 mg Piperacillin Sod/Tazobactam Sod (Zosyn 3.375 Gm Iv Premix) 3.375 gm in 50 mls @ 100 mls/hr IVPB Q8H [facility]; Protocol Last Admin: 08/20/18 03:00 Dose: 100 mls/hr Methylprednisolone (Solu-Medrol) 40 mg IV Q8 [facility] Last Admin: 08/20/18 06:41 Dose: 40 mg Montelukast Sodium (Singulair) 10 mg PO HS [facility] Last Admin: 08/19/18 21:24 Dose: 10 mg Nebivolol (Bystolic) 5 mg PO DAILY [facility] Last Admin: 08/19/18 09:43 Dose: 5 mg Pantoprazole Sodium (Protonix Ec Tab) 40 mg PO DAILY [facility] Last Admin: 08/19/18 09:43 Dose: 40 mg Promethazine HCl (Phenergan Syrup) 6.25 mg PO Q6 PRN PRN Reason: Cough and congestion Last Admin: 08/19/18 12:03 Dose: 6.25 mg - Labs Labs: 08/19/18 08:08 08/19/18 08:08 - Head Exam Head Exam: ATRAUMATIC, NORMOCEPHALIC - ENT Exam ENT Exam: Mucous Membranes Moist - Neck Exam Neck Exam: Normal Inspection - Respiratory Exam Respiratory Exam: Rhonchi, Wheezes - Cardiovascular Exam Cardiovascular Exam: REGULAR RHYTHM - GI/Abdominal Exam GI & Abdominal Exam: Soft, Normal Bowel Sounds Assessment and Plan (1) Chronic obstructive lung disease Assessment & Plan: Continue IV steroids Continue nebulizer treatment IV antibiotics And promethazine Status: Chronic (2) Cellulitis, leg Status: Acute
[2018-08-20] MEDS: Arformoterol 15 mcg/2 ml Inh Sol INH SCH ×2 (09:53→21:00)
--- NOTE | 2018-08-20 10:12 | CP.PCM.PN ---
<Giorgio Servin - Last Filed: 08/20/18 10:12> Subjective - Date & Time of Evaluation Date of Evaluation: 08/20/18 Time of Evaluation: 10:12 Objective - Vital Signs/Intake and Output Vital Signs (last 24 hours): Temp Pulse Resp BP Pulse Ox 97.2 F L 66 20 127/69 93 L 08/20/18 07:05 08/20/18 07:05 08/20/18 07:05 08/20/18 07:05 08/20/18 07:05 - Medications Medications: Current Medications Acetaminophen (Tylenol 325mg Tab) 650 mg PO Q6 PRN PRN Reason: Fever >100.4 F Last Admin: 08/19/18 07:59 Dose: 650 mg Albuterol/Ipratropium (Duoneb 3 Mg/0.5 Mg (3 Ml) Ud) 3 ml INH RQ6 [facility] Last Admin: 08/20/18 01:14 Dose: Not Given Arformoterol Tartrate (Brovana) 15 mcg INH RQ12@1000,2200 [facility] Last Admin: 08/20/18 09:53 Dose: Not Given Enoxaparin Sodium (Lovenox) 40 mg SC DAILY [facility] Last Admin: 08/19/18 09:42 Dose: 40 mg Furosemide (Lasix) 40 mg IVP BID [facility] Last Admin: 08/19/18 18:26 Dose: 40 mg Piperacillin Sod/Tazobactam Sod (Zosyn 3.375 Gm Iv Premix) 3.375 gm in 50 mls @ 100 mls/hr IVPB Q8H [facility]; Protocol Last Admin: 08/20/18 03:00 Dose: 100 mls/hr Methylprednisolone (Solu-Medrol) 40 mg IV Q8 [facility] Last Admin: 08/20/18 06:41 Dose: 40 mg Montelukast Sodium (Singulair) 10 mg PO HS [facility] Last Admin: 08/19/18 21:24 Dose: 10 mg Nebivolol (Bystolic) 5 mg PO DAILY [facility] Last Admin: 08/19/18 09:43 Dose: 5 mg Pantoprazole Sodium (Protonix Ec Tab) 40 mg PO DAILY [facility] Last Admin: 08/19/18 09:43 Dose: 40 mg Promethazine HCl (Phenergan Syrup) 6.25 mg PO Q6 PRN PRN Reason: Cough and congestion Last Admin: 08/19/18 12:03 Dose: 6.25 mg - Labs Labs: 08/19/18 08:08 08/19/18 08:08 <Gaurav Steele - Last Filed: 08/20/18 11:43> Subjective - Subjective Subjective: Podiatry progress note - Dr. Servin 53M seen and evaluated at bedside with Dr. Servin. Resting comfortably. Reports that he is feeling better today. States that the breathing has improved today. No pain in LE. Denies of having any acute overnight events. Denies of recent F/N/V/C/CP/headache. No further pedal complains. Objective - Vital Signs/Intake and Output Vital Signs (last 24 hours): Temp Pulse Resp BP Pulse Ox 97.2 F L 66 20 149/78 93 L 08/20/18 07:05 08/20/18 07:05 08/20/18 07:05 08/20/18 10:34 08/20/18 07:05 - Medications Medications: Current Medications Acetaminophen (Tylenol 325mg Tab) 650 mg PO Q6 PRN PRN Reason: Fever >100.4 F Last Admin: 08/19/18 07:59 Dose: 650 mg Albuterol/Ipratropium (Duoneb 3 Mg/0.5 Mg (3 Ml) Ud) 3 ml INH RQ6 [facility] Last Admin: 08/20/18 01:14 Dose: Not Given Arformoterol Tartrate (Brovana) 15 mcg INH RQ12@1000,2200 [facility] Last Admin: 08/20/18 09:53 Dose: Not Given Enoxaparin Sodium (Lovenox) 40 mg SC DAILY [facility] Last Admin: 08/20/18 10:31 Dose: 40 mg Furosemide (Lasix) 40 mg IVP BID [facility] Last Admin: 08/20/18 10:34 Dose: 40 mg Piperacillin Sod/Tazobactam Sod (Zosyn 3.375 Gm Iv Premix) 3.375 gm in 50 mls @ 100 mls/hr IVPB Q8H [facility]; Protocol Last Admin: 08/20/18 10:34 Dose: 100 mls/hr Methylprednisolone (Solu-Medrol) 40 mg IV Q8 [facility] Last Admin: 08/20/18 06:41 Dose: 40 mg Montelukast Sodium (Singulair) 10 mg PO HS [facility] Last Admin: 08/19/18 21:24 Dose: 10 mg Nebivolol (Bystolic) 5 mg PO DAILY [facility] Last Admin: 08/20/18 10:33 Dose: 5 mg Pantoprazole Sodium (Protonix Ec Tab) 40 mg PO DAILY [facility] Last Admin: 08/20/18 10:35 Dose: 40 mg Promethazine HCl (Phenergan Syrup) 6.25 mg PO Q6 PRN PRN Reason: Cough and congestion Last Admin: 08/20/18 10:41 Dose: 6.25 mg - Labs Labs: 08/19/18 08:08 08/19/18 08:08 - Constitutional Appears: Non-toxic - Head Exam Head Exam: ATRAUMATIC - Extremities Exam Additional comments: B/L LE focused exam: VASC: DP/PT pulses 2/4 b/l. Cap refill <3 seconds to digits. +2 pitting edema noted b/l with L>R. Temperature gradient warm to tissue inserter the left side and warm to cool on the right side from proximal to distal. Erythema noted along the bilateral LE which extends distal to the tibial tuberosity. NEURO: Gross and protective sensations are intact. DERM: Significant lower extremity Chronic stasis edema noted with L > R. Skin changes in the form of hyperpigmentation and lichnification of the legs noted. Superficial ulceration noted on the lower lateral part of left leg and anterior aspect of the right leg that shows epidermal lysis, mild serous drainage with no purulence, no malodor, no tunneling, no probe to bone MSK: Pedal muscle strength graded 5/5 in all groups. Mild limited ankle joint ROM to dorsiflexion b/l. Pain on palpation of the left leg. Pain on squeezing the left calf muscle. - Neurological Exam Neurological Exam: Alert, Awake, Oriented x3 - Psychiatric Exam Psychiatric exam: Normal Affect Assessment and Plan - Assessment and Plan (Free Text) Assessment: 53M with cellulitis of B/L lower extremities Plan: Patient seen and evaluated at bedside with Dr. Malathi RAMOS, absent leukocytosis Wound culture: Pending IV abx as per ID Dressing applied using Xeroform, ABD, DSD, JESSICA Ordered LLE venous duplex: no evidence of DVT No surgical intervention from podiatry standpoint Will continue to provide local wound care Upon d/c will f/u with Dr. Servin as outpatient
[2018-08-20] MEDS: Enoxaparin 40 mg Syringe SC SCH (10:31)
[2018-08-20] MEDS: Pantoprazole 40 mg EC Tab PO SCH (10:35)
[2018-08-20] MEDS: Promethazine 6.25 MG/5 ML CUP PO PRN (10:41)
--- NOTE | 2018-08-20 13:38 | CP.PCM.PN ---
Subjective - Date & Time of Evaluation Date of Evaluation: 08/20/18 Time of Evaluation: 13:37 - Subjective Subjective: sob & wheeze ++. Objective - Vital Signs/Intake and Output Vital Signs (last 24 hours): Temp Pulse Resp BP Pulse Ox 97.2 F L 66 20 149/78 93 L 08/20/18 07:05 08/20/18 07:05 08/20/18 07:05 08/20/18 10:34 08/20/18 07:05 - Medications Medications: Current Medications Acetaminophen (Tylenol 325mg Tab) 650 mg PO Q6 PRN PRN Reason: Fever >100.4 F Last Admin: 08/19/18 07:59 Dose: 650 mg Albuterol/Ipratropium (Duoneb 3 Mg/0.5 Mg (3 Ml) Ud) 3 ml INH RQ6 [facility] Last Admin: 08/20/18 13:10 Dose: 3 ml Arformoterol Tartrate (Brovana) 15 mcg INH RQ12@1000,2200 [facility] Last Admin: 08/20/18 09:53 Dose: Not Given Enoxaparin Sodium (Lovenox) 40 mg SC DAILY [facility] Last Admin: 08/20/18 10:31 Dose: 40 mg Furosemide (Lasix) 40 mg IVP BID [facility] Last Admin: 08/20/18 10:34 Dose: 40 mg Cefepime HCl (Maxipime Iv 1 Gm Premix) 1 gm in 50 mls @ 100 mls/hr IVPB Q12H [facility]; Protocol Methylprednisolone (Solu-Medrol) 40 mg IV Q8 [facility] Last Admin: 08/20/18 06:41 Dose: 40 mg Montelukast Sodium (Singulair) 10 mg PO HS [facility] Last Admin: 08/19/18 21:24 Dose: 10 mg Nebivolol (Bystolic) 5 mg PO DAILY [facility] Last Admin: 08/20/18 10:33 Dose: 5 mg Pantoprazole Sodium (Protonix Ec Tab) 40 mg PO DAILY [facility] Last Admin: 08/20/18 10:35 Dose: 40 mg Promethazine HCl (Phenergan Syrup) 6.25 mg PO Q6 PRN PRN Reason: Cough and congestion Last Admin: 08/20/18 10:41 Dose: 6.25 mg - Labs Labs: 08/19/18 08:08 08/19/18 08:08 - Constitutional Appears: No Acute Distress, Chronically Ill - Head Exam Head Exam: NORMOCEPHALIC - Neck Exam Neck Exam: Normal Inspection - Respiratory Exam Respiratory Exam: Wheezes - Cardiovascular Exam Cardiovascular Exam: REGULAR RHYTHM - Extremities Exam Extremities Exam: Pedal Edema - Neurological Exam Neurological Exam: Alert, Oriented x3 Assessment and Plan - Assessment and Plan (Free Text) Plan: copd,cellulitis.ct iv steroids.,
[2018-08-20] MEDS: Cefepime IV 1 gm in Dextrose 1 GM/50 ML BAG IVPB SCH (15:00)
--- NOTE | 2018-08-20 18:00 | RAD ---
Date of service: 08/20/2018 HISTORY: pneumonia chf COMPARISON: 08/17/2018 TECHNIQUE: 1 view obtained. FINDINGS: LUNGS: Decreased right lung volume, possibly chronic. This is unchanged since 12/14/2017. PLEURA: Pleural thickening seen along the right lateral pleural surface unchanged from previous. No left pleural effusion. No pneumothorax. CARDIOVASCULAR: No aortic atherosclerotic calcification present. Normal cardiac size. There is shift of the heart mediastinum towards the right side no pulmonary vascular congestion. OSSEOUS STRUCTURES: No significant abnormalities. VISUALIZED UPPER ABDOMEN: Normal. OTHER FINDINGS: None. IMPRESSION: Chronic low right lung volume with pleural thickening along right lateral pleural surface. Shift of heart and mediastinum to the right. No acute infiltrate.
[2018-08-21] MEDS: Cefepime IV 1 gm in Dextrose 1 GM/50 ML BAG IVPB SCH ×2 (02:10→15:18)
[2018-08-21] MEDS: Albuterol-Ipratrop 3 mg / 0.5 (3 ml) UD INH SCH ×4 (02:57→19:46)
[2018-08-21] MEDS: MethylPREDNISolone 40 mg Vial IV SCH ×3 (06:30→21:30)
[2018-08-21 08:57] LABS: BASO # 0.1 K/uL (0.0-0.2); BASO % 0.6 % (0.0-2.0); HEMOGLOBIN 13.1 g/dL (12.0-18.0); LYMPH # 1.1 K/uL (1.0-4.3); MEAN CORPUSCULAR HEMOGLOBIN 29.6 pg (27.0-31.0); MEAN CORPUSCULAR HGB CONC 33.6 g/dL (33.0-37.0); MEAN PLATELET VOLUME 8.7 fL (7.2-11.7); MONO # 0.3 K/uL (0.0-0.8); MONO % 3.4 % (0.0-10.0); NEUT # 7.9 K/uL (1.8-7.0); RBC 4.41 Mil/uL (4.40-5.90); WHITE BLOOD COUNT 9.5 K/uL (4.8-10.8)
[2018-08-21] MEDS: Arformoterol 15 mcg/2 ml Inh Sol INH SCH ×2 (09:11→22:00)
[2018-08-21 09:32] LABS: ALB/GLOB RATIO 1.2 (1.0-2.1); ALBUMIN 3.7 g/dL (3.5-5.0); ALT/SGPT 33 U/L (21-72); AST/SGOT 29 U/L (17-59); BLOOD UREA NITROGEN 32 mg/dL (9-20); CALCIUM 8.5 mg/dl (8.6-10.4); GFR NON-AFRICAN AMERICAN 57
[2018-08-21] MEDS: Pantoprazole 40 mg EC Tab PO SCH (09:38)
[2018-08-21] MEDS: Enoxaparin 40 mg Syringe SC SCH (09:39)
--- NOTE | 2018-08-21 15:17 | CP.PCM.PN ---
Subjective - Date & Time of Evaluation Date of Evaluation: 08/21/18 Time of Evaluation: 09:00 - Subjective Subjective: awake and alert no new complaints interim events noted patient examined entries reviewed labs reviewed orders signed Objective - Vital Signs/Intake and Output Vital Signs (last 24 hours): Temp Pulse Resp BP Pulse Ox 97.2 F L 64 20 119/69 94 L 08/21/18 07:00 08/21/18 07:00 08/21/18 07:00 08/21/18 07:00 08/21/18 07:00 - Medications Medications: Current Medications Acetaminophen (Tylenol 325mg Tab) 650 mg PO Q6 PRN PRN Reason: Fever >100.4 F Last Admin: 08/19/18 07:59 Dose: 650 mg Albuterol/Ipratropium (Duoneb 3 Mg/0.5 Mg (3 Ml) Ud) 3 ml INH RQ6 [facility] Last Admin: 08/21/18 13:13 Dose: 3 ml Arformoterol Tartrate (Brovana) 15 mcg INH RQ12@1000,2200 [facility] Last Admin: 08/21/18 09:11 Dose: Not Given Enoxaparin Sodium (Lovenox) 40 mg SC DAILY [facility] Last Admin: 08/21/18 09:39 Dose: 40 mg Furosemide (Lasix) 40 mg PO BID [facility] Last Admin: 08/21/18 15:06 Dose: Not Given Cefepime HCl (Maxipime Iv 1 Gm Premix) 1 gm in 50 mls @ 100 mls/hr IVPB Q12H [facility]; Protocol Last Admin: 08/21/18 02:10 Dose: 100 mls/hr Methylprednisolone (Solu-Medrol) 40 mg IV Q8 [facility] Last Admin: 08/21/18 06:30 Dose: 40 mg Montelukast Sodium (Singulair) 10 mg PO HS [facility] Last Admin: 08/20/18 22:30 Dose: 10 mg Nebivolol (Bystolic) 5 mg PO DAILY [facility] Last Admin: 08/21/18 09:38 Dose: 5 mg Pantoprazole Sodium (Protonix Ec Tab) 40 mg PO DAILY [facility] Last Admin: 08/21/18 09:38 Dose: 40 mg Promethazine HCl (Phenergan Syrup) 6.25 mg PO Q6 PRN PRN Reason: Cough and congestion Last Admin: 08/20/18 10:41 Dose: 6.25 mg - Labs Labs: 08/21/18 08:40 08/21/18 08:40 - Constitutional Appears: Well, Non-toxic, No Acute Distress - Head Exam Head Exam: ATRAUMATIC, NORMAL INSPECTION, NORMOCEPHALIC - Eye Exam Eye Exam: EOMI, Normal appearance, PERRL Pupil Exam: NORMAL ACCOMODATION, PERRL - ENT Exam ENT Exam: Mucous Membranes Moist, Normal Exam - Neck Exam Neck Exam: Full ROM, Normal Inspection. absent: Lymphadenopathy - Respiratory Exam Respiratory Exam: Decreased Breath Sounds, Rhonchi, Wheezes - Cardiovascular Exam Cardiovascular Exam: REGULAR RHYTHM, +S1, +S2. absent: Murmur - GI/Abdominal Exam GI & Abdominal Exam: Soft, Normal Bowel Sounds. absent: Tenderness - Rectal Exam Rectal Exam: NORMAL INSPECTION - Exam Exam: Scrotal Swelling - Extremities Exam Extremities Exam: Full ROM, Normal Capillary Refill, Pedal Edema, Tenderness. absent: Joint Swelling, Normal Inspection - Back Exam Back Exam: NORMAL INSPECTION - Neurological Exam Neurological Exam: Alert, Awake, CN II-XII Intact, Oriented x3. absent: Normal Gait - Psychiatric Exam Psychiatric exam: Normal Affect, Normal Mood - Skin Skin Exam: Dry, Intact, Normal Color, Warm Assessment and Plan (1) Cellulitis, leg Status: Acute (2) Chronic obstructive lung disease Status: Chronic (3) Left leg cellulitis Status: Acute (4) MIKEY (obstructive sleep apnea) Status: Acute (5) A-fib Status: Chronic (6) HTN (hypertension) Status: Chronic (7) Morbid obesity with BMI of 60.0-69.9, adult Status: Chronic (8) Venous stasis dermatitis of both lower extremities Status: Chronic - Assessment and Plan (Free Text) Assessment: cont iv antibiotics wound care
--- NOTE | 2018-08-21 15:17 | CP.PCM.PN ---
Subjective - Date & Time of Evaluation Date of Evaluation: 08/20/18 Time of Evaluation: 07:00 - Subjective Subjective: getting worse increasing cough Creat increasing - on lasix switched to cefepiome CXR ordered Objective - Vital Signs/Intake and Output Vital Signs (last 24 hours): Temp Pulse Resp BP Pulse Ox 97.2 F L 66 20 149/78 93 L 08/20/18 07:05 08/20/18 07:05 08/20/18 07:05 08/20/18 10:34 08/20/18 07:05 - Medications Medications: Current Medications Acetaminophen (Tylenol 325mg Tab) 650 mg PO Q6 PRN PRN Reason: Fever >100.4 F Last Admin: 08/19/18 07:59 Dose: 650 mg Albuterol/Ipratropium (Duoneb 3 Mg/0.5 Mg (3 Ml) Ud) 3 ml INH RQ6 [facility] Last Admin: 08/20/18 13:10 Dose: 3 ml Arformoterol Tartrate (Brovana) 15 mcg INH RQ12@1000,2200 [facility] Last Admin: 08/20/18 09:53 Dose: Not Given Enoxaparin Sodium (Lovenox) 40 mg SC DAILY [facility] Last Admin: 08/20/18 10:31 Dose: 40 mg Furosemide (Lasix) 40 mg IVP BID [facility] Last Admin: 08/20/18 10:34 Dose: 40 mg Cefepime HCl (Maxipime Iv 1 Gm Premix) 1 gm in 50 mls @ 100 mls/hr IVPB Q12H [facility]; Protocol Methylprednisolone (Solu-Medrol) 40 mg IV Q8 [facility] Last Admin: 08/20/18 06:41 Dose: 40 mg Montelukast Sodium (Singulair) 10 mg PO HS [facility] Last Admin: 08/19/18 21:24 Dose: 10 mg Nebivolol (Bystolic) 5 mg PO DAILY [facility] Last Admin: 08/20/18 10:33 Dose: 5 mg Pantoprazole Sodium (Protonix Ec Tab) 40 mg PO DAILY [facility] Last Admin: 08/20/18 10:35 Dose: 40 mg Promethazine HCl (Phenergan Syrup) 6.25 mg PO Q6 PRN PRN Reason: Cough and congestion Last Admin: 08/20/18 10:41 Dose: 6.25 mg - Labs Labs: 08/19/18 08:08 08/19/18 08:08 Assessment and Plan (1) Cellulitis, leg Status: Acute (2) Chronic obstructive lung disease Status: Chronic (3) Left leg cellulitis Status: Acute (4) MIKEY (obstructive sleep apnea) Status: Acute (5) A-fib Status: Chronic (6) HTN (hypertension) Status: Chronic (7) Morbid obesity with BMI of 60.0-69.9, adult Status: Chronic (8) Venous stasis dermatitis of both lower extremities Status: Chronic
[2018-08-21] MEDS: Promethazine 6.25 MG/5 ML CUP PO PRN (17:31)
[2018-08-22] MEDS: Cefepime IV 1 gm in Dextrose 1 GM/50 ML BAG IVPB SCH ×2 (01:43→13:06)
[2018-08-22] MEDS: Albuterol-Ipratrop 3 mg / 0.5 (3 ml) UD INH SCH ×4 (02:12→13:23)
[2018-08-22] MEDS: MethylPREDNISolone 40 mg Vial IV SCH ×3 (06:33→21:53)
[2018-08-22] MEDS: Arformoterol 15 mcg/2 ml Inh Sol INH SCH ×2 (09:30→21:03)
[2018-08-22] MEDS: Pantoprazole 40 mg EC Tab PO SCH (09:34)
[2018-08-22] MEDS: Enoxaparin 40 mg Syringe SC SCH (09:35)
--- NOTE | 2018-08-22 11:35 | CP.PCM.PN ---
Subjective - Date & Time of Evaluation Date of Evaluation: 08/22/18 Time of Evaluation: 11:35 - Subjective Subjective: Podiatry progress note - Dr. Servin 53M seen and evaluated this AM for bilateral lower extremity venous stasis ulcerations. Patient OOB in recliner, NAD. No new lower extremity complaints per patient. Bilateral dressings clean/dry/intact. Denies n/v/f/d/c/sob/brwon/cp. Objective - Vital Signs/Intake and Output Vital Signs (last 24 hours): Temp Pulse Resp BP Pulse Ox 97.7 F 57 L 20 122/67 97 08/22/18 07:00 08/22/18 07:00 08/22/18 07:00 08/22/18 09:34 08/22/18 07:00 Intake and Output: 08/22/18 08/22/18 06:59 18:59 Intake Total 550 Output Total 600 Balance -50 - Medications Medications: Current Medications Acetaminophen (Tylenol 325mg Tab) 650 mg PO Q6 PRN PRN Reason: Fever >100.4 F Last Admin: 08/19/18 07:59 Dose: 650 mg Albuterol/Ipratropium (Duoneb 3 Mg/0.5 Mg (3 Ml) Ud) 3 ml INH RQ6 [facility] Last Admin: 08/22/18 02:12 Dose: 3 ml Arformoterol Tartrate (Brovana) 15 mcg INH RQ12@1000,2200 [facility] Last Admin: 08/21/18 22:00 Dose: 15 mcg Enoxaparin Sodium (Lovenox) 40 mg SC DAILY [facility] Last Admin: 08/22/18 09:35 Dose: 40 mg Furosemide (Lasix) 40 mg PO BID [facility] Last Admin: 08/22/18 09:34 Dose: 40 mg Cefepime HCl (Maxipime Iv 1 Gm Premix) 1 gm in 50 mls @ 100 mls/hr IVPB Q12H [facility]; Protocol Last Admin: 08/22/18 01:43 Dose: 100 mls/hr Methylprednisolone (Solu-Medrol) 40 mg IV Q8 [facility] Last Admin: 08/22/18 06:33 Dose: 40 mg Montelukast Sodium (Singulair) 10 mg PO HS [facility] Last Admin: 08/21/18 21:31 Dose: 10 mg Nebivolol (Bystolic) 5 mg PO DAILY [facility] Last Admin: 08/22/18 09:34 Dose: 5 mg Pantoprazole Sodium (Protonix Ec Tab) 40 mg PO DAILY [facility] Last Admin: 08/22/18 09:34 Dose: 40 mg Promethazine HCl (Phenergan Syrup) 6.25 mg PO Q6 PRN PRN Reason: Cough and congestion Last Admin: 08/21/18 17:31 Dose: 6.25 mg - Labs Labs: 08/21/18 08:40 08/21/18 08:40 - Constitutional Appears: Non-toxic, No Acute Distress - Extremities Exam Additional comments: B/L LE focused exam: VASC: DP/PT pulses 2/4 b/l. Cap refill <3 seconds to digits. +2 pitting edema noted b/l with L>R. Temperature gradient warm to youth minister the left side and warm to cool on the right side from proximal to distal. Erythema noted along the bilateral LE which extends distal to the tibial tuberosity. NEURO: Gross and protective sensations are intact. DERM: Significant lower extremity Chronic stasis edema noted with L > R. Skin changes in the form of hyperpigmentation and lichnification of the legs noted. Superficial ulceration noted on the lower lateral part of left leg and anterior aspect of the right leg that shows epidermal lysis, mild serous drainage with no purulence, no malodor, no tunneling, no probe to bone MSK: Pedal muscle strength graded 5/5 in all groups. Mild limited ankle joint ROM to dorsiflexion b/l. Pain on palpation of the left leg. Pain on squeezing the left calf muscle. - Neurological Exam Neurological Exam: Alert, Awake, Oriented x3 - Psychiatric Exam Psychiatric exam: Normal Affect, Normal Mood Assessment and Plan - Assessment and Plan (Free Text) Assessment: 53M with venous stasis ulcerations + cellulitis, improving Plan: Patient seen and evaluated at bedside with Dr. Servin VSS IV abx as per ID - Cefepime Continue local wound care: Xeroform, ABD, DSD, JESSICA LLE venous duplex: no evidence of DVT No surgical intervention from podiatry standpoint Will continue to provide local wound care Upon d/c will f/u with Dr. Servin as outpatient
--- NOTE | 2018-08-22 12:23 | CP.PCM.PN ---
Subjective - Date & Time of Evaluation Date of Evaluation: 08/22/18 Time of Evaluation: 09:00 - Subjective Subjective: events noted less SOB still wheezing + cough denies chest pain' legs less edematous Objective - Vital Signs/Intake and Output Vital Signs (last 24 hours): Temp Pulse Resp BP Pulse Ox 97.7 F 57 L 20 122/67 97 08/22/18 07:00 08/22/18 07:00 08/22/18 07:00 08/22/18 09:34 08/22/18 07:00 Intake and Output: 08/22/18 08/22/18 06:59 18:59 Intake Total 550 Output Total 600 Balance -50 - Medications Medications: Current Medications Acetaminophen (Tylenol 325mg Tab) 650 mg PO Q6 PRN PRN Reason: Fever >100.4 F Last Admin: 08/19/18 07:59 Dose: 650 mg Albuterol/Ipratropium (Duoneb 3 Mg/0.5 Mg (3 Ml) Ud) 3 ml INH RQ6 [facility] Last Admin: 08/22/18 02:12 Dose: 3 ml Arformoterol Tartrate (Brovana) 15 mcg INH RQ12@1000,2200 [facility] Last Admin: 08/21/18 22:00 Dose: 15 mcg Enoxaparin Sodium (Lovenox) 40 mg SC DAILY [facility] Last Admin: 08/22/18 09:35 Dose: 40 mg Furosemide (Lasix) 40 mg PO BID [facility] Last Admin: 08/22/18 09:34 Dose: 40 mg Cefepime HCl (Maxipime Iv 1 Gm Premix) 1 gm in 50 mls @ 100 mls/hr IVPB Q12H [facility]; Protocol Last Admin: 08/22/18 01:43 Dose: 100 mls/hr Methylprednisolone (Solu-Medrol) 40 mg IV Q8 [facility] Last Admin: 08/22/18 06:33 Dose: 40 mg Montelukast Sodium (Singulair) 10 mg PO HS [facility] Last Admin: 08/21/18 21:31 Dose: 10 mg Nebivolol (Bystolic) 5 mg PO DAILY [facility] Last Admin: 08/22/18 09:34 Dose: 5 mg Pantoprazole Sodium (Protonix Ec Tab) 40 mg PO DAILY [facility] Last Admin: 08/22/18 09:34 Dose: 40 mg Promethazine HCl (Phenergan Syrup) 6.25 mg PO Q6 PRN PRN Reason: Cough and congestion Last Admin: 08/21/18 17:31 Dose: 6.25 mg - Labs Labs: 08/21/18 08:40 08/21/18 08:40 - Constitutional Appears: Non-toxic, No Acute Distress, Chronically Ill - Head Exam Head Exam: ATRAUMATIC, NORMAL INSPECTION, NORMOCEPHALIC - Eye Exam Eye Exam: EOMI, Normal appearance, PERRL Pupil Exam: NORMAL ACCOMODATION, PERRL - ENT Exam ENT Exam: Mucous Membranes Moist, Normal Exam - Neck Exam Neck Exam: Full ROM, Normal Inspection. absent: Lymphadenopathy - Respiratory Exam Respiratory Exam: Decreased Breath Sounds, Prolonged Expiratory Phase, Rhonchi, Wheezes - Cardiovascular Exam Cardiovascular Exam: REGULAR RHYTHM, +S1, +S2. absent: Murmur - GI/Abdominal Exam GI & Abdominal Exam: Soft, Normal Bowel Sounds. absent: Tenderness - Rectal Exam Rectal Exam: Deferred - Exam Exam: NORMAL INSPECTION - Extremities Exam Extremities Exam: Full ROM, Normal Capillary Refill, Normal Inspection. absent: Joint Swelling, Pedal Edema - Back Exam Back Exam: NORMAL INSPECTION - Neurological Exam Neurological Exam: Alert, Awake, CN II-XII Intact, Normal Gait, Oriented x3 - Psychiatric Exam Psychiatric exam: Normal Affect, Normal Mood - Skin Skin Exam: Erythema, Intact. absent: Normal Color Assessment and Plan (1) Cellulitis, leg Status: Acute (2) Chronic obstructive lung disease Status: Chronic (3) Left leg cellulitis Status: Acute (4) MIKEY (obstructive sleep apnea) Status: Acute (5) A-fib Status: Chronic (6) HTN (hypertension) Status: Chronic (7) Morbid obesity with BMI of 60.0-69.9, adult Status: Chronic (8) Venous stasis dermatitis of both lower extremities Status: Chronic - Assessment and Plan (Free Text) Assessment: cont IV antibiotics Lasix bronchodilators
--- NOTE | 2018-08-22 14:03 | CP.PCM.PN ---
Subjective - Date & Time of Evaluation Date of Evaluation: 08/22/18 Time of Evaluation: 14:02 - Subjective Subjective: wheeze Objective - Vital Signs/Intake and Output Vital Signs (last 24 hours): Temp Pulse Resp BP Pulse Ox 97.7 F 57 L 20 122/67 97 08/22/18 07:00 08/22/18 07:00 08/22/18 07:00 08/22/18 09:34 08/22/18 07:00 Intake and Output: 08/22/18 08/22/18 06:59 18:59 Intake Total 550 Output Total 600 Balance -50 - Medications Medications: Current Medications Acetaminophen (Tylenol 325mg Tab) 650 mg PO Q6 PRN PRN Reason: Fever >100.4 F Last Admin: 08/19/18 07:59 Dose: 650 mg Albuterol/Ipratropium (Duoneb 3 Mg/0.5 Mg (3 Ml) Ud) 3 ml INH RQ6 [facility] Last Admin: 08/22/18 13:23 Dose: 3 ml Arformoterol Tartrate (Brovana) 15 mcg INH RQ12@1000,2200 [facility] Last Admin: 08/22/18 09:30 Dose: 15 mcg Enoxaparin Sodium (Lovenox) 40 mg SC DAILY [facility] Last Admin: 08/22/18 09:35 Dose: 40 mg Furosemide (Lasix) 40 mg PO BID [facility] Last Admin: 08/22/18 09:34 Dose: 40 mg Cefepime HCl (Maxipime Iv 1 Gm Premix) 1 gm in 50 mls @ 100 mls/hr IVPB Q12H [facility]; Protocol Last Admin: 08/22/18 13:06 Dose: 100 mls/hr Methylprednisolone (Solu-Medrol) 40 mg IV Q8 [facility] Last Admin: 08/22/18 13:06 Dose: 40 mg Montelukast Sodium (Singulair) 10 mg PO HS [facility] Last Admin: 08/21/18 21:31 Dose: 10 mg Nebivolol (Bystolic) 5 mg PO DAILY [facility] Last Admin: 08/22/18 09:34 Dose: 5 mg Pantoprazole Sodium (Protonix Ec Tab) 40 mg PO DAILY [facility] Last Admin: 08/22/18 09:34 Dose: 40 mg Promethazine HCl (Phenergan Syrup) 6.25 mg PO Q6 PRN PRN Reason: Cough and congestion Last Admin: 08/21/18 17:31 Dose: 6.25 mg - Labs Labs: 08/21/18 08:40 08/21/18 08:40 - Constitutional Appears: No Acute Distress, Chronically Ill - Head Exam Head Exam: NORMOCEPHALIC - Neck Exam Neck Exam: Normal Inspection - Respiratory Exam Respiratory Exam: Wheezes - Cardiovascular Exam Cardiovascular Exam: REGULAR RHYTHM - GI/Abdominal Exam GI & Abdominal Exam: Soft - Extremities Exam Extremities Exam: Pedal Edema - Neurological Exam Neurological Exam: Alert, Oriented x3 Assessment and Plan - Assessment and Plan (Free Text) Plan: copd,cellulitis.
--- NOTE | 2018-08-22 17:42 | CP.PCM.PN ---
Subjective - Date & Time of Evaluation Date of Evaluation: 08/22/18 Time of Evaluation: 10:40 - Subjective Subjective: patient seen and examined Patient states cough is improving Afebrile dose off frequently during the daytime Objective - Vital Signs/Intake and Output Vital Signs (last 24 hours): Temp Pulse Resp BP Pulse Ox 98.4 F 63 20 121/69 97 08/22/18 15:00 08/22/18 15:00 08/22/18 15:00 08/22/18 15:00 08/22/18 15:00 Intake and Output: 08/22/18 08/22/18 06:59 18:59 Intake Total 550 Output Total 600 Balance -50 - Medications Medications: Current Medications Acetaminophen (Tylenol 325mg Tab) 650 mg PO Q6 PRN PRN Reason: Fever >100.4 F Last Admin: 08/19/18 07:59 Dose: 650 mg Albuterol/Ipratropium (Duoneb 3 Mg/0.5 Mg (3 Ml) Ud) 3 ml INH RQ6 [facility] Last Admin: 08/22/18 13:23 Dose: 3 ml Arformoterol Tartrate (Brovana) 15 mcg INH RQ12@1000,2200 [facility] Last Admin: 08/22/18 09:30 Dose: 15 mcg Enoxaparin Sodium (Lovenox) 40 mg SC DAILY [facility] Last Admin: 08/22/18 09:35 Dose: 40 mg Furosemide (Lasix) 40 mg PO BID [facility] Last Admin: 08/22/18 09:34 Dose: 40 mg Cefepime HCl (Maxipime Iv 1 Gm Premix) 1 gm in 50 mls @ 100 mls/hr IVPB Q12H [facility]; Protocol Last Admin: 08/22/18 13:06 Dose: 100 mls/hr Methylprednisolone (Solu-Medrol) 40 mg IV Q8 [facility] Last Admin: 08/22/18 13:06 Dose: 40 mg Montelukast Sodium (Singulair) 10 mg PO HS [facility] Last Admin: 08/21/18 21:31 Dose: 10 mg Nebivolol (Bystolic) 5 mg PO DAILY [facility] Last Admin: 08/22/18 09:34 Dose: 5 mg Pantoprazole Sodium (Protonix Ec Tab) 40 mg PO DAILY [facility] Last Admin: 08/22/18 09:34 Dose: 40 mg Promethazine HCl (Phenergan Syrup) 6.25 mg PO Q6 PRN PRN Reason: Cough and congestion Last Admin: 08/21/18 17:31 Dose: 6.25 mg - Labs Labs: 08/21/18 08:40 08/21/18 08:40 - Head Exam Head Exam: ATRAUMATIC, NORMOCEPHALIC - ENT Exam ENT Exam: Mucous Membranes Moist - Neck Exam Neck Exam: Normal Inspection - Respiratory Exam Respiratory Exam: Rhonchi, Wheezes Assessment and Plan (1) Chronic obstructive lung disease Assessment & Plan: continue on steroids, nebulizer treatment and antibiotics Status: Chronic (2) Cellulitis, leg Status: Acute
[2018-08-23] MEDS: Cefepime IV 1 gm in Dextrose 1 GM/50 ML BAG IVPB SCH ×2 (02:34→13:43)
[2018-08-23] MEDS: MethylPREDNISolone 40 mg Vial IV SCH ×3 (05:27→23:00)
[2018-08-23] MEDS: Enoxaparin 40 mg Syringe SC SCH (09:09)
[2018-08-23] MEDS: Pantoprazole 40 mg EC Tab PO SCH (09:10)
--- NOTE | 2018-08-23 10:58 | CP.PCM.PN ---
Subjective - Date & Time of Evaluation Date of Evaluation: 08/23/18 Time of Evaluation: 10:58 - Subjective Subjective: Podiatry progress note - Dr. Servin 53M seen and evaluated this AM for bilateral lower extremity venous stasis ulcerations. Patient OOB in recliner, NAD. No new complaints. Bilateral dressings clean/dry/intact. Denies n/v/f/d/c/sob/brown/cp. Objective - Vital Signs/Intake and Output Vital Signs (last 24 hours): Temp Pulse Resp BP Pulse Ox 97.9 F 59 L 20 107/61 95 08/23/18 07:00 08/23/18 07:00 08/23/18 07:00 08/23/18 09:12 08/23/18 07:00 Intake and Output: 08/23/18 08/23/18 06:59 18:59 Intake Total 170 Balance 170 - Medications Medications: Current Medications Acetaminophen (Tylenol 325mg Tab) 650 mg PO Q6 PRN PRN Reason: Fever >100.4 F Last Admin: 08/19/18 07:59 Dose: 650 mg Arformoterol Tartrate (Brovana) 15 mcg INH RQ12@1000,2200 [facility] Last Admin: 08/22/18 21:03 Dose: 15 mcg Enoxaparin Sodium (Lovenox) 40 mg SC DAILY [facility] Last Admin: 08/23/18 09:09 Dose: 40 mg Furosemide (Lasix) 40 mg PO BID [facility] Last Admin: 08/23/18 09:12 Dose: 40 mg Cefepime HCl (Maxipime Iv 1 Gm Premix) 1 gm in 50 mls @ 100 mls/hr IVPB Q12H [facility]; Protocol Last Admin: 08/23/18 02:34 Dose: 100 mls/hr Methylprednisolone (Solu-Medrol) 40 mg IV Q8 [facility] Last Admin: 08/23/18 05:27 Dose: 40 mg Montelukast Sodium (Singulair) 10 mg PO HS [facility] Last Admin: 08/22/18 21:53 Dose: 10 mg Nebivolol (Bystolic) 5 mg PO DAILY [facility] Last Admin: 08/23/18 09:10 Dose: 5 mg Pantoprazole Sodium (Protonix Ec Tab) 40 mg PO DAILY [facility] Last Admin: 08/23/18 09:10 Dose: 40 mg Promethazine HCl (Phenergan Syrup) 6.25 mg PO Q6 PRN PRN Reason: Cough and congestion Last Admin: 08/21/18 17:31 Dose: 6.25 mg - Labs Labs: 08/21/18 08:40 08/21/18 08:40 - Constitutional Appears: Non-toxic, No Acute Distress - Extremities Exam Additional comments: B/L LE focused exam: VASC: DP/PT pulses 2/4 b/l. Cap refill <3 seconds to digits. +2 pitting edema noted b/l with L>R. Temperature gradient warm to superintendent storage area the left side and warm to cool on the right side from proximal to distal. Erythema noted along the bilateral LE which extends distal to the tibial tuberosity. NEURO: Gross and protective sensations are intact. DERM: Significant lower extremity Chronic stasis edema noted with L > R. Skin changes in the form of hyperpigmentation and lichnification of the legs noted. Superficial ulceration noted on the lower lateral part of left leg and anterior aspect of the right leg that shows epidermal lysis, mild serous drainage with no purulence, no malodor, no tunneling, no probe to bone MSK: Pedal muscle strength graded 5/5 in all groups. Mild limited ankle joint ROM to dorsiflexion b/l. Pain on palpation of the left leg. Pain on squeezing the left calf muscle. Assessment and Plan - Assessment and Plan (Free Text) Assessment: 53M with venous stasis ulcerations + cellulitis, improving Plan: Patient seen and evaluated at bedside with Dr. Servin VSS IV abx as per ID - Cefepime Continue local wound care: Xeroform, ABD, DSD, JESSICA LLE venous duplex: no evidence of DVT No surgical intervention from podiatry standpoint Will continue to provide local wound care Upon d/c will f/u with Dr. Servin as outpatient
[2018-08-23] MEDS: Arformoterol 15 mcg/2 ml Inh Sol INH SCH (11:51)
--- NOTE | 2018-08-23 12:53 | CP.PCM.PN ---
Subjective - Date & Time of Evaluation Date of Evaluation: 08/23/18 Time of Evaluation: 12:52 - Subjective Subjective: wheeze +.cellulitis bettter, Objective - Vital Signs/Intake and Output Vital Signs (last 24 hours): Temp Pulse Resp BP Pulse Ox 97.9 F 59 L 20 107/61 95 08/23/18 07:00 08/23/18 07:00 08/23/18 07:00 08/23/18 09:12 08/23/18 07:00 Intake and Output: 08/23/18 08/23/18 06:59 18:59 Intake Total 170 Balance 170 - Medications Medications: Current Medications Acetaminophen (Tylenol 325mg Tab) 650 mg PO Q6 PRN PRN Reason: Fever >100.4 F Last Admin: 08/19/18 07:59 Dose: 650 mg Arformoterol Tartrate (Brovana) 15 mcg INH RQ12@1000,2200 [facility] Last Admin: 08/23/18 11:51 Dose: 15 mcg Enoxaparin Sodium (Lovenox) 40 mg SC DAILY [facility] Last Admin: 08/23/18 09:09 Dose: 40 mg Furosemide (Lasix) 40 mg PO BID [facility] Last Admin: 08/23/18 09:12 Dose: 40 mg Cefepime HCl (Maxipime Iv 1 Gm Premix) 1 gm in 50 mls @ 100 mls/hr IVPB Q12H [facility]; Protocol Last Admin: 08/23/18 02:34 Dose: 100 mls/hr Methylprednisolone (Solu-Medrol) 40 mg IV Q8 [facility] Last Admin: 08/23/18 05:27 Dose: 40 mg Montelukast Sodium (Singulair) 10 mg PO HS [facility] Last Admin: 08/22/18 21:53 Dose: 10 mg Nebivolol (Bystolic) 5 mg PO DAILY [facility] Last Admin: 08/23/18 09:10 Dose: 5 mg Pantoprazole Sodium (Protonix Ec Tab) 40 mg PO DAILY [facility] Last Admin: 08/23/18 09:10 Dose: 40 mg Promethazine HCl (Phenergan Syrup) 6.25 mg PO Q6 PRN PRN Reason: Cough and congestion Last Admin: 08/21/18 17:31 Dose: 6.25 mg - Labs Labs: 08/21/18 08:40 08/21/18 08:40 - Constitutional Appears: No Acute Distress, Chronically Ill - Head Exam Head Exam: NORMOCEPHALIC - Neck Exam Neck Exam: Normal Inspection - Respiratory Exam Respiratory Exam: Wheezes - Cardiovascular Exam Cardiovascular Exam: REGULAR RHYTHM - GI/Abdominal Exam GI & Abdominal Exam: Soft - Extremities Exam Extremities Exam: Pedal Edema - Neurological Exam Neurological Exam: Alert, Oriented x3 Assessment and Plan - Assessment and Plan (Free Text) Plan: cpm.
--- NOTE | 2018-08-23 16:24 | CP.PCM.PN ---
Subjective - Date & Time of Evaluation Date of Evaluation: 08/23/18 Time of Evaluation: 13:00 - Subjective Subjective: Patient seen and examined breathing and cough much improved complaining of hoarseness of voice Objective - Vital Signs/Intake and Output Vital Signs (last 24 hours): Temp Pulse Resp BP Pulse Ox 97.9 F 59 L 20 107/61 95 08/23/18 07:00 08/23/18 07:00 08/23/18 07:00 08/23/18 09:12 08/23/18 07:00 Intake and Output: 08/23/18 08/23/18 06:59 18:59 Intake Total 170 Balance 170 - Medications Medications: Current Medications Acetaminophen (Tylenol 325mg Tab) 650 mg PO Q6 PRN PRN Reason: Fever >100.4 F Last Admin: 08/19/18 07:59 Dose: 650 mg Arformoterol Tartrate (Brovana) 15 mcg INH RQ12@1000,2200 [facility] Last Admin: 08/23/18 11:51 Dose: 15 mcg Enoxaparin Sodium (Lovenox) 40 mg SC DAILY [facility] Last Admin: 08/23/18 09:09 Dose: 40 mg Furosemide (Lasix) 40 mg PO BID [facility] Last Admin: 08/23/18 09:12 Dose: 40 mg Cefepime HCl (Maxipime Iv 1 Gm Premix) 1 gm in 50 mls @ 100 mls/hr IVPB Q12H [facility]; Protocol Last Admin: 08/23/18 13:43 Dose: 100 mls/hr Methylprednisolone (Solu-Medrol) 40 mg IV Q8 [facility] Last Admin: 08/23/18 13:41 Dose: 40 mg Montelukast Sodium (Singulair) 10 mg PO HS [facility] Last Admin: 08/22/18 21:53 Dose: 10 mg Nebivolol (Bystolic) 5 mg PO DAILY [facility] Last Admin: 08/23/18 09:10 Dose: 5 mg Pantoprazole Sodium (Protonix Ec Tab) 40 mg PO DAILY [facility] Last Admin: 08/23/18 09:10 Dose: 40 mg Promethazine HCl (Phenergan Syrup) 6.25 mg PO Q6 PRN PRN Reason: Cough and congestion Last Admin: 08/21/18 17:31 Dose: 6.25 mg - Labs Labs: 08/21/18 08:40 08/21/18 08:40 - Head Exam Head Exam: ATRAUMATIC, NORMOCEPHALIC - ENT Exam ENT Exam: Mucous Membranes Moist - Respiratory Exam Respiratory Exam: Rhonchi, Wheezes - Cardiovascular Exam Cardiovascular Exam: REGULAR RHYTHM - GI/Abdominal Exam GI & Abdominal Exam: Soft, Normal Bowel Sounds Assessment and Plan (1) Chronic obstructive lung disease Assessment & Plan: Continue nebulizer We will start tapering steroids Continue antibiotics Status: Chronic (2) Cellulitis, leg Status: Acute
[2018-08-24] MEDS: Cefepime IV 1 gm in Dextrose 1 GM/50 ML BAG IVPB SCH ×2 (01:28→13:03)
[2018-08-24] MEDS: MethylPREDNISolone 40 mg Vial IV SCH (05:22)
[2018-08-24 08:10] LABS: BLOOD UREA NITROGEN 43 mg/dL (9-20); CALCIUM 8.4 mg/dl (8.6-10.4); GFR NON-AFRICAN AMERICAN > 60
[2018-08-24] MEDS: Enoxaparin 40 mg Syringe SC SCH (09:35)
[2018-08-24] MEDS: Pantoprazole 40 mg EC Tab PO SCH (09:36)
[2018-08-24] MEDS: Arformoterol 15 mcg/2 ml Inh Sol INH SCH ×2 (11:15→21:00)
--- NOTE | 2018-08-24 11:46 | CP.PCM.PN ---
Subjective - Date & Time of Evaluation Date of Evaluation: 08/24/18 Time of Evaluation: 11:44 - Subjective Subjective: Podiatry progress note - Dr. Servin 53M seen and evaluated this AM for bilateral lower extremity venous stasis ulcerations. Patient OOB in recliner, NAD. No new complaints. Bilateral dressings clean/dry/intact. SOB improving. Objective - Vital Signs/Intake and Output Vital Signs (last 24 hours): Temp Pulse Resp BP Pulse Ox 98.2 F 58 L 20 124/69 98 08/23/18 23:10 08/23/18 23:10 08/23/18 23:10 08/24/18 09:36 08/23/18 23:10 Intake and Output: 08/24/18 08/24/18 06:59 18:59 Intake Total 170 Balance 170 - Medications Medications: Current Medications Acetaminophen (Tylenol 325mg Tab) 650 mg PO Q6 PRN PRN Reason: Fever >100.4 F Last Admin: 08/19/18 07:59 Dose: 650 mg Arformoterol Tartrate (Brovana) 15 mcg INH RQ12@1000,2200 [facility] Last Admin: 08/24/18 11:15 Dose: 15 mcg Enoxaparin Sodium (Lovenox) 40 mg SC DAILY [facility] Last Admin: 08/24/18 09:35 Dose: 40 mg Furosemide (Lasix) 40 mg PO BID [facility] Last Admin: 08/24/18 09:36 Dose: 40 mg Cefepime HCl (Maxipime Iv 1 Gm Premix) 1 gm in 50 mls @ 100 mls/hr IVPB Q12H [facility]; Protocol Last Admin: 08/24/18 01:28 Dose: 100 mls/hr Methylprednisolone (Solu-Medrol) 40 mg IV Q8 [facility] Last Admin: 08/24/18 05:22 Dose: 40 mg Montelukast Sodium (Singulair) 10 mg PO HS [facility] Last Admin: 08/23/18 23:00 Dose: 10 mg Nebivolol (Bystolic) 5 mg PO DAILY [facility] Last Admin: 08/24/18 09:36 Dose: 5 mg Pantoprazole Sodium (Protonix Ec Tab) 40 mg PO DAILY [facility] Last Admin: 08/24/18 09:36 Dose: 40 mg Promethazine HCl (Phenergan Syrup) 6.25 mg PO Q6 PRN PRN Reason: Cough and congestion Last Admin: 08/21/18 17:31 Dose: 6.25 mg - Labs Labs: 08/21/18 08:40 08/24/18 07:50 - Constitutional Appears: Non-toxic, No Acute Distress - Extremities Exam Additional comments: Bilateral lower extremity dressing clean/dry/intact with no strikethrough present - Neurological Exam Neurological Exam: Alert, Awake, Oriented x3 - Psychiatric Exam Psychiatric exam: Normal Affect, Normal Mood Assessment and Plan - Assessment and Plan (Free Text) Assessment: 53M with venous stasis ulcerations + cellulitis, resolving Plan: Patient seen and evaluated at bedside Discussed with attending, Dr. Servin VSS IV abx as per ID - Cefepime Continue local wound care: Xeroform, ABD, DSD, JESSICA b/l LLE venous duplex: no evidence of DVT No surgical intervention from podiatry standpoint Will continue to provide local wound care Upon d/c will f/u with Dr. Servin as outpatient
--- NOTE | 2018-08-24 12:26 | CP.PCM.PN ---
Subjective - Date & Time of Evaluation Date of Evaluation: 08/24/18 Time of Evaluation: 12:25 - Subjective Subjective: still sob ++. Objective - Vital Signs/Intake and Output Vital Signs (last 24 hours): Temp Pulse Resp BP Pulse Ox 98.2 F 58 L 20 124/69 98 08/23/18 23:10 08/23/18 23:10 08/23/18 23:10 08/24/18 09:36 08/23/18 23:10 Intake and Output: 08/24/18 08/24/18 06:59 18:59 Intake Total 170 Balance 170 - Medications Medications: Current Medications Acetaminophen (Tylenol 325mg Tab) 650 mg PO Q6 PRN PRN Reason: Fever >100.4 F Last Admin: 08/19/18 07:59 Dose: 650 mg Arformoterol Tartrate (Brovana) 15 mcg INH RQ12@1000,2200 [facility] Last Admin: 08/24/18 11:15 Dose: 15 mcg Enoxaparin Sodium (Lovenox) 40 mg SC DAILY [facility] Last Admin: 08/24/18 09:35 Dose: 40 mg Furosemide (Lasix) 40 mg PO BID [facility] Last Admin: 08/24/18 09:36 Dose: 40 mg Cefepime HCl (Maxipime Iv 1 Gm Premix) 1 gm in 50 mls @ 100 mls/hr IVPB Q12H [facility]; Protocol Last Admin: 08/24/18 01:28 Dose: 100 mls/hr Methylprednisolone (Solu-Medrol) 60 mg IV Q6 [facility] Montelukast Sodium (Singulair) 10 mg PO HS [facility] Last Admin: 08/23/18 23:00 Dose: 10 mg Nebivolol (Bystolic) 5 mg PO DAILY [facility] Last Admin: 08/24/18 09:36 Dose: 5 mg Pantoprazole Sodium (Protonix Ec Tab) 40 mg PO DAILY [facility] Last Admin: 08/24/18 09:36 Dose: 40 mg Promethazine HCl (Phenergan Syrup) 6.25 mg PO Q6 PRN PRN Reason: Cough and congestion Last Admin: 08/21/18 17:31 Dose: 6.25 mg - Labs Labs: 08/21/18 08:40 08/24/18 07:50 - Constitutional Appears: No Acute Distress - Head Exam Head Exam: NORMOCEPHALIC - Neck Exam Neck Exam: Normal Inspection - Respiratory Exam Respiratory Exam: Wheezes - Cardiovascular Exam Cardiovascular Exam: REGULAR RHYTHM - GI/Abdominal Exam GI & Abdominal Exam: Soft - Extremities Exam Extremities Exam: Pedal Edema - Neurological Exam Neurological Exam: Alert, Oriented x3 Assessment and Plan - Assessment and Plan (Free Text) Plan: copd.,still wheeze ++.may need to increase steroids.
[2018-08-24] MEDS: Albuterol-Ipratrop 3 mg / 0.5 (3 ml) UD INH SCH ×2 (13:32→19:13)
--- NOTE | 2018-08-24 15:58 | CP.PCM.PN ---
Subjective - Date & Time of Evaluation Date of Evaluation: 08/24/18 Time of Evaluation: 13:00 - Subjective Subjective: Patient seen and examined Still complaining of cough and wheezing Afebrile Sitting comfortably in no distress Being treated for cellulitis and COPD exacerbation Objective - Vital Signs/Intake and Output Vital Signs (last 24 hours): Temp Pulse Resp BP Pulse Ox 98.2 F 58 L 20 124/69 98 08/23/18 23:10 08/23/18 23:10 08/23/18 23:10 08/24/18 09:36 08/23/18 23:10 Intake and Output: 08/24/18 08/24/18 06:59 18:59 Intake Total 170 360 Balance 170 360 - Medications Medications: Current Medications Acetaminophen (Tylenol 325mg Tab) 650 mg PO Q6 PRN PRN Reason: Fever >100.4 F Last Admin: 08/19/18 07:59 Dose: 650 mg Albuterol/Ipratropium (Duoneb 3 Mg/0.5 Mg (3 Ml) Ud) 3 ml INH RQ6 [facility] Last Admin: 08/24/18 13:32 Dose: 3 ml Arformoterol Tartrate (Brovana) 15 mcg INH RQ12@1000,2200 [facility] Last Admin: 08/24/18 11:15 Dose: 15 mcg Enoxaparin Sodium (Lovenox) 40 mg SC DAILY [facility] Last Admin: 08/24/18 09:35 Dose: 40 mg Furosemide (Lasix) 40 mg PO BID [facility] Last Admin: 08/24/18 09:36 Dose: 40 mg Cefepime HCl (Maxipime Iv 1 Gm Premix) 1 gm in 50 mls @ 100 mls/hr IVPB Q12H [facility]; Protocol Last Admin: 08/24/18 13:03 Dose: 100 mls/hr Methylprednisolone (Solu-Medrol) 60 mg IV Q6 [facility] Montelukast Sodium (Singulair) 10 mg PO HS [facility] Last Admin: 08/23/18 23:00 Dose: 10 mg Nebivolol (Bystolic) 5 mg PO DAILY [facility] Last Admin: 08/24/18 09:36 Dose: 5 mg Pantoprazole Sodium (Protonix Ec Tab) 40 mg PO DAILY [facility] Last Admin: 08/24/18 09:36 Dose: 40 mg Promethazine HCl (Phenergan Syrup) 6.25 mg PO Q6 PRN PRN Reason: Cough and congestion Last Admin: 08/21/18 17:31 Dose: 6.25 mg - Labs Labs: 08/21/18 08:40 08/24/18 07:50 - Head Exam Head Exam: ATRAUMATIC, NORMOCEPHALIC - Eye Exam Eye Exam: Normal appearance - Neck Exam Neck Exam: Normal Inspection - Respiratory Exam Respiratory Exam: Rhonchi, Wheezes - Cardiovascular Exam Cardiovascular Exam: REGULAR RHYTHM - GI/Abdominal Exam GI & Abdominal Exam: Soft, Normal Bowel Sounds Assessment and Plan (1) Cellulitis, leg Assessment & Plan: Continue IV antibiotics Status: Acute (2) Chronic obstructive lung disease Assessment & Plan: Persistent cough and wheezing Increase Solu-Medrol Nebulizer treatment and Brovana Status: Chronic
[2018-08-24] MEDS: Promethazine 6.25 MG/5 ML CUP PO PRN (17:36)
--- NOTE | 2018-08-24 18:09 | CP.PCM.PN ---
Subjective - Date & Time of Evaluation Date of Evaluation: 08/24/18 Time of Evaluation: 08:00 - Subjective Subjective: seen on rounds ROS completed events noted labs and xrays reviewed orders signed Objective - Vital Signs/Intake and Output Vital Signs (last 24 hours): Temp Pulse Resp BP Pulse Ox 98 F 55 L 20 118/70 96 08/24/18 16:52 08/24/18 16:52 08/24/18 16:52 08/24/18 17:33 08/24/18 16:52 Intake and Output: 08/24/18 08/24/18 06:59 18:59 Intake Total 170 360 Balance 170 360 - Medications Medications: Current Medications Acetaminophen (Tylenol 325mg Tab) 650 mg PO Q6 PRN PRN Reason: Fever >100.4 F Last Admin: 08/19/18 07:59 Dose: 650 mg Albuterol/Ipratropium (Duoneb 3 Mg/0.5 Mg (3 Ml) Ud) 3 ml INH RQ6 [facility] Last Admin: 08/24/18 13:32 Dose: 3 ml Arformoterol Tartrate (Brovana) 15 mcg INH RQ12@1000,2200 [facility] Last Admin: 08/24/18 11:15 Dose: 15 mcg Enoxaparin Sodium (Lovenox) 40 mg SC DAILY [facility] Last Admin: 08/24/18 09:35 Dose: 40 mg Furosemide (Lasix) 40 mg PO BID [facility] Last Admin: 08/24/18 17:33 Dose: 40 mg Cefepime HCl (Maxipime Iv 1 Gm Premix) 1 gm in 50 mls @ 100 mls/hr IVPB Q12H [facility]; Protocol Last Admin: 08/24/18 13:03 Dose: 100 mls/hr Methylprednisolone (Solu-Medrol) 60 mg IV Q6 [facility] Last Admin: 08/24/18 17:33 Dose: 60 mg Montelukast Sodium (Singulair) 10 mg PO HS [facility] Last Admin: 08/23/18 23:00 Dose: 10 mg Nebivolol (Bystolic) 5 mg PO DAILY [facility] Last Admin: 08/24/18 09:36 Dose: 5 mg Pantoprazole Sodium (Protonix Ec Tab) 40 mg PO DAILY [facility] Last Admin: 08/24/18 09:36 Dose: 40 mg Promethazine HCl (Phenergan Syrup) 6.25 mg PO Q6 PRN PRN Reason: Cough and congestion Last Admin: 08/24/18 17:36 Dose: 6.25 mg - Labs Labs: 08/21/18 08:40 08/24/18 07:50 - Constitutional Appears: Non-toxic, Chronically Ill - Head Exam Head Exam: ATRAUMATIC, NORMAL INSPECTION, NORMOCEPHALIC - Eye Exam Eye Exam: EOMI, Normal appearance, PERRL Pupil Exam: NORMAL ACCOMODATION, PERRL - ENT Exam ENT Exam: Mucous Membranes Moist, Normal Exam - Neck Exam Neck Exam: Full ROM, Normal Inspection. absent: Lymphadenopathy - Respiratory Exam Respiratory Exam: Clear to Ausculation Bilateral, NORMAL BREATHING PATTERN - Cardiovascular Exam Cardiovascular Exam: REGULAR RHYTHM, +S1, +S2. absent: Murmur - GI/Abdominal Exam GI & Abdominal Exam: Soft, Normal Bowel Sounds. absent: Tenderness - Rectal Exam Rectal Exam: Deferred - Extremities Exam Extremities Exam: Full ROM, Normal Capillary Refill, Normal Inspection. absent: Joint Swelling, Pedal Edema - Back Exam Back Exam: NORMAL INSPECTION - Neurological Exam Neurological Exam: Alert, Awake, CN II-XII Intact, Normal Gait, Oriented x3 - Psychiatric Exam Psychiatric exam: Normal Affect, Normal Mood - Skin Skin Exam: Dry, Erythema, Warm Assessment and Plan (1) Cellulitis, leg Status: Acute (2) Chronic obstructive lung disease Status: Chronic (3) Left leg cellulitis Status: Acute (4) MIKEY (obstructive sleep apnea) Status: Acute (5) A-fib Status: Chronic (6) HTN (hypertension) Status: Chronic (7) Morbid obesity with BMI of 60.0-69.9, adult Status: Chronic (8) Venous stasis dermatitis of both lower extremities Status: Chronic - Assessment and Plan (Free Text) Assessment: cont IV rx for COPD/ Cellulitis encourage weight loss
[2018-08-25] MEDS: Albuterol-Ipratrop 3 mg / 0.5 (3 ml) UD INH SCH ×4 (01:29→20:00)
[2018-08-25] MEDS: Cefepime IV 1 gm in Dextrose 1 GM/50 ML BAG IVPB SCH ×2 (02:48→13:47)
[2018-08-25] MEDS: Enoxaparin 40 mg Syringe SC SCH (09:34)
[2018-08-25] MEDS: Pantoprazole 40 mg EC Tab PO SCH (09:34)
[2018-08-25] MEDS: Arformoterol 15 mcg/2 ml Inh Sol INH SCH ×2 (10:43→21:15)
--- NOTE | 2018-08-25 10:43 | CP.PCM.PN ---
Subjective - Date & Time of Evaluation Date of Evaluation: 08/25/18 Time of Evaluation: 10:43 - Subjective Subjective: Podiatry progress note - Dr. Servin 53M seen and evaluated this AM for bilateral lower extremity venous stasis ulcerations. Patient OOB in recliner, NAD. No acute events overnight. Patient offers no new lower extremity complaints. Dressings clean/dry/intact. Objective - Vital Signs/Intake and Output Vital Signs (last 24 hours): Temp Pulse Resp BP Pulse Ox 98.3 F 50 L 20 125/65 96 08/25/18 08:02 08/25/18 08:02 08/25/18 08:02 08/25/18 09:35 08/25/18 08:02 Intake and Output: 08/25/18 08/25/18 06:59 18:59 Intake Total 170 Balance 170 - Medications Medications: Current Medications Acetaminophen (Tylenol 325mg Tab) 650 mg PO Q6 PRN PRN Reason: Fever >100.4 F Last Admin: 08/19/18 07:59 Dose: 650 mg Albuterol/Ipratropium (Duoneb 3 Mg/0.5 Mg (3 Ml) Ud) 3 ml INH RQ6 [facility] Last Admin: 08/25/18 08:38 Dose: 3 ml Arformoterol Tartrate (Brovana) 15 mcg INH RQ12@1000,2200 [facility] Last Admin: 08/24/18 21:00 Dose: 15 mcg Enoxaparin Sodium (Lovenox) 40 mg SC DAILY [facility] Last Admin: 08/25/18 09:34 Dose: 40 mg Furosemide (Lasix) 40 mg PO BID [facility] Last Admin: 08/25/18 09:34 Dose: 40 mg Cefepime HCl (Maxipime Iv 1 Gm Premix) 1 gm in 50 mls @ 100 mls/hr IVPB Q12H [facility]; Protocol Last Admin: 08/25/18 02:48 Dose: 100 mls/hr Methylprednisolone (Solu-Medrol) 60 mg IV Q6 [facility] Last Admin: 08/25/18 06:15 Dose: 60 mg Montelukast Sodium (Singulair) 10 mg PO HS [facility] Last Admin: 08/24/18 22:02 Dose: 10 mg Nebivolol (Bystolic) 5 mg PO DAILY [facility] Last Admin: 08/25/18 09:34 Dose: 5 mg Pantoprazole Sodium (Protonix Ec Tab) 40 mg PO DAILY [facility] Last Admin: 08/25/18 09:34 Dose: 40 mg Promethazine HCl (Phenergan Syrup) 6.25 mg PO Q6 PRN PRN Reason: Cough and congestion Last Admin: 08/24/18 17:36 Dose: 6.25 mg - Labs Labs: 08/21/18 08:40 08/24/18 07:50 - Constitutional Appears: Non-toxic, No Acute Distress - Extremities Exam Additional comments: B/L LE focused exam: VASC: DP/PT pulses 2/4 b/l. Cap refill <3 seconds to digits. +2 pitting edema noted b/l with L>R. Temperature gradient warm to chlorine operator the left side and warm to cool on the right side from proximal to distal. Erythema noted along the bilateral LE which extends distal to the tibial tuberosity. NEURO: Gross and protective sensations are intact. DERM: Significant lower extremity Chronic stasis edema noted with L > R. Skin changes in the form of hyperpigmentation and lichnification of the legs noted. Superficial ulceration noted on the lower lateral part of left leg and anterior aspect of the right leg that shows epidermal lysis, mild serous drainage with no purulence, no malodor, no tunneling, no probe to bone MSK: Pedal muscle strength graded 5/5 in all groups. Mild limited ankle joint ROM to dorsiflexion b/l. Pain on palpation of the left leg. Pain on squeezing the left calf muscle. - Neurological Exam Neurological Exam: Alert, Awake, Oriented x3 - Psychiatric Exam Psychiatric exam: Normal Affect, Normal Mood Assessment and Plan - Assessment and Plan (Free Text) Assessment: 53M with venous stasis ulcerations + cellulitis, resolving Plan: Patient seen and evaluated at bedside Discussed with attending, Dr. Servin VSS IV abx as per ID - Cefepime Continue local wound care: Xeroform, ABD, DSD, JESSICA b/l LLE venous duplex: no evidence of DVT No surgical intervention from podiatry standpoint Will continue to provide local wound care Upon discharge, patient to follow up with Dr. Servin in office within 1 week
--- NOTE | 2018-08-25 12:25 | CP.PCM.PN ---
Subjective - Date & Time of Evaluation Date of Evaluation: 08/25/18 Time of Evaluation: 12:24 - Subjective Subjective: wheeze better.steroids increased. Objective - Vital Signs/Intake and Output Vital Signs (last 24 hours): Temp Pulse Resp BP Pulse Ox 98.3 F 50 L 20 125/65 96 08/25/18 08:02 08/25/18 08:02 08/25/18 08:02 08/25/18 09:35 08/25/18 08:02 Intake and Output: 08/25/18 08/25/18 06:59 18:59 Intake Total 170 Balance 170 - Medications Medications: Current Medications Acetaminophen (Tylenol 325mg Tab) 650 mg PO Q6 PRN PRN Reason: Fever >100.4 F Last Admin: 08/19/18 07:59 Dose: 650 mg Albuterol/Ipratropium (Duoneb 3 Mg/0.5 Mg (3 Ml) Ud) 3 ml INH RQ6 [facility] Last Admin: 08/25/18 08:38 Dose: 3 ml Arformoterol Tartrate (Brovana) 15 mcg INH RQ12@1000,2200 [facility] Last Admin: 08/25/18 10:43 Dose: 15 mcg Enoxaparin Sodium (Lovenox) 40 mg SC DAILY [facility] Last Admin: 08/25/18 09:34 Dose: 40 mg Furosemide (Lasix) 40 mg PO BID [facility] Last Admin: 08/25/18 09:34 Dose: 40 mg Cefepime HCl (Maxipime Iv 1 Gm Premix) 1 gm in 50 mls @ 100 mls/hr IVPB Q12H [facility]; Protocol Last Admin: 08/25/18 02:48 Dose: 100 mls/hr Methylprednisolone (Solu-Medrol) 60 mg IV Q6 [facility] Last Admin: 08/25/18 12:05 Dose: 60 mg Montelukast Sodium (Singulair) 10 mg PO HS [facility] Last Admin: 08/24/18 22:02 Dose: 10 mg Nebivolol (Bystolic) 5 mg PO DAILY [facility] Last Admin: 08/25/18 09:34 Dose: 5 mg Pantoprazole Sodium (Protonix Ec Tab) 40 mg PO DAILY [facility] Last Admin: 08/25/18 09:34 Dose: 40 mg Promethazine HCl (Phenergan Syrup) 6.25 mg PO Q6 PRN PRN Reason: Cough and congestion Last Admin: 08/24/18 17:36 Dose: 6.25 mg - Labs Labs: 08/21/18 08:40 08/24/18 07:50 - Constitutional Appears: No Acute Distress, Chronically Ill - Head Exam Head Exam: NORMOCEPHALIC - Neck Exam Neck Exam: Normal Inspection - Respiratory Exam Respiratory Exam: Wheezes - Cardiovascular Exam Cardiovascular Exam: REGULAR RHYTHM - GI/Abdominal Exam GI & Abdominal Exam: Soft - Extremities Exam Extremities Exam: Pedal Edema - Neurological Exam Neurological Exam: Alert, Oriented x3 Assessment and Plan - Assessment and Plan (Free Text) Plan: copd getting better.cpm.
--- NOTE | 2018-08-25 16:46 | CP.PCM.PN ---
Subjective - Date & Time of Evaluation Date of Evaluation: 08/25/18 Time of Evaluation: 11:00 - Subjective Subjective: Patient seen and examined Improving Afebrile Still has cough with less wheezing Objective - Vital Signs/Intake and Output Vital Signs (last 24 hours): Temp Pulse Resp BP Pulse Ox 98.2 F 64 20 131/64 96 08/25/18 15:39 08/25/18 15:39 08/25/18 15:39 08/25/18 15:39 08/25/18 15:39 Intake and Output: 08/25/18 08/25/18 06:59 18:59 Intake Total 170 Balance 170 - Medications Medications: Current Medications Acetaminophen (Tylenol 325mg Tab) 650 mg PO Q6 PRN PRN Reason: Fever >100.4 F Last Admin: 08/19/18 07:59 Dose: 650 mg Albuterol/Ipratropium (Duoneb 3 Mg/0.5 Mg (3 Ml) Ud) 3 ml INH RQ6 [facility] Last Admin: 08/25/18 13:41 Dose: 3 ml Arformoterol Tartrate (Brovana) 15 mcg INH RQ12@1000,2200 [facility] Last Admin: 08/25/18 10:43 Dose: 15 mcg Enoxaparin Sodium (Lovenox) 40 mg SC DAILY [facility] Last Admin: 08/25/18 09:34 Dose: 40 mg Furosemide (Lasix) 40 mg PO BID [facility] Last Admin: 08/25/18 09:34 Dose: 40 mg Cefepime HCl (Maxipime Iv 1 Gm Premix) 1 gm in 50 mls @ 100 mls/hr IVPB Q12H [facility]; Protocol Last Admin: 08/25/18 13:47 Dose: 100 mls/hr Methylprednisolone (Solu-Medrol) 60 mg IV Q6 [facility] Last Admin: 08/25/18 12:05 Dose: 60 mg Montelukast Sodium (Singulair) 10 mg PO HS [facility] Last Admin: 08/24/18 22:02 Dose: 10 mg Nebivolol (Bystolic) 5 mg PO DAILY [facility] Last Admin: 08/25/18 09:34 Dose: 5 mg Pantoprazole Sodium (Protonix Ec Tab) 40 mg PO DAILY [facility] Last Admin: 08/25/18 09:34 Dose: 40 mg Promethazine HCl (Phenergan Syrup) 6.25 mg PO Q6 PRN PRN Reason: Cough and congestion Last Admin: 08/24/18 17:36 Dose: 6.25 mg - Labs Labs: 08/21/18 08:40 08/24/18 07:50 - Head Exam Head Exam: ATRAUMATIC, NORMOCEPHALIC - ENT Exam ENT Exam: Mucous Membranes Moist - Neck Exam Neck Exam: Normal Inspection - Respiratory Exam Respiratory Exam: Rhonchi, Wheezes - Cardiovascular Exam Cardiovascular Exam: REGULAR RHYTHM - GI/Abdominal Exam GI & Abdominal Exam: Soft Assessment and Plan (1) Cellulitis, leg Status: Acute (2) Chronic obstructive lung disease Assessment & Plan: Today patient told me that he was exposed to fumes at work and that is how the cough started Rule out reactive airway disease Continue steroids, nebulizer treatment Continue antibiotics Status: Chronic
[2018-08-26] MEDS: Albuterol-Ipratrop 3 mg / 0.5 (3 ml) UD INH SCH ×4 (01:05→20:10)
[2018-08-26] MEDS: Cefepime IV 1 gm in Dextrose 1 GM/50 ML BAG IVPB SCH ×2 (01:50→13:22)
[2018-08-26] MEDS: Enoxaparin 40 mg Syringe SC SCH (09:51)
[2018-08-26] MEDS: Pantoprazole 40 mg EC Tab PO SCH (09:51)
[2018-08-26] MEDS: Arformoterol 15 mcg/2 ml Inh Sol INH SCH (10:51)
--- NOTE | 2018-08-26 12:09 | CP.PCM.PN ---
Subjective - Date & Time of Evaluation Date of Evaluation: 08/26/18 Time of Evaluation: 12:08 - Subjective Subjective: feels better.less sob Objective - Vital Signs/Intake and Output Vital Signs (last 24 hours): Temp Pulse Resp BP Pulse Ox 98.4 F 57 L 20 131/73 98 08/26/18 07:00 08/26/18 07:00 08/26/18 07:00 08/26/18 09:50 08/26/18 07:00 Intake and Output: 08/26/18 08/26/18 06:59 18:59 Intake Total 320 Balance 320 - Medications Medications: Current Medications Acetaminophen (Tylenol 325mg Tab) 650 mg PO Q6 PRN PRN Reason: Fever >100.4 F Last Admin: 08/19/18 07:59 Dose: 650 mg Albuterol/Ipratropium (Duoneb 3 Mg/0.5 Mg (3 Ml) Ud) 3 ml INH RQ6 [facility] Last Admin: 08/26/18 08:50 Dose: 3 ml Arformoterol Tartrate (Brovana) 15 mcg INH RQ12@1000,2200 [facility] Last Admin: 08/26/18 10:51 Dose: 15 mcg Enoxaparin Sodium (Lovenox) 40 mg SC DAILY [facility] Last Admin: 08/26/18 09:51 Dose: 40 mg Furosemide (Lasix) 40 mg PO BID [facility] Last Admin: 08/26/18 09:50 Dose: 40 mg Cefepime HCl (Maxipime Iv 1 Gm Premix) 1 gm in 50 mls @ 100 mls/hr IVPB Q12H [facility]; Protocol Last Admin: 08/26/18 01:50 Dose: 100 mls/hr Methylprednisolone (Solu-Medrol) 60 mg IV Q6 [facility] Last Admin: 08/26/18 11:16 Dose: 60 mg Montelukast Sodium (Singulair) 10 mg PO HS [facility] Last Admin: 08/25/18 21:12 Dose: 10 mg Nebivolol (Bystolic) 5 mg PO DAILY [facility] Last Admin: 08/26/18 09:50 Dose: 5 mg Pantoprazole Sodium (Protonix Ec Tab) 40 mg PO DAILY [facility] Last Admin: 08/26/18 09:51 Dose: 40 mg Promethazine HCl (Phenergan Syrup) 6.25 mg PO Q6 PRN PRN Reason: Cough and congestion Last Admin: 08/24/18 17:36 Dose: 6.25 mg - Labs Labs: 08/21/18 08:40 08/24/18 07:50 - Constitutional Appears: No Acute Distress - Head Exam Head Exam: NORMOCEPHALIC - Neck Exam Neck Exam: Normal Inspection - Respiratory Exam Respiratory Exam: Wheezes - Cardiovascular Exam Cardiovascular Exam: REGULAR RHYTHM - GI/Abdominal Exam GI & Abdominal Exam: Soft - Neurological Exam Neurological Exam: Alert, Oriented x3 Assessment and Plan - Assessment and Plan (Free Text) Plan: copd much better.will taper off iv steroids slowly.
--- NOTE | 2018-08-26 12:38 | CP.PCM.PN ---
Subjective - Date & Time of Evaluation Date of Evaluation: 08/26/18 Time of Evaluation: 11:00 - Subjective Subjective: Patient seen and examined Cough and wheezing much improved Afebrile Denies any chest pain Objective - Vital Signs/Intake and Output Vital Signs (last 24 hours): Temp Pulse Resp BP Pulse Ox 98.4 F 57 L 20 131/73 98 08/26/18 07:00 08/26/18 07:00 08/26/18 07:00 08/26/18 09:50 08/26/18 07:00 Intake and Output: 08/26/18 08/26/18 06:59 18:59 Intake Total 320 Balance 320 - Medications Medications: Current Medications Acetaminophen (Tylenol 325mg Tab) 650 mg PO Q6 PRN PRN Reason: Fever >100.4 F Last Admin: 08/19/18 07:59 Dose: 650 mg Albuterol/Ipratropium (Duoneb 3 Mg/0.5 Mg (3 Ml) Ud) 3 ml INH RQ6 [facility] Last Admin: 08/26/18 08:50 Dose: 3 ml Arformoterol Tartrate (Brovana) 15 mcg INH RQ12@1000,2200 [facility] Last Admin: 08/26/18 10:51 Dose: 15 mcg Enoxaparin Sodium (Lovenox) 40 mg SC DAILY [facility] Last Admin: 08/26/18 09:51 Dose: 40 mg Furosemide (Lasix) 40 mg PO BID [facility] Last Admin: 08/26/18 09:50 Dose: 40 mg Cefepime HCl (Maxipime Iv 1 Gm Premix) 1 gm in 50 mls @ 100 mls/hr IVPB Q12H [facility]; Protocol Last Admin: 08/26/18 01:50 Dose: 100 mls/hr Methylprednisolone (Solu-Medrol) 60 mg IV Q6 [facility] Last Admin: 08/26/18 11:16 Dose: 60 mg Montelukast Sodium (Singulair) 10 mg PO HS [facility] Last Admin: 08/25/18 21:12 Dose: 10 mg Nebivolol (Bystolic) 5 mg PO DAILY [facility] Last Admin: 08/26/18 09:50 Dose: 5 mg Pantoprazole Sodium (Protonix Ec Tab) 40 mg PO DAILY [facility] Last Admin: 08/26/18 09:51 Dose: 40 mg Promethazine HCl (Phenergan Syrup) 6.25 mg PO Q6 PRN PRN Reason: Cough and congestion Last Admin: 08/24/18 17:36 Dose: 6.25 mg - Labs Labs: 08/21/18 08:40 08/24/18 07:50 - Head Exam Head Exam: ATRAUMATIC, NORMOCEPHALIC - Eye Exam Eye Exam: Normal appearance - ENT Exam ENT Exam: Mucous Membranes Moist - Neck Exam Neck Exam: Normal Inspection - Respiratory Exam Respiratory Exam: Clear to Ausculation Bilateral Assessment and Plan (1) Cellulitis, leg Status: Acute (2) Chronic obstructive lung disease Assessment & Plan: Switch to p.o. prednisone Continue nebulizer treatment Continue antibiotics Physical therapy Status: Chronic
--- NOTE | 2018-08-26 18:23 | CP.PCM.PN ---
Subjective - Date & Time of Evaluation Date of Evaluation: 08/26/18 Time of Evaluation: 08:00 - Subjective Subjective: improving afebrile alert in NAD Objective - Vital Signs/Intake and Output Vital Signs (last 24 hours): Temp Pulse Resp BP Pulse Ox 97.6 F 57 L 20 115/72 96 08/26/18 15:48 08/26/18 15:48 08/26/18 15:48 08/26/18 17:22 08/26/18 15:48 Intake and Output: 08/26/18 08/26/18 06:59 18:59 Intake Total 320 Balance 320 - Medications Medications: Current Medications Acetaminophen (Tylenol 325mg Tab) 650 mg PO Q6 PRN PRN Reason: Fever >100.4 F Last Admin: 08/19/18 07:59 Dose: 650 mg Albuterol/Ipratropium (Duoneb 3 Mg/0.5 Mg (3 Ml) Ud) 3 ml INH RQ6 [facility] Last Admin: 08/26/18 14:01 Dose: 3 ml Arformoterol Tartrate (Brovana) 15 mcg INH RQ12@1000,2200 [facility] Last Admin: 08/26/18 10:51 Dose: 15 mcg Enoxaparin Sodium (Lovenox) 40 mg SC DAILY [facility] Last Admin: 08/26/18 09:51 Dose: 40 mg Furosemide (Lasix) 40 mg PO BID [facility] Last Admin: 08/26/18 17:22 Dose: 40 mg Cefepime HCl (Maxipime Iv 1 Gm Premix) 1 gm in 50 mls @ 100 mls/hr IVPB Q12H [facility]; Protocol Last Admin: 08/26/18 13:22 Dose: 100 mls/hr Methylprednisolone (Solu-Medrol) 60 mg IV Q6 [facility] Last Admin: 08/26/18 17:22 Dose: 60 mg Montelukast Sodium (Singulair) 10 mg PO HS [facility] Last Admin: 08/25/18 21:12 Dose: 10 mg Nebivolol (Bystolic) 5 mg PO DAILY [facility] Last Admin: 08/26/18 09:50 Dose: 5 mg Pantoprazole Sodium (Protonix Ec Tab) 40 mg PO DAILY [facility] Last Admin: 08/26/18 09:51 Dose: 40 mg Promethazine HCl (Phenergan Syrup) 6.25 mg PO Q6 PRN PRN Reason: Cough and congestion Last Admin: 08/24/18 17:36 Dose: 6.25 mg - Labs Labs: 08/21/18 08:40 08/24/18 07:50 - Constitutional Appears: Non-toxic, Chronically Ill - Head Exam Head Exam: NORMOCEPHALIC - Eye Exam Eye Exam: PERRL. absent: Scleral icterus - ENT Exam ENT Exam: Mucous Membranes Dry - Neck Exam Neck Exam: absent: Lymphadenopathy - Respiratory Exam Respiratory Exam: Decreased Breath Sounds - Cardiovascular Exam Cardiovascular Exam: REGULAR RHYTHM - GI/Abdominal Exam GI & Abdominal Exam: Distended, Soft - Rectal Exam Rectal Exam: Deferred - Exam Exam: NORMAL INSPECTION - Extremities Exam Extremities Exam: absent: Pedal Edema - Back Exam Back Exam: absent: CVA tenderness (L), CVA tenderness (R) - Neurological Exam Neurological Exam: Alert, Awake, Oriented x3 Assessment and Plan (1) Cellulitis, leg Status: Acute (2) Chronic obstructive lung disease Status: Chronic (3) Left leg cellulitis Status: Acute (4) MIKEY (obstructive sleep apnea) Status: Acute (5) A-fib Status: Chronic (6) HTN (hypertension) Status: Chronic (7) Morbid obesity with BMI of 60.0-69.9, adult Status: Chronic (8) Venous stasis dermatitis of both lower extremities Status: Chronic - Assessment and Plan (Free Text) Assessment: cont iv rx , leg elevation, bronchodilators
[2018-08-27] MEDS: Cefepime IV 1 gm in Dextrose 1 GM/50 ML BAG IVPB SCH ×2 (01:51→14:30)
[2018-08-27] MEDS: Albuterol-Ipratrop 3 mg / 0.5 (3 ml) UD INH SCH ×4 (02:30→20:19)
--- NOTE | 2018-08-27 07:06 | CP.PCM.PN ---
<Giorgio Servin - Last Filed: 08/27/18 07:05> Subjective - Date & Time of Evaluation Date of Evaluation: 08/27/18 Time of Evaluation: 07:05 Objective - Vital Signs/Intake and Output Vital Signs (last 24 hours): Temp Pulse Resp BP Pulse Ox 98.0 F 55 L 20 104/59 L 95 08/26/18 23:20 08/26/18 23:20 08/26/18 23:20 08/26/18 23:20 08/26/18 23:20 Intake and Output: 08/27/18 08/27/18 06:59 18:59 Intake Total 300 Balance 300 - Medications Medications: Current Medications Acetaminophen (Tylenol 325mg Tab) 650 mg PO Q6 PRN PRN Reason: Fever >100.4 F Last Admin: 08/19/18 07:59 Dose: 650 mg Albuterol/Ipratropium (Duoneb 3 Mg/0.5 Mg (3 Ml) Ud) 3 ml INH RQ6 [facility] Last Admin: 08/27/18 02:30 Dose: Not Given Arformoterol Tartrate (Brovana) 15 mcg INH RQ12@1000,2200 [facility] Last Admin: 08/26/18 10:51 Dose: 15 mcg Enoxaparin Sodium (Lovenox) 40 mg SC DAILY [facility] Last Admin: 08/26/18 09:51 Dose: 40 mg Furosemide (Lasix) 40 mg PO BID [facility] Last Admin: 08/26/18 17:22 Dose: 40 mg Cefepime HCl (Maxipime Iv 1 Gm Premix) 1 gm in 50 mls @ 100 mls/hr IVPB Q12H [facility]; Protocol Last Admin: 08/27/18 01:51 Dose: 100 mls/hr Methylprednisolone (Solu-Medrol) 60 mg IV Q6 [facility] Last Admin: 08/27/18 05:28 Dose: 60 mg Montelukast Sodium (Singulair) 10 mg PO HS [facility] Last Admin: 08/26/18 21:23 Dose: 10 mg Nebivolol (Bystolic) 5 mg PO DAILY [facility] Last Admin: 08/26/18 09:50 Dose: 5 mg Pantoprazole Sodium (Protonix Ec Tab) 40 mg PO DAILY [facility] Last Admin: 08/26/18 09:51 Dose: 40 mg Promethazine HCl (Phenergan Syrup) 6.25 mg PO Q6 PRN PRN Reason: Cough and congestion Last Admin: 08/24/18 17:36 Dose: 6.25 mg - Labs Labs: 08/21/18 08:40 08/24/18 07:50 <Gaurav Steele - Last Filed: 08/27/18 09:53> Subjective - Subjective Subjective: Podiatry progress note - Dr. Servin 53M seen and evaluated this AM with Dr. Servin for bilateral lower extremity venous stasis ulcerations. Patient resting comfortably. No acute events overnight. Patient offers no new lower extremity complaints. Dressings clean/dry /intact. Denies n/v/f/c/sob this AM. Objective - Vital Signs/Intake and Output Vital Signs (last 24 hours): Temp Pulse Resp BP Pulse Ox 97.6 F 63 20 114/76 97 08/27/18 08:31 08/27/18 08:31 08/27/18 08:31 08/27/18 09:16 08/27/18 08:31 Intake and Output: 08/27/18 08/27/18 06:59 18:59 Intake Total 300 Balance 300 - Medications Medications: Current Medications Acetaminophen (Tylenol 325mg Tab) 650 mg PO Q6 PRN PRN Reason: Fever >100.4 F Last Admin: 08/19/18 07:59 Dose: 650 mg Albuterol/Ipratropium (Duoneb 3 Mg/0.5 Mg (3 Ml) Ud) 3 ml INH RQ6 [facility] Last Admin: 08/27/18 09:00 Dose: 3 ml Arformoterol Tartrate (Brovana) 15 mcg INH RQ12@1000,2200 [facility] Last Admin: 08/27/18 09:32 Dose: 15 mcg Enoxaparin Sodium (Lovenox) 40 mg SC DAILY [facility] Last Admin: 08/27/18 09:16 Dose: 40 mg Furosemide (Lasix) 40 mg PO BID [facility] Last Admin: 08/27/18 09:16 Dose: 40 mg Cefepime HCl (Maxipime Iv 1 Gm Premix) 1 gm in 50 mls @ 100 mls/hr IVPB Q12H [facility]; Protocol Last Admin: 08/27/18 01:51 Dose: 100 mls/hr Methylprednisolone (Solu-Medrol) 60 mg IV Q6 [facility] Last Admin: 08/27/18 05:28 Dose: 60 mg Montelukast Sodium (Singulair) 10 mg PO HS [facility] Last Admin: 08/26/18 21:23 Dose: 10 mg Nebivolol (Bystolic) 5 mg PO DAILY [facility] Last Admin: 08/27/18 09:15 Dose: 5 mg Pantoprazole Sodium (Protonix Ec Tab) 40 mg PO DAILY [facility] Last Admin: 08/27/18 09:15 Dose: 40 mg Promethazine HCl (Phenergan Syrup) 6.25 mg PO Q6 PRN PRN Reason: Cough and congestion Last Admin: 08/24/18 17:36 Dose: 6.25 mg - Labs Labs: 08/27/18 08:44 08/27/18 08:44 - Constitutional Appears: Non-toxic - Head Exam Head Exam: ATRAUMATIC - Extremities Exam Additional comments: B/L LE focused exam: VASC: DP/PT pulses 2/4 b/l. Cap refill <3 seconds to digits. +2 pitting edema noted b/l with L>R. Temperature gradient warm to forensic structural engineer the left side and warm to cool on the right side from proximal to distal. Erythema noted along the bilateral LE which extends distal to the tibial tuberosity. NEURO: Gross and protective sensations are intact. DERM: Significant lower extremity Chronic stasis edema noted with L > R. Skin changes in the form of hyperpigmentation and lichnification of the legs noted. Superficial ulceration noted on the lower lateral part of left leg and anterior aspect of the right leg that shows epidermal lysis, mild serous drainage with no purulence, no malodor, no tunneling, no probe to bone MSK: Pedal muscle strength graded 5/5 in all groups. Mild limited ankle joint ROM to dorsiflexion b/l. Pain on palpation of the left leg. Pain on squeezing the left calf muscle. - Neurological Exam Neurological Exam: Alert, Awake, Oriented x3 - Psychiatric Exam Psychiatric exam: Normal Affect Assessment and Plan - Assessment and Plan (Free Text) Assessment: 53M with venous stasis ulcerations + cellulitis, resolving Plan: Patient seen and evaluated at bedside with Dr. Malathi RAMOS, WBC 12.4 IV abx as per ID - Cefepime Continue local wound care: Xeroform, ABD, DSD, JESSICA b/l LLE venous duplex: no evidence of DVT No surgical intervention from podiatry standpoint Will continue to provide local wound care Upon discharge, patient to follow up with Dr. Servin in office within 1 week
[2018-08-27 09:05] LABS: BLOOD UREA NITROGEN 43 mg/dL (9-20); GFR NON-AFRICAN AMERICAN > 60
[2018-08-27 09:08] LABS: BASO % 0.3 % (0.0-2.0); HEMOGLOBIN 14.4 g/dL (12.0-18.0); LYMPH # 1.1 K/uL (1.0-4.3); LYMPH % 8.7 % (20.0-40.0); MEAN CELL VOLUME 87.8 fL (80.0-94.0); MEAN CORPUSCULAR HEMOGLOBIN 29.3 pg (27.0-31.0); MEAN CORPUSCULAR HGB CONC 33.3 g/dL (33.0-37.0); MEAN PLATELET VOLUME 8.7 fL (7.2-11.7); MONO # 0.3 K/uL (0.0-0.8); MONO % 2.2 % (0.0-10.0); NEUT % 88.8 % (50.0-75.0); NRBC % 0.3 % (0.0-2.0); PLATELET COUNT 210 K/uL (130-400); RBC 4.94 Mil/uL (4.40-5.90); RED CELL DISTRIBUTION WIDTH 15.2 % (11.5-14.5); WHITE BLOOD COUNT 12.4 K/uL (4.8-10.8)
[2018-08-27] MEDS: Pantoprazole 40 mg EC Tab PO SCH (09:15)
[2018-08-27] MEDS: Enoxaparin 40 mg Syringe SC SCH (09:16)
[2018-08-27] MEDS: Arformoterol 15 mcg/2 ml Inh Sol INH SCH ×2 (09:32→22:12)
[2018-08-27 10:58] LABS: ANISOCYTOSIS SLIGHT; BANDS 2 % (0-2); LYMPHOCYTE 8 % (20-40); MONOCYTE 2 % (0-10); NEUTROPHIL 88 % (50-75); PLATELET ESTIMATE NORMAL (NORMAL); TOTAL CELLS COUNTED 100
[2018-08-27 11:00] LABS: TOXIC GRANULATION PRESENT
[2018-08-27 11:03] LABS: HYPOCHROMIC SLIGHT; POLYCHROMIC SLIGHT
--- NOTE | 2018-08-27 13:25 | CP.PCM.PN ---
Subjective - Date & Time of Evaluation Date of Evaluation: 08/27/18 Time of Evaluation: 13:24 - Subjective Subjective: sob much better.edema is down Objective - Vital Signs/Intake and Output Vital Signs (last 24 hours): Temp Pulse Resp BP Pulse Ox 97.6 F 63 20 114/76 97 08/27/18 08:31 08/27/18 08:31 08/27/18 08:31 08/27/18 09:16 08/27/18 08:31 Intake and Output: 08/27/18 08/27/18 06:59 18:59 Intake Total 300 Balance 300 - Medications Medications: Current Medications Acetaminophen (Tylenol 325mg Tab) 650 mg PO Q6 PRN PRN Reason: Fever >100.4 F Last Admin: 08/19/18 07:59 Dose: 650 mg Albuterol/Ipratropium (Duoneb 3 Mg/0.5 Mg (3 Ml) Ud) 3 ml INH RQ6 [facility] Last Admin: 08/27/18 09:00 Dose: 3 ml Arformoterol Tartrate (Brovana) 15 mcg INH RQ12@1000,2200 [facility] Last Admin: 08/27/18 09:32 Dose: 15 mcg Enoxaparin Sodium (Lovenox) 40 mg SC DAILY [facility] Last Admin: 08/27/18 09:16 Dose: 40 mg Furosemide (Lasix) 40 mg PO BID [facility] Last Admin: 08/27/18 09:16 Dose: 40 mg Cefepime HCl (Maxipime Iv 1 Gm Premix) 1 gm in 50 mls @ 100 mls/hr IVPB Q12H [facility]; Protocol Last Admin: 08/27/18 01:51 Dose: 100 mls/hr Montelukast Sodium (Singulair) 10 mg PO HS [facility] Last Admin: 08/26/18 21:23 Dose: 10 mg Nebivolol (Bystolic) 5 mg PO DAILY [facility] Last Admin: 08/27/18 09:15 Dose: 5 mg Pantoprazole Sodium (Protonix Ec Tab) 40 mg PO DAILY [facility] Last Admin: 08/27/18 09:15 Dose: 40 mg Prednisone (Prednisone Tab) 20 mg PO BID [facility] Promethazine HCl (Phenergan Syrup) 6.25 mg PO Q6 PRN PRN Reason: Cough and congestion Last Admin: 08/24/18 17:36 Dose: 6.25 mg - Labs Labs: 08/27/18 08:44 08/27/18 08:44 - Constitutional Appears: No Acute Distress - Head Exam Head Exam: NORMOCEPHALIC - ENT Exam ENT Exam: Normal Exam - Neck Exam Neck Exam: Normal Inspection - Respiratory Exam Respiratory Exam: Clear to Ausculation Bilateral - Cardiovascular Exam Cardiovascular Exam: REGULAR RHYTHM - GI/Abdominal Exam GI & Abdominal Exam: Soft - Extremities Exam Extremities Exam: Pedal Edema - Neurological Exam Neurological Exam: Alert, Oriented x3 Assessment and Plan - Assessment and Plan (Free Text) Plan: doing better.will switch to po steroids.
--- NOTE | 2018-08-27 14:25 | CP.PCM.PN ---
Subjective - Date & Time of Evaluation Date of Evaluation: 08/27/18 Time of Evaluation: 12:00 - Subjective Subjective: Patient seen and examined Cough and shortness of breath much improved No further wheezing Started on prednisone Nebulizer treatment Objective - Vital Signs/Intake and Output Vital Signs (last 24 hours): Temp Pulse Resp BP Pulse Ox 97.6 F 63 20 114/76 97 08/27/18 08:31 08/27/18 08:31 08/27/18 08:31 08/27/18 09:16 08/27/18 08:31 Intake and Output: 08/27/18 08/27/18 06:59 18:59 Intake Total 300 Balance 300 - Medications Medications: Current Medications Acetaminophen (Tylenol 325mg Tab) 650 mg PO Q6 PRN PRN Reason: Fever >100.4 F Last Admin: 08/19/18 07:59 Dose: 650 mg Albuterol/Ipratropium (Duoneb 3 Mg/0.5 Mg (3 Ml) Ud) 3 ml INH RQ6 [facility] Last Admin: 08/27/18 13:28 Dose: 3 ml Arformoterol Tartrate (Brovana) 15 mcg INH RQ12@1000,2200 [facility] Last Admin: 08/27/18 09:32 Dose: 15 mcg Enoxaparin Sodium (Lovenox) 40 mg SC DAILY [facility] Last Admin: 08/27/18 09:16 Dose: 40 mg Furosemide (Lasix) 40 mg PO BID [facility] Last Admin: 08/27/18 09:16 Dose: 40 mg Cefepime HCl (Maxipime Iv 1 Gm Premix) 1 gm in 50 mls @ 100 mls/hr IVPB Q12H [facility]; Protocol Last Admin: 08/27/18 01:51 Dose: 100 mls/hr Montelukast Sodium (Singulair) 10 mg PO HS [facility] Last Admin: 08/26/18 21:23 Dose: 10 mg Nebivolol (Bystolic) 5 mg PO DAILY [facility] Last Admin: 08/27/18 09:15 Dose: 5 mg Pantoprazole Sodium (Protonix Ec Tab) 40 mg PO DAILY [facility] Last Admin: 08/27/18 09:15 Dose: 40 mg Prednisone (Prednisone Tab) 20 mg PO BID [facility] Promethazine HCl (Phenergan Syrup) 6.25 mg PO Q6 PRN PRN Reason: Cough and congestion Last Admin: 08/24/18 17:36 Dose: 6.25 mg - Labs Labs: 08/27/18 08:44 08/27/18 08:44 Assessment and Plan (1) Cellulitis, leg Status: Acute (2) Chronic obstructive lung disease Status: Chronic
[2018-08-28] MEDS: Cefepime IV 1 gm in Dextrose 1 GM/50 ML BAG IVPB SCH ×2 (02:01→13:38)
[2018-08-28] MEDS: Albuterol-Ipratrop 3 mg / 0.5 (3 ml) UD INH SCH ×3 (07:59→20:28)
[2018-08-28] MEDS: Pantoprazole 40 mg EC Tab PO SCH (09:44)
[2018-08-28] MEDS: Enoxaparin 40 mg Syringe SC SCH (09:46)
[2018-08-28] MEDS: Arformoterol 15 mcg/2 ml Inh Sol INH SCH ×2 (12:00→21:02)
--- NOTE | 2018-08-28 13:47 | CP.PCM.PN ---
Subjective - Date & Time of Evaluation Date of Evaluation: 08/28/18 Time of Evaluation: 13:35 - Subjective Subjective: Pulmonary follow up, The Patient was seen and examined at the bedside, Medical records reviewed, and management issues were discussed and formulated with the house staff. Events reviewed Reason for consultation: Productive cough, shortness of breath Mr Moreno is a 53 years old male with past medical history of chronic obstructive pulmonary disease, history of empyema status post VATS/decortication in 2016, ?obstructive sleep apnea and reactive airway disease (respiratory symptoms appeared immediately after heavy occupational exposure, as per patient) Who presented to the emergency room with complaint of worsening shortness of breath and productive cough for the past 2 days patient also admits to swelling Redness of both lower extremities especially the left side He was admitted with sepsis, acute respiratory insufficiency with hypoxemia and hypercapnia from COPD exacerbation Patient is comfortable, Sitting in chair in no apparent distress Cough and shortness of breath much improved No further wheezing Afebrile PMHx: Anemia, Arthrtis (L hand FFX), A-Fib, COPD, HTN, Perhipheral Edema, [place] PSHx: VATS procedure, Appendectomy Objective - Vital Signs/Intake and Output Vital Signs (last 24 hours): Temp Pulse Resp BP Pulse Ox 98.0 F 61 20 115/76 94 L 08/28/18 08:55 08/28/18 08:55 08/28/18 08:55 08/28/18 09:44 08/28/18 08:55 - Medications Medications: Current Medications Acetaminophen (Tylenol 325mg Tab) 650 mg PO Q6 PRN PRN Reason: Fever >100.4 F Last Admin: 08/19/18 07:59 Dose: 650 mg Albuterol/Ipratropium (Duoneb 3 Mg/0.5 Mg (3 Ml) Ud) 3 ml INH RQ6 [facility] Last Admin: 08/28/18 07:59 Dose: 3 ml Arformoterol Tartrate (Brovana) 15 mcg INH RQ12@1000,2200 [facility] Last Admin: 08/27/18 22:12 Dose: 15 mcg Enoxaparin Sodium (Lovenox) 40 mg SC DAILY [facility] Last Admin: 08/28/18 09:46 Dose: 40 mg Furosemide (Lasix) 40 mg PO BID [facility] Last Admin: 05/05/19 09:44 Dose: 40 mg Cefepime HCl (Maxipime Iv 1 Gm Premix) 1 gm in 50 mls @ 100 mls/hr IVPB Q12H [facility]; Protocol Last Admin: 08/28/18 02:01 Dose: 100 mls/hr Montelukast Sodium (Singulair) 10 mg PO HS [facility] Last Admin: 08/27/18 21:55 Dose: 10 mg Nebivolol (Bystolic) 5 mg PO DAILY [facility] Last Admin: 08/28/18 09:43 Dose: 5 mg Pantoprazole Sodium (Protonix Ec Tab) 40 mg PO DAILY [facility] Last Admin: 08/28/18 09:44 Dose: 40 mg Prednisone (Prednisone Tab) 20 mg PO BID [facility] Last Admin: 08/28/18 09:44 Dose: 20 mg Promethazine HCl (Phenergan Syrup) 6.25 mg PO Q6 PRN PRN Reason: Cough and congestion Last Admin: 08/24/18 17:36 Dose: 6.25 mg - Labs Labs: 08/27/18 08:44 08/27/18 08:44 - Constitutional Appears: Well, Non-toxic - Head Exam Head Exam: ATRAUMATIC, NORMAL INSPECTION - Eye Exam Eye Exam: EOMI, Normal appearance, PERRL Pupil Exam: NORMAL ACCOMODATION, PERRL - ENT Exam ENT Exam: Mucous Membranes Moist - Neck Exam Neck Exam: Full ROM - Respiratory Exam Respiratory Exam: Decreased Breath Sounds, Prolonged Expiratory Phase. absent: Accessory Muscle Use, Chest Wall Tenderness, Rales, Rhonchi, Wheezes, Resp iratory Distress - Cardiovascular Exam Cardiovascular Exam: REGULAR RHYTHM. absent: Bradycardia, Tachycardia - Back Exam Back Exam: absent: CVA tenderness (L), CVA tenderness (R) - Neurological Exam Neurological Exam: Alert, Awake, CN II-XII Intact, Normal Gait, Oriented x3. absent: Motor Sensory Deficit Assessment and Plan (1) Cellulitis, leg Status: Acute (2) Dyspnea Status: Acute (3) Chronic obstructive lung disease Status: Chronic (4) Anxiety Status: Acute (5) COPD exacerbation Status: Acute (6) Cellulitis of left lower leg Status: Acute (7) MIKEY (obstructive sleep apnea) Status: Acute (8) Pleural disease Status: Acute - Assessment and Plan (Free Text) Assessment: Continue with prednisone 20 mg PO BID and Singulair 10 mg PO HS Nebulizer treatment RQ6 [facility] Patient with morbid obesity, possible obesity hypoventilation syndrome and obstructive sleep apnea Patient scheduled for sleep studies as an outpatient
[2018-08-29] MEDS: Albuterol-Ipratrop 3 mg / 0.5 (3 ml) UD INH SCH ×3 (01:12→13:34)
[2018-08-29] MEDS: Cefepime IV 1 gm in Dextrose 1 GM/50 ML BAG IVPB SCH ×2 (02:08→13:34)
--- NOTE | 2018-08-29 08:57 | CP.PCM.PN ---
Subjective - Date & Time of Evaluation Date of Evaluation: 08/29/18 Time of Evaluation: 08:56 - Subjective Subjective: Podiatry progress note - Dr. Servin 53M seen and evaluated this AM for bilateral lower extremity venous stasis ulcerations. Patient resting comfortably, OOB in recliner. No acute events overnight. No new LE complaints. Dressings clean/dry/intact. Denies n/v/f/c/sob this AM. D/c home tomorrow. Objective - Vital Signs/Intake and Output Vital Signs (last 24 hours): Temp Pulse Resp BP Pulse Ox 98.2 F 62 18 118/77 99 08/29/18 07:00 08/29/18 07:00 08/29/18 07:00 08/29/18 07:00 08/29/18 07:00 - Medications Medications: Current Medications Acetaminophen (Tylenol 325mg Tab) 650 mg PO Q6 PRN PRN Reason: Fever >100.4 F Last Admin: 08/19/18 07:59 Dose: 650 mg Albuterol/Ipratropium (Duoneb 3 Mg/0.5 Mg (3 Ml) Ud) 3 ml INH RQ6 [facility] Last Admin: 08/29/18 01:12 Dose: Not Given Arformoterol Tartrate (Brovana) 15 mcg INH RQ12@1000,2200 [facility] Last Admin: 08/28/18 21:02 Dose: 15 mcg Enoxaparin Sodium (Lovenox) 40 mg SC DAILY [facility] Last Admin: 08/28/18 09:46 Dose: 40 mg Furosemide (Lasix) 40 mg PO BID [facility] Last Admin: 08/28/18 17:11 Dose: 40 mg Cefepime HCl (Maxipime Iv 1 Gm Premix) 1 gm in 50 mls @ 100 mls/hr IVPB Q12H [facility]; Protocol Last Admin: 08/29/18 02:08 Dose: 100 mls/hr Montelukast Sodium (Singulair) 10 mg PO HS [facility] Last Admin: 08/28/18 21:30 Dose: 10 mg Nebivolol (Bystolic) 5 mg PO DAILY [facility] Last Admin: 08/28/18 09:43 Dose: 5 mg Pantoprazole Sodium (Protonix Ec Tab) 40 mg PO DAILY [facility] Last Admin: 08/28/18 09:44 Dose: 40 mg Prednisone (Prednisone Tab) 20 mg PO BID [facility] Last Admin: 08/28/18 17:10 Dose: 20 mg Promethazine HCl (Phenergan Syrup) 6.25 mg PO Q6 PRN PRN Reason: Cough and congestion Last Admin: 08/24/18 17:36 Dose: 6.25 mg - Labs Labs: 08/27/18 08:44 08/27/18 08:44 - Constitutional Appears: Non-toxic, No Acute Distress - Extremities Exam Additional comments: B/L LE focused exam: VASC: DP/PT pulses 2/4 b/l. Cap refill <3 seconds to digits. +2 pitting edema no dre b/l with L>R. Temperature gradient warm to student finance advisor the left side and warm to cool on the right side from proximal to distal. Erythema noted along the bilateral LE which extends distal to the tibial tuberosity. NEURO: Gross and protective sensations are intact. DERM: Significant lower extremity Chronic stasis edema noted with L > R. Skin changes in the form of hyperpigmentation and lichnification of the legs noted. Superficial ulceration noted on the lower lateral part of left leg and anterior aspect of the right leg that shows epidermal lysis, mild serous drainage with no purulence, no malodor, no tunneling, no probe to bone MSK: Pedal muscle strength graded 5/5 in all groups. Mild limited ankle joint ROM to dorsiflexion b/l. Pain on palpation of the left leg. Pain on squeezing the left calf muscle. - Neurological Exam Neurological Exam: Alert, Awake - Psychiatric Exam Psychiatric exam: Normal Affect, Normal Mood Assessment and Plan - Assessment and Plan (Free Text) Assessment: 53M with venous stasis ulcerations + cellulitis, resolved Plan: Patient seen and evaluated at bedside Discussed with Dr. Servin VSAlejandra IV abx as per ID - Cefepime Continue local wound care: Xeroform, ABD, DSD, JESSICA b/l LLE venous duplex: no evidence of DVT No surgical intervention from podiatry standpoint Will continue to provide local wound care Upon discharge, patient to follow up with Dr. Servin in office within 1 week
[2018-08-29] MEDS: Pantoprazole 40 mg EC Tab PO SCH (09:27)
[2018-08-29] MEDS: Enoxaparin 40 mg Syringe SC SCH (09:27)
[2018-08-29] MEDS: Arformoterol 15 mcg/2 ml Inh Sol INH SCH ×2 (09:27→21:02)
--- NOTE | 2018-08-29 11:55 | CP.PCM.PN ---
Subjective - Date & Time of Evaluation Date of Evaluation: 08/29/18 Time of Evaluation: 10:30 - Subjective Subjective: patient seen and examined Sitting comfortably in no distress Cough or shortness of breath much improved Ok to discharge home Follow up in the office Outpatient sleep study Objective - Vital Signs/Intake and Output Vital Signs (last 24 hours): Temp Pulse Resp BP Pulse Ox 98.2 F 62 18 144/69 99 08/29/18 07:00 08/29/18 07:00 08/29/18 07:00 08/29/18 09:27 08/29/18 07:00 - Medications Medications: Current Medications Acetaminophen (Tylenol 325mg Tab) 650 mg PO Q6 PRN PRN Reason: Fever >100.4 F Last Admin: 08/19/18 07:59 Dose: 650 mg Albuterol/Ipratropium (Duoneb 3 Mg/0.5 Mg (3 Ml) Ud) 3 ml INH RQ6 [facility] Last Admin: 08/29/18 07:30 Dose: Not Given Arformoterol Tartrate (Brovana) 15 mcg INH RQ12@1000,2200 [facility] Last Admin: 08/29/18 09:27 Dose: 15 mcg Enoxaparin Sodium (Lovenox) 40 mg SC DAILY [facility] Last Admin: 08/29/18 09:27 Dose: 40 mg Furosemide (Lasix) 40 mg PO BID [facility] Last Admin: 08/29/18 09:27 Dose: 40 mg Cefepime HCl (Maxipime Iv 1 Gm Premix) 1 gm in 50 mls @ 100 mls/hr IVPB Q12H [facility]; Protocol Last Admin: 08/29/18 02:08 Dose: 100 mls/hr Montelukast Sodium (Singulair) 10 mg PO HS [facility] Last Admin: 08/28/18 21:30 Dose: 10 mg Nebivolol (Bystolic) 5 mg PO DAILY [facility] Last Admin: 08/29/18 09:27 Dose: 5 mg Pantoprazole Sodium (Protonix Ec Tab) 40 mg PO DAILY [facility] Last Admin: 08/29/18 09:27 Dose: 40 mg Prednisone (Prednisone Tab) 20 mg PO BID [facility] Last Admin: 08/29/18 09:27 Dose: 20 mg Promethazine HCl (Phenergan Syrup) 6.25 mg PO Q6 PRN PRN Reason: Cough and congestion Last Admin: 08/24/18 17:36 Dose: 6.25 mg - Labs Labs: 08/27/18 08:44 08/27/18 08:44 Assessment and Plan (1) Cellulitis, leg Status: Acute (2) Chronic obstructive lung disease Status: Chronic
--- NOTE | 2018-08-29 14:39 | CP.PCM.PN ---
Subjective - Date & Time of Evaluation Date of Evaluation: 08/29/18 Time of Evaluation: 14:38 - Subjective Subjective: sob & wheeeze is better.cellulitis +> Objective - Vital Signs/Intake and Output Vital Signs (last 24 hours): Temp Pulse Resp BP Pulse Ox 98.2 F 62 18 144/69 99 08/29/18 07:00 08/29/18 07:00 08/29/18 07:00 08/29/18 09:27 08/29/18 07:00 - Medications Medications: Current Medications Acetaminophen (Tylenol 325mg Tab) 650 mg PO Q6 PRN PRN Reason: Fever >100.4 F Last Admin: 08/19/18 07:59 Dose: 650 mg Albuterol/Ipratropium (Duoneb 3 Mg/0.5 Mg (3 Ml) Ud) 3 ml INH RQ6 [facility] Last Admin: 08/29/18 13:34 Dose: 3 ml Arformoterol Tartrate (Brovana) 15 mcg INH RQ12@1000,2200 [facility] Last Admin: 08/29/18 09:27 Dose: 15 mcg Enoxaparin Sodium (Lovenox) 40 mg SC DAILY [facility] Last Admin: 08/29/18 09:27 Dose: 40 mg Furosemide (Lasix) 40 mg PO BID [facility] Last Admin: 08/29/18 09:27 Dose: 40 mg Cefepime HCl (Maxipime Iv 1 Gm Premix) 1 gm in 50 mls @ 100 mls/hr IVPB Q12H [facility]; Protocol Last Admin: 08/29/18 13:34 Dose: 100 mls/hr Montelukast Sodium (Singulair) 10 mg PO HS [facility] Last Admin: 08/28/18 21:30 Dose: 10 mg Nebivolol (Bystolic) 5 mg PO DAILY [facility] Last Admin: 08/29/18 09:27 Dose: 5 mg Pantoprazole Sodium (Protonix Ec Tab) 40 mg PO DAILY [facility] Last Admin: 08/29/18 09:27 Dose: 40 mg Prednisone (Prednisone Tab) 20 mg PO BID [facility] Last Admin: 08/29/18 09:27 Dose: 20 mg Promethazine HCl (Phenergan Syrup) 6.25 mg PO Q6 PRN PRN Reason: Cough and congestion Last Admin: 08/24/18 17:36 Dose: 6.25 mg - Labs Labs: 08/27/18 08:44 08/27/18 08:44 - Constitutional Appears: No Acute Distress, Chronically Ill - Head Exam Head Exam: NORMOCEPHALIC - Respiratory Exam Respiratory Exam: Wheezes - Cardiovascular Exam Cardiovascular Exam: REGULAR RHYTHM - GI/Abdominal Exam GI & Abdominal Exam: Soft - Extremities Exam Extremities Exam: Pedal Edema - Neurological Exam Neurological Exam: Alert, Oriented x3 Assessment and Plan - Assessment and Plan (Free Text) Plan: cti v antibiotics for now.d/c home in am.
[2018-08-29 17:02] VITALS: RESP 20
--- NOTE | 2018-08-29 22:43 | CP.PCM.PN ---
Subjective - Date & Time of Evaluation Date of Evaluation: 08/29/18 Time of Evaluation: 07:00 - Subjective Subjective: slow progress left leg ulcer less drainage swelling decreased 'no fever wheezing resolved Objective - Vital Signs/Intake and Output Vital Signs (last 24 hours): Temp Pulse Resp BP Pulse Ox 98.6 F 61 20 125/67 97 08/29/18 15:40 08/29/18 15:40 08/29/18 15:40 08/29/18 17:28 08/29/18 15:40 Intake and Output: 08/29/18 08/30/18 18:59 06:59 Intake Total 320 Balance 320 - Medications Medications: Current Medications Acetaminophen (Tylenol 325mg Tab) 650 mg PO Q6 PRN PRN Reason: Fever >100.4 F Last Admin: 08/19/18 07:59 Dose: 650 mg Arformoterol Tartrate (Brovana) 15 mcg INH RQ12@1000,2200 [facility] Last Admin: 08/29/18 21:02 Dose: 15 mcg Enoxaparin Sodium (Lovenox) 40 mg SC DAILY [facility] Last Admin: 08/29/18 09:27 Dose: 40 mg Furosemide (Lasix) 40 mg PO BID [facility] Last Admin: 08/29/18 17:28 Dose: 40 mg Cefepime HCl (Maxipime Iv 1 Gm Premix) 1 gm in 50 mls @ 100 mls/hr IVPB Q12H [facility]; Protocol Last Admin: 08/29/18 13:34 Dose: 100 mls/hr Montelukast Sodium (Singulair) 10 mg PO HS [facility] Last Admin: 08/29/18 21:41 Dose: 10 mg Nebivolol (Bystolic) 5 mg PO DAILY [facility] Last Admin: 08/29/18 09:27 Dose: 5 mg Pantoprazole Sodium (Protonix Ec Tab) 40 mg PO DAILY [facility] Last Admin: 08/29/18 09:27 Dose: 40 mg Prednisone (Prednisone Tab) 20 mg PO BID [facility] Last Admin: 08/29/18 17:28 Dose: 20 mg Promethazine HCl (Phenergan Syrup) 6.25 mg PO Q6 PRN PRN Reason: Cough and congestion Last Admin: 08/24/18 17:36 Dose: 6.25 mg - Labs Labs: 08/27/18 08:44 08/27/18 08:44 - Constitutional Appears: Non-toxic, Chronically Ill - Head Exam Head Exam: ATRAUMATIC, NORMAL INSPECTION, NORMOCEPHALIC - Eye Exam Eye Exam: EOMI, Normal appearance, PERRL Pupil Exam: NORMAL ACCOMODATION, PERRL - ENT Exam ENT Exam: Mucous Membranes Moist, Normal Exam - Neck Exam Neck Exam: Full ROM, Normal Inspection. absent: Lymphadenopathy - Respiratory Exam Respiratory Exam: Clear to Ausculation Bilateral, NORMAL BREATHING PATTERN - Cardiovascular Exam Cardiovascular Exam: REGULAR RHYTHM, +S1, +S2. absent: Murmur - GI/Abdominal Exam GI & Abdominal Exam: Soft, Normal Bowel Sounds. absent: Tenderness - Rectal Exam Rectal Exam: Deferred - Extremities Exam Extremities Exam: Full ROM, Normal Capillary Refill, Normal Inspection. absent: Joint Swelling, Pedal Edema - Back Exam Back Exam: NORMAL INSPECTION - Neurological Exam Neurological Exam: Alert, Awake, CN II-XII Intact, Normal Gait, Oriented x3 - Psychiatric Exam Psychiatric exam: Normal Affect, Normal Mood - Skin Skin Exam: Dry, Intact, Normal Color, Warm Assessment and Plan (1) Cellulitis, leg Status: Acute (2) Chronic obstructive lung disease Status: Chronic (3) Left leg cellulitis Status: Acute (4) MIKEY (obstructive sleep apnea) Status: Acute (5) A-fib Status: Chronic (6) HTN (hypertension) Status: Chronic (7) Morbid obesity with BMI of 60.0-69.9, adult Status: Chronic (8) Venous stasis dermatitis of both lower extremities Status: Chronic - Assessment and Plan (Free Text) Assessment: cellulitis resolving slowly IV rx in progress
[2018-08-30] MEDS: Cefepime IV 1 gm in Dextrose 1 GM/50 ML BAG IVPB SCH ×2 (02:11→13:00)
[2018-08-30 08:12] VITALS: PULSE 62; TEMP 98.1; O2SAT 98
[2018-08-30] MEDS: Enoxaparin 40 mg Syringe SC SCH (09:11)
[2018-08-30 09:12] VITALS: BP 117/71
[2018-08-30] MEDS: Pantoprazole 40 mg EC Tab PO SCH (09:12)
[2018-08-30] MEDS: Arformoterol 15 mcg/2 ml Inh Sol INH SCH (10:45)
[2018-08-30 12:13] LABS: BLOOD UREA NITROGEN 40 mg/dL (9-20); GFR NON-AFRICAN AMERICAN > 60
--- NOTE | 2018-08-31 04:23 | DS ---
HISTORY OF PRESENT ILLNESS: A 53-year-old white gentleman, morbidly obese, who was brought in with cellulitis of the left leg and exacerbation of COPD. The patient was admitted to telemetry where initially IV antibiotics were given. The patient was seen by pulmonary physician, Dr. Turk, Infectious cisco consultant Dr. Hewitt and Podiatry cisco consultant Dr. Servin. Local treatment was given. IV steroids were needed for increasing dose because of the severe wheezing. This was tapered off. The patient has done well. He will be discharged on prednisone 20 b.i.d. for 7 days followed by 10 mg b.i.d. for another 2 weeks. I will see him back in 1 week. Low-fat, low-cholesterol, low-concentrated diet. Diet was explained to avoid sweets and watch the sugar. The patient has done well. I will see him back. The patient will need sleep study as instructed by Dr. Turk. Plan of care was explained to the patient. Prescriptions have been called in to [facility]. FINAL DIAGNOSES: 1. Exacerbation of chronic obstructive pulmonary edema. 2. Cellulitis of the leg. Lars Wells MD
== END 2018-08-30 16:10 | disposition home or self-care (01) | DRG 191 ==
LOC: C.ER 13:59 → C.6T 17:22 → OBSVTOIN 08-18 12:22
PROVIDERS: ADMIT Internal Medicine Cardiovascular Disease; ATTEND Internal Medicine Cardiovascular Disease
DX: J44.1 Chronic obstructive pulmonary disease with (acute) exacerbation (principal); L03.116 Cellulitis of left lower limb; L03.115 Cellulitis of right lower limb; I87.2 Venous insufficiency (chronic) (peripheral); M19.042 Primary osteoarthritis, left hand; E66.01 Morbid (severe) obesity due to excess calories; I48.0 Paroxysmal atrial fibrillation; Z87.891 Personal history of nicotine dependence; Z99.81 Dependence on supplemental oxygen; M19.90 Unspecified osteoarthritis, unspecified site; Z86.711 Personal history of pulmonary embolism; G47.33 Obstructive sleep apnea (adult) (pediatric); I11.0 Hypertensive heart disease with heart failure; I50.9 Heart failure, unspecified